=== PATIENT | male | born 1950 | race Caucasian/White ===

== ENCOUNTER 2021-02-21 13:47 | Emergency (ER) | payer MEDICARE, SELFPAY ==
--- NOTE | ~2021-02-21 | CT_ITS ---
EXAMINATION: CTA chest PE protocol DATE: 02/21/2021 15:54 INDICATION: Shortness of breath, weakness, weight loss, and elevated d-dimer TECHNIQUE: Computed tomography angiography (CTA) of the chest was performed with 100 mL Omnipaque-350 intravenous contrast timed to evaluate the pulmonary arteries. Coronal maximum intensity projection 3D-reconstructions were created by the technologist. The dose-length product (DLP) was 224.07 mGy-cm. Automated exposure control and iterative reconstruction technique were employed. COMPARISON: 01/01/2010 FINDINGS: The pulmonary arteries are well-opacified. No pulmonary embolism is identified. There is mi ld emphysema. There are moderate bilateral pleural effusions. Cardiomegaly is noted. There is no pneu mothorax. There is mild atelectasis of the lingula and passive dependent atelectasis of the lower lob es. There are chronic, mildly enlarged right paratracheal lymph nodes, likely reactive. There is mode rate thoracic spondylosis. IMPRESSION: 1. No pulmonary embolism. 2. Moderate-sized pleural effusions. 3. Cardiomegaly. Reviewed, dictated and finalized at location A.
--- NOTE | ~2021-02-21 | XR_ITS ---
EXAMINATION: XR chest 2V DATE: 02/21/2021 14:07 INDICATION: Dyspnea with exertion TECHNIQUE: PA and lateral views of the chest were obtained. COMPARISON: Chest radiograph dated 12/20/[address] dated 01/01/2010. FINDINGS: Small bilateral pleural effusions. Primary reticular opacities in bilateral lower lung zones which co uld represent associated atelectasis, mild pulmonary edema, pneumonia or some combination thereof. No pneumothorax. Mild cardiomegaly. Median sternotomy wires, ostial markers and mediastinal surgical cl ips consistent with prior coronary artery bypass grafting. Mild thoracic spondylosis. IMPRESSION: 1. Bibasilar opacities most likely congestive heart failure related mild pulmonary edema with small b ilateral pleural effusions. Differential includes pneumonia. Reviewed, dictated and finalized at location A. IMPRESSION: 1. Bibasilar opacities most likely congestive heart failure related mild pulmon kely edema with small bilateral pleural effusions. Differential includes pneumon ia.
--- NOTE | 2021-02-21 13:50 | ECG_ITS ---
Measurements Intervals [place] Rate: 60 P: 58 NH: 142 QRS: 7 QRSD: 117 T: 158 QT: 453 QTc: 453 Interpretive Statements SINUS RHYTHM INCOMPLETE LEFT BUNDLE BRANCH BLOCK BORDERLINE R WAVE PROGRESSION, ANTERIOR LEADS LEFT VENTRICULAR HYPERTROPHY AND ST-T CHANGE CONSIDER INFERIOR INFARCT, AGE INDETERMINATE ST-T WAVE ABNORMALITY IN LAT/HIGH LAT LEADS- CONSIDER ISCHEMIA BASELINE ARTIFACT- I, II, III, AVR, AVF, V2-V6 ABNORMAL ECG Electronically Signed On 02-21-2021 17:48:06 CDT by Patrick Daniels D.O.
[2021-02-21 13:51] VITALS: BP 171/58; PULSE 62; RESP 21; TEMP 36.9; O2SAT 97
[2021-02-21 13:54] VITALS: PULSE 61
[2021-02-21 14:09] LABS: Basophils Absolute Auto 0.1 K/mm3 (0.0-0.1); Basophils Percent Auto 1.5 % (0.2-1.2); Eosinophils Absolute Auto 0.2 K/mm3 (0-0.3); Eosinophils Percent Auto 2.8 % (0-4.4); Hematocrit 36.2 % (42.0-52.0); Hemoglobin 11.1 g/dL (14.0-18.0); Immature Granulocyte Absolute 0.01 K/mm3 (0.00-0.031); Immature Granulocyte Percent A 0.2 % (0-0.5); Immature Platelet Fraction Pct 10.4 % (0.9-11.2); Lymphocytes Absolute Auto 1.18 K/mm3 (0.9-3.2); Lymphocytes Percent Auto 22.2 % (18.3-44.2); Mean Corpuscular HGB Conc 30.7 g/dl (32-36); Mean Corpuscular Hemoglobin 25.5 pg (26-34); Mean Corpuscular Volume 83.2 fl (80-100); Mean Platelet Volume 12.8 fl (7.4-10.4); Monocytes Absolute Auto 0.5 K/mm3 (0.1-0.6); Monocytes Percent Auto 10.2 % (2.6-8.5); Neutrophils Absolute Auto 3.4 K/mm3 (1.3-6.7); Neutrophils Percent Auto 63.1 % (45.5-73.1); Platelet Count Result 118 k/mm3 (150-375); Red Blood Count 4.35 M/mm3 (4.6-6.20); Red Cell Distribution Width 17.2 % (11.5-14.5); White Blood Count 5.3 K/mm3 (4.5-10.0)
[2021-02-21 14:13] LABS: Anion Gap 5 mmol/L (8-16); Blood Urea Nitrogen 20 mg/dL (9-20); Calcium 9.3 mg/dL (8.4-10.2); Carbon Dioxide 23 mmol/L (22-30); Chloride 109 mmol/L (98-107); Estimated CRCL calculation 57 ml/min; Estimated Glomerular Filt Rate > 60; Glucose 100 mg/dL (75-110); Potassium 4.4 mmol/L (3.4-5.0); Sodium 137 mmol/L (137-145)
[2021-02-21 14:40] LABS: Alveolar/Arterial O2 Gradient 41.3 mmHg; Base Excess ABG 0.7 mEq/l (+/-2.0); Fractional Inspired Oxygen 21 %; HCO3 ABG 25.1 mEq/l (22.0-26.0); Oxygen Saturation ABG 92.1 % (95.0-100.0); PCO2 ABG 39.3 mmHg (35.0-45.0); PO2 ABG 61.4 mmHg (80.0-100.0); PO2 FiO2 Ratio Arterial Blood 2.92 %; Total Hemoglobin 11.8 g/dL (12.0-18.0); pH ABG 7.423 (7.350-7.450)
[2021-02-21 14:41] LABS: Device ROOM AIR; Modified Allen's Test Pass; Site Drawn RIGHT RADIAL
[2021-02-21 15:20] LABS: Basophils Absolute Auto 0.1 K/mm3 (0.0-0.1); Basophils Percent Auto 1.4 % (0.2-1.2); Eosinophils Absolute Auto 0.1 K/mm3 (0-0.3); Eosinophils Percent Auto 2.8 % (0-4.4); Hematocrit 39.6 % (42.0-52.0); Hemoglobin 12.1 g/dL (14.0-18.0); Immature Granulocyte Absolute 0.01 K/mm3 (0.00-0.031); Immature Granulocyte Percent A 0.2 % (0-0.5); Immature Platelet Fraction Pct 10.8 % (0.9-11.2); Lymphocytes Absolute Auto 1.01 K/mm3 (0.9-3.2); Lymphocytes Percent Auto 20.1 % (18.3-44.2); Mean Corpuscular HGB Conc 30.6 g/dl (32-36); Mean Corpuscular Hemoglobin 25.7 pg (26-34); Mean Corpuscular Volume 84.3 fl (80-100); Mean Platelet Volume 13.4 fl (7.4-10.4); Monocytes Absolute Auto 0.4 K/mm3 (0.1-0.6); Monocytes Percent Auto 8.2 % (2.6-8.5); Neutrophils Absolute Auto 3.4 K/mm3 (1.3-6.7); Neutrophils Percent Auto 67.3 % (45.5-73.1); Platelet Count Result 126 k/mm3 (150-375); Red Cell Distribution Width 17.4 % (11.5-14.5)
[2021-02-21 15:30] LABS: Prothrombin Time 14.2 Seconds (11.1-14.7)
[2021-02-21 15:33] LABS: D Dimer 2.15 ug/mL (<0.48)
[2021-02-21 15:43] LABS: Alanine Aminotransferase 20 U/L (4-50); Albumin Level 4.4 g/dL (3.5-5.1); Alkaline Phosphatase 129 U/L (38-126); Anion Gap 8 mmol/L (8-16); Aspartate Amino Transferase 29 U/L (17-59); Bilirubin,Total 1.5 mg/dL (0.2-1.3); Blood Urea Nitrogen 19 mg/dL (9-20); Calcium 9.8 mg/dL (8.4-10.2); Carbon Dioxide 25 mmol/L (22-30); Chloride 108 mmol/L (98-107); Estimated CRCL calculation 51 ml/min; Estimated Glomerular Filt Rate > 60; Glucose 96 mg/dL (75-110); Magnesium 1.9 mg/dL (1.6-2.3); Potassium 4.3 mmol/L (3.4-5.0); Sodium 141 mmol/L (137-145)
[2021-02-21 15:58] LABS: NT Pro B Type Natriuretic Pept 10500 pg/mL (5-100); Troponin I 0.035 ng/mL (0.000-0.034)
[2021-02-21 16:01] VITALS: BP 165/52; PULSE 67; RESP 21; O2SAT 91
[2021-02-21 16:53] VITALS: BP 165/49; PULSE 65; RESP 18; O2SAT 95
--- NOTE | 2021-02-21 16:53 | ED.GENADULT ---
HPI - General Adult General Chief complaint: Shortness of Breath/Dyspnea Stated complaint: SOB Time Seen by Provider: 02/21/21 13:56 Source: patient, family and RN notes reviewed Mode of arrival: ambulatory Limitations: no limitations History of Present Illness HPI narrative: Patient 70 years old white male came to the emergency room with his from home complaining of shortness of breath on exertion over the last 2 weeks. Patient denies any chest pain. Patient had chronic coughing which is not different than before. Patient denies any fever, chills, nausea, vomiting, abdominal pain or back pain. Patient had COVID-19 vaccination December 2020. History of hypertension, hyperlipidemia, coronary stents last 10/2011, CABG 2004, currently patient on aspirin and Plavix. Patient is a smoker, drinks occasionally, denying any drug use. Related Data Home Medications Medication Instructions Recorded Confirmed amlodipine 02/21/21 aspirin 81 mg PO DAILY 02/21/21 atorvastatin 02/21/21 carvedilol 02/21/21 cilostazol mg 02/21/21 clopidogrel 02/21/21 hydrochlorothiazide 02/21/21 irbesartan mg 02/21/21 Allergies Allergy/AdvReac Type Severity Reaction Status Date / Time No Known Allergies Allergy Unverified 02/21/21 13:56 Review of Systems Review of Systems: Narrative: CONSTITUTIONAL: Denies fever, chills, or sweats. EYES: Denies visual changes, redness, or discharge. ENT: Denies rhinorrhea, congestion, sore throat, or otalgia. CARDIOVASCULAR: Denies chest pain, palpitations, or edema. RESPIRATORY: Denies cough or dyspnea. GASTROINTESTINAL: Denies abdominal pain, nausea, vomiting, or diarrhea. GENITOURINARY: Denies dysuria or hematuria. SKIN: Denies rash or itching. MUSCULOSKELETAL: Denies back pain, joint pain, or myalgia. NEUROLOGIC: Denies headache, numbness, or weakness. PSYCHIATRIC: Denies anxiety or depression. PMFSH Social History Social History Alcohol intake: current Gender identity (if verbalized by the patient): Male Exam Narrative: Exam Narrative: General appearance: Well-developed, well-nourished Skin: Normal color Head: Normocephalic, nontraumatic Eyes: Clear conjunctiva ENT: Oropharynx normal, ears normal, nose normal Neck: Supple, nontender Chest and respiratory: Slight diminution of air entry bilaterally. Heart: Regular rate/rhythm Abdomen: Soft, nontender, no organomegaly, quiet bowel sounds Vascular: Normal peripheral pulses, normal capillary refill. 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 Although my lengthy explanation that he have NSTEMI and congestive heart failure and leaving AMA can put him at risk for sudden Date: 02/21/21 Time: 17:07 Vital Signs Vital signs: Vital Signs Pulse Rate 62 02/21/21 13:51 Respiratory Rate 21 H 02/21/21 13:51 Blood Pressure 171/58 H 02/21/21 13:51 Pulse Oximetry 97 02/21/21 13:51 Pulse Rate 67 02/21/21 16:01 Respiratory Rate 21 H 02/21/21 16:01 Blood Pressure 165/52 H 02/21/21 16:01 Pulse Oximetry 91 02/21/21 16:01 Medical Decision Making MDM Narrative Medical decision making narrative: Shortness of breath on exertion Please look at the differential diagnosis below. Labs, ABG on room air, chest x-ray ordered. Further plan to follow Differential Diagnosis Differential Diagnosi
[2021-02-21] MEDS: FUROSEMIDE INJ 40 MG/4 ML VIAL 60 MG IV PUSH (17:12)
[2021-02-21 17:21] VITALS: BP 146/62; PULSE 58; RESP 20; O2SAT 94
== END 2021-02-21 17:23 | disposition left against medical advice (07) ==
PROVIDERS: Emergency Medicine; Emergency Provider Emergency Medicine; PCP Internal Medicine
DX: I21.4 Non-ST elevation (NSTEMI) myocardial infarction (principal); I50.9 Heart failure, unspecified; I10 Essential (primary) hypertension; E78.5 Hyperlipidemia, unspecified; Z95.5 Presence of coronary angioplasty implant and graft; I25.10 Atherosclerotic heart disease of native coronary artery without angina pectoris; Z95.1 Presence of aortocoronary bypass graft; Z79.02 Long term (current) use of antithrombotics/antiplatelets; Z79.82 Long term (current) use of aspirin; F17.200 Nicotine dependence, unspecified, uncomplicated; I51.7 Cardiomegaly
CPT/HCPCS: 36415; 36600; 71046; 71275; 80048; 80053; 82805; 83735; 83880; 84484; 85025; 85055; 85380; 85610; 85730; 87040; 93005; 96374; 99284; J1940; Q9967

== ENCOUNTER 2022-05-03 15:43 | Outpatient (CLI) | payer MEDICARE, SELFPAY ==
--- NOTE | ~2022-05-03 | CT_ITS ---
EXAMINATION:CT lung screening DATE: 05/03/2022 16:13 INDICATION: Personal history of tobacco dependence. Current smoker with 80 pack year history. TECHNIQUE: Computed tomography (CT) of the chest was performed without intravenous contrast. Automate d exposure control and iterative reconstruction technique were employed. The dose-length product (DLP ) was 65.59 mGy-cm. COMPARISON: Chest CT 02/21/2021 FINDINGS: There is moderate emphysema. There is mild scarring at the lung apices. There is smooth sep shahla thickening in the inferior lungs, likely mild pulmonary edema. There is a small left pleural effu miguelina. There is left atrial and left ventricular enlargement of the heart. There are coronary artery c alcifications. There are changes of coronary artery bypass grafting. No pericardial effusion. There i s chronic mild mediastinal lymphadenopathy, likely reactive. Calcified left hilar lymph nodes are con sistent with old granulomatous disease. There is a new 7 mm mass in left mainstem bronchus that may b e mucus. Moderate thoracic spondylosis. IMPRESSION: 1. Lung-RADS category 3: Probably benign. Further evaluation is recommended with noncontrast low-dose chest CT in 6 months. 2. Mild pulmonary edema with small left pleural effusion. Reviewed, dictated and finalized at location A. IMPRESSION: 1. Lung-RADS category 3: Probably benign. Further evaluation is recommended wit h noncontrast low-dose chest CT in 6 months. 2. Mild pulmonary edema with small left pleural effusion.
== END 2022-05-03 15:44 | disposition home or self-care (01) ==
PROVIDERS: PCP Internal Medicine; Visit Provider Internal Medicine
DX: Z12.2 Encounter for screening for malignant neoplasm of respiratory organs (principal); Z87.891 Personal history of nicotine dependence; R91.8 Other nonspecific abnormal finding of lung field; J81.1 Chronic pulmonary edema
CPT/HCPCS: 71271

== ENCOUNTER 2022-09-19 13:32 | Inpatient (IN) | payer MEDICARE, SELFPAY ==
[2022-09-19] VITALS (40 sets, daily range): BP systolic 123–157; BP diastolic 42–120; PULSE 58–76; RESP 18–31; TEMP 36.8–37.8; O2SAT 85–100; BMI 22.4
--- NOTE | ~2022-09-19 | XR_ITS ---
EXAMINATION: XR chest 1V portable INDICATION: Shortness of breath TECHNIQUE: Portable AP chest at 1357 hours COMPARISON: 02/21/2021 FINDINGS: Cardiomegaly is noted. There are airspace opacities of the lung bases, right greater than l eft. Small pleural effusions are present. There is no pneumothorax. Median sternotomy wires and media stinal surgical clips are seen, likely from prior coronary artery bypass grafting. IMPRESSION: 1. Right basilar airspace opacities, consistent with atelectasis versus pneumonia versus pulmonary ed lam. 2. Cardiomegaly. 3. Small pleural effusions. Reviewed, dictated and finalized at location A. [facility] IMPRESSION: 1. Right basilar airspace opacities, consistent with atelectasis versus pneumon ia versus pulmonary edema. 2. Cardiomegaly. 3. Small pleural effusions.
--- NOTE | ~2022-09-19 | XR_ITS ---
Portable chest x-ray Comparison: 09/19/2022 Clinical History: Pulmonary edema Findings: Probable minimal bibasilar pulmonary edema noted. Cardiomediastinal silhouette is stable, status post CABG. Bones and soft tissues are unremarkable. Impression: Probable minimal bibasilar pulmonary edema. Reviewed, dictated and finalized at [facility]. 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
--- NOTE | 2022-09-19 13:41 | ECG_ITS ---
Measurements Intervals [place] Rate: 70 P: 28 [place]: 142 QRS: -6 QRSD: 122 T: 136 QT: 410 QTc: 444 Interpretive Statements SINUS RHYTHM POSSIBLE LEFT ATRIAL ENLARGEMENT [-0.1mV P-WAVE IN V1/V2] INTRAVENTRICULAR CONDUCTION DELAY NONSPECIFIC ST-T CHANGES COMPARED TO ECG 02/21/2021 13:56:10 NO SIGNIFICANT CHANGES Electronically Signed On 09-19-2022 14:53:52 [employer] by Regi Miguel M.D.
--- NOTE | 2022-09-19 14:09 | ED.GENADULT ---
HPI - General Adult General Chief complaint: Shortness of Breath/Dyspnea Stated complaint: dyspnea Time Seen by Provider: 09/19/22 13:54 History of Present Illness HPI narrative: 72-year-old male presenting to the emergency department for evaluation of worsening shortness of breath. Patient states on Tuesday he did develop fever and cough. Patient reports that over the course of the last few days the symptoms have worsened. History of hypertension, hyperlipidemia, coronary stents last 10/2011, CABG 2004, currently patient on aspirin and Plavix.? Patient is a smoker (quit 4 days ago), drinks occasionally, denying any drug use. Related Data Home Medications Medication Instructions Recorded Confirmed amlodipine 10 mg tablet 10 mg PO DAILY 02/21/21 09/19/22 atorvastatin 80 mg tablet 80 mg PO DAILY 02/21/21 09/19/22 carvedilol 25 mg tablet 25 mg PO BID 02/21/21 09/19/22 clopidogrel 75 mg tablet 75 mg PO DAILY 02/21/21 09/19/22 hydrochlorothiazide 25 mg tablet 25 mg PO TID 03/16/22 09/19/22 isosorbide mononitrate 60 mg 60 mg PO DAILY 03/16/22 09/19/22 tablet,extended release 24 hr rivaroxaban 20 mg tablet (Xarelto) 20 mg PO DAILY 09/13/22 09/19/22 citalopram 20 mg tablet 20 mg PO DAILY 09/19/22 09/19/22 Allergies Allergy/AdvReac Type Severity Reaction Status Date / Time No Known Allergies Allergy Unverified 09/13/22 13:03 Review of Systems Review of Systems: CONSTITUTIONAL: Denies fever, chills, or sweats. EYES: Denies visual changes, redness, or discharge. ENT: Denies rhinorrhea, congestion, sore throat, or otalgia. CARDIOVASCULAR: Denies chest pain, palpitations, or edema. RESPIRATORY: See HPI GASTROINTESTINAL: Denies abdominal pain, nausea, vomiting, or diarrhea. GENITOURINARY: Denies dysuria or hematuria. SKIN: Denies rash or itching. MUSCULOSKELETAL: Denies back pain, joint pain, or myalgia. NEUROLOGIC: Denies headache, numbness, or weakness. [facility] Past Medical History Medical History Stroke Family History Family History Mother Heart disease Cerebrovascular accident Social History Social History Smoking packs per day: 0.5 Smoking cigarettes per day: 10.0 Years smoked: 56 Smoking pack-years: 28.00 Smoking status: Former smoker Tobacco type: cigarettes Smoking end date: 09/15/22 Alcohol intake: current Substance use: never Lack of Transportation: No Lack of Food: Sometimes True Current Housing: I Have Housing Concerned About Future Housing: No Difficulty Paying Gas/Electric Bills: No Difficulty Paying for Meds: No Currently Unemployed: No Education: Associate Degree Difficulty w/ Childcare or Family Care: No Gender identity (if verbalized by the patient): Male Spiritual care concerns: No Exam Narrative: APPEARANCE: Well appearing, no pain, no distress, well-nourished. HEAD: normocephalic, atraumatic. EYES: PERRLA/EOMI, conjunctivae clear. NOSE: Normal no drainage EARS:TMS clear with good light reflex. NECK: Supple. No adenopathy, no masses. RESPIRATORY: Airway patent, respirations nonlabored. Minimal breath sounds with some expiratory wheeze CARDIOVASCULAR: Regular rate and rhythm without murmurs rubs or gallops. ABDOMINAL: Soft, nontender, nondistended, normal bowel sounds MUSCULOSKELETAL: Moves all extremities. Strength/ROM intact, No edema, No calf tenderness. NEURO: Alert. Cranial nerves II through XII intact. Grossly intact SKIN: Warm, dry. Normal Color Course Course Emergency Course: Patient is afebrile with no leukocytosis. Patient's CMP is within the patient normal baseline. Patient's BNP is elevated at 20,000. Patient was negative for COVID and for flu. Chest x-ray was concerning for atelectasis versus pneumonia versus pulmonary edema. Patient did have a low-grade fever on arrival
[2022-09-19 14:19] LABS: Basophils Percent Auto 0.9 % (0.2-1.2); Eosinophils Absolute Auto 0.1 K/mm3 (0-0.3); Eosinophils Percent Auto 1.8 % (0-4.4); Hematocrit 33.3 % (42.0-52.0); Hemoglobin 10.2 g/dL (14.0-18.0); Immature Granulocyte Absolute 0.02 K/mm3 (0.00-0.031); Immature Granulocyte Percent A 0.4 % (0-0.5); Lymphocytes Percent Auto 6.7 % (18.3-44.2); Mean Corpuscular HGB Conc 30.6 g/dl (32-36); Mean Corpuscular Volume 84.9 fl (80-100); Mean Platelet Volume 12.7 fl (7.4-10.4); Monocytes Absolute Auto 0.5 K/mm3 (0.1-0.6); Monocytes Percent Auto 11.6 % (2.6-8.5); Neutrophils Absolute Auto 3.5 K/mm3 (1.3-6.7); Neutrophils Percent Auto 78.6 % (45.5-73.1); Platelet Count Result 123 k/mm3 (150-375); Red Blood Count 3.92 M/mm3 (4.6-6.20); Red Cell Distribution Width 17.2 % (11.5-14.5); White Blood Count 4.5 K/mm3 (4.5-10.0)
[2022-09-19 14:41] LABS: Alanine Aminotransferase 25 U/L (6-50); Albumin Level 4.1 g/dL (3.5-5.1); Alkaline Phosphatase 131 U/L (38-126); Anion Gap 7 mmol/L (8-16); Aspartate Amino Transferase 28 U/L (17-59); Bilirubin,Total 1.4 mg/dL (0.2-1.3); Blood Urea Nitrogen 20 mg/dL (9-20); Calcium 8.8 mg/dL (8.4-10.2); Carbon Dioxide 23 mmol/L (22-30); Chloride 107 mmol/L (98-107); Estimated CRCL calculation 43 ml/min; Estimated Glomerular Filt Rate 60; Glucose 117 mg/dL (65-110); Potassium 4.2 mmol/L (3.4-5.0); Sodium 137 mmol/L (137-145)
[2022-09-19 14:50] LABS: NT Pro B Type Natriuretic Pept 20400 pg/mL (5-100)
[2022-09-19 14:53] LABS: Influenza A QL RT-PCR Negative (Negative); Influenza B QL RT-PCR Negative (Negative); RSV RNA, RT-PCR Negative (Negative); SARS-CoV-2 RNA PCR Negative
[2022-09-19] MEDS: ALBUTEROL SULFATE NEB 2.5 MG/3 ML INH 5 MG INHALATION (16:29)
--- NOTE | 2022-09-19 17:00 | PM.IMHP ---
H&P: HPI History of Present Illness Date/Time: 09/19/22 17:00 Chief Complaint: Shortness of breath. Narrative: This is a 72-year-old male smoker with COPD, coronary artery disease is status post stand, paroxysmal atrial fibrillation on chronic anticoagulation, and hypertension who presented to the emergency department for evaluation of shortness of breath. He saw ENT on Tuesday to have his ears cleaned out and was feeling just fine at that time. On Tuesday he developed a cough which is different than his typical smoker's cough and he has been coughing up of light brown colored phlegm. He also endorses mild congestion, decreased appetite, fatigue, and increasing shortness of breath on lesser and lesser exertion. His had similar symptoms a couple of weeks ago however he seemed to be doing fine up until Tuesday. Also of note he was having swelling in his feet and ankles in couple of weeks ago and was started on Lasix for 5 days with some improvement. He has also been taking Sarah-D at home without a whole lot of benefit. More recently he has had 2 pillow orthopnea and he seems to be more short of breath and coughing issues when lying supine. Today he decided come in for evaluation reports that it took him 30 minutes to get dressed as he had to stop and rest frequently due to fatigue and shortness of breath while putting on his clothes. He denies fever, chills, sweats, syncope, near syncope, headache, neck ache, chest pain, pleuritic pain, palpitations, paroxysmal nocturnal dyspnea, nausea, vomiting, and diarrhea. Review of Systems Review of Systems: Twelve systems were reviewed and are negative except for as per HPI. [facility] Past Medical History Medical History (Updated 09/19/22 @ 22:08 by Kiah Butts PA-C) Carotid artery disease Chronic anticoagulation Patient on Xarelto for history of stroke and peripheral vascular disease. Coronary artery disease Hemorrhagic stroke (1999) Hyperlipidemia Hypertension Kidney stones Left leg DVT Tobacco abuse Surgical History Surgical History (Updated 09/19/22 @ 21:58 by Kiah Butts PA-C) History of cardiac catheterization History of coronary artery bypass graft History of coronary artery stent placement History of left-sided carotid endarterectomy History of lithotripsy Family History Family History Mother Heart disease Cerebrovascular accident Social History Social History (Updated 09/19/22 @ 22:00 by Kiah Butts PA-C) Social History: Surrogate medical decision maker: Merna Loya, spouse. Code status: Full code. Smoking packs per day: 1 Smoking cigarettes per day: 20.0 Years smoked: 56 Smoking pack-years: 56.00 Smoking status: Former smoker Tobacco type: cigarettes Smoking end date: 09/15/22 Alcohol intake: current Alcohol use details: Social alcohol use in moderation. Substance use: never Lack of Transportation: No Lack of Food: Sometimes True Current Housing: I Have Housing Concerned About Future Housing: No Difficulty Paying Gas/Electric Bills: No Difficulty Paying for Meds: No Currently Unemployed: No Education: Associate Degree Difficulty w/ Childcare or Family Care: No Additional living arrangements comments: Lives with family in [place]. 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 Spiritual care concerns: No Meds Home Medications and Allergies Home Medications Medication Instructions Recorded Confirmed Type amlodipine 10 mg tablet 10 mg PO DAILY 02/21/21 09/19/22 History atorvastatin 80 mg tablet 80 mg PO DAILY 02/21/21 09/19/22 History carvedilol 25 mg tablet 25 mg PO BID 02/21/21 09/19/22 History clopidogrel 75 mg tablet 75 mg PO DAILY 02/21/21 09/19/22 History hydrochlorothiazide 25 mg tablet 25 mg PO TID 03/16/22 09/19/22 History isosorbide mononitrate 60 mg 60 mg PO
[2022-09-19] MEDS: FUROSEMIDE INJ 40 MG/4 ML VIAL IV PUSH (17:26)
--- NOTE | 2022-09-19 19:46 | ADMGEN ---
This patient, Favio Loya, was admitted to IMU Room 202-01. Patient/family oriented to hospital policies and general routines including ID bracelet, bed and alarms, visiting hours, pain management, procedures, bathroom and other care routines, personal items, smoking policy, room service/diet, and visiting hours. Information on how to activate the Rapid Response Team has been discussed. Patient/Family are encouraged to report perceived risks to care and to ask questions if they do not understand what they are told or what they should do.
[2022-09-19] MEDS: carvediloL 25 MG TABLET PO (23:09)
[2022-09-20] VITALS (21 sets, daily range): BP systolic 121–158; BP diastolic 39–61; PULSE 49–72; RESP 16–24; TEMP 36.3–37.1; O2SAT 93–99
[2022-09-20] MEDS: ALBUTEROL SULFATE NEB 2.5 MG/3 ML INH 5 MG INHALATION ×4 (02:33→21:25)
[2022-09-20] MEDS: IPRATROPIUM BR 0.02% INH SOLN 0.5 MG/2.5 ML VIAL INHALATION ×4 (02:33→21:25)
[2022-09-20 04:13] LABS: Hematocrit 28.1 % (42.0-52.0); Hemoglobin 8.6 g/dL (14.0-18.0); Mean Corpuscular HGB Conc 30.6 g/dl (32-36); Mean Corpuscular Hemoglobin 25.1 pg (26-34); Mean Corpuscular Volume 81.9 fl (80-100); Mean Platelet Volume 12.8 fl (7.4-10.4); Platelet Count Result 109 k/mm3 (150-375); Red Blood Count 3.43 M/mm3 (4.6-6.20); White Blood Count 2.9 K/mm3 (4.5-10.0)
[2022-09-20 04:27] LABS: Alanine Aminotransferase 25 U/L (6-50); Albumin Level 3.6 g/dL (3.5-5.1); Alkaline Phosphatase 106 U/L (38-126); Anion Gap 8 mmol/L (8-16); Aspartate Amino Transferase 30 U/L (17-59); Blood Urea Nitrogen 29 mg/dL (9-20); Calcium 8.1 mg/dL (8.4-10.2); Carbon Dioxide 23 mmol/L (22-30); Chloride 104 mmol/L (98-107); Estimated CRCL calculation 34 ml/min; Estimated Glomerular Filt Rate 46; Glucose 129 mg/dL (65-110); Magnesium 1.7 mg/dL (1.6-2.3); Potassium 3.5 mmol/L (3.4-5.0); Sodium 135 mmol/L (137-145)
[2022-09-20] MEDS: FUROSEMIDE INJ 40 MG/4 ML VIAL 20 MG IV PUSH (05:33)
[2022-09-20] MEDS: ATORVASTATIN 40 MG TABLET 80 MG PO (08:22)
[2022-09-20] MEDS: CLOPIDOGREL BISULFATE 75 MG TABLET PO (08:22)
[2022-09-20] MEDS: amLODIPine BESYLATE 5 MG TABLET 10 MG PO (08:22)
[2022-09-20] MEDS: hydroCHLOROthiazide 25 MG TABLET PO (08:23)
[2022-09-20] MEDS: carvediloL 25 MG TABLET PO ×2 (08:23→20:38)
[2022-09-20] MEDS: CITALOPRAM HYDROBROMIDE 20 MG TABLET PO (08:23)
[2022-09-20] MEDS: POTASSIUM CHLORIDE 20 MEQ TABLET.ER 40 MEQ PO (08:23)
[2022-09-20] MEDS: ISOSORBIDE MONONITRATE 60 MG TAB.ER.24H PO (08:23)
--- NOTE | 2022-09-20 13:29 | PM.IMPN ---
Progress Note: A&P Assessment and Plan (1) Hypoxia: Code(s): R09.02 - Hypoxemia Status: Acute Assessment and Plan: Acute respiratory failure with hypoxemia, Secondary to a combination of COPD, pneumonia, and suspected congestive heart failure. Pulmonary embolism is unlikely by history; he is on long-term Xarelto and states compliance. Echocardiogram ordered. (2) Pneumonia involving right lung: Code(s): J18.9 - Pneumonia, unspecified organism Status: Acute Assessment and Plan: Acute lobar pneumonia, community-acquired pneumonia. He has been appropriately started on azithromycin and ceftriaxone for evidence of right-sided pneumonia on imaging. Sputum to be attempted for culture. Check urinary antigens. (3) Chronic obstructive pulmonary disease: Code(s): J44.9 - Chronic obstructive pulmonary disease, unspecified Status: Acute Assessment and Plan: He has some mild wheezing on exam and systemic steroids are not indicated currently. Continue scheduled bronchodilators. (4) Tobacco abuse: Code(s): Z72.0 - Tobacco use Status: Acute Assessment and Plan: Smoking cessation is imperative in was discussed. The patient tells me that he quit 4 days ago and seems motivated. (5) Coronary artery disease: Code(s): I25.10 - Atherosclerotic heart disease of elem coronary artery without angina pectoris Status: Acute Assessment and Plan: Currently asymptomatic. A kinetics segments on echocardiogram. Will consult Cardiology. Continue telemetry. Continue statin, beta-catie, and Plavix. (6) Hypertension: Code(s): I10 - Essential (primary) hypertension Status: Acute Assessment and Plan: Blood pressures were reviewed and they are stable. Continue antihypertensives and monitor. 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 (8) Suspected congestive heart failure: Code(s): R09.89 - Other specified symptoms and signs involving the circulatory and respiratory systems Status: Acute Assessment and Plan: Cautious diuresis with close monitor volume status and renal function. Daily weight and repeat chest x-ray in a.m.. Time Spent With Patient Time with patient: 15 - 25 minutes Subjective Date/time seen: 09/20/22 13:29 Interval history: This is a 72-year-old male smoker with COPD, coronary artery disease s/p stent, paroxysmal atrial fibrillation on chronic anticoagulation, and hypertension who presented to the emergency department for evaluation of shortness of breath. He was having swelling in his feet and ankles in couple of weeks ago and was started on Lasix for 5 days with some improvement. He has had 2 pillow orthopnea and he seems to be more short of breath and coughing issues when lying supine. Yesterday he decided come in for evaluation . He denies chest pain, palpitation, of fevers. S: Patient was seen and examined at the bedside. He is breathing comfortably. He is feeling a lot better. Review of Systems Review of Systems: All systems reviewed & are unremarkable except as noted in HPI and below Constitutional: Constitutional: Reports as per HPI, Reports no additional constitutional complaints, Denies headache(s), Denies poor appetite and Denies weight loss Eyes: Eyes: Reports as per HPI and Denies blurry vision ENT: Reports system reviewed and no additional complaints, except as documented, Denies otalgia, Reports epistaxis, Denies nasal congestion and Denies sore throat Cardiovascular: Cardiovascular: Reports as per HPI and Reports no additional cardiovascular complaints Respiratory: Respiratory: Reports as per HPI, Reports chest congestion, Reports cough, Denies pain on inspiration, Reports dyspnea, Reports dyspnea on exertion and Denies wheezing Gastrointestinal:
[2022-09-20] MEDS: POTASSIUM CHLORIDE 20 MEQ PACKET (FOR LIQUID) PO (14:25)
[2022-09-20 14:45] LABS: Anion Gap 5 mmol/L (8-16); Blood Urea Nitrogen 35 mg/dL (9-20); Calcium 8.2 mg/dL (8.4-10.2); Carbon Dioxide 23 mmol/L (22-30); Chloride 104 mmol/L (98-107); Estimated CRCL calculation 28 ml/min; Estimated Glomerular Filt Rate 37; Glucose 112 mg/dL (65-110); Potassium 4.1 mmol/L (3.4-5.0); Sodium 132 mmol/L (137-145)
[2022-09-20 14:47] LABS: Magnesium 1.6 mg/dL (1.6-2.3)
--- NOTE | 2022-09-20 15:01 | PM.CNCAR ---
Assessment and Plan Assessment and plan (1) Coronary artery disease: Code(s): I25.10 - Atherosclerotic heart disease of [place] coronary artery without angina pectoris Status: Acute Assessment and Plan: Longstanding history of CAD with previous revascularization as detailed below. This appears stable. Not having any anginal symptoms. Continue aspirin, high-intensity statin. (2) CHF (congestive heart failure): Code(s): I50.9 - Heart failure, unspecified Status: Acute Assessment and Plan: Combined acute systolic and diastolic heart failure exacerbation. Echocardiogram from this hospitalization shows a decrease in LV systolic function with an EF of 40-45%, whereas previously it had been measured to 60% in June of 2021. Improved with IV diuresis. He has developed an acute kidney injury. Would recommend holding diuretic. Will SGLT 2 inhibitor to his regimen. Can add ARNI and MRA when kidney function normalizes. Probably discharge in the next 24-48 hours. He can follow up with his regular [place] operator, Dr. Becerril at [facility] upon discharge. (3) Chronic anticoagulation: Code(s): Z79.01 - care home (current) use of anticoagulants Status: Acute History of Present Illness History of Present Illness Consult date/time: 09/20/22 15:01 Requesting physician: Zohreh Barksdale MD Consult reason: congestive heart failure Reason For Visit: CHF,COPD,Pneumonia,Hypoxia Narrative: Mr. Loya is a 72-year-old male with history of coronary artery disease status post triple-vessel CABG with VANG to LAD, SVG to OM, and occluded SVG to RCA status post PCI to the RCA and recent PCI to the SVG to the OM. He also has extensive peripheral vascular disease. He also has a history of atrial fibrillation, nonsustained VT, hyperlipidemia, hypertension, and ischemic cardiomyopathy with improved EF of 55-60% from a NICOLE performed in June of 2021. He enters the hospital now with a chief complaint of shortness of breath. He had been experiencing progressive shortness of breath for about 3-4 days prior to coming to the hospital. Also complaining of orthopnea. He denies any chest pain, swelling, syncope, or presyncope. He has been receiving IV furosemide and has noticed significant improvement in his breathing. He remains on a small amount of oxygen. Generally, feeling much better after diuresis and wants to go home. Review of Systems Constitutional: Constitutional: Denies chills, Denies fever(s), Denies headache(s) and Denies malaise Eyes: Eyes: Denies change in vision ENT: Reports Normal hearing present, Denies dizziness, Denies headache(s) and Denies hearing loss Cardiovascular: Cardiovascular: Denies chest pain, Denies chest pain at rest, Denies chest pain with activity, Denies syncope, Denies pedal edema, Denies leg edema, Denies lightheadedness, Denies palpitations, Reports dyspnea and Reports dyspnea on exertion Respiratory: Respiratory: Denies cough, Reports dyspnea, Reports dyspnea on exertion and Denies wheezing Gastrointestinal: Gastrointestinal: Denies abdominal pain, Denies constipation and Denies diarrhea Genitourinary: Genitourinary: Denies hematuria and Denies dysuria Musculoskeletal: Musculoskeletal: Denies myalgias, Denies arthralgias and Denies muscle cramps Integumentary/Breasts: Skin/Breast: Denies wounds Neurologic: Reports Normal hearing present, Denies confusion, Denies dizziness, Denies syncope and Denies headache(s) Psychiatric: Psychiatric: Denies anxiety, Denies confusion and Denies depression Endocrine: Endocrine: Denies cold intolerance, Denies flushing, Denies heat intolerance and Denies palpitations Hematologic/Lymphatic: Hematologic/Lymphatic: Denies easy bleeding and Denies easy bruising Allergic/Immunologic: Allergic/Immunologic: Denies wheezing PMFSH Past Medical History Medical History Carotid artery dis
[2022-09-20] MEDS: RIVAROXABAN 20 MG TABLET PO (17:05)
--- NOTE | 2022-09-20 22:10 | ECHO_ITS ---
Patient Info Name: Favio Loya Age: 72 years : 1950 Gender: Male Ht: 65 in Wt: 134 lbs BSA: 1.67 m2 HR: 58 bpm BP: 141 / 48 mmHg Heart Rhythm: Sinus Rhythm Technical Quality: Fair Exam Date: 09/20/2022 9:36 AM Exam Location: [facility] Pulmonary Patient Status: Inpatient Admit Date: 09/19/2022 Staff Ordering Physician: Kiah Butts PA-C [employer] [address] Forms: Sally Munoz RDCS Attending Provider: Jose Minaya MD Referring Physician: Beckie FRY; Exam Type: CA echo doppler color flow Study Info Indications - HTN, Suspected CHF - CAD Complete two-dimensional, color flow and Doppler transthoracic echocardiogram is performed. Summary 1. Complete two-dimensional, color flow and Doppler transthoracic echocardiogram is performed. 2. Left ventricular chamber dimension is mildly enlarged. 3. Left ventricular systolic function is moderately reduced, estimated at 40-45%. 4. There is mildly increased left ventricular wall thickness. 5. The left ventricular diastolic function is grade III diastolic dysfunction. 6. The inferior wall, basal inferoseptal, basal inferolateral wall, and mid inferolateral wall are akinetic. 7. The apical septum, apical cap, mid inferoseptal, basal anteroseptal, and mid anteroseptal are hypokinetic. 8. Left atrial chamber dimension is mildly enlarged. 9. Right atrial chamber dimension is mildly enlarged. 10. The mitral valve annulus is mildly calcified. 11. There is mild mitral valve regurgitation. 12. There is moderate tricuspid valve regurgitation. 13. Moderate pulmonary hypertension, estimated pulmonary arterial systolic pressure is 49 mmHg. 14. Pleural effusion is seen. Left Ventricle Left ventricular chamber dimension is mildly enlarged. Left ventricular systolic function is moderately reduced, estimated at 40-45%. There is mildly increased left ventricular wall thickness. The left ventricular diastolic function is grade III diastolic dysfunction. The inferior wall, basal inferoseptal, basal inferolateral wall, and mid inferolateral wall are akinetic. The apical septum, apical cap, mid inferoseptal, basal anteroseptal, and mid anteroseptal are hypokinetic. All other stubbs appear normal. Right Ventricle Right ventricular chamber dimension is normal. Right ventricular systolic function is normal. Left Atria Left atrial chamber dimension is mildly enlarged. Right Atria Right atrial chamber dimension is mildly enlarged. Atrial Septum Intact interatrial septum visualized by color flow imaging. Aortic Valve The aortic valve is trileaflet. There is mild aortic valve sclerosis. There is no aortic valve stenosis. There is trace aortic valve regurgitation. Pulmonic Valve The pulmonic valve is normal. There is no pulmonic valve stenosis. There is trace pulmonic regurgitation. Mitral Valve There is no mitral valve stenosis. There is mild mitral valve regurgitation. The mitral valve annulus is mildly calcified. Tricuspid Valve The tricuspid valve leaflets are normal. There is no significant tricuspid valve stenosis. There is moderate tricuspid valve regurgitation. Moderate pulmonary hypertension, estimated pulmonary arterial systolic pressure is 49 mmHg. Pericardium/Pleural There is trivial pericardial effusion. Pleural effusion is seen. Inferior Vena Cava Dilated inferior vena cava with <50% collapse upon inspiration consistent with elevated right atrial pressur
[2022-09-21] VITALS (12 sets, daily range): BP systolic 135–143; BP diastolic 46–50; PULSE 51–72; RESP 12–18; TEMP 36.1–36.6; O2SAT 90–98
[2022-09-21] MEDS: IPRATROPIUM BR 0.02% INH SOLN 0.5 MG/2.5 ML VIAL INHALATION ×3 (02:28→13:19)
[2022-09-21] MEDS: ALBUTEROL SULFATE NEB 2.5 MG/3 ML INH 5 MG INHALATION ×3 (02:29→13:19)
[2022-09-21] MEDS: EMPAGLIFLOZIN 10 MG TABLET PO (08:28)
[2022-09-21] MEDS: carvediloL 25 MG TABLET PO ×2 (08:28→21:03)
[2022-09-21] MEDS: amLODIPine BESYLATE 5 MG TABLET 10 MG PO (08:29)
[2022-09-21] MEDS: POTASSIUM CHLORIDE 20 MEQ TABLET.ER 40 MEQ PO (08:29)
[2022-09-21] MEDS: CLOPIDOGREL BISULFATE 75 MG TABLET PO (08:29)
[2022-09-21] MEDS: CITALOPRAM HYDROBROMIDE 20 MG TABLET PO (08:29)
[2022-09-21] MEDS: hydroCHLOROthiazide 25 MG TABLET PO (08:29)
[2022-09-21] MEDS: ATORVASTATIN 40 MG TABLET 80 MG PO (08:29)
[2022-09-21] MEDS: ISOSORBIDE MONONITRATE 60 MG TAB.ER.24H PO (08:29)
--- NOTE | 2022-09-21 08:55 | PM.PNCARD ---
Progress Note: A&P Assessment and Plan (1) CHF (congestive heart failure): Code(s): I50.9 - Heart failure, unspecified Status: Acute Assessment and Plan: Combined acute systolic and diastolic heart failure exacerbation. Echocardiogram from this hospitalization shows a decrease in LV systolic function with an EF of 40-45%, whereas previously it had been measured at 60% in June of 2021. Shortness of breath has improved with IV diuresis. Creatinine 1.6 today(1.8) (baseline 1.2). Diuretic being held again today. Added SGLT 2 inhibitor to his regimen. Can add ARNI and MRA when kidney function normalizes. Probably discharge in the next 24 hours. He can follow up with his regular deburring technician, Dr. Becerril at [facility] upon discharge. (2) Coronary artery disease: Code(s): I25.10 - Atherosclerotic heart disease of [place] coronary artery without angina pectoris Status: Acute Assessment and Plan: Longstanding history of CAD with previous revascularization as detailed in HPI. This appears stable. Not having any anginal symptoms. Continue aspirin, high-intensity statin. 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 Asymptomatic. He was given 2g Mag for Mag 1.6. Continue to monitor on telemetry for any further ventricular ectopy. Already on beta catie. Subjective Date/time seen: 09/21/22 08:55 Cardiology follow up for CAD, CHF, Afib Feels better today. No shortness of breath or orthopnea. He denies any palpitations or chest pain. Review of Systems Constitutional: Constitutional: Denies chills, Denies fever(s), Denies headache(s) and Denies malaise Eyes: Eyes: Denies change in vision ENT: Reports Normal hearing present, Denies dizziness, Denies headache(s) and Denies hearing loss Cardiovascular: Cardiovascular: Denies chest pain, Denies chest pain at rest, Denies chest pain with activity, Denies syncope, Denies pedal edema, Denies leg edema, Denies lightheadedness, Denies palpitations, Reports dyspnea and Reports dyspnea on exertion Respiratory: Respiratory: Denies cough, Reports dyspnea, Reports dyspnea on exertion and Denies wheezing Gastrointestinal: Gastrointestinal: Denies abdominal pain, Denies constipation and Denies diarrhea Genitourinary: Genitourinary: Denies hematuria and Denies dysuria Musculoskeletal: Musculoskeletal: Denies myalgias, Denies arthralgias and Denies muscle cramps Integumentary/Breasts: Skin/Breast: Denies wounds Neurologic: Reports Normal hearing present, Denies confusion, Denies dizziness, Denies syncope and Denies headache(s) Psychiatric: Psychiatric: Denies anxiety, Denies confusion and Denies depression Endocrine: Endocrine: Denies cold intolerance, Denies flushing, Denies heat intolerance and Denies palpitations Hematologic/Lymphatic: Hematologic/Lymphatic: Denies easy bleeding and Denies easy bruising Allergic/Immunologic: Allergic/Immunologic: Denies wheezing Exam Const: General: comfortable, no acute distress, alert and awake; No confusion Orientation/consciousness: patient oriented x3 and No confusion HENMT: Head: normal to inspection Eyes: General: appearance normal, both eyes and all related structures Pupils: Equal, round and reactive pupils present Neck: Neck: normal visual inspection, supple and no JVD Carotids: bruit (Louder on left ) bilateral Resp: Effort & Inspection: normal respiratory effort Auscultation: clear to auscultation bilaterally and rales (bases) bilateral Cardio: Rate: regular rate Rhythm: regular rhythm Heart sounds: S1 normal heart sound present, S2 normal heart sound present and no murmurs GI: Auscultation: normal bowel sounds Skin: General s
[2022-09-21] MEDS: MAGNESIUM SULF 2 GM/WATER 50ML 2 GM/50 ML BAG IVPB (11:10)
[2022-09-21 11:13] LABS: Anion Gap 8 mmol/L (8-16); Blood Urea Nitrogen 40 mg/dL (9-20); Calcium 8.2 mg/dL (8.4-10.2); Carbon Dioxide 25 mmol/L (22-30); Chloride 106 mmol/L (98-107); Estimated CRCL calculation 31 ml/min; Estimated Glomerular Filt Rate 43; Glucose 114 mg/dL (65-110); Magnesium 1.7 mg/dL (1.6-2.3); Potassium 3.9 mmol/L (3.4-5.0); Sodium 139 mmol/L (137-145)
--- NOTE | 2022-09-21 12:50 | PM.IMPN ---
Progress Note: A&P Assessment and Plan (1) Hypoxia: Code(s): R09.02 - Hypoxemia Status: Acute Assessment and Plan: Acute respiratory failure with hypoxemia, Secondary to a combination of COPD, pneumonia, and suspected congestive heart failure. Pulmonary embolism is unlikely by history; he is on long-term Xarelto and states compliance. Echocardiogram on 09/20/2022 EF 40-45% grade 3 diastolic dysfunction akinetic inferior wall, basal inferoseptal, basal inferolateral wall and mid inferolateral wall. Hypokinetic apical, apical cap, mid inferoseptal, basal anteroseptal and mid anteroseptal. Moderate TR moderate pulmonary hypertension (2) Pneumonia involving right lung: Code(s): J18.9 - Pneumonia, unspecified organism Status: Acute Assessment and Plan: Right basilar airspace opacities consistent with atelectasis versus pneumonia versus pulmonary edema. Cardiomegaly and small pleural effusions were noted on the chest x-ray on admission. On azithromycin ceftriaxone Urinary antigens are pending Sputum culture not able to get a sample. (3) Chronic obstructive pulmonary disease: Code(s): J44.9 - Chronic obstructive pulmonary disease, unspecified Status: Acute Assessment and Plan: Not in exacerbation Continue bronchodilators (4) Tobacco abuse: Code(s): Z72.0 - Tobacco use Status: Acute Assessment and Plan: Smoking cessation advised on admission. (5) Coronary artery disease: Code(s): I25.10 - Atherosclerotic heart disease of [place] coronary artery without angina pectoris Status: Acute Assessment and Plan: Coronary artery disease status post CABG and stents. On Plavix and Xarelto carvedilol and atorvastatin (6) Hypertension: Code(s): I10 - Essential (primary) hypertension Status: Acute Assessment and Plan: Blood pressures were reviewed and they are stable. Continue antihypertensives and monitor. 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 (8) Suspected congestive heart failure: Code(s): R09.89 - Other specified symptoms and signs involving the circulatory and respiratory systems Status: Acute Assessment and Plan: Acute on chronic congestive heart failure combined systolic and diastolic. EF 40-45% previously reported to be 60% June 2021. Diuresis was started cautiously however has been held since worsening renal function. Renal function is improving will continue monitor renal function and reassess initiate diuresis as appropriate. Plan JAIME: She does have baseline chronic kidney disease stage 3 baseline creatinine around 1.2 bumped up to 1.8 with diuresis Creatinine improved down to 1.6 today with holding diuresis Recheck labs in a.m. DVT prophylaxis on Xarelto Subjective Date/time seen: 09/21/22 12:50 Interval history: This is a 72-year-old male smoker with COPD, coronary artery disease s/p stent, paroxysmal atrial fibrillation on chronic anticoagulation, and hypertension who presented to the emergency department for evaluation of shortness of breath. He was having swelling in his feet and ankles in couple of weeks ago and was started on Lasix for 5 days with some improvement. He has had 2 pillow orthopnea and he seems to be more short of breath and coughing issues when lying supine. Yesterday he decided come in for evaluation . He denies chest pain, palpitation, of fevers. 09/21/2022 no overnight events. Off oxygen. Breathing is okay. Denies any chest pain. Review of Systems Review of Systems: All systems reviewed & are unremarkable except as noted in HPI and below Exam Narrative: APPEARANCE: Well appearing, no pain, no distress, well-nourished. HEAD: normocephalic, atraumatic. EYES: PERRLA/EOMI, conjunctivae clear. NOSE: Normal no drainage NECK: Sup
[2022-09-21] MEDS: RIVAROXABAN 20 MG TABLET PO (17:44)
--- NOTE | 2022-09-21 19:30 | PC.NURSE ---
This patient, Favio Loya, was transferred to [[facility] ] on 09/21/22 at 1930. Personal belongings sent with patient. Report given to [VANDANA French @ [phone] ]. Appropriate documentation sent with patient.
[2022-09-22] VITALS (8 sets, daily range): BP systolic 136; BP diastolic 42; PULSE 54–70; RESP 16–18; TEMP 36.6; O2SAT 97
[2022-09-22] MEDS: ALBUTEROL SULFATE NEB 2.5 MG/3 ML INH 5 MG INHALATION ×2 (01:56→09:52)
[2022-09-22] MEDS: IPRATROPIUM BR 0.02% INH SOLN 0.5 MG/2.5 ML VIAL INHALATION ×2 (01:56→09:52)
[2022-09-22 07:20] LABS: Anion Gap 6 mmol/L (8-16); Blood Urea Nitrogen 35 mg/dL (9-20); Calcium 8.2 mg/dL (8.4-10.2); Carbon Dioxide 23 mmol/L (22-30); Chloride 107 mmol/L (98-107); Estimated CRCL calculation 36 ml/min; Estimated Glomerular Filt Rate 50; Glucose 96 mg/dL (65-110); Magnesium 2.4 mg/dL (1.6-2.3); Potassium 4.2 mmol/L (3.4-5.0); Sodium 136 mmol/L (137-145)
[2022-09-22 07:23] LABS: Basophils Percent Auto 1.2 % (0.2-1.2); Eosinophils Absolute Auto 0.1 K/mm3 (0-0.3); Hematocrit 28.3 % (42.0-52.0); Hemoglobin 8.6 g/dL (14.0-18.0); Immature Platelet Fraction Pct 12.1 % (0.9-11.2); Lymphocytes Absolute Auto 0.59 K/mm3 (0.9-3.2); Lymphocytes Percent Auto 22.9 % (18.3-44.2); Mean Corpuscular HGB Conc 30.4 g/dl (32-36); Mean Corpuscular Volume 85.5 fl (80-100); Mean Platelet Volume 12.1 fl (7.4-10.4); Monocytes Absolute Auto 0.4 K/mm3 (0.1-0.6); Monocytes Percent Auto 14.3 % (2.6-8.5); Neutrophils Absolute Auto 1.5 K/mm3 (1.3-6.7); Neutrophils Percent Auto 56.6 % (45.5-73.1); Platelet Count Result 95 k/mm3 (150-375); Red Blood Count 3.31 M/mm3 (4.6-6.20); Red Cell Distribution Width 16.6 % (11.5-14.5); White Blood Count 2.6 K/mm3 (4.5-10.0)
[2022-09-22 07:52] LABS: Ovalocytes 2+ (NORMAL); Platelet Estimate Decreased (Adequate)
[2022-09-22 07:53] LABS: Acanthocytes 2+ (NORMAL); Schistocytes 1+ (NORMAL)
--- NOTE | 2022-09-22 08:54 | PM.DS ---
DS: Admitting Diagnosis Discharge Date 09/22/2022 Admitting Diagnosis Shortness of breath DS: Discharge Diagnosis Discharge Diagnosis (1) Hypoxia: Code(s): R09.02 - Hypoxemia Status: Acute Assessment and Plan: Acute respiratory failure with hypoxemia, Secondary to a combination of COPD, pneumonia, and suspected congestive heart failure. Pulmonary embolism is unlikely by history; he is on long-term Xarelto and states compliance. Echocardiogram on 09/20/2022 EF 40-45% grade 3 diastolic dysfunction akinetic inferior wall, basal inferoseptal, basal inferolateral wall and mid inferolateral wall. Hypokinetic apical, apical cap, mid inferoseptal, basal anteroseptal and mid anteroseptal. Moderate TR moderate pulmonary hypertension (2) Pneumonia involving right lung: Code(s): J18.9 - Pneumonia, unspecified organism Status: Acute Assessment and Plan: Right basilar airspace opacities consistent with atelectasis versus pneumonia versus pulmonary edema. Cardiomegaly and small pleural effusions were noted on the chest x-ray on admission. On azithromycin ceftriaxone Urinary antigens are pending Sputum culture not able to get a sample. (3) Chronic obstructive pulmonary disease: Code(s): J44.9 - Chronic obstructive pulmonary disease, unspecified Status: Acute Assessment and Plan: Not in exacerbation Continue bronchodilators (4) Tobacco abuse: Code(s): Z72.0 - Tobacco use Status: Acute Assessment and Plan: Smoking cessation advised on admission. (5) Coronary artery disease: Code(s): I25.10 - Atherosclerotic heart disease of [place] coronary artery without angina pectoris Status: Acute Assessment and Plan: Coronary artery disease status post CABG and stents. On Plavix and Xarelto carvedilol and atorvastatin (6) Hypertension: Code(s): I10 - Essential (primary) hypertension Status: Acute Assessment and Plan: Blood pressures were reviewed and they are stable. Continue antihypertensives and monitor. 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 (8) Suspected congestive heart failure: Code(s): R09.89 - Other specified symptoms and signs involving the circulatory and respiratory systems Status: Acute Assessment and Plan: Acute on chronic congestive heart failure combined systolic and diastolic. EF 40-45% previously reported to be 60% June 2021. Diuresis was started cautiously however has been held since worsening renal function. Renal function is improving will continue monitor renal function and reassess initiate diuresis as appropriate. Plan JAIME: She does have baseline chronic kidney disease stage 3 baseline creatinine around 1.2 bumped up to 1.8 with diuresis Creatinine improved down to 1.6 today with holding diuresis Recheck labs in a.m. DVT prophylaxis on Xarelto DS: Summary Hospital Course Hospital Course: 72-year-old male with past medical history significant for COPD, coronary artery disease, proximal atrial fibrillation on chronic anticoagulation, hypertension is presenting with shortness of breath. He was found to have a COPD exacerbation, community-acquired pneumonia and possible acute exacerbation of heart failure. Due to his compliance with Xarelto PE was thought to be less likely. He was started on azithromycin as well as her Rocephin and steroids. IV diuresis was also started. Cardiology was consulted recommend holding diuretics as patient had developed acute kidney injury. Cardiology recommended starting Entresto and Aldactone once kidney function normalized. He was also started on Jardiance. He was weaned off oxygen and appeared to be euvolemic. Kidney function improved dramatically. He was discharged in good condition with close outpatient follow-up by his
[2022-09-22] MEDS: CITALOPRAM HYDROBROMIDE 20 MG TABLET PO (09:27)
[2022-09-22] MEDS: hydroCHLOROthiazide 25 MG TABLET PO (09:27)
[2022-09-22] MEDS: POTASSIUM CHLORIDE 20 MEQ TABLET.ER 40 MEQ PO (09:28)
[2022-09-22] MEDS: ISOSORBIDE MONONITRATE 60 MG TAB.ER.24H PO (09:28)
[2022-09-22] MEDS: amLODIPine BESYLATE 5 MG TABLET 10 MG PO (09:28)
[2022-09-22] MEDS: CLOPIDOGREL BISULFATE 75 MG TABLET PO (09:28)
[2022-09-22] MEDS: EMPAGLIFLOZIN 10 MG TABLET PO (09:29)
[2022-09-22] MEDS: carvediloL 25 MG TABLET PO (09:29)
[2022-09-22] MEDS: ATORVASTATIN 40 MG TABLET 80 MG PO (09:45)
--- NOTE | 2022-09-22 14:51 | PC.NURSE ---
Pt discharged with belongings via wheelchair to privately owned vehicle. Pt medications explained. Pt not wanting to follow [facility] but see his own quill stripper. Assured him that was fine and that he could request his records to transfer. Pt and seemed anxious to leave (and slightly uncertain) but voiced understanding. Encouraged pt to call if he had any questions.
[2022-09-22 19:16] LABS: Mycoplasma IgM Antibody Titer 219 U/mL (<770)
[2022-09-23 23:05] LABS: Legionella pneumophila Ag Ur Not Detected (Not Detected)
[2022-09-30 21:41] LABS: Pneumococcal Antigen Urine Not Detected (Not Detected)
== END 2022-09-22 14:40 | disposition home or self-care (01) | DRG 193 ==
LOC: ANHED 13:58 → ANHIMU 17:05 → ANH3MEDSUR 09-21 20:26
PROVIDERS: Internal Medicine; Nurse Practitioner; Physician Assistant; Admitting Provider Chiropractor; Emergency Provider Emergency Medicine; PCP Internal Medicine; Visit Provider Student in an Organized Health Care Education/Training Program
DX: J18.9 Pneumonia, unspecified organism (principal); I50.43 Acute on chronic combined systolic (congestive) and diastolic (congestive) heart failure; J96.01 Acute respiratory failure with hypoxia; J44.0 Chronic obstructive pulmonary disease with (acute) lower respiratory infection; N17.9 Acute kidney failure, unspecified; I13.0 Hypertensive heart and chronic kidney disease with heart failure and stage 1 through stage 4 chronic kidney disease, or unspecified chronic kidney disease; I47.1 Supraventricular tachycardia; N18.30 Chronic kidney disease, stage 3 unspecified; Z20.822 Contact with and (suspected) exposure to COVID-19; I25.10 Atherosclerotic heart disease of native coronary artery without angina pectoris; E78.5 Hyperlipidemia, unspecified; I48.0 Paroxysmal atrial fibrillation; Z79.01 Long term (current) use of anticoagulants; Z95.5 Presence of coronary angioplasty implant and graft; Z95.1 Presence of aortocoronary bypass graft; Z79.82 Long term (current) use of aspirin; Z79.02 Long term (current) use of antithrombotics/antiplatelets; Z86.73 Personal history of transient ischemic attack (TIA), and cerebral infarction without residual deficits; Z87.891 Personal history of nicotine dependence; Z86.718 Personal history of other venous thrombosis and embolism; Z87.442 Personal history of urinary calculi
CPT/HCPCS: 36415; 71045; 80048; 80053; 83735; 83880; 84443; 85025; 85027; 85055; 86738; 87040; 87449; 87637; 87899; 93005; 93306; 94640; 99285; A9270; J0456; J0696; J1940; J3475

== ENCOUNTER 2022-11-04 13:55 | Emergency (ER) | payer MEDICARE, SELFPAY ==
[2022-11-04 14:11] VITALS: BP 137/45; PULSE 55; RESP 18; TEMP 36.5; O2SAT 97
[2022-11-04 17:18] VITALS: BP 147/49; PULSE 51; O2SAT 96
--- NOTE | 2022-11-04 20:18 | ED.EPISTAXIS ---
HPI - Epistaxis General Chief complaint: Epistaxis Stated complaint: nose bleed Time Seen by Provider: 11/04/22 18:59 History of Present Illness HPI Narrative: This is a 72-year-old male who complains of epistaxis onset 399. He is on Xarelto regularly for stroke prophylaxis. States that he tried pinching the nose at home and never had any luck with getting it to stop. While waiting in the ED reports that the nosebleed stopped. Denies any fevers, chills, lightheadedness. Related Data Home Medications Medication Instructions Recorded Confirmed amlodipine 10 mg tablet 10 mg PO DAILY 02/21/21 09/19/22 atorvastatin 80 mg tablet 80 mg PO DAILY 02/21/21 09/19/22 carvedilol 25 mg tablet 25 mg PO BID 02/21/21 09/19/22 clopidogrel 75 mg tablet 75 mg PO DAILY 02/21/21 09/19/22 hydrochlorothiazide 25 mg tablet 25 mg PO TID 03/16/22 09/19/22 isosorbide mononitrate 60 mg 60 mg PO DAILY 03/16/22 09/19/22 tablet,extended release 24 hr rivaroxaban 20 mg tablet (Xarelto) 20 mg PO DAILY 09/13/22 09/19/22 citalopram 20 mg tablet 20 mg PO DAILY 09/19/22 09/19/22 furosemide 40 mg tablet (Lasix) 20 mg PO DAILY 09/19/22 09/19/22 Allergies Allergy/AdvReac Type Severity Reaction Status Date / Time No Known Allergies Allergy Verified 11/04/22 17:35 Review of Systems Review of Systems: CONSTITUTIONAL: Denies fever, chills, or sweats. EYES: Denies visual changes, redness, or discharge. ENT: Reports epistaxis. denies rhinorrhea, congestion, sore throat, or otalgia. CARDIOVASCULAR: Denies chest pain, palpitations, or edema. RESPIRATORY: Denies cough or dyspnea. GASTROINTESTINAL: Denies abdominal pain, nausea, vomiting, or diarrhea. GENITOURINARY: Denies dysuria or hematuria. SKIN: Denies rash or itching. MUSCULOSKELETAL: Denies back pain, joint pain, or myalgia. NEUROLOGIC: Denies headache, numbness, dizziness, or weakness. PSYCHIATRIC: Denies anxiety or depression. [facility] Past Medical History Medical History Carotid artery disease Chronic anticoagulation Patient on Xarelto for history of stroke and peripheral vascular disease. Coronary artery disease Hemorrhagic stroke (1999) Hyperlipidemia Hypertension Kidney stones Left leg DVT Tobacco abuse Surgical History Surgical History History of cardiac catheterization History of coronary artery bypass graft History of coronary artery stent placement History of left-sided carotid endarterectomy History of lithotripsy Family History Family History Mother Heart disease Cerebrovascular accident Social History Social History Social History: Surrogate medical decision maker: Merna Vincenzo, spouse. Code status: Full code. Smoking packs per day: 1 Smoking cigarettes per day: 20.0 Years smoked: 56 Smoking pack-years: 56.00 Smoking status: Former smoker Tobacco type: cigarettes Smoking end date: 09/15/22 Alcohol intake: current Alcohol use details: Social alcohol use in moderation. Substance use: never Lack of Transportation: No Lack of Food: Sometimes True Current Housing: I Have Housing Concerned About Future Housing: No Difficulty Paying Gas/Electric Bills: No Difficulty Paying for Meds: No Currently Unemployed: No Education: Associate Degree Difficulty w/ Childcare or Family Care: No Additional living arrangements comments: Lives with family in [place]. 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 Spiritual care concerns: No Exam Narrative: GENERAL: Well-appearing, well-nourished, and in no acute distress. HEAD: Normocephalic, atraumatic. EYES: PERRLA and EOMI. ENT: There is a site of resolved bleeding inside the superior left nare. No active bleeding sites ar
== END 2022-11-04 20:37 | disposition home or self-care (01) ==
PROVIDERS: Emergency Provider Physician Assistant; PCP Internal Medicine
DX: R04.0 Epistaxis (principal); I25.10 Atherosclerotic heart disease of native coronary artery without angina pectoris; E78.5 Hyperlipidemia, unspecified; I10 Essential (primary) hypertension; Z95.1 Presence of aortocoronary bypass graft; Z95.5 Presence of coronary angioplasty implant and graft; Z86.73 Personal history of transient ischemic attack (TIA), and cerebral infarction without residual deficits; Z87.442 Personal history of urinary calculi; Z86.718 Personal history of other venous thrombosis and embolism; Z87.891 Personal history of nicotine dependence; Z79.01 Long term (current) use of anticoagulants
CPT/HCPCS: 99281

== ENCOUNTER 2022-11-05 11:04 | Outpatient (CLI) | payer MEDICARE, SELFPAY ==
--- NOTE | ~2022-11-05 | CT_ITS ---
CT Scan of the Chest without Contrast: Clinical Indication: Lung cancer screening, personal history of nicotine dependence Technique: Contiguous sections were acquired throughout the chest without intravenous contrast. Dose reduction technique was used on this scan by utilizing automated exposure control and iterative recon struction technique. The dose-length product (DLP) was 70.99 mGy-cm. COMPARISON: 05/03/2022 Findings: Mild mediastinal lymphadenopathy similar to prior exam. No aortic aneurysm. No pericardial effusion. Patient is status post CABG. Small bilateral pleural effusions are present. Stable 5 mm left lower lobe pulmonary nodule present (axial image 82). Questionable minimal interstit ial pulmonary edema present. Right apical emphysematous change is again present. Images through the upper abdomen reveal no abnormalities. Impression: Lung-RADS 2: Benign. Twelve-month follow-up screening CT advised. Small bilateral pleural effusions and possible minimal interstitial edema. Stable mediastinal lymphadenopathy, nonspecific. Reviewed, dictated and finalized at [facility]. [facility] Impression: Lung-RADS 2: Benign. Twelve-month follow-up screening CT advised. Small bilateral pleural effusions and possible minimal interstitial edema. Stable mediastinal lymphadenopathy, nonspecific.
== END 2022-11-05 11:05 | disposition home or self-care (01) ==
LOC: ANHIMG 11:06
PROVIDERS: PCP Internal Medicine; Visit Provider Internal Medicine
DX: Z12.2 Encounter for screening for malignant neoplasm of respiratory organs (principal); Z87.891 Personal history of nicotine dependence; R93.89 Abnormal findings on diagnostic imaging of other specified body structures; J90 Pleural effusion, not elsewhere classified
CPT/HCPCS: 71271

== ENCOUNTER 2023-06-02 12:31 | Inpatient (IN) | payer MEDICARE, SELFPAY ==
[2023-06-02] VITALS (17 sets, daily range): BP systolic 115–143; BP diastolic 30–71; PULSE 55–68; RESP 12–18; TEMP 36.1–36.9; O2SAT 96–100
--- NOTE | ~2023-06-02 | XR_ITS ---
EXAMINATION: XR chest 2V DATE: 06/02/2023 13:13 INDICATION: Epigastric pain and vomiting TECHNIQUE: PA and lateral views of the chest were obtained. COMPARISON: CT dated 11/05/2022 FINDINGS: Mild increased interstitial pattern and a few peripheral Valerio B-lines in the bilateral lower lung z ones consistent with mild pulmonary edema. Tiny left pleural effusion. No pneumothorax or definitive right-sided pleural effusion. Cardiomegaly. Median sternotomy wires, ostial markers and mediastinal s urgical clips consistent with prior coronary artery bypass grafting. Extensive coronary artery stenti ng along the right coronary artery Mild thoracic spondylosis. IMPRESSION: 1. Likely congestive heart failure with cardiomegaly, mild pulmonary edema at the lung bases and very small left pleural effusion. Reviewed, dictated and finalized at location [facility]. IMPRESSION: 1. Likely congestive heart failure with cardiomegaly, mild pulmonary edema at t he lung bases and very small left pleural effusion.
--- NOTE | 2023-06-02 12:46 | ECG_ITS ---
Measurements Intervals [place] Rate: 50 P: [place]: 0 QRS: 7 QRSD: 120 T: 196 QT: 459 QTc: 422 Interpretive Statements ATRIAL FIBRILLATION WITH SLOW VENTRICULAR RESPONSE MODERATE INTRAVENTRICULAR CONDUCTION DELAY [110+ ms QRS DURATION] WITH SECONDARY REPOLARIZATION ABNORMALITY ABNORMAL ECG COMPARED TO ECG 09/19/2022 13:50:25 ATRIAL FIBRILLATION REPLACES SINUS RHYTHM Electronically Signed On 06-02-2023 14:38:13 CDT by Jann Taveras M.D.
[2023-06-02 13:04] LABS: Basophils Absolute Auto 0.1 K/mm3 (0.0-0.1); Basophils Percent Auto 1.2 % (0.2-1.2); Eosinophils Absolute Auto 0.3 K/mm3 (0-0.3); Eosinophils Percent Auto 6.1 % (0-4.4); Hematocrit 21.3 % (42.0-52.0); Immature Granulocyte Absolute 0.01 K/mm3 (0.00-0.031); Immature Granulocyte Percent A 0.2 % (0-0.5); Lymphocytes Percent Auto 11.7 % (18.3-44.2); Mean Corpuscular HGB Conc 28.6 g/dl (32-36); Mean Corpuscular Hemoglobin 22.7 pg (26-34); Mean Corpuscular Volume 79.2 fl (80-100); Mean Platelet Volume 11.8 fl (7.4-10.4); Monocytes Absolute Auto 0.5 K/mm3 (0.1-0.6); Monocytes Percent Auto 11.5 % (2.6-8.5); Neutrophils Percent Auto 69.3 % (45.5-73.1); Platelet Count Result 154 k/mm3 (150-375); Red Blood Count 2.69 M/mm3 (4.6-6.20); Red Cell Distribution Width 17.3 % (11.5-14.5); White Blood Count 4.3 K/mm3 (4.5-10.0)
[2023-06-02 13:20] LABS: Prothrombin Time 33.1 Seconds (11.1-14.7)
[2023-06-02 13:21] LABS: Partial Thromboplastin Time 46.7 SECONDS (22.3-36.8)
[2023-06-02 13:24] LABS: Hemoglobin 6.1 g/dL (14.0-18.0)
[2023-06-02 13:25] LABS: Anisocytosis 1+ (NORMAL); Platelet Estimate Adequate (Adequate); Poikilocytosis 1+ (NORMAL); Schistocytes 1+ (NORMAL)
[2023-06-02 13:30] LABS: Alanine Aminotransferase 18 U/L (6-50); Albumin Level 3.5 g/dL (3.5-5.1); Alkaline Phosphatase 115 U/L (38-126); Anion Gap 10 mmol/L (8-16); Aspartate Amino Transferase 21 U/L (17-59); Bilirubin,Total 0.3 mg/dL (0.2-1.3); Blood Urea Nitrogen 54 mg/dL (9-20); Carbon Dioxide 20 mmol/L (22-30); Chloride 109 mmol/L (98-107); Estimated CRCL calculation 38 ml/min; Estimated Glomerular Filt Rate 54; Glucose 122 mg/dL (65-110); Lipase 269 U/L (23-300); Potassium 4.2 mmol/L (3.4-5.0); Sodium 139 mmol/L (137-145)
[2023-06-02 13:42] LABS: Troponin I < 0.012 ng/mL (0.000-0.034)
--- NOTE | 2023-06-02 13:47 | ED.CHESTPAIN ---
HPI - Chest Pain General Chief Complaint: Chest Pain Stated Complaint: epigastric pain Time Seen by Provider: 06/02/23 13:30 History of Present Illness HPI narrative: Patient is a 73-year-old male with history of CHF, CAD, COPD, hyperlipidemia, hypertension presenting with epigastric pain. Patient states that for the last couple of days he has had pain in his epigastrium. States that he had an episode of emesis a couple of days ago which temporarily helped with the pain. States that he is also had melena for the last several days. He denies chest pain, shortness of breath, lightheadedness, diarrhea, leg swelling, dysuria. Related Data Home Medications Medication Instructions Recorded Confirmed amlodipine 10 mg tablet 10 mg PO DAILY 02/21/21 06/02/23 atorvastatin 80 mg tablet 80 mg PO DAILY 02/21/21 06/02/23 carvedilol 25 mg tablet 25 mg PO BID 02/21/21 06/02/23 clopidogrel 75 mg tablet 75 mg PO DAILY 02/21/21 06/02/23 isosorbide mononitrate 60 mg 60 mg PO DAILY 03/16/22 06/02/23 tablet,extended release 24 hr rivaroxaban 20 mg tablet (Xarelto) 20 mg PO DAILY 09/13/22 06/02/23 citalopram 20 mg tablet 20 mg PO DAILY 09/19/22 06/02/23 furosemide 20 mg tablet 20 mg PO QMWF 01/25/23 06/02/23 hydralazine 50 mg tablet 50 mg PO TID 01/25/23 06/02/23 hydrochlorothiazide 25 mg tablet 25 mg PO ONCE 01/25/23 06/02/23 sacubitril 24 mg-valsartan 26 mg 1 tablet PO BID 01/25/23 06/02/23 tablet (Entresto) dapagliflozin propanediol 10 mg 10 mg PO DAILY 06/02/23 06/02/23 tablet (Farxiga) Allergies Allergy/AdvReac Type Severity Reaction Status Date / Time No Known Allergies Allergy Verified 06/03/23 12:31 Review of Systems Review of Systems: All systems reviewed & are unremarkable except as noted in HPI and below PMFSH Past Medical History Medical History (Updated 06/03/23 @ 22:34 by Gillian Delcid MD) Carotid artery disease Chronic anticoagulation Patient on Xarelto for history of stroke and peripheral vascular disease. Coronary artery disease GIB (gastrointestinal bleeding) Hemorrhagic stroke (1999) Hyperlipidemia Hypertension Kidney stones Left leg DVT Tobacco abuse Surgical History Surgical History History of cardiac catheterization History of coronary artery bypass graft History of coronary artery stent placement History of left-sided carotid endarterectomy History of lithotripsy Family History Family History Mother Heart disease Cerebrovascular accident Social History Social History Social History: Surrogate medical decision maker: Merna Rodriguezoctavioyolandemalina, spouse. Code status: Full code. Smoking packs per day: 1 Smoking cigarettes per day: 20.0 Years smoked: 56 Smoking pack-years: 56.00 Smoking status: Former smoker Tobacco type: cigarettes Smoking end date: 09/16/22 Alcohol intake: current Alcohol use details: Social alcohol use in moderation. Substance use: never Lack of Transportation: No Lack of Food: Sometimes True Current Housing: I Have Housing Concerned About Future Housing: No Difficulty Paying Gas/Electric Bills: YES Difficulty Paying for Meds: YES Currently Unemployed: No Education: High School Diploma/GED Difficulty w/ Childcare or Family Care: No Additional living arrangements comments: Lives with family in [place]. 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 EYES: PERRLA and EOMI. ENT: Nares clear, no rhinorrhea or epistaxis. Mucous membranes moist. NECK: Supple. CHEST: Clear to auscultation. No respiratory distress. HEART: Regular rate and rhythm ABDOMEN: Soft,
[2023-06-02] MEDS: PANTOPRAZOLE SODIUM IV 40 MG VIAL IV PUSH ×2 (13:54→19:55)
[2023-06-02 14:32] LABS: NT Pro B Type Natriuretic Pept 5120 pg/mL (19.9-100); Troponin I 0.013 ng/mL (0.000-0.034)
[2023-06-02] MEDS: SODIUM CHLORIDE 0.9% IV 250 ML 30 ML IV CONT (15:44)
[2023-06-02] MEDS: TUBING, BLOOD PLUM PUMP TUBING 1 EACH XX (15:45)
--- NOTE | 2023-06-02 16:51 | ADMGEN ---
This patient, Favio Loya, was admitted to Medical Room 341-01. Patient/family oriented to hospital policies and general routines including ID bracelet, bed and alarms, visiting hours, pain management, procedures, bathroom and other care routines, personal items, smoking policy, room service/diet, and visiting hours. Information on how to activate the Rapid Response Team has been discussed. Patient/Family are encouraged to report perceived risks to care and to ask questions if they do not understand what they are told or what they should do.
[2023-06-02 17:03] LABS: Troponin I 0.013 ng/mL (0.000-0.034)
--- NOTE | 2023-06-02 19:22 | PM.IMHP ---
H&P: HPI History of Present Illness Date/Time: 06/02/23 19:22 Chief Complaint: Melena Narrative: Patient is a 73-year-old male with past medical history of congestive heart failure with reduced ejection fraction, type 2 diabetes, essential hypertension, hyperlipidemia, depression, CAD, history of left lower extremity DVT, history of CVA, PVD who presents to the ED with melena. His symptom onset may have been over last 5 days. He felt dizzy and progressive weakness today leading him to come to ED for further evaluation. Patient denies having history of GI bleeds. Patient is not on any NSAIDs. He is on Plavix and Xarelto at home longstanding. He has not had recent endoscopy. No other signs of bleeding reported. He does endorse epigastric pain and lower substernal pain. In the ED: Patient was found to have hemoglobin 6.1 given 1 unit packed red blood cells. Patient kept NPO. Dr. Anderson has been informed plan for EGD tomorrow. Review of Systems Review of Systems: Constitutional: No Fever, No Chills, No Night Sweats, No Fatigue, No Malaise ENT/Mouth: No Hearing Changes, No Ear Pain, No Nasal Congestion, No Sinus Pain, No Hoarseness, No sore throat, No Rhinorrhea, No Swallowing Difficulty Eyes: No Eye Pain, No Redness, No Vision Changes Cardiovascular: No Chest Pain, No Palpitations, No Dyspnea on Exertion, No Orthopnea, No Claudication, No Edema Respiratory: No Cough, No Sputum, No Wheezing, No Shortness of Breath Gastrointestinal: No Nausea, No Vomiting, No Diarrhea, No Constipation, endorses melena and epigastric pain Genitourinary: No Dysuria, No Urinary Frequency, No Hematuria, No Urinary Incontinence, No Urgency Musculoskeletal: No Arthralgias, No Myalgias, No Joint Swelling, No Joint Stiffness, No Back Pain Skin: No Skin Lesions, No Pruritis, No Hair Changes Neuro: No Weakness, No Numbness, No Paresthesias, No Loss of Consciousness, No Syncope, No Dizziness, No Headache Psych: No Anxiety/Panic, No Depression, No Insomnia Heme: No Bruising, No Bleeding Lymph: No Adenopathy Endocrine: No Polyuria, No Polydipsia, No Temperature Intolerance PMFSH Past Medical History Medical History Carotid artery disease Chronic anticoagulation Patient on Xarelto for history of stroke and peripheral vascular disease. Coronary artery disease Hemorrhagic stroke (1999) Hyperlipidemia Hypertension Kidney stones Left leg DVT Tobacco abuse Surgical History Surgical History History of cardiac catheterization History of coronary artery bypass graft History of coronary artery stent placement History of left-sided carotid endarterectomy History of lithotripsy Family History Family History Mother Heart disease Cerebrovascular accident Social History Social History Social History: Surrogate medical decision maker: Merna Vincenzo, spouse. Code status: Full code. Smoking packs per day: 1 Smoking cigarettes per day: 20.0 Years smoked: 56 Smoking pack-years: 56.00 Smoking status: Former smoker Tobacco type: cigarettes Smoking end date: 09/16/22 Alcohol intake: current Alcohol use details: Social alcohol use in moderation. Substance use: never Lack of Transportation: No Lack of Food: Sometimes True Current Housing: I Have Housing Concerned About Future Housing: No Difficulty Paying Gas/Electric Bills: YES Difficulty Paying for Meds: YES Currently Unemployed: No Education: High School Diploma/GED Difficulty w/ Childcare or Family Care: No Additional living arrangements comments: Lives with family in [place]. 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
[2023-06-02 19:42] LABS: Troponin I 0.014 ng/mL (0.000-0.034)
[2023-06-02] MEDS: LACTATED RINGERS 1,000 ML 75 ML IV CONT (19:55)
[2023-06-02] MEDS: MELATONIN 3 MG TABLET PO (23:27)
[2023-06-03] VITALS (19 sets, daily range): BP systolic 103–150; BP diastolic 33–56; PULSE 50–77; RESP 14–22; TEMP 35.8–36.6; O2SAT 93–99
[2023-06-03] MEDS: SODIUM CHLORIDE 0.9% IV 250 ML 30 ML IV CONT (01:02)
[2023-06-03 05:58] LABS: Basophils Absolute Auto 0.1 K/mm3 (0.0-0.1); Basophils Percent Auto 1.4 % (0.2-1.2); Eosinophils Absolute Auto 0.3 K/mm3 (0-0.3); Eosinophils Percent Auto 7.8 % (0-4.4); Hematocrit 24.8 % (42.0-52.0); Hemoglobin 7.6 g/dL (14.0-18.0); Immature Granulocyte Absolute 0.01 K/mm3 (0.00-0.031); Immature Granulocyte Percent A 0.3 % (0-0.5); Lymphocytes Absolute Auto 0.59 K/mm3 (0.9-3.2); Lymphocytes Percent Auto 16.4 % (18.3-44.2); Mean Corpuscular HGB Conc 30.6 g/dl (32-36); Mean Corpuscular Hemoglobin 24.7 pg (26-34); Mean Corpuscular Volume 80.5 fl (80-100); Mean Platelet Volume 12.8 fl (7.4-10.4); Monocytes Absolute Auto 0.4 K/mm3 (0.1-0.6); Monocytes Percent Auto 11.7 % (2.6-8.5); Neutrophils Absolute Auto 2.2 K/mm3 (1.3-6.7); Neutrophils Percent Auto 62.4 % (45.5-73.1); Platelet Count Result 144 k/mm3 (150-375); Red Blood Count 3.08 M/mm3 (4.6-6.20); Red Cell Distribution Width 17.2 % (11.5-14.5); White Blood Count 3.6 K/mm3 (4.5-10.0)
[2023-06-03 06:07] LABS: Anion Gap 9 mmol/L (8-16); Blood Urea Nitrogen 45 mg/dL (9-20); Calcium 8.7 mg/dL (8.4-10.2); Carbon Dioxide 19 mmol/L (22-30); Chloride 112 mmol/L (98-107); Estimated CRCL calculation 45 ml/min; Estimated Glomerular Filt Rate > 60; Glucose 91 mg/dL (65-110); Potassium 4.1 mmol/L (3.4-5.0); Sodium 140 mmol/L (137-145)
[2023-06-03] MEDS: PANTOPRAZOLE SODIUM IV 40 MG VIAL IV PUSH ×2 (09:10→20:22)
--- NOTE | 2023-06-03 09:29 | PM.IMPN ---
Progress Note: A&P Assessment and Plan (1) Acute blood loss anemia: Code(s): D62 - Acute posthemorrhagic anemia Status: Acute Assessment and Plan: Suspected upper GI bleed. Patient received 1 unit PRBCs upon admission, hemoglobin currently stable 7.6 last reading. GI consulted and EGD planned for today. Mild pancytopenia noted at baseline with baseline hemoglobin 8-9 (2) Melena: Code(s): K92.1 - Melena Status: Acute Assessment and Plan: See 1. Symptoms for about 3-5 days (3) Chronic anticoagulation: Code(s): Z79.01 - senior care (current) use of anticoagulants Status: Acute Assessment and Plan: Xarelto Plavix on hold due to suspected upper GI bleed with symptomatic anemia (4) Tobacco abuse: Code(s): Z72.0 - Tobacco use Status: Acute Assessment and Plan: Patient counseled on tobacco cessation. Nicotine patch available if needed. Time Spent With Patient Time with patient: 25 - 35 minutes Subjective Date/time seen: 06/03/23 09:29 Interval history: This is a 73-year-old male patient who is admitted to the hospital due to symptomatic anemia and melanotic stools. Patient received 1 unit of blood upon admission and is NPO for EGD today. Patient reported some epigastric pain that was relieved with medication given in the emergency department. Patient denies any nausea or abdominal pain at this time. Review of Systems Review of Systems: All systems reviewed & are unremarkable except as noted in HPI and below Exam Narrative: - GENERAL: Pleasant male in no acute distress. Well-nourished. - EYES: EOMI. Normal sclera, pale eyelid mucous membranes - HENT: Moist mucous membranes. - LUNGS: Clear to auscultation bilaterally, no wheezing, rhonchi, or rales. - CARDIOVASCULAR: Regular rate and rhythm. No murmur. No JVD. - ABDOMEN: Soft, non-distended. No palpable masses. Mild epigastric pain on palpation - EXTREMITIES: No edema. Peripheral pulses 2+. Non-tender. - NEUROLOGIC: No focal neurological deficits. CN II-XII grossly intact. - PSYCHIATRIC: Awake, Alert and oriented x 3. Appropriate mood and affect. - SKIN: No rashes or lesions. Warm. - LYMPH: No cervical lymphadenopathy. Objective Data Vital Signs Vital Signs: Vital Signs - 24 hr 06/02/23 12:43 06/02/23 15:39 06/02/23 14:01 Temperature 36.9 C 36.1 C L Pulse Rate 55 L 57 L 55 L Respiratory Rate 18 12 12 Blood Pressure 125/30 L 127/63 119/47 L Pulse Oximetry 99 99 100 Oxygen Delivery Room Air 06/02/23 14:16 06/02/23 14:31 06/02/23 14:46 Temperature Pulse Rate 55 L 57 L 59 L Respiratory Rate 14 12 13 Blood Pressure 123/63 118/43 L 115/49 L Pulse Oximetry 100 99 98 Oxygen Delivery 06/02/23 15:01 06/02/23 15:15 06/02/23 15:16 Temperature Pulse Rate 55 L 57 L 66 Respiratory Rate 13 15 Blood Pressure 121/47 L 117/40 L Pulse Oximetry 99 99 98 Oxygen Delivery 06/02/23 15:31 06/02/23 15:57 06/02/23 16:36 Temperature 36.2 C L Pulse Rate 57 L 59 L 61 Respiratory Rate 12 13 18 Blood Pressure 127/63 117/45 L 123/71 Pulse Oximetry 98 98 99 Oxygen Delivery 06/02/23 16:57 06/02/23 17:55 06/02/23 21:03 Temperature 36.4 C L 36.2 C L 36.2 C L Pulse Rate 66 58 L 68 Respiratory Rate 16 18 16 Blood Pressure 143/71 H 131/45 L 131/43 L Pulse Oximetry 98 97 100 Oxygen Delivery 06/02/23 20:00 06/03/23 00:00 06/03/23 01:02 Temperature 36.4 C Pulse Rate 62 52 L 50 L Respiratory Rate 16 Blood Pressure 113/43 L Pulse Oximetry 95 Oxygen Delivery 06/03/23 01:17 06/03/23 02:17 06/02/23 22:27 Temperature 36.6 C 35.8 C L Pulse Rate 53 L 55 L Respiratory Rate 16 14 Blood Pressure 119/33 L 104/41 L Pulse Oximetry 98 93 96 Oxygen Delivery Room Air 06/03/23 03:17 06/03/23 04:00 06/03/23 04:17 Temperature 36.1 C L 36.0 C L Pulse Rate 68 60 73 Respiratory Rate 16 16 Blood Pressure 103/45 L 117/43 L Pulse Oximetry 95 96 Ox
--- NOTE | 2023-06-03 09:29 | PM.IMPN ---
Subjective Date/time seen: 06/03/23 09:29 Objective Data Vital Signs Vital Signs: Vital Signs - 24 hr 06/02/23 12:43 06/02/23 15:39 06/02/23 14:01 Temperature 36.9 C 36.1 C L Pulse Rate 55 L 57 L 55 L Respiratory Rate 18 12 12 Blood Pressure 125/30 L 127/63 119/47 L Pulse Oximetry 99 99 100 Oxygen Delivery Room Air 06/02/23 14:16 06/02/23 14:31 06/02/23 14:46 Temperature Pulse Rate 55 L 57 L 59 L Respiratory Rate 14 12 13 Blood Pressure 123/63 118/43 L 115/49 L Pulse Oximetry 100 99 98 Oxygen Delivery 06/02/23 15:01 06/02/23 15:15 06/02/23 15:16 Temperature Pulse Rate 55 L 57 L 66 Respiratory Rate 13 15 Blood Pressure 121/47 L 117/40 L Pulse Oximetry 99 99 98 Oxygen Delivery 06/02/23 15:31 06/02/23 15:57 06/02/23 16:36 Temperature 36.2 C L Pulse Rate 57 L 59 L 61 Respiratory Rate 12 13 18 Blood Pressure 127/63 117/45 L 123/71 Pulse Oximetry 98 98 99 Oxygen Delivery 06/02/23 16:57 06/02/23 17:55 06/02/23 21:03 Temperature 36.4 C L 36.2 C L 36.2 C L Pulse Rate 66 58 L 68 Respiratory Rate 16 18 16 Blood Pressure 143/71 H 131/45 L 131/43 L Pulse Oximetry 98 97 100 Oxygen Delivery 06/02/23 20:00 06/03/23 00:00 06/03/23 01:02 Temperature 36.4 C Pulse Rate 62 52 L 50 L Respiratory Rate 16 Blood Pressure 113/43 L Pulse Oximetry 95 Oxygen Delivery 06/03/23 01:17 06/03/23 02:17 06/02/23 22:27 Temperature 36.6 C 35.8 C L Pulse Rate 53 L 55 L Respiratory Rate 16 14 Blood Pressure 119/33 L 104/41 L Pulse Oximetry 98 93 96 Oxygen Delivery Room Air 06/03/23 03:17 06/03/23 04:00 06/03/23 04:17 Temperature 36.1 C L 36.0 C L Pulse Rate 68 60 73 Respiratory Rate 16 16 Blood Pressure 103/45 L 117/43 L Pulse Oximetry 95 96 Oxygen Delivery 06/03/23 05:08 Temperature 36.0 C L Pulse Rate 73 Respiratory Rate 16 Blood Pressure 117/43 L Pulse Oximetry 96 Oxygen Delivery Intake/Output Intake/Output: Intake & Output 05/31/23 06/01/23 06/02/23 06/03/23 23:59 23:59 23:59 23:59 Intake Total 350 350 Balance 350 350 Meds/Results Medications: Active Medications Generic Name Dose Route Start Last Admin Trade Name Ike PRN Reason Stop Dose Admin Lactated Ringer's 1,000 mls @ 75 mls/hr 06/02/23 19:25 06/02/23 19:55 Lr - Lactated Ringers Iv IV CONT 75 mls/hr .[id number] GENNY Administration Melatonin 3 mg 06/02/23 23:20 06/02/23 23:27 Melatonin 3 Mg Tablet PO 3 mg HS GENNY Administration Pantoprazole Sodium 40 mg 06/02/23 21:00 06/03/23 09:10 Pantoprazole Sodium Iv 40 Mg Vial IV PUSH 40 mg Q12HR GENNY Administration Radiology Results: ITS Impressions Chest X-Ray 06/02/23 13:30 IMPRESSION: 1. Likely congestive heart failure with cardiomegaly, mild pulmonary edema at the lung bases and very small left pleural effusion. Labs Labs: Laboratory Results - last 24 hr 06/02/23 06/02/23 06/02/23 12:57 12:58 13:54 WBC 4.3 L RBC 2.69 L Hgb 6.1 L* Hct 21.3 L MCV 79.2 L MCH 22.7 L MCHC 28.6 L RDW 17.3 H Plt Count 154 D MPV 11.8 H Immature Gran % (Auto) 0.2 Neut % (Auto) 69.3 Lymph % (Auto) 11.7 L [place] % (Auto) 11.5 H Eos % (Auto) 6.1 H Baso % (Auto) 1.2 Lymph # (Auto) 0.50 L [place] # (Auto) 0.5 Eos # (Auto) 0.3 Baso # (Auto) 0.1 Abs Immat Gran (auto) 0.01 Absolute Neuts (auto) 3.0 Absolute Nucleated RBC 0.0 Nucleated RBC % 0.0 Platelet Estimate Adequate Poikilocytosis 1+ Anisocytosis 1+ Schistocytes 1+ PT 33.1 H INR 3.0 APTT 46.7 H Sodium 139 Potassium 4.2 Chloride 109 H Carbon Dioxide 20 L Anion Gap 10 BUN 54 H D Creatinine 1.30 Estim Creat Clear Calc 38 Estimated GFR 54 L Glucose 122 H Calcium 9.0 Magnesium Total Bilirubin 0.3 AST 21 ALT 18 Alkaline Phosphatase 115 Troponin I < 0.012 0.013 NT-Pro-B Natriuret P
[2023-06-03] MEDS: LACTATED RINGERS 1,000 ML 75 ML IV CONT (11:41)
--- NOTE | 2023-06-03 12:24 | WPDANESEPPF ---
Anes - Initial Pre Proc Eval Procedure: Operation Date: 06/03/23 15:15 Proposed Procedures p Esophagogastroduodenoscopy - Clovis Arroyo MD Date/Time: 06/03/23 12:24 Surgeon: Leonel De La Torre DO Pre Op Diagnosis: acute anemia Patient Data Age: 73 Gender: M Height: 1.65 m Weight: 59.7 kg Last Vital Signs Temp 96.8 F L 06/03/23 05:08 Pulse 73 06/03/23 09:10 Resp 16 06/03/23 09:10 BP 117/43 L 06/03/23 05:08 Pulse Ox 96 06/03/23 09:10 O2 Del Method Room Air 06/03/23 09:10 Allergies Allergy/AdvReac Type Severity Reaction Status Date / Time No Known Allergies Allergy Verified 06/02/23 17:19 Home Medications Medication Instructions Recorded Confirmed Type amlodipine 10 mg tablet 10 mg PO DAILY 02/21/21 06/02/23 History atorvastatin 80 mg tablet 80 mg PO DAILY 02/21/21 06/02/23 History carvedilol 25 mg tablet 25 mg PO BID 02/21/21 06/02/23 History clopidogrel 75 mg tablet 75 mg PO DAILY 02/21/21 06/02/23 History isosorbide mononitrate 60 mg 60 mg PO DAILY 03/16/22 06/02/23 History tablet,extended release 24 hr rivaroxaban 20 mg tablet (Xarelto) 20 mg PO DAILY 09/13/22 06/02/23 History citalopram 20 mg tablet 20 mg PO DAILY 09/19/22 06/02/23 History furosemide 20 mg tablet 20 mg PO QMWF 01/25/23 06/02/23 History hydralazine 50 mg tablet 50 mg PO TID 01/25/23 06/02/23 History hydrochlorothiazide 25 mg tablet 25 mg PO ONCE 01/25/23 06/02/23 History sacubitril 24 mg-valsartan 26 mg 1 tablet PO BID 01/25/23 06/02/23 History tablet (Entresto) dapagliflozin propanediol 10 mg 10 mg PO DAILY 06/02/23 06/02/23 History tablet (Farxiga) Laboratory Tests 06/02/23 06/02/23 06/02/23 12:57 12:58 13:54 WBC 4.3 L K/mm3 (4.5-10.0) RBC 2.69 L M/mm3 (4.6-6.20) Hgb 6.1 L* g/dL (14.0-18.0) Hct 21.3 L % (42.0-52.0) MCV 79.2 L fl (80-100) MCH 22.7 L pg (26-34) MCHC 28.6 L g/dl (32-36) RDW 17.3 H % (11.5-14.5) Plt Count 154 D k/mm3 (150-375) MPV 11.8 H fl (7.4-10.4) Immature Gran % (Auto) 0.2 % (0-0.5) Neut % (Auto) 69.3 % (45.5-73.1) Lymph % (Auto) 11.7 L % (18.3-44.2) [place]ven % (Auto) 11.5 H % (2.6-8.5) Eos % (Auto) 6.1 H % (0-4.4) Baso % (Auto) 1.2 % (0.2-1.2) Lymph # (Auto) 0.50 L K/mm3 (0.9-3.2) [place] # (Auto) 0.5 K/mm3 (0.1-0.6) Eos # (Auto) 0.3 K/mm3 (0-0.3) Baso # (Auto) 0.1 K/mm3 (0.0-0.1) Abs Immat Gran (auto) 0.01 K/mm3 (0.00-0.031) Absolute Neuts (auto) 3.0 K/mm3 (1.3-6.7) Absolute Nucleated RBC 0.0 K/mm3 (0.0-0.012) Nucleated RBC % 0.0 % (0.0-0.2) Platelet Estimate Adequate (Adequate) Poikilocytosis 1+ (NORMAL) Anisocytosis 1+ (NORMAL) Schistocytes 1+ (NORMAL) PT 33.1 H Seconds (11.1-14.7) INR 3.0 APTT 46.7 H SECONDS (22.3-36.8) Sodium 139 mmol/L (137-145) Potassium 4.2 mmol/L (3.4-5.0) Chloride 109 H mmol/L (98-107) Carbon Dioxide 20 L mmol/L (22-30) Anion Gap 10 mmol/L (8-16) BUN 54 H D mg/dL (9-20) Creatinine 1.30 mg/dL (0.7-1.3) Estim Creat Clear Calc 38 ml/min Estimated GFR 54 L (59 - ) Glucose 122 H mg/dL (65-110) Calcium 9.0 mg/dL (8.4-10.2) Magnesium Total Bilirubin 0.3 mg/dL (0.2-1.3) AST 21 U/L (17-59) ALT 18 U/L (6-50) Alkaline Phosphatase 115 U/L (38-126) Troponin I < 0.012 ng/mL 0.013 ng/mL (0.000-0.034) (0.000-0.034) NT-Pro-B Natriuret Pep 5120 H pg/mL (19.9-100) Total Protein 7.0 g/dL (6.3-8.2) Albumin 3.5 g/dL (3.5-5.1) Lipase 269 U/L
[2023-06-03] MEDS: LACTATED RINGERS 1,000 ML 150 ML IV CONT (12:35)
--- NOTE | 2023-06-03 13:36 | WPDGICN ---
Assessment and Plan Assessment and plan (1) Melena: Code(s): K92.1 - Melena Status: Acute Assessment and Plan: patient required blood transfusion blood thinner on hold and started on iv protonix will proceed with egd today, ? ulcer/gastritis/avm, etc more recommendations after egd (2) Acute blood loss anemia: Code(s): D62 - Acute posthemorrhagic anemia Status: Acute Assessment and Plan: s/p blood tranfusion monitor for more signs of bleeding keep hgb>7 iv protonix (3) GIB (gastrointestinal bleeding): Code(s): K92.2 - Gastrointestinal hemorrhage, unspecified Status: Acute Assessment and Plan: egd and iv protonix (4) Chronic anticoagulation: Code(s): Z79.01 - senior living (current) use of anticoagulants Status: Acute Assessment and Plan: on hold for now (5) Coronary artery disease: Code(s): I25.10 - Atherosclerotic heart disease of [place] coronary artery without angina pectoris Status: Acute (6) CHF (congestive heart failure): Code(s): I50.9 - Heart failure, unspecified Status: Acute (7) COPD (chronic obstructive pulmonary disease): Code(s): J44.9 - Chronic obstructive pulmonary disease, unspecified Status: Acute GI Consult Note Consult date/time: 06/03/23 13:36 Reason for consult: melena, acute blood loss anemia HPI: Favio Loya is a 73 year old male with h/o congestive heart failure with reduced ejection fraction, type 2 diabetes, essential hypertension, CAD, history of left lower extremity DVT, CVA, PVD on xarelto for over a year and plavix. Here with progressive weakness for last 5 days, dizziness and generalized weakness, finally came to ER yesterday, also noted dark tarry stools and epigastric discomfort, no use of nsaid's, never had EGD. Last colonoscopy about 3 years ago. Hgb 6.1 and received blood transfusion. Review of Systems Constitutional: Constitutional: Reports fatigue and Reports lethargy Eyes: Eyes: Denies blurry vision ENT: Reports Normal hearing present Cardiovascular: Cardiovascular: Reports lightheadedness Respiratory: Respiratory: Denies cough Gastrointestinal: Gastrointestinal: Reports melena Genitourinary: Genitourinary: Denies dysuria Musculoskeletal: Musculoskeletal: Denies arthralgias Integumentary/Breasts: Skin/Breast: Denies rash Neurologic: Denies confusion Psychiatric: Psychiatric: Denies behavioral changes [facility] Past Medical History Medical History (Updated 06/03/23 @ 13:45 by Clovis Arroyo MD) Carotid artery disease Chronic anticoagulation Patient on Xarelto for history of stroke and peripheral vascular disease. Coronary artery disease GIB (gastrointestinal bleeding) Hemorrhagic stroke (1999) Hyperlipidemia Hypertension Kidney stones Left leg DVT Tobacco abuse Surgical History Surgical History History of cardiac catheterization History of coronary artery bypass graft History of coronary artery stent placement History of left-sided carotid endarterectomy History of lithotripsy Family History Family History Mother Heart disease Cerebrovascular accident Social History Social History Social History: Surrogate medical decision maker: Merna Loya, spouse. Code status: Full code. Smoking packs per day: 1 Smoking cigarettes per day: 20.0 Years smoked: 56 Smoking pack-years: 56.00 Smoking status: Former smoker Tobacco type: cigarettes Smoking end date: 09/16/22 Alcohol intake: current Alcohol use details: Social alcohol use in moderation. Substance use: never Lack of Transportation: No Lack of Food: Sometimes True Current Housing: I Have Housing Concerned About Future Housing: No Difficulty Payin
[2023-06-03 15:18] LABS: Basophils Absolute Auto 0.1 K/mm3 (0.0-0.1); Basophils Percent Auto 1.7 % (0.2-1.2); Eosinophils Absolute Auto 0.2 K/mm3 (0-0.3); Hemoglobin 8.4 g/dL (14.0-18.0); Immature Granulocyte Absolute 0.02 K/mm3 (0.00-0.031); Immature Granulocyte Percent A 0.6 % (0-0.5); Lymphocytes Absolute Auto 0.54 K/mm3 (0.9-3.2); Lymphocytes Percent Auto 15.7 % (18.3-44.2); Mean Corpuscular Hemoglobin 24.9 pg (26-34); Mean Corpuscular Volume 85.8 fl (80-100); Mean Platelet Volume 12.6 fl (7.4-10.4); Monocytes Absolute Auto 0.4 K/mm3 (0.1-0.6); Neutrophils Absolute Auto 2.2 K/mm3 (1.3-6.7); Platelet Count Result 154 k/mm3 (150-375); Red Blood Count 3.38 M/mm3 (4.6-6.20); Red Cell Distribution Width 17.2 % (11.5-14.5); White Blood Count 3.4 K/mm3 (4.5-10.0)
[2023-06-03 15:30] LABS: Alanine Aminotransferase 19 U/L (6-50); Albumin Level 3.7 g/dL (3.5-5.1); Alkaline Phosphatase 131 U/L (38-126); Anion Gap 9 mmol/L (8-16); Aspartate Amino Transferase 24 U/L (17-59); Bilirubin,Total 0.9 mg/dL (0.2-1.3); Blood Urea Nitrogen 39 mg/dL (9-20); Calcium 9.1 mg/dL (8.4-10.2); Carbon Dioxide 20 mmol/L (22-30); Chloride 112 mmol/L (98-107); Estimated CRCL calculation 45 ml/min; Estimated Glomerular Filt Rate > 60; Glucose 123 mg/dL (65-110); Potassium 4.3 mmol/L (3.4-5.0); Sodium 141 mmol/L (137-145)
[2023-06-03 16:05] LABS: Platelet Estimate Adequate (Adequate)
[2023-06-03 16:13] LABS: Acanthocytes 2+ (NORMAL); Anisocytosis 1+ (NORMAL); Poikilocytosis 1+ (NORMAL); Schistocytes None Seen (NORMAL)
[2023-06-03] MEDS: MELATONIN 3 MG TABLET PO (20:22)
[2023-06-04] VITALS: PULSE 53
[2023-06-04 00:44] LABS: Hematocrit 25.3 % (42.0-52.0); Hemoglobin 7.7 g/dL (14.0-18.0)
[2023-06-04 04:00] VITALS: PULSE 61
[2023-06-04 06:00] VITALS: BP 145/51; PULSE 60; RESP 16; TEMP 35.8; O2SAT 94
[2023-06-04 07:59] VITALS: O2SAT 95
--- NOTE | 2023-06-04 08:02 | WPDGIPROGNO ---
Progress Note: A&P Assessment and Plan (1) Ulcer of antrum of stomach: Code(s): K25.9 - Gastric ulcer, unspecified as acute or chronic, without hemorrhage or perforation Status: Acute Assessment and Plan: ulcerative gastritis will need to go home with protonix bid at least for 3 months, then we can repeat EGD to assess healing no nsaid's hold blood thinner for 1 week at least monitor cbc as outpatient (2) GIB (gastrointestinal bleeding): Code(s): K92.2 - Gastrointestinal hemorrhage, unspecified Status: Acute Assessment and Plan: resolved due to egd findings (3) Acute blood loss anemia: Code(s): D62 - Acute posthemorrhagic anemia Status: Acute Assessment and Plan: cbc as outpatient (4) Melena: Code(s): K92.1 - Melena Status: Acute (5) Chronic anticoagulation: Code(s): Z79.01 - senior care (current) use of anticoagulants Status: Acute Assessment and Plan: on hold for now (6) Chronic obstructive pulmonary disease: Code(s): J44.9 - Chronic obstructive pulmonary disease, unspecified Status: Acute Subjective Date/time seen: 06/04/23 08:02 Interval history: no more melena egd yesterday with ulcerative gastritis without active bleeding he is feeling better today and would like to go home soon Review of Systems Review of Systems: All systems reviewed & are unremarkable except as noted in HPI and below Exam Const: General: comfortable and no acute distress HENMT: Face/Nose/Sinus: Normal nares present Eyes: General: appearance normal, both eyes and all related structures Neck: Neck: supple Resp: Auscultation: clear to auscultation bilaterally Cardio: Rate: regular rate Rhythm: regular rhythm GI: Inspection: non-distended GI Palp: Yes Soft to palpation, No Tenderness to palpation present (GI) and No Guarding due to palpation present (GI) Auscultation: normal bowel sounds Skin: Other: pale Neuro: Speech: normal speech Motor exam (neuro): 5/5 motor strength present throughout Extrem: General: normal to inspection Psych: Mental Status: mental status grossly normal Objective Data Vital Signs Vital Signs: Vital Signs - 24 hr 06/03/23 09:10 06/03/23 12:32 06/03/23 12:00 Temperature 97.4 F L Pulse Rate 73 71 77 Respiratory Rate 16 17 Blood Pressure 149/37 H Pulse Oximetry 96 99 Oxygen Delivery Room Air Room Air 06/03/23 13:56 06/03/23 14:06 06/03/23 14:16 Temperature Pulse Rate 70 76 76 Respiratory Rate 22 H 20 20 Blood Pressure 123/41 L 135/42 L 144/56 H Pulse Oximetry 95 95 98 Oxygen Delivery Room Air Room Air Room Air 06/03/23 14:47 06/03/23 16:00 06/03/23 20:00 Temperature 97.5 F L Pulse Rate 65 61 53 L Respiratory Rate 18 Blood Pressure 147/45 H Pulse Oximetry 98 Oxygen Delivery 06/03/23 20:00 06/04/23 00:00 06/03/23 22:20 Temperature 97.0 F L Pulse Rate 61 53 L 57 L Respiratory Rate 18 18 Blood Pressure 150/41 H Pulse Oximetry 98 97 Oxygen Delivery Room Air 06/04/23 04:00 06/04/23 06:00 06/04/23 07:59 Temperature 96.4 F L Pulse Rate 61 60 Respiratory Rate 16 Blood Pressure 145/51 H Pulse Oximetry 94 95 Oxygen Delivery Room Air Intake/Output Intake/Output: Intake & Output 06/01/23 06/02/23 06/03/23 06/04/23 23:59 23:59 23:59 23:59 Intake Total 350 1820 Output Total 800 Balance 350 1820 -800 Meds/Results Medications: Active Medications Generic Name Dose Route Start Last Admin Trade Name Freq PRN Reason Stop Dose Admin Lactated Ringer's 1,000 mls @ 75 mls/hr 06/02/23 19:25 06/03/23 11:41 Lr - Lactated Ringers Iv IV CONT 75 mls/hr .[id number] GENNY Administration Melatonin 3 mg 06/02/23 23:20 06/03/23 20:22 Melatonin 3 Mg Tablet PO 3 mg HS GENNY Administration Pantoprazole Sodium 40 mg 06/04/23 09:00 Pantoprazole 40 Mg Tablet PO Q12HR GENNY Radiology
[2023-06-04 09:10] VITALS: PULSE 60; RESP 16; O2SAT 95
[2023-06-04] MEDS: PANTOPRAZOLE 40 MG TABLET PO (09:12)
[2023-06-04 11:01] LABS: Basophils Absolute Auto 0.1 K/mm3 (0.0-0.1); Basophils Percent Auto 1.6 % (0.2-1.2); Eosinophils Absolute Auto 0.3 K/mm3 (0-0.3); Eosinophils Percent Auto 7.2 % (0-4.4); Hematocrit 25.5 % (42.0-52.0); Hemoglobin 7.6 g/dL (14.0-18.0); Immature Granulocyte Absolute 0.01 K/mm3 (0.00-0.031); Immature Granulocyte Percent A 0.3 % (0-0.5); Lymphocytes Absolute Auto 0.64 K/mm3 (0.9-3.2); Lymphocytes Percent Auto 16.5 % (18.3-44.2); Mean Corpuscular HGB Conc 29.8 g/dl (32-36); Mean Corpuscular Hemoglobin 24.6 pg (26-34); Mean Corpuscular Volume 82.5 fl (80-100); Mean Platelet Volume 11.3 fl (7.4-10.4); Monocytes Absolute Auto 0.5 K/mm3 (0.1-0.6); Monocytes Percent Auto 13.2 % (2.6-8.5); Neutrophils Absolute Auto 2.4 K/mm3 (1.3-6.7); Neutrophils Percent Auto 61.2 % (45.5-73.1); Platelet Count Result 128 k/mm3 (150-375); Red Blood Count 3.09 M/mm3 (4.6-6.20); Red Cell Distribution Width 17.1 % (11.5-14.5); White Blood Count 3.9 K/mm3 (4.5-10.0)
[2023-06-04 11:10] LABS: Anion Gap 11 mmol/L (8-16); Blood Urea Nitrogen 35 mg/dL (9-20); Calcium 8.5 mg/dL (8.4-10.2); Carbon Dioxide 20 mmol/L (22-30); Chloride 112 mmol/L (98-107); Estimated CRCL calculation 45 ml/min; Estimated Glomerular Filt Rate > 60; Glucose 129 mg/dL (65-110); Potassium 4.1 mmol/L (3.4-5.0); Sodium 143 mmol/L (137-145)
[2023-06-04 11:57] LABS: Hypochromasia 1+ (NORMAL); Platelet Estimate Decreased (Adequate)
[2023-06-04 11:58] LABS: Acanthocytes 1+ (NORMAL); Burr Cells 1+ (NORMAL); Ovalocytes 1+ (NORMAL); Schistocytes None Seen (NORMAL)
--- NOTE | 2023-06-04 13:48 | PM.DS ---
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 Hospital Course: Patient was admitted to hospital received 2 units PRBCs and underwent EGD with Dr. Anderson. EGD showed stomach ulcers not currently bleeding but likely the source acute blood loss. Dr. Anderson place patient on pantoprazole twice daily for 3 months with plans for repeat EGD. Patient had subsequent blood draws that showed stable hemoglobin, slightly decreased thought to be related to continued IV fluids and not taking diuretics that he had previously been on. Patient instructed to hold Plavix and Xarelto until June 13 and to avoid aspirin and NSAIDs due to risk of bleeding. Status at Discharge Cognitive/behavioral status at discharge: awake, alert, oriented and pleasant Functional status at discharge: independent ambulation Overall status at discharge: patient is progressing back to baseline Time Spent with Patient Time attestation: Total time spent providing and/or coordinating discharge services: Time spent: Greater than 30 minutes Exam Narrative: - GENERAL: Pleasant male in no acute distress. Well-nourished. - EYES: EOMI. Normal sclera, pale eyelid mucous membranes - HENT: Moist mucous membranes. - LUNGS: Clear to auscultation bilaterally, no wheezing, rhonchi, or rales. - CARDIOVASCULAR: Regular rate and rhythm. No murmur. No JVD. - ABDOMEN: Soft, non-distended. No palpable masses. Mild epigastric pain on palpation - EXTREMITIES: No edema. Peripheral pulses 2+. Non-tender. - NEUROLOGIC: No focal neurological deficits. CN II-XII grossly intact. - PSYCHIATRIC: Awake, Alert and oriented x 3. Appropriate mood and affect. - SKIN: No rashes or lesions. Warm. - LYMPH: No cervical lymphadenopathy. DS: Data Data Completed and Pending Pending studies at discharge: Pending at discharge 06/03/23 13:54 Surgical [PTH] Routine Labs on day of discharge: Labs from last 24 hours 06/04/23 06/03/23 06/03/23 10:56 23:41 15:08 WBC 3.9 L 3.4 L RBC 3.09 L 3.38 L Hgb 7.6 L 7.7 L 8.4 L Hct 25.5 L 25.3 L 29.0 L MCV 82.5 85.8 D MCH 24.6 L 24.9 L MCHC 29.8 L 29.0 L RDW 17.1 H 17.2 H Plt Count 128 L 154 MPV 11.3 H 12.6 H Immature Gran % (Auto) 0.3 0.6 H Neut % (Auto) 61.2 64.0 Lymph % (Auto) 16.5 L 15.7 L [place] % (Auto) 13.2 H 11.0 H Eos % (Auto) 7.2 H 7.0 H Baso % (Auto) 1.6 H 1.7 H Lymph # (Auto) 0.64 L 0.54 L [place] # (Auto) 0.5 0.4 Eos # (Auto) 0.3 0.2 Baso # (Auto) 0.1 0.1 Abs Immat Gran (auto) 0.01 0.02 Absolute Neuts (auto) 2.4 2.2 Absolute Nucleated RBC 0.0 0.0 Nucleated RBC % 0.0 0.0 Platelet Estimate Decreased Adequate Hypochromasia 1+ Poikilocytosis 1+ Anisocytosis 1+ Ovalocytes 1+ [place] Cells 1+ Acanthocytes (Spur) 1+ 2+ Schistocytes None seen None seen Sodium 143 141 Potassium 4.1 4.3 Chloride 112 H 112 H Carbon Dioxide 20
== END 2023-06-04 13:07 | disposition home or self-care (01) | DRG 378 ==
LOC: ANHED 15:23 → ANH3MED 16:17
PROVIDERS: Internal Medicine Gastroenterology; Student in an Organized Health Care Education/Training Program; Admitting Provider Student in an Organized Health Care Education/Training Program; Emergency Provider Emergency Medicine; PCP Internal Medicine; Visit Provider Nurse Practitioner
PROC: 0DJ08ZZ Inspection of Upper Intestinal Tract, Via Natural or Artificial Opening Endoscopic (ICD-10-PCS; CPT 43235; principal; 2023-06-03 15:15)
DX: K25.0 Acute gastric ulcer with hemorrhage (principal); D62 Acute posthemorrhagic anemia; D61.818 Other pancytopenia; K21.00 Gastro-esophageal reflux disease with esophagitis, without bleeding; J44.9 Chronic obstructive pulmonary disease, unspecified; I11.0 Hypertensive heart disease with heart failure; I50.9 Heart failure, unspecified; E78.5 Hyperlipidemia, unspecified; I25.10 Atherosclerotic heart disease of native coronary artery without angina pectoris; I48.91 Unspecified atrial fibrillation; F32.A Depression, unspecified; I73.9 Peripheral vascular disease, unspecified; Z79.01 Long term (current) use of anticoagulants; Z86.718 Personal history of other venous thrombosis and embolism; Z87.442 Personal history of urinary calculi; Z86.73 Personal history of transient ischemic attack (TIA), and cerebral infarction without residual deficits; Z95.5 Presence of coronary angioplasty implant and graft; Z95.1 Presence of aortocoronary bypass graft; Z87.891 Personal history of nicotine dependence
CPT/HCPCS: 36415; 36430; 71046; 80048; 80053; 83690; 83735; 83880; 84484; 85014; 85018; 85025; 85610; 85730; 86850; 86900; 86901; 86923; 87081; 88305; 93005; 96361; 96374; 96376; 99285; A9270; C9113; G0378; J2704; J7050; J7120; P9016

== ENCOUNTER 2023-08-05 18:16 | Emergency (ER) | payer MEDICARE, BC, SELFPAY ==
[2023-08-05 19:39] VITALS: BP 150/32; PULSE 62; RESP 20; TEMP 37; O2SAT 96
[2023-08-05 20:00] LABS: Basophils Absolute Auto 0.1 K/mm3 (0.0-0.1); Basophils Percent Auto 1.4 % (0.2-1.2); Eosinophils Absolute Auto 0.3 K/mm3 (0-0.3); Eosinophils Percent Auto 4.4 % (0-4.4); Hematocrit 25.8 % (42.0-52.0); Hemoglobin 7.1 g/dL (14.0-18.0); Immature Granulocyte Absolute 0.01 K/mm3 (0.00-0.031); Immature Granulocyte Percent A 0.2 % (0-0.5); Lymphocytes Absolute Auto 0.51 K/mm3 (0.9-3.2); Lymphocytes Percent Auto 8.6 % (18.3-44.2); Mean Corpuscular HGB Conc 27.5 g/dl (32-36); Mean Corpuscular Hemoglobin 22.8 pg (26-34); Mean Corpuscular Volume 82.7 fl (80-100); Mean Platelet Volume 11.8 fl (7.4-10.4); Monocytes Absolute Auto 0.6 K/mm3 (0.1-0.6); Monocytes Percent Auto 9.5 % (2.6-8.5); Neutrophils Absolute Auto 4.5 K/mm3 (1.3-6.7); Neutrophils Percent Auto 75.9 % (45.5-73.1); Platelet Count Result 202 k/mm3 (150-375); Red Blood Count 3.12 M/mm3 (4.6-6.20); Red Cell Distribution Width 19.3 % (11.5-14.5); White Blood Count 5.9 K/mm3 (4.5-10.0)
[2023-08-05 20:40] LABS: Platelet Estimate Adequate (Adequate)
[2023-08-05 20:41] LABS: Hypochromasia 1+ (NORMAL)
[2023-08-05 20:42] VITALS: BP 116/49; PULSE 61; RESP 16; TEMP 36.4; O2SAT 96
[2023-08-05 20:42] LABS: Anisocytosis 2+ (NORMAL); Schistocytes Rare (NORMAL)
--- NOTE | 2023-08-05 20:54 | ED.GENADULT ---
HPI - General Adult General Chief complaint: Recheck/Abnormal Lab/Rx Stated complaint: low HGB Time Seen by Provider: 08/05/23 20:48 History of Present Illness HPI narrative: Patient is a 73-year-old male who presents to the emergency department this evening for a blood check. states that the patient does have a history of a bleeding ulcer and states that his hemoglobin has been trending at around 7-7.5. Patient had recent blood work at his insurance assistant's office and states that they were contacted by [facility] physician regarding coming to the emergency department. She was unsure for the reason given that his hemoglobin has been at this range for a while now and patient is currently asymptomatic, denying any hematemesis, hemoptysis, or any melena or hematochezia. Patient is currently on iron pills 3 times a week and was instructed by his insurance assistant to stop his Xarelto which he recently did. states that they do have an upcoming appointment with the patient's rehab liaison, Dr. Anderson as he is due for a repeat EGD. states that during his last EGD, his ulcer was not bleeding and therefore he was only placed on a PPI, no intervention was needed at that time. Patient currently denies any chest pain, shortness of breath, nausea, vomiting, abdominal pain, dysuria, hematuria, constipation, diarrhea, fevers or chills. He also denies any headaches, dizziness, lightheadedness, blurry visions, focal weakness, numbness and or tingling. There are no other modifying, alleviating, or precipitating factors at this time. Related Data Home Medications Medication Instructions Recorded Confirmed amlodipine 10 mg tablet 10 mg PO DAILY 02/21/21 06/02/23 atorvastatin 80 mg tablet 80 mg PO DAILY 02/21/21 06/02/23 carvedilol 25 mg tablet 25 mg PO BID 02/21/21 06/02/23 clopidogrel 75 mg tablet 75 mg PO DAILY 02/21/21 06/02/23 isosorbide mononitrate 60 mg 60 mg PO DAILY 03/16/22 06/02/23 tablet,extended release 24 hr rivaroxaban 20 mg tablet (Xarelto) 20 mg PO DAILY 09/13/22 06/02/23 citalopram 20 mg tablet 20 mg PO DAILY 09/19/22 06/02/23 furosemide 20 mg tablet 20 mg PO QMWF 01/25/23 06/02/23 hydralazine 50 mg tablet 50 mg PO TID 01/25/23 06/02/23 hydrochlorothiazide 25 mg tablet 25 mg PO ONCE 01/25/23 06/02/23 sacubitril 24 mg-valsartan 26 mg 1 tablet PO BID 01/25/23 06/02/23 tablet (Entresto) dapagliflozin propanediol 10 mg 10 mg PO DAILY 06/02/23 06/02/23 tablet (Farxiga) Allergies Allergy/AdvReac Type Severity Reaction Status Date / Time No Known Allergies Allergy Verified 06/03/23 12:31 Review of Systems Review of Systems: All systems are reviewed and are negative unless stated otherwise in the HPI. [facility] Past Medical History Medical History Carotid artery disease Chronic anticoagulation Patient on Xarelto for history of stroke and peripheral vascular disease. Coronary artery disease GIB (gastrointestinal bleeding) Hemorrhagic stroke (1999) Hyperlipidemia Hypertension Kidney stones Left leg DVT Tobacco abuse Ulcer of antrum of stomach Surgical History Surgical History History of cardiac catheterization History of coronary artery bypass graft History of coronary artery stent placement History of left-sided carotid endarterectomy History of lithotripsy Family History Family History Mother Heart disease Cerebrovascular accident Social History Social History Social History: Surrogate medical decision maker: Merna Vincenzo, spouse. Code status: Full code. Smoking packs per day: 1 Smoking cigarettes per day: 20.0 Years smoked: 56 Smoking pack-years: 56.00 Smoking status: Former smoker Tobacco type: cigarettes Smoking end date: 09/16/22 Alcohol intake: c
[2023-08-05 21:30] LABS: Alanine Aminotransferase 18 U/L (6-50); Albumin Level 4.2 g/dL (3.5-5.1); Alkaline Phosphatase 122 U/L (38-126); Anion Gap 10 mmol/L (8-16); Aspartate Amino Transferase 23 U/L (17-59); Bilirubin,Total 0.8 mg/dL (0.2-1.3); Blood Urea Nitrogen 37 mg/dL (9-20); Calcium 8.7 mg/dL (8.4-10.2); Carbon Dioxide 18 mmol/L (22-30); Chloride 111 mmol/L (98-107); Estimated CRCL calculation 32 ml/min; Estimated Glomerular Filt Rate 43; Glucose 143 mg/dL (65-110); Sodium 139 mmol/L (137-145)
[2023-08-05 21:37] VITALS: BP 120/59; PULSE 61; RESP 15; O2SAT 97
== END 2023-08-05 22:01 | disposition home or self-care (01) ==
PROVIDERS: Emergency Medicine; Emergency Provider Emergency Medicine; PCP Internal Medicine
DX: D64.9 Anemia, unspecified (principal); I25.10 Atherosclerotic heart disease of native coronary artery without angina pectoris; I10 Essential (primary) hypertension; E78.5 Hyperlipidemia, unspecified; Z95.1 Presence of aortocoronary bypass graft; Z95.5 Presence of coronary angioplasty implant and graft; Z79.84 Long term (current) use of oral hypoglycemic drugs; Z86.73 Personal history of transient ischemic attack (TIA), and cerebral infarction without residual deficits; Z86.718 Personal history of other venous thrombosis and embolism; Z87.442 Personal history of urinary calculi; Z87.891 Personal history of nicotine dependence
CPT/HCPCS: 36415; 80053; 85025; 99284

== ENCOUNTER 2023-08-16 00:15 | Day surgery (SDC) | payer MEDICARE, SELFPAY ==
[2023-08-15 09:04] VITALS: BMI 22.4
[2023-08-16] VITALS (11 sets, daily range): BP systolic 127–167; BP diastolic 38–92; PULSE 56–70; RESP 16–22; TEMP 36.8–37.1; O2SAT 95–96; BMI 22.4
[2023-08-16] MEDS: LACTATED RINGERS 1,000 ML 150 ML IV CONT (09:26)
--- NOTE | 2023-08-16 09:55 | WPDANESEPPF ---
Anes - Initial Pre Proc Eval Procedure: Operation Date: 08/16/23 10:30 Proposed Procedures p Esophagogastroduodenoscopy EGD - Clovis Arroyo MD Date/Time: 08/16/23 09:55 Surgeon: Clovis Arroyo MD Pre Op Diagnosis: gastric ulcer Patient Data Age: 73 Gender: M Height: 1.68 m Weight: 63 kg Last Vital Signs Temp 98.5 F 08/16/23 09:12 Pulse 68 08/16/23 09:12 Resp 17 08/16/23 09:12 BP 127/42 L 08/16/23 09:12 Pulse Ox 95 08/16/23 09:12 O2 Del Method Room Air 08/16/23 09:12 Allergies Allergy/AdvReac Type Severity Reaction Status Date / Time No Known Allergies Allergy Verified 08/16/23 09:04 Home Medications Medication Instructions Recorded Confirmed Type amlodipine 10 mg tablet 10 mg PO DAILY 02/21/21 08/16/23 History atorvastatin 80 mg tablet 80 mg PO DAILY 02/21/21 08/16/23 History carvedilol 25 mg tablet 25 mg PO BID 02/21/21 08/16/23 History clopidogrel 75 mg tablet 75 mg PO DAILY 02/21/21 08/16/23 History isosorbide mononitrate 60 mg 60 mg PO DAILY 03/16/22 08/16/23 History tablet,extended release 24 hr rivaroxaban 20 mg tablet (Xarelto) 20 mg PO DAILY 09/13/22 08/16/23 History furosemide 20 mg tablet 20 mg PO QMWF 01/25/23 08/16/23 History hydralazine 50 mg tablet 100 mg PO TID 01/25/23 08/16/23 History hydrochlorothiazide 25 mg tablet 25 mg PO DAILY 01/25/23 08/16/23 History sacubitril 24 mg-valsartan 26 mg 1 tablet PO BID 01/25/23 08/16/23 History tablet (Entresto) dapagliflozin propanediol 10 mg 10 mg PO DAILY 06/02/23 08/16/23 History tablet (Farxiga) pantoprazole 40 mg tablet,delayed 40 mg PO Q12HR #60 tabs 06/04/23 08/16/23 Rx release Patient hx anesthesia problems: none Family hx anesthesia problems: none Results Review: All pre-operative results and documents have been reviewed as part of the pre-operative evaluation. [facility] Past Medical History Medical History Carotid artery disease Chronic anticoagulation Patient on Xarelto for history of stroke and peripheral vascular disease. Coronary artery disease GIB (gastrointestinal bleeding) Hemorrhagic stroke (1999) Hyperlipidemia Hypertension Kidney stones Left leg DVT Tobacco abuse Ulcer of antrum of stomach Surgical History Surgical History History of cardiac catheterization History of coronary artery bypass graft History of coronary artery stent placement History of left-sided carotid endarterectomy History of lithotripsy Family History Family History Mother Heart disease Cerebrovascular accident Social History Social History Social History: Surrogate medical decision maker: Merna Loya, spouse. Code status: Full code. Smoking packs per day: 1 Smoking cigarettes per day: 20.0 Years smoked: 30 Smoking pack-years: 30.00 Smoking status: Former smoker Tobacco type: cigarettes Smoking end date: 09/16/22 Alcohol intake: current Alcohol use details: Social alcohol use in moderation. 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
--- NOTE | 2023-08-16 10:13 | SUR.PREOP ---
Reported to Dr. Nuenz the patients situation with the low hemoglobin levels from previous visits. Waiting on current report from labs that were drawn last night 08/15/23, to be faxed to us. The nurse from Dr. Becerril office sent a message to patient stating that the blood bank order control clerk note from 08/15/23 says hemoglobin level was 6.2 but this is not from the official report. Dr. Nunez made aware of this.
--- NOTE | 2023-08-16 10:27 | SUR.PREOP ---
Dr. Soriano made aware of hemoglobin levels given to me from patient . Doctor currently speaking with patient.
--- NOTE | 2023-08-16 10:30 | SUR.PREOP ---
Per Dr. Anderson, order 1 unit of RBC to be given to transfused for patient.
[2023-08-16 11:06] LABS: Hemoglobin 6.7 g/dL (14.0-18.0)
--- NOTE | 2023-08-16 11:10 | SUR.PREOP ---
Dr. Anderson was given the critical result of a hemoglobin level of 6.7.
[2023-08-16] MEDS: SODIUM CHLORIDE 0.9% IV 250 ML 30 ML IV CONT (11:59)
--- NOTE | 2023-08-16 13:28 | PM.HPGS ---
History of Present Illness History of Present Illness Consent: Risks, benefits, and alternatives have been discussed and questions answered. Patient agrees to proceed with procedure. Chief complaint: gastric ulcer Narrative: Favio Loya is a 73 year old male with ulcerative gastritis 06/2023, here to reassess with EGD but his matrix inspector ordered blood work yesterday and hgb 6.3, denies overt gib. He was told to discontinue xarelto more than 1 week ago, he says that has seen wader boot top assembler about 3-4 years ago. Colonoscopy about 3 years ago. Review of Systems Constitutional: Constitutional: Reports fatigue Eyes: Eyes: Denies blurry vision ENT: Reports Normal hearing present, Denies headache(s) and Denies neck pain Cardiovascular: Cardiovascular: Denies chest pain and Denies dyspnea Respiratory: Respiratory: Denies dyspnea Gastrointestinal: Gastrointestinal: Reports no additional gastrointestinal complaints Genitourinary: Genitourinary: Denies dysuria Musculoskeletal: Musculoskeletal: Denies neck pain Integumentary/Breasts: Skin/Breast: Denies dry skin Neurologic: Reports Normal hearing present, Denies headache(s) and Denies weakness Psychiatric: Psychiatric: Denies anxiety Endocrine: Endocrine: Denies change in body appearance Hematologic/Lymphatic: Hematologic/Lymphatic: Denies easy bleeding Allergic/Immunologic: Allergic/Immunologic: Denies urticaria PMFSH Past Medical History Medical History Carotid artery disease Chronic anticoagulation Patient on Xarelto for history of stroke and peripheral vascular disease. Coronary artery disease GIB (gastrointestinal bleeding) Hemorrhagic stroke (1999) Hyperlipidemia Hypertension Kidney stones Left leg DVT Tobacco abuse Ulcer of antrum of stomach Surgical History Surgical History History of cardiac catheterization History of coronary artery bypass graft History of coronary artery stent placement History of left-sided carotid endarterectomy History of lithotripsy Family History Family History Mother Heart disease Cerebrovascular accident Social History Social History Social History: Surrogate medical decision maker: Merna Loya, spouse. Code status: Full code. Smoking packs per day: 1 Smoking cigarettes per day: 20.0 Years smoked: 30 Smoking pack-years: 30.00 Smoking status: Former smoker Tobacco type: cigarettes Smoking end date: 09/16/22 Alcohol intake: current Alcohol use details: Social alcohol use in moderation. 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: No Meds Home Medications and Allergies Home Medications Medication Instructions Recorded Confirmed Type amlodipine 10 mg tablet 10 mg PO DAILY 02/21/21 08/16/23 History atorvastatin 80 mg tablet 80 mg PO DAILY 02/21/21 08/16/23 History carvedilol 25 mg tablet 25 mg PO BID 02/21/21 08/16/23 History clopidogrel 75 mg tablet 75 mg PO DAILY 02/21/21 08/16/23 History isosorbide mononitrate 60 mg 60 mg PO DAILY 03/16/22 08/16/23 History tablet,extended release 24 hr rivaroxaban 20 mg tablet (Xarelto) 20 mg PO DAILY 09/13/22 08/16/23 History furosemide 20 mg tablet 20 mg PO QMWF 01/25/23 08/16/23 History h
== END 2023-08-16 15:36 | disposition home or self-care (01) ==
PROVIDERS: Anesthesiology; PCP Internal Medicine; Visit Provider Internal Medicine Gastroenterology
PROC: 0DJ08ZZ Inspection of Upper Intestinal Tract, Via Natural or Artificial Opening Endoscopic (ICD-10-PCS; CPT 43235; principal; 2023-08-16 10:30)
DX: K25.9 Gastric ulcer, unspecified as acute or chronic, without hemorrhage or perforation (principal); D62 Acute posthemorrhagic anemia; K29.50 Unspecified chronic gastritis without bleeding; I25.10 Atherosclerotic heart disease of native coronary artery without angina pectoris; I10 Essential (primary) hypertension; E78.5 Hyperlipidemia, unspecified; I73.9 Peripheral vascular disease, unspecified; Z86.73 Personal history of transient ischemic attack (TIA), and cerebral infarction without residual deficits; Z86.718 Personal history of other venous thrombosis and embolism; Z79.01 Long term (current) use of anticoagulants; Z95.5 Presence of coronary angioplasty implant and graft; Z95.1 Presence of aortocoronary bypass graft; Z87.891 Personal history of nicotine dependence; Z79.02 Long term (current) use of antithrombotics/antiplatelets; Z79.84 Long term (current) use of oral hypoglycemic drugs
CPT/HCPCS: 43239; 36415; 36430; 85014; 85018; 86850; 86900; 86901; 86923; 88305; J2704; J7050; J7120; P9016

== ENCOUNTER 2023-12-20 10:45 | Outpatient (CLI) | payer MEDICARE, SELFPAY ==
--- NOTE | ~2023-12-20 | CT_ITS ---
CT Scan of the Chest without Contrast: Clinical Indication: Lung cancer screening, personal history of nicotine dependence Technique: Contiguous sections were acquired throughout the chest without intravenous contrast. Dose reduction technique was used on this scan by utilizing automated exposure control and iterative recon struction technique. The dose-length product (DLP) was 74.41 mGy-cm. COMPARISON: 11/05/2022 Findings: Stable mildly enlarged precarinal lymph node no other lymphadenopathy seen. Status post CABG. No александр cardial effusion. Small right pleural effusion and [id number] left pleural effusion are present. There are 2 adjacent nodules at the inferior lateral right upper lobe, measuring 7 and 5 mm in diamet er (axial image 59), new from prior exam. There is a stable 5 mm right middle lobe pulmonary nodule ( axial image 83). There is mild emphysema. There is minimal right basilar atelectatic change. Images through the upper abdomen reveal no abnormalities. Impression: Lung RADS 3: Probably benign. Six-month follow-up screening CT recommended. Bilateral pleural effusions, as detailed above, similar to prior exam. Reviewed, dictated and finalized at location M. Impression: Lung RADS 3: Probably benign. Six-month follow-up screening CT recommended. Bilateral pleural effusions, as detailed above, similar to prior exam.
== END 2023-12-20 10:46 | disposition home or self-care (01) ==
LOC: ANHIMG 10:45
PROVIDERS: PCP Internal Medicine; Visit Provider Internal Medicine
DX: Z12.2 Encounter for screening for malignant neoplasm of respiratory organs (principal); R91.8 Other nonspecific abnormal finding of lung field; J90 Pleural effusion, not elsewhere classified; Z87.891 Personal history of nicotine dependence
CPT/HCPCS: 71271

== ENCOUNTER 2024-02-10 01:37 | Day surgery (SDC) | payer MEDICARE, SELFPAY ==
[2024-01-24 11:44] VITALS: BMI 22.4
--- NOTE | 2024-01-24 14:26 | PC.NURSE ---
pt called for his pat interview prior to egd/colon on february 09. pt unable to confirm his meds and stated didn't think he had received his instructions in the mail. was able to complete his medical history. per his request called his later in the day to confirm meds. she states since he had the watchman procedure done in nov 2023, his xarelto had been stopped and he was started on low dose aspirin. he remains on plavix. instructed her to stop his plavix 4 days prior to procedure, last dose would be february 04. also let her know would email instructions, if they had any questions to please call back. voiced understanding.
[2024-02-10 08:51] VITALS: BP 152/59; PULSE 79; RESP 16; TEMP 36.2; O2SAT 97
--- NOTE | 2024-02-10 08:54 | SUR.PREOP ---
Patient stated he took his Plavix and Aspirin 02/08. Patient states he was unaware he was supposed to stop taking his Plavix. Notified Dr. Adnerson and he is okay with proceeding with procedure.
[2024-02-10] MEDS: LACTATED RINGERS 1,000 ML 150 ML IV CONT (09:00)
--- NOTE | 2024-02-10 09:15 | WPDANESEPPF ---
Anes - Initial Pre Proc Eval Procedure: Operation Date: 02/10/24 10:00 Proposed Procedures p Esophagogastroduodenoscopy & Colonoscopy - Clovis Arroyo MD Date/Time: 02/10/24 09:15 Surgeon: Clovis Arroyo MD Pre Op Diagnosis: Anemia,unspecified Patient Data Age: 73 Gender: M Height: 1.65 m Weight: 56.9 kg Last Vital Signs Temp 97.1 F L 02/10/24 08:51 Pulse 79 02/10/24 08:51 Resp 16 02/10/24 08:51 BP 152/59 H 02/10/24 08:51 Pulse Ox 97 02/10/24 08:51 O2 Del Method Room Air 02/10/24 08:51 Allergies Allergy/AdvReac Type Severity Reaction Status Date / Time No Known Allergies Allergy Verified 02/10/24 08:49 Home Medications Medication Instructions Recorded Confirmed Type amlodipine 10 mg tablet 10 mg PO DAILY 02/21/21 01/24/24 History atorvastatin 80 mg tablet 80 mg PO DAILY 02/21/21 01/24/24 History carvedilol 25 mg tablet 25 mg PO BID 02/21/21 01/24/24 History clopidogrel 75 mg tablet 75 mg PO DAILY 02/21/21 02/10/24 History isosorbide mononitrate 60 mg 60 mg PO DAILY 03/16/22 01/24/24 History tablet,extended release 24 hr furosemide 20 mg tablet 20 mg PO QMWF 01/25/23 01/24/24 History hydralazine 50 mg tablet 100 mg PO TID 01/25/23 01/24/24 History hydrochlorothiazide 25 mg tablet 25 mg PO DAILY 01/25/23 01/24/24 History sacubitril 24 mg-valsartan 26 mg 1 tablet PO BID 01/25/23 01/24/24 History tablet (Entresto) dapagliflozin propanediol 10 mg 10 mg PO DAILY 06/02/23 01/24/24 History tablet (Farxiga) pantoprazole 40 mg tablet,delayed 40 mg PO Q12HR #60 tabs 08/16/23 01/24/24 Rx release allopurinol 100 mg tablet 100 mg PO DAILY 10/13/23 01/24/24 History colchicine 0.6 mg capsule 0.6 mg PO DAILY 10/13/23 01/24/24 History aspirin 81 mg chewable tablet 81 mg PO DAILY 01/24/24 02/10/24 History metoprolol succinate 200 mg 200 mg PO DAILY 01/24/24 01/24/24 History tablet,extended release 24 hr Patient hx anesthesia problems: none Family hx anesthesia problems: none Results Review: All pre-operative results and documents have been reviewed as part of the pre-operative evaluation. [facility] Past Medical History Medical History Carotid artery disease Chronic anticoagulation Patient on Xarelto for history of stroke and peripheral vascular disease. Coronary artery disease GIB (gastrointestinal bleeding) Hemorrhagic stroke (1999) Hyperlipidemia Hypertension Kidney stones Left leg DVT Tobacco abuse Ulcer of antrum of stomach Surgical History Surgical History History of cardiac catheterization History of coronary artery bypass graft History of coronary artery stent placement History of left-sided carotid endarterectomy History of lithotripsy Family History Family History Mother Heart disease Cerebrovascular accident Social History Social History Social History: Surrogate medical decision maker: Merna Rodriguezoctavioangel, spouse. Code status: Full code. Caffeine-daily Smoking packs per day: 1 Smoking cigarettes per day: 20.0 Years smoked: 30 Smoking pack-years: 30.00 Smoking status: Former smoker Tobacco type: cigarettes Smoking end date: 09/16/22 Alcohol intake: current Alcohol use details: 2 beers every couple weeks Substance use: never Substance use type: does not use Lack of Transportation: No Lack of Food: Sometimes True Current Housing: I Have Housing Concerned About Future Housing: No Difficulty Paying Gas/Electric Bills: YES Difficulty Paying for Meds: YES Currently Unemployed: No Education: High School Diploma/GED Difficulty w/ Childcare or Family Care: No Living arrangements: with family Additional living arrangements comments: with sp Additional occ
--- NOTE | 2024-02-10 09:49 | PM.HPGS ---
History of Present Illness History of Present Illness Consent: Risks, benefits, and alternatives have been discussed and questions answered. Patient agrees to proceed with procedure. Chief complaint: Anemia,unspecified Narrative: Favio Loya is a 73 year old male here for egd and colonoscopy, he had ulcerative gastritis 06/2023 then repeat EGD 08/2023 because persistent anemia with similar finding, biopsies negative for h pylori, no celiac. Since he has not been using xarelto because now he has watchman and only on plavix and baby aspirin, anemia has improved. Colonoscopy about 4 years ago. No overt gib. Still taking ppi. Review of Systems Review of Systems: All systems reviewed & are unremarkable except as noted in HPI and below PMFSH Past Medical History Medical History (Updated 02/10/24 @ 09:52 by Clovis Arroyo MD) Carotid artery disease Chronic anticoagulation Patient on Xarelto for history of stroke and peripheral vascular disease. Coronary artery disease GIB (gastrointestinal bleeding) Hemorrhagic stroke (1999) Hx of shelter use of blood thinners Hyperlipidemia Hypertension Iron deficiency anemia Kidney stones Left leg DVT Tobacco abuse Ulcer of antrum of stomach Surgical History Surgical History History of cardiac catheterization History of coronary artery bypass graft History of coronary artery stent placement History of left-sided carotid endarterectomy History of lithotripsy Family History Family History Mother Heart disease Cerebrovascular accident Social History Social History Social History: Surrogate medical decision maker: Merna Loya, spouse. Code status: Full code. Caffeine-daily Smoking packs per day: 1 Smoking cigarettes per day: 20.0 Years smoked: 30 Smoking pack-years: 30.00 Smoking status: Former smoker Tobacco type: cigarettes Smoking end date: 09/16/22 Alcohol intake: current Alcohol use details: 2 beers every couple weeks Substance use: never Substance use type: does not use Lack of Transportation: No Lack of Food: Sometimes True Current Housing: I Have Housing Concerned About Future Housing: No Difficulty Paying Gas/Electric Bills: YES Difficulty Paying for Meds: YES Currently Unemployed: No Education: High School Diploma/GED Difficulty w/ Childcare or Family Care: No Living arrangements: with family Additional living arrangements comments: with sp 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 Spiritual care concerns: No Meds Home Medications and Allergies Home Medications Medication Instructions Recorded Confirmed Type amlodipine 10 mg tablet 10 mg PO DAILY 02/21/21 01/24/24 History atorvastatin 80 mg tablet 80 mg PO DAILY 02/21/21 01/24/24 History carvedilol 25 mg tablet 25 mg PO BID 02/21/21 01/24/24 History clopidogrel 75 mg tablet 75 mg PO DAILY 02/21/21 02/10/24 History isosorbide mononitrate 60 mg 60 mg PO DAILY 03/16/22 01/24/24 History tablet,extended release 24 hr furosemide 20 mg tablet 20 mg PO QMWF 01/25/23 01/24/24 History hydralazine 50 mg tablet 100 mg PO TID 01/25/23 01/24/24 History hydrochlorothiazide 25 mg tablet 25 mg PO DAILY 01/25/23 01/24/24 History sacubitril 24 mg-valsartan 26 mg 1 tablet PO BID 01/25/23 01/24/24 History tablet (Entresto) dapagliflozin propanediol 10 mg 10 mg PO DAILY 06/02/23 01/24/24 History tablet (Farxiga) pantoprazole 40 mg tablet,delayed 40 mg PO Q12HR #60 tabs 08/16/23 01/24/24 Rx release allopurinol 100 mg tablet 100 mg PO DAILY 10/13/23 01/24/24 History colchicine 0.6 mg capsule 0.6 mg PO DAILY 10/13/23 01/24/24 History aspirin 81 mg chewable tablet 81 mg PO DAILY 01/24/24 02/10/24 History metoprolol succinate 2
--- NOTE | 2024-02-10 10:00 | SUR.OPER ---
EGD end 957 COLONOSCOPY START 100
[2024-02-10 10:25] VITALS: BP 112/32; PULSE 64; RESP 18; O2SAT 100
--- NOTE | 2024-02-10 10:27 | SUR.OPER ---
[address] ascending colon polyp retrieved. Dr Anderson notified.
[2024-02-10 10:35] VITALS: BP 130/44; PULSE 70; RESP 18; O2SAT 100
[2024-02-10 10:45] VITALS: BP 144/46; PULSE 74; RESP 18; O2SAT 100
== END 2024-02-10 11:01 | disposition home or self-care (01) ==
PROVIDERS: PCP Internal Medicine; Visit Provider Internal Medicine Gastroenterology
PROC: 0DJ08ZZ Inspection of Upper Intestinal Tract, Via Natural or Artificial Opening Endoscopic (ICD-10-PCS; CPT 43235; principal; 2024-02-10 10:00)
DX: D50.9 Iron deficiency anemia, unspecified (principal); D12.2 Benign neoplasm of ascending colon; D12.5 Benign neoplasm of sigmoid colon; D12.8 Benign neoplasm of rectum; K57.30 Diverticulosis of large intestine without perforation or abscess without bleeding; K64.8 Other hemorrhoids; I25.10 Atherosclerotic heart disease of native coronary artery without angina pectoris; E78.5 Hyperlipidemia, unspecified; I10 Essential (primary) hypertension; I73.9 Peripheral vascular disease, unspecified; Z87.11 Personal history of peptic ulcer disease; Z86.718 Personal history of other venous thrombosis and embolism; Z79.02 Long term (current) use of antithrombotics/antiplatelets; Z79.84 Long term (current) use of oral hypoglycemic drugs; Z79.82 Long term (current) use of aspirin; Z95.1 Presence of aortocoronary bypass graft; Z95.5 Presence of coronary angioplasty implant and graft; Z87.891 Personal history of nicotine dependence
CPT/HCPCS: 45385; 43235; 88305; J2001; J2704; J7120

== ENCOUNTER 2024-04-13 22:29 | Emergency (ER) | payer MEDICARE, SELFPAY ==
--- NOTE | ~2024-04-13 | XR_ITS ---
EXAMINATION: XR chest 2V DATE: 04/13/2024 22:53 INDICATION: Chest pain. TECHNIQUE: Frontal and lateral views of the chest were obtained. COMPARISON: Chest 2 views 06/02/2023, chest CT 12/20/2023 FINDINGS: There is a diffuse interstitial pattern in the lungs, consistent with mild pulmonary edema. No pleural effusion or pneumothorax. Cardiomegaly is noted. There are changes of coronary artery byp ass grafting. There is a closure device at left atrial appendage. IMPRESSION: 1. Mild pulmonary edema. 2. Cardiomegaly. Reviewed, dictated and finalized at location E.
--- NOTE | 2024-04-13 22:31 | ECG_ITS ---
Test Date: 2024-04-13 22:39:01 Measurements Intervals [place] Rate: 84 P: 159 CT: 268 QRS: -21 QRSD: 119 T: 154 QT: 402 QTc: 477 Interpretive Statements SINUS RHYTHM WITH FIRST DEGREE AV BLOCK VENTRICULAR PREMATURE COMPLEX LEFT BUNDLE BRANCH BLOCK BASELINE ARTIFACT- I, II, AVR ABNORMAL ECG No previous ECG available for comparison Electronically Signed On 04-14-2024 07:12:08 CDT by Patrick Daniels D.O.
[2024-04-13 22:56] LABS: Basophils Absolute Auto 0.1 K/mm3 (0.0-0.1); Basophils Percent Auto 1.1 % (0.2-1.2); Eosinophils Absolute Auto 0.2 K/mm3 (0-0.3); Eosinophils Percent Auto 4.6 % (0-4.4); Hematocrit 34.6 % (42.0-52.0); Hemoglobin 10.9 g/dL (14.0-18.0); Immature Granulocyte Absolute 0.01 K/mm3 (0.00-0.031); Immature Granulocyte Percent A 0.2 % (0-0.5); Immature Platelet Fraction Pct 9.8 % (0.9-11.2); Lymphocytes Absolute Auto 0.64 K/mm3 (0.9-3.2); Lymphocytes Percent Auto 13.9 % (18.3-44.2); Mean Corpuscular HGB Conc 31.5 g/dl (32-36); Mean Corpuscular Hemoglobin 26.7 pg (26-34); Mean Corpuscular Volume 84.8 fl (80-100); Mean Platelet Volume 13.4 fl (7.4-10.4); Monocytes Absolute Auto 0.5 K/mm3 (0.1-0.6); Monocytes Percent Auto 10.4 % (2.6-8.5); Neutrophils Absolute Auto 3.2 K/mm3 (1.3-6.7); Neutrophils Percent Auto 69.8 % (45.5-73.1); Platelet Count Result 109 k/mm3 (150-375); Red Blood Count 4.08 M/mm3 (4.6-6.20); Red Cell Distribution Width 17.6 % (11.5-14.5); White Blood Count 4.6 K/mm3 (4.5-10.0)
[2024-04-13 22:57] VITALS: BP 180/75; PULSE 90; RESP 20; TEMP 36.3; O2SAT 100
[2024-04-13 23:05] LABS: INR 1.1; Partial Thromboplastin Time 30.3 Seconds (22.3-36.8); Prothrombin Time 14.2 Seconds (11.1-14.7)
[2024-04-13 23:18] LABS: Troponin I 0.014 ng/mL (0.000-0.034)
[2024-04-13 23:30] LABS: Alanine Aminotransferase 19 U/L (6-50); Albumin Level 4.5 g/dL (3.5-5.1); Alkaline Phosphatase 177 U/L (38-126); Anion Gap 13 mmol/L (4-12); Aspartate Amino Transferase 29 U/L (17-59); Bilirubin,Total 1.2 mg/dL (0.2-1.3); Blood Urea Nitrogen 29 mg/dL (9-20); Calcium 9.6 mg/dL (8.4-10.2); Carbon Dioxide 25 mmol/L (22-30); Chloride 102 mmol/L (98-107); Estimated CRCL calculation 43 ml/min; Estimated Glomerular Filt Rate > 60; Glucose 113 mg/dL (65-110); Lipase 323 U/L (23-300); Potassium 3.9 mmol/L (3.4-5.0); Sodium 140 mmol/L (137-145)
--- NOTE | 2024-04-14 01:11 | ED.CHESTPAIN ---
HPI - Chest Pain General Chief Complaint: Chest Pain Stated Complaint: chest pain Time Seen by Provider: 04/14/24 00:41 History of Present Illness HPI narrative: 73-year-old male with history of carotid disease CABG in 1999 presents emergency department for evaluation chest pain this evening. Patient developed substernal chest pain approximately 4 hours ago. Patient took nitro this did help his symptoms. Upon arrival emergency department patient was still complaining of some substernal chest pain. Patient follows up with Cardiology at [facility]. Related Data Home Medications Medication Instructions Recorded Confirmed amlodipine 10 mg tablet 10 mg PO DAILY 02/21/21 02/13/24 atorvastatin 80 mg tablet 80 mg PO DAILY 02/21/21 02/13/24 clopidogrel 75 mg tablet 75 mg PO DAILY 02/21/21 02/13/24 isosorbide mononitrate 60 mg 60 mg PO DAILY 03/16/22 02/13/24 tablet,extended release 24 hr furosemide 20 mg tablet 20 mg PO QMWF 01/25/23 02/13/24 hydralazine 50 mg tablet 100 mg PO TID 01/25/23 02/13/24 hydrochlorothiazide 25 mg tablet 25 mg PO DAILY 01/25/23 02/13/24 sacubitril 24 mg-valsartan 26 mg 1 tablet PO BID 01/25/23 02/13/24 tablet (Entresto) dapagliflozin propanediol 10 mg 10 mg PO DAILY 06/02/23 02/13/24 tablet (Farxiga) allopurinol 100 mg tablet 100 mg PO DAILY 10/13/23 02/13/24 colchicine 0.6 mg capsule 0.6 mg PO DAILY 10/13/23 02/13/24 aspirin 81 mg chewable tablet 81 mg PO DAILY 01/24/24 02/13/24 metoprolol succinate 200 mg 200 mg PO DAILY 01/24/24 02/13/24 tablet,extended release 24 hr Allergies Allergy/AdvReac Type Severity Reaction Status Date / Time No Known Allergies Allergy Verified 04/13/24 23:05 Review of Systems Review of Systems: All systems reviewed & are unremarkable except as noted in HPI and below PMFSH Past Medical History Medical History Carotid artery disease Chronic anticoagulation Patient on Xarelto for history of stroke and peripheral vascular disease. 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 Code status: Full code. Caffeine-daily Smoking packs per day: 1 Smoking cigarettes per day: 20.0 Years smoked: 30 Smoking pack-years: 30.00 Smoking status: Former smoker Tobacco type: cigarettes Smoking end date: 09/16/22 Alcohol intake: current Alcohol use details: 2 beers every couple weeks Substance use: never Substance use type: does not use Lack of Transportation: No Lack of Food: Sometimes True Current Housing: I Have Housing Concerned About Future Housing: No Difficulty Paying Gas/Electric Bills: YES Difficulty Paying for Meds: YES Currently Unemployed: No Education: High School Diploma/GED Difficulty w/ Childcare or Family Care: No Living arrangements: with family Additional living arrangements comments: with sp 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 HEAD: normocephalic, atraumatic. EYES: PERRLA/EOMI, conjunctivae clear. NOSE: Normal
[2024-04-14] MEDS: MORPHINE SULFATE (*CRX) 4 MG/ML INJ IV PUSH (01:29)
[2024-04-14] MEDS: NITROGLYCERIN OINTMENT 1 INCH DOSE TRANSDERM (01:29)
--- NOTE | 2024-04-14 01:29 | ECG_ITS ---
Test Date: 2024-04-14 01:35:07 Measurements Intervals [place] Rate: 82 P: 0 MO: 0 QRS: -26 QRSD: 125 T: 152 QT: 425 QTc: 497 Interpretive Statements SINUS RHYTHM WITH MARKED FIRST DEGREE AV BLOCK ATRIAL PREMATURE COMPLEXES LEFT BUNDLE BRANCH BLOCK BASELINE ARTIFACT- I, III, AVR, AVL BASELINE ARTIFACT- I, II, III, AVR, AVL, AVF, V1 ABNORMAL ECG Compared to ECG 04/13/2024 22:39:01 NO SIGNIFICANT CHANGE Electronically Signed On 04-14-2024 07:17:33 CDT by Patrick Daniels D.O.
[2024-04-14] MEDS: ASPIRIN 81 MG CHEWABLE TABLET 324 MG PO (01:47)
[2024-04-14 01:55] LABS: Troponin I 0.015 ng/mL (0.000-0.034)
== END 2024-04-14 02:10 | disposition home or self-care (01) ==
PROVIDERS: Emergency Provider Emergency Medicine; PCP Internal Medicine
DX: R07.2 Precordial pain (principal); I25.10 Atherosclerotic heart disease of native coronary artery without angina pectoris; I10 Essential (primary) hypertension; E78.5 Hyperlipidemia, unspecified; D50.9 Iron deficiency anemia, unspecified; Z95.1 Presence of aortocoronary bypass graft; Z95.5 Presence of coronary angioplasty implant and graft; Z86.73 Personal history of transient ischemic attack (TIA), and cerebral infarction without residual deficits; Z87.442 Personal history of urinary calculi; Z86.718 Personal history of other venous thrombosis and embolism; Z87.891 Personal history of nicotine dependence; I51.7 Cardiomegaly; J81.1 Chronic pulmonary edema; Z79.899 Other long term (current) drug therapy; Z79.82 Long term (current) use of aspirin; Z79.01 Long term (current) use of anticoagulants; I44.0 Atrioventricular block, first degree; I49.1 Atrial premature depolarization; I44.7 Left bundle-branch block, unspecified; I49.3 Ventricular premature depolarization
CPT/HCPCS: 36415; 71046; 80053; 83690; 84484; 85025; 85055; 85610; 85730; 93005; 96374; 99284; A9270; J2270

== ENCOUNTER 2024-08-01 14:57 | Inpatient (IN) | payer MEDICARE, SELFPAY ==
--- NOTE | ~2024-08-01 | CT_ITS ---
EXAMINATION: CTA chest PE protocol DATE: 08/01/2024 16:44 INDICATION: Shortness of breath and cough. TECHNIQUE: Computed tomography angiography (CTA) of the chest was performed with 100 mL Omnipaque-350 intravenous contrast timed to evaluate the pulmonary arteries. Coronal maximum intensity projection 3D-reconstructions were created by the technologist. Automated exposure control and iterative reconst ruction technique were employed. The dose-length product was 240.86 mGy-cm. COMPARISON: Chest CT 12/20/2023, 11/05/2022 FINDINGS: There is mild emphysema. There is smooth septal thickening in the lungs, consistent with mi ld pulmonary edema. There is mild atelectasis bilaterally. Again seen is a cluster of nodules measuri ng up to 7 mm in right upper lobe, likely benign. There are small pleural effusions. Cardiomegaly is noted. There are coronary artery calcifications. There are changes of coronary artery bypass grafting . No pericardial effusion. There is no pulmonary embolus. There is a closure device at left atrial ap pendage. There is mild thoracic spondylosis. There is severe cervical spondylosis. IMPRESSION: 1. No pulmonary embolus. 2. Mild pulmonary edema. 3. Small pleural effusions. 4. 7 mm right upper lobe pulmonary nodule, stable from 12/20/2023, likely benign. Noncontrast low-dose chest CT is recommended in one year. 5. Mild emphysema. Reviewed, dictated and finalized at location B. IMPRESSION: 1. No pulmonary embolus. 2. Mild pulmonary edema. 3. Small pleural effusions. 4. 7 mm right upper lobe pulmonary nodule, stable from 12/20/2023, likely benign . Noncontrast low-dose chest CT is recommended in one year. 5. Mild emphysema.
--- NOTE | ~2024-08-01 | XR_ITS ---
XR chest 1V portable DATE: 08/05/2024 09:17 INDICATION: Shortness of breath, congestive heart failure TECHNIQUE: Portable AP chest on 08/05/2024 at 0914 hours COMPARISON: 08/2024 portable AP chest at 1324 hours FINDINGS: Status post sternotomy and coronary artery bypass graft surgery. Left atrial closure device . Aortic arch prominent calcification. There are Valerio B lines bilaterally, suggesting pulmonary interstitial edema and mild blunting of co stophrenic angles suggesting bilateral pleural effusions. There are patchy infiltrates in the mid and lower lung zones, most prominent in the left lower lung. Congestive changes and infiltrates are mildly improved since 08/04/2024. Increased density of calcification of the axillary and brachial arteries. IMPRESSION: Congestive heart failure, pulmonary edema, bilateral infiltrates, most prominent in the l eft lower lung; mild improvement of these findings since 08/04/2022 Reviewed, dictated and finalized at location A. BANQUET WAITER/WAITRESS IMPRESSION: Congestive heart failure, pulmonary edema, bilateral infiltrates, m ost prominent in the left lower lung; mild improvement of these findings since 08/04/2022
--- NOTE | ~2024-08-01 | XR_ITS ---
EXAMINATION: XR chest 1V portable DATE: 08/04/2024 13:26 INDICATION: New oxygen requirement TECHNIQUE: frontal view of the chest was obtained. COMPARISON: Chest radiograph dated 04/13/[address] dated 08/01/2024 FINDINGS: Persistent small left pleural effusion with associated left basilar atelectasis. The prior right pleu ral effusion has resolved. Persistent interstitial pattern with peripheral Valerio B-lines in the bila teral mid and lower lung zones consistent with mild pulmonary edema. No pneumothorax. Cardiomegaly. M edian sternotomy wires, ostial markers and mediastinal surgical clips consistent with prior coronary artery bypass grafting. Right atrial appendage occlusion device. IMPRESSION: 1. Likely persistent mild pulmonary edema with cardiomegaly and mild pulmonary edema in the bilateral lower lungs. 2. Small left pleural effusion with associated atelectasis and/or pneumonia in the left lower lung zo ne. Reviewed, dictated and finalized at location A. IMPRESSION: 1. Likely persistent mild pulmonary edema with cardiomegaly and mild pulmonary edema in the bilateral lower lungs. 2. Small left pleural effusion with associated atelectasis and/or pneumonia in the left lower lung zone.
--- NOTE | ~2024-08-01 | US_ITS ---
EXAMINATION: US renal BI DATE: 08/04/2024 09:02 INDICATION: Acute renal insufficiency TECHNIQUE: Multiple ultrasound grayscale images of the kidneys were obtained. COMPARISON: None. FINDINGS: The right kidney measures 12.5 x 4.7 x 6.2 cm. The left kidney measures 9.9 x 5.1 x 3.7 cm. The kidne ys demonstrate normal echogenicity. 1 cm anechoic cyst at the mid left kidney. There is no hydronephr osis in either kidney. No stones identified. The bladder is normal. Prostatomegaly measuring at leas t 4.6 x 4.1 cm. IMPRESSION: 1. 1 cm left renal cyst. Otherwise normal kidneys with no hydronephrosis. Reviewed, dictated and finalized at location A.
[2024-08-01 15:01] VITALS: BP 151/39; PULSE 60; RESP 20; TEMP 36.5; O2SAT 95
--- NOTE | 2024-08-01 15:27 | ECG_ITS ---
Test Date: 2024-08-01 15:32:51 Measurements Intervals [place] Rate: 50 P: 0 MO: 0 QRS: -15 QRSD: 130 T: 156 QT: 502 QTc: 461 Interpretive Statements ATRIAL FIBRILLATION WITH SLOW VENTRICULAR RESPONSE WITH ABERRANT CONDUCTION OR VENTRICULAR PREMATURE COMPLEXES POSSIBLE ANTERIOR MYOCARDIAL INFARCTION , OF INDETERMINATE AGE [30 ms Q WAVE IN V3/V4, OR R < 0.2 mV IN V4] INFERIOR MYOCARDIAL INFARCTION , PROBABLY OLD [40+ ms Q WAVE AND/OR ST/T ABNORMALITY IN II/aVF] MODERATE T-WAVE ABNORMALITY, CONSIDER LATERAL ISCHEMIA [-0.1+ mV T WAVE IN I/aVL/V5/V6] Electronically Signed On 08-02-2024 11:37:25 CDT by Rehan Bazan M.D.
--- NOTE | 2024-08-01 15:44 | ED.SOB ---
HPI - SOB/Dyspnea General Chief Complaint: Shortness of Breath/Dyspnea <Dorothea ZaragozaDebby Seals, ASSISTANT DIRECTOR OF PUBLIC WORKS - Last Filed: 08/01/24 15:50> Stated Complaint: dyspnea <Dorotheabunny Seals ASSISTANT DIRECTOR OF PUBLIC WORKS - Last Filed: 08/01/24 15:50> Time Seen by Provider: 08/01/24 15:25 <Dorothea NikDebby Seals ASSISTANT DIRECTOR OF PUBLIC WORKS - Last Filed: 08/01/24 15:50> Focused HPI: Patient is a 74-year-old male who presents to the ER with a 3 day history of cough and shortness of breath. He reports he has a history of COPD, but has no rescue medicines home. Patient's reports they have had no recent sick contacts. He is a poor historian and is not able to provide much information regarding his history or symptoms. GENERAL: Well-appearing, well-nourished, and in mild respiratory distress. HEAD: Normocephalic, atraumatic. CHEST: Clear to auscultation. Decreased bilateral lower breath sounds.?Mild respiratory distress. HEART: bradycardic, regular rhythm.?No bilateral lower extremity swelling. NEURO: ?Alert and oriented x3. Patient screened in triage and initial orders placed.? ?Additional care and disposition to be based upon?diagnostic testing and treatment. <Dorothea NikDebby Seals, ASSISTANT DIRECTOR OF PUBLIC WORKS - Last Filed: 08/01/24 15:50> Focused HPI: Patient is a 74-year-old male who presents to the ER with a 3 day history of cough and shortness of breath. He reports he has a history of COPD, but has no rescue medicines home. Patient's reports they have had no recent sick contacts. He is a poor historian and is not able to provide much information regarding his history or symptoms. GENERAL: Well-appearing, well-nourished, and in mild respiratory distress. HEAD: Normocephalic, atraumatic. CHEST: Clear to auscultation. Decreased bilateral lower breath sounds.?Mild respiratory distress. HEART: bradycardic, regular rhythm.?No bilateral lower extremity swelling. NEURO: ?Alert and oriented x3. Patient screened in triage and initial orders placed.? ?Additional care and disposition to be based upon?diagnostic testing and treatment. <MIKE Benitez Last Filed: 08/02/24 03:02> Source: patient <Ramya Cyr PA-C - Last Filed: 08/02/24 03:02> Mode of arrival: ambulatory <Ramya Cyr PA-C - Last Filed: 08/02/24 03:02> Limitations: no limitations <MIKE Benitez Last Filed: 08/02/24 03:02> History of Present Illness HPI Narrative: Agree with above HPI. Shortness breath is worse with exertion and lying flat. He has history of CHF and states this feels similar to his previous exacerbations. Is on Lasix 20 mg Tuesday. 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 Has history of AFib, with Watchman device, on aspirin 324 mg daily. Denies fevers, chest pain, lower extremity pain or swelling. <Ramya Cyr PA-C - Last Filed: 08/02/24 03:02> Related Data Home Medications: Home Medications Medication Instructions Recorded Confirmed amlodipine 10 mg tablet 10 mg PO DAILY 02/21/21 08/01/24 atorvastatin 80 mg tablet 80 mg PO DAILY 02/21/21 08/01/24 isosorbide mononitrate 60 mg 120 mg PO DAILY 03/16/22 08/01/24 tablet,extended release 24 hr furosemide 20 mg tablet 20 mg PO QMWF 01/25/23 08/01/24 hydralazine 50 mg tablet 100 mg PO TID 01/25/23 08/01/24 hydrochlorothiazide 25 mg tablet 25 mg PO DAILY 01/25/23 08/01/24 sacubitril 24 mg-valsartan 26 mg 1 tablet PO BID 01/25/23 08/01/24 tablet (Entresto) dapagliflozin propanediol 10 mg 10 mg PO DAILY 06/02/23 08/01/24 tablet (Farxiga) allopurinol 100 mg tablet 150 mg PO DAILY 10/13/23 08/01/24 metoprolol succinate 200 mg 200 mg PO DAILY 01/24/24 08/01/24 tablet,extended release 24 hr aspirin 325 mg tablet 325 mg PO DAILY 08/01/24 08/01/24 <Dorothea Seals APRN - Last Filed: 08/01/24 15:50> Allergies/Adverse Reactions: Allergies Allergy/AdvReac Type Severity Reaction Status Date / Time No Known Allergies Allergy Verified 04/13/24 23:05 <Dorothea Seals APRN - Last Filed: 08/01/24 15:50> Review of Systems Review of Systems: All systems reviewed & are unremarkable except as noted in HPI. <Ramya Cyr PA-C - Last Filed: 08/02/24 03:02> All systems reviewed & are unremarkable except as noted in HPI and below <Ramya Cyr PA-C - Last Filed: 08/02/24 03:02> [facility] Past Medical History Medical History: Medical History Carotid artery disease Chronic anticoagulation Patient on Xarelto for history of stroke and peripheral vascular disease. 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 Hyperlipidemia Hypertension Iron deficiency anemia Kidney stones Left leg DVT Tobacco abuse Ulcer of antrum of stomach <Dorothea Seals APRN - Last Filed: 08/01/24 15:50> Surgical History Surgical History: Surgical History History of cardiac catheterization History of coronary artery bypass graft History of coronary artery stent placement History of left-sided carotid endarterectomy History of lithotripsy <Dorothea Seals APRN - Last Filed: 08/01/24 15:50> Family History Family History: Family History Mother Heart disease Cerebrovascular accident <Dorothea Seals APRN - Last Filed: 08/01/24 15:50> Social History Social History: Social History Social History: Surrogate medical decision maker: Merna Loya, spouse. Code status: Full code. Caffeine-daily Smoking packs per day: 1 Smoking cigarettes per day: 20.0 Years smoked: 30 Smoking pack-years: 30.00 Smoking status: Current some day smoker Tobacco type: cigarettes Smoking end date: 09/16/22 Additional smoking assessment comments: smokes rarely Alcohol intake: current Drinks per week: 1 Alcohol use details: 2 beers every couple weeks Substance use: current Substance use type: marijuana Other substance usage details: occasionaly Do You Feel Safe in your Home?: Yes Lack of Transportation: No Lack of Food: Never True Current Housing: I Have Housing Concerned About Future Housing: No Difficulty Paying Gas/Electric Bills: No Difficulty Paying for Meds: No Currently Unemployed: No Education: Trade/Vocational Certificate Difficulty w/ Childcare or Family Care: No Living arrangements: with family Additional living arrangements comments: with sp 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 Spiritual care concerns: No <Dorothea Seals APRN - Last Filed: 08/01/24 15:50> Exam Narrative: GENERAL: Elderly, somewhat frail, non-toxic, in no acute distress. HEAD: Normocephalic, atraumatic. RESPIRATORY: Airway patent, respirations nonlabored. Diffuse rhonchi in bases bilaterally. No significant wheezing. CARDIOVASCULAR: Borderline bradycardic with regular rhythm without murmurs, rubs, or gallops. ABDOMINAL: Soft, nontender, nondistended. Normoactive BS. MUSCULOSKELETAL: Moves all extremities. No gross deformities. No lower extremity edema. SKIN: Warm, dry, normal color. NEURO: A&O X3. Speech clear. Cranial nerves II-XII grossly intact. Steady gait. No ataxic movements. PSYCHIATRIC: Appropriate mood and affect. Normal interaction. <Ramya Cyr PA-C - Last Filed: 08/02/24 03:02> Course Vital Signs Vital signs: Vital Signs Temperature 97.7 F 08/01/24 15:01 Pulse Rate 60 08/01/24 15:01 Respiratory Rate 20 08/01/24 15:01 Blood Pressure 151/39 H 08/01/24 15:01 Pulse Oximetry 95 08/01/24 15:01 Temperature 97.2 F L 08/02/24 00:03 Pulse Rate 60 08/02/24 00:03 Respiratory Rate 16 08/02/24 00:03 Blood Pressure 134/84 08/02/24 00:03 Pulse Oximetry 94 08/02/24 00:03 Oxygen Delivery Room Air 08/01/24 17:30 <Dorothea Seals APRN - Last Filed: 08/01/24 15:50> Vital Signs Temperature 97.7 F 08/01/24 15:01 Pulse Rate 60 08/01/24 15:01 Respiratory Rate 20 08/01/24 15:01 Blood Pressure 151/39 H 08/01/24 15:01 Pulse Oximetry 95 08/01/24 15:01 Temperature 97.2 F L 08/02/24 00:03 Pulse Rate 60 08/02/24 00:03 Respiratory Rate 16 08/02/24 00:03 Blood Pressure 134/84 08/02/24 00:03 Pulse Oximetry 94 08/02/24 00:03 Oxygen Delivery Room Air 08/01/24 17:30 <Ramya Cyr PA-C - Last Filed: 08/02/24 03:02> MDM - SOB/Dyspnea MDM Narrative Medical decision making narrative: Patient presented to ED with increased shortness of breath over the last couple of days, worse with exertion and lying flat. History of CHF/COPD. Vital signs are stable upon arrival. Laboratory studies without leukocytosis. Anemia noted at 9.4, fairly consistent with previous records. CMP notable for JAIME with creatinine today of 1.7. Baseline per records around 1.1. Otherwise stable electrolytes. Lactic acid within normal limits. EKG with AFib with slow ventricular response. Patient does have history of AFib. History of Watchman device. He is on metoprolol 200 mg daily. No significant ST changes noted on EKG. Patient denies chest pain. Baseline troponin is 0.015. Consistent with previous records. Will continue to trend. BNP was noted to be elevated at 10,300. Viral swabs are negative. CTA of chest without evidence of PE, showing mild pulmonary edema with small bilateral pleural effusions. Workup consistent with CHF exacerbation. Patient's oxygen saturation while sitting with ranging from 91-92%. He did dip down to 89% while resting at one point. Will give IV lasix in the ED and admit for further evaluation/medical management. Will need cautious diuresis with kidney function. No recent ECHO in file. ECHO from 2021 showing LVEF 40-45%, grade III diastolic dysfunction. Discussed case with Dr. Clay, hospitalist, accepted patient for admission. Advised to add on UA, urine cognos lead/sodium. Lasix 40mg 1x daily. Patient in agreement with plan and admission. <Ramya Cyr PA-C - Last Filed: 08/02/24 03:02> Medical Records Attestation: I reviewed the patient's medical records. <Ramya Cyr PA-C - Last Filed: 08/02/24 03:02> Lab Data Attestation: I reviewed the patient's lab results. <Ramya Cyr PA-C - Last Filed: 08/02/24 03:02> Result diagrams: 08/01/24 15:55 08/01/24 15:55 <Dorothea Seals APRN - Last Filed: 08/01/24 15:50> Labs: Lab Results 08/01/24 08/01/24 Range/Units 15:55 19:44 WBC 5.5 (4.5-10.0) K/mm3 RBC 3.43 L (4.6-6.20) M/mm3 Hgb 9.4 L (14.0-18.0) g/dL Hct 29.6 L (42.0-52.0) % MCV 86.3 (80-100) fl MCH 27.4 (26-34) pg MCHC 31.8 L (32-36) g/dl RDW 17.2 H (11.5-14.5) % Plt Count 108 L (150-375) k/mm3 MPV 13.8 H (7.4-10.4) fl Immature Gran % (Auto) 0.4 (0-0.5) % Neut % (Auto) 75.1 H (45.5-73.1) % Lymph % (Auto) 9.7 L (18.3-44.2) % Eaton % (Auto) 8.7 H (2.6-8.5) % Eos % (Auto) 4.7 H (0-4.4) % Baso % (Auto) 1.4 H (0.2-1.2) % Lymph # (Auto) 0.54 L (0.9-3.2) K/mm3 Eaton # (Auto) 0.5 (0.1-0.6) K/mm3 Eos # (Auto) 0.3 (0-0.3) K/mm3 Baso # (Auto) 0.1 (0.0-0.1) K/mm3 Abs Immat Gran (auto) 0.02 (0.00-0.031) K/mm3 Absolute Neuts (auto) 4.2 (1.3-6.7) K/mm3 Absolute Nucleated RBC 0.000 (0.0-0.012) K/mm3 Nucleated RBC % 0.0 (0.0-0.2) % % Immature Plt Fraction 8.0 (0.9-11.2) % PT 15.0 H (11.1-14.7) Seconds INR 1.2 APTT 31.6 (22.3-36.8) Seconds Sodium 140 (137-145) mmol/L Potassium 3.9 (3.4-5.0) mmol/L Chloride 107 (98-107) mmol/L Carbon Dioxide 21 L (22-30) mmol/L Anion Gap 12 (4-12) mmol/L BUN 49 H D (9-20) mg/dL Creatinine 1.70 H (0.7-1.3) mg/dL Estim Creat Clear Calc 28 ml/min Estimated GFR 40 L (59 - ) Glucose 112 H (65-110) mg/dL Lactic Acid 1.1 (0.7-2.0) mmol/L Calcium 9.1 (8.4-10.2) mg/dL Magnesium 1.9 (1.6-2.3) mg/dL Total Bilirubin 1.5 H (0.2-1.3) mg/dL AST 22 (17-59) U/L ALT 17 (6-50) U/L Alkaline Phosphatase 185 H (38-126) U/L Troponin I 0.015 0.016 (0.000-0.034) ng/mL NT-Pro-B Natriuret Pep 50081 H (19.9-100) pg/mL Total Protein 8.0 (6.3-8.2) g/dL Albumin 4.2 (3.5-5.1) g/dL Influenza A (RT-PCR) Negative (Negative) Influenza B (RT-PCR) Negative (Negative) RSV (RT-PCR) Negative (Negative) SARS-CoV-2 RNA (RT-PCR) Negative (Negative) <Dorothea Abebe Bozena, ASSISTANT DIRECTOR OF PUBLIC WORKS - Last Filed: 08/01/24 15:50> Lab Results 08/01/24 08/01/24 Range/Units 15:55 19:44 WBC 5.5 (4.5-10.0) K/mm3 RBC 3.43 L (4.6-6.20) M/mm3 Hgb 9.4 L (14.0-18.0) g/dL Hct 29.6 L (42.0-52.0) % MCV 86.3 (80-100) fl MCH 27.4 (26-34) pg MCHC 31.8 L (32-36) g/dl RDW 17.2 H (11.5-14.5) % Plt Count 108 L (150-375) k/mm3 MPV 13.8 H (7.4-10.4) fl Immature Gran % (Auto) 0.4 (0-0.5) % Neut % (Auto) 75.1 H (45.5-73.1) % Lymph % (Auto) 9.7 L (18.3-44.2) % Eaton % (Auto) 8.7 H (2.6-8.5) % Eos % (Auto) 4.7 H (0-4.4) % Baso % (Auto) 1.4 H (0.2-1.2) % Lymph # (Auto) 0.54 L (0.9-3.2) K/mm3 Eaton # (Auto) 0.5 (0.1-0.6) K/mm3 Eos # (Auto) 0.3 (0-0.3) K/mm3 Baso # (Auto) 0.1 (0.0-0.1) K/mm3 Abs Immat Gran (auto) 0.02 (0.00-0.031) K/mm3 Absolute Neuts (auto) 4.2 (1.3-6.7) K/mm3 Absolute Nucleated RBC 0.000 (0.0-0.012) K/mm3 Nucleated RBC % 0.0 (0.0-0.2) % % Immature Plt Fraction 8.0 (0.9-11.2) % PT 15.0 H (11.1-14.7) Seconds INR 1.2 APTT 31.6 (22.3-36.8) Seconds Sodium 140 (137-145) mmol/L Potassium 3.9 (3.4-5.0) mmol/L Chloride 107 (98-107) mmol/L Carbon Dioxide 21 L (22-30) mmol/L Anion Gap 12 (4-12) mmol/L BUN 49 H D (9-20) mg/dL Creatinine 1.70 H (0.7-1.3) mg/dL Estim Creat Clear Calc 28 ml/min Estimated GFR 40 L (59 - ) Glucose 112 H (65-110) mg/dL Lactic Acid 1.1 (0.7-2.0) mmol/L Calcium 9.1 (8.4-10.2) mg/dL Magnesium 1.9 (1.6-2.3) mg/dL Total Bilirubin 1.5 H (0.2-1.3) mg/dL AST 22 (17-59) U/L ALT 17 (6-50) U/L Alkaline Phosphatase 185 H (38-126) U/L Troponin I 0.015 0.016 (0.000-0.034) ng/mL NT-Pro-B Natriuret Pep 82928 H (19.9-100) pg/mL Total Protein 8.0 (6.3-8.2) g/dL Albumin 4.2 (3.5-5.1) g/dL Influenza A (RT-PCR) Negative (Negative) Influenza B (RT-PCR) Negative (Negative) RSV (RT-PCR) Negative (Negative) SARS-CoV-2 RNA (RT-PCR) Negative (Negative) <Ramya Cyr PA-C - Last Filed: 08/02/24 03:02> Imaging Data Attestation: I personally reviewed and interpreted this imaging study as follows: <Ramya Cyr PA-C - Last Filed: 08/02/24 03:02> Radiologist's impression: ITS Impressions Chest CTA 08/01/24 16:45 IMPRESSION: 1. No pulmonary embolus. 2. Mild pulmonary edema. 3. Small pleural effusions. 4. 7 mm right upper lobe pulmonary nodule, stable from 12/20/2023, likely benign. Noncontrast low-dose chest CT is recommended in one year. 5. Mild emphysema. <Ramya Cyr PA-C - Last Filed: 08/02/24 03:02> ECG Data EKG #1: Attestation: I personally reviewed and interpreted this ECG as follows: <Ramya Cyr PA-C - Last Filed: 08/02/24 03:02> ECG completion date: 08/01/24 <MIKE Benitez Last Filed: 08/02/24 03:02> ECG completion time: 15:32 <MIKE Benitez Last Filed: 08/02/24 03:02> EKG Interpretation: bradycardia (50), atrial fibrillation, PVCs and non-specific ST changes <MIKE Benitez Last Filed: 08/02/24 03:02> Discharge Plan Discharge Clinical Impression: Acute exacerbation of CHF (congestive heart failure), JAIME (acute kidney injury) <Dorothea Seals APRN - Last Filed: 08/01/24 15:50> Patient Disposition: Still a Patient <Dorothea Seals APRN - Last Filed: 08/01/24 15:50> Condition: Stable <Dorothea Seals APRN - Last Filed: 08/01/24 15:50>
[2024-08-01 16:05] LABS: Basophils Absolute Auto 0.1 K/mm3 (0.0-0.1); Basophils Percent Auto 1.4 % (0.2-1.2); Eosinophils Absolute Auto 0.3 K/mm3 (0-0.3); Eosinophils Percent Auto 4.7 % (0-4.4); Hematocrit 29.6 % (42.0-52.0); Hemoglobin 9.4 g/dL (14.0-18.0); Immature Granulocyte Absolute 0.02 K/mm3 (0.00-0.031); Immature Granulocyte Percent A 0.4 % (0-0.5); Lymphocytes Absolute Auto 0.54 K/mm3 (0.9-3.2); Lymphocytes Percent Auto 9.7 % (18.3-44.2); Mean Corpuscular HGB Conc 31.8 g/dl (32-36); Mean Corpuscular Hemoglobin 27.4 pg (26-34); Mean Corpuscular Volume 86.3 fl (80-100); Mean Platelet Volume 13.8 fl (7.4-10.4); Monocytes Absolute Auto 0.5 K/mm3 (0.1-0.6); Monocytes Percent Auto 8.7 % (2.6-8.5); Neutrophils Absolute Auto 4.2 K/mm3 (1.3-6.7); Neutrophils Percent Auto 75.1 % (45.5-73.1); Platelet Count Result 108 k/mm3 (150-375); Red Blood Count 3.43 M/mm3 (4.6-6.20); Red Cell Distribution Width 17.2 % (11.5-14.5); White Blood Count 5.5 K/mm3 (4.5-10.0)
[2024-08-01 16:13] LABS: Alanine Aminotransferase 17 U/L (6-50); Albumin Level 4.2 g/dL (3.5-5.1); Alkaline Phosphatase 185 U/L (38-126); Anion Gap 12 mmol/L (4-12); Aspartate Amino Transferase 22 U/L (17-59); Bilirubin,Total 1.5 mg/dL (0.2-1.3); Blood Urea Nitrogen 49 mg/dL (9-20); Calcium 9.1 mg/dL (8.4-10.2); Carbon Dioxide 21 mmol/L (22-30); Chloride 107 mmol/L (98-107); Estimated CRCL calculation 28 ml/min; Estimated Glomerular Filt Rate 40; Glucose 112 mg/dL (65-110); Lactic Acid Reflex 1.1 mmol/L (0.7-2.0); Magnesium 1.9 mg/dL (1.6-2.3); Potassium 3.9 mmol/L (3.4-5.0); Sodium 140 mmol/L (137-145)
[2024-08-01 16:14] LABS: INR 1.2
[2024-08-01 16:15] LABS: Partial Thromboplastin Time 31.6 Seconds (22.3-36.8)
[2024-08-01 16:24] LABS: NT Pro B Type Natriuretic Pept 10300 pg/mL (19.9-100); Troponin I 0.015 ng/mL (0.000-0.034)
[2024-08-01 16:40] LABS: Influenza A QL RT-PCR Negative (Negative); Influenza B QL RT-PCR Negative (Negative); RSV RNA, RT-PCR Negative (Negative); SARS-CoV-2 RNA PCR Negative (Negative)
[2024-08-01 17:30] VITALS: BP 151/78; PULSE 60; RESP 16; O2SAT 95
[2024-08-01] MEDS: FUROSEMIDE INJ 40 MG/4 ML VIAL IV PUSH (19:17)
--- NOTE | 2024-08-01 19:51 | ECG_ITS ---
Test Date: 2024-08-01 19:57:58 Measurements Intervals [place] Rate: 53 P: 0 [place]: 0 QRS: -16 QRSD: 136 T: 152 QT: 490 QTc: 463 Interpretive Statements ATRIAL FIBRILLATION WITH SLOW VENTRICULAR RESPONSE INTRAVENTRICULAR CONDUCTION DELAY [130+ ms QRS DURATION] POSSIBLE ANTERIOR MYOCARDIAL INFARCTION , OF INDETERMINATE AGE [30 ms Q WAVE IN V3/V4, OR R < 0.2 mV IN V4] Compared to ECG 08/01/2024 15:32:51 Intraventricular conduction delay now present Ventricular premature complex(es) no longer present Aberrant conduction of supraventricular beat(s) no longer present T-wave abnormality no longer present Possible ischemia no longer present Myocardial infarct finding still present Electronically Signed On 08-02-2024 11:40:45 CDT by Rehan Bazan M.D.
[2024-08-01 19:59] VITALS: BP 157/47; PULSE 53; RESP 16; O2SAT 92
[2024-08-01 20:16] LABS: Troponin I 0.016 ng/mL (0.000-0.034)
--- NOTE | 2024-08-01 20:47 | PC.NURSE ---
Walking pulse ox performed on pt. Pt was 89% upon getting up and the first few steps, pt then bernardo to 92-93% while ambulating back to the bed.
[2024-08-01 22:11] VITALS: BP 149/45; PULSE 55; RESP 15; O2SAT 93
[2024-08-01 22:14] LABS: Add Urine Microscopic? NO; Appearance Urine Clear (Clear); Bilirubin Urine Negative (Negative); Blood Urine Negative (Negative); Color Urine Yellow (Yellow); Glucose Urine UA 1+ mg/dL (Negative); Ketones Urine Negative (Negative); Leukocyte Esterase Ur Negative LEU/UL (Negative); Nitrate Urine Negative (Negative); Protein Urine Negative (Negative); Specific Grav Ur 1.014 (1.001-1.035); Urobilinogen Urine 0.2 mg/dL (<2.0)
[2024-08-01 22:25] LABS: Creatinine Urine 21.7 mg/dL
[2024-08-01 22:32] LABS: Sodium Urine Random 115 meq/L
--- NOTE | 2024-08-01 22:36 | ADMGEN ---
This patient, Favio Loya, was admitted to 3 Medical Room 346-01. Patient/family oriented to hospital policies and general routines including ID bracelet, bed and alarms, visiting hours, pain management, procedures, bathroom and other care routines, personal items, smoking policy, room service/diet, and visiting hours. Information on how to activate the Rapid Response Team has been discussed. Patient/Family are encouraged to report perceived risks to care and to ask questions if they do not understand what they are told or what they should do.
[2024-08-01 22:49] VITALS: BMI 22.4
[2024-08-01 23:33] LABS: Troponin I 0.017 ng/mL (0.000-0.034)
[2024-08-02] VITALS (18 sets, daily range): BP systolic 133–139; BP diastolic 32–84; PULSE 43–81; RESP 16–20; TEMP 36.2–36.8; O2SAT 91–98
--- NOTE | 2024-08-02 05:25 | P.HP_ITS ---
H&P: HPI History of Present Illness Date/Time: 08/02/24 05:25 Chief Complaint: Shortness of breath Narrative: 74-year-old male with past medical history of combined systolic and diastolic heart failure, coronary artery disease status post CABG, paroxysmal atrial fibrillation with history of Watchman procedure who presented to the ER with 3 days of dyspnea on exertion, orthopnea and paroxysmal nocturnal dyspnea. 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 He denies any chest pain or palpitations. He reports that he is up a couple lb from his prior doctor's visit a few months ago. He does not weigh himself regularly home. He has not noticed any lower extremity swelling or increased abdominal bloating. He did report a cough but without significant sputum production. He denies any recent ill contacts. He does have history of prior GI bleeds in is quite pale. But he denies any current melena. He has had increased urinary frequency since receiving Lasix. He denies any dysuria or hematuria. Review of Systems Review of Systems: 12 systems were reviewed with pertinent positives and negatives per HPI. Except as documented in the HPI, all other systems were reviewed and are negative. 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 Hyperlipidemia Hypertension Iron deficiency anemia Kidney stones Left leg DVT Paroxysmal atrial fibrillation No longer on anticoagulation after Watchman procedure Tobacco abuse Ulcer of antrum of stomach Surgical History Surgical History (Updated 08/02/24 @ 09:34 by Radha Clay DO) History of cardiac catheterization History of coronary artery bypass graft History of coronary artery stent placement History of left-sided carotid endarterectomy History of lithotripsy Presence of Watchman left atrial appendage closure device Family History Family History Mother Heart disease Cerebrovascular accident Social History Social History Social History: Surrogate medical decision maker: Merna Loya, spouse. Code status: Full code. Caffeine-daily Smoking packs per day: 1 Smoking cigarettes per day: 20.0 Years smoked: 30 Smoking pack-years: 30.00 Smoking status: Current some day smoker Tobacco type: cigarettes Smoking end date: 09/16/22 Additional smoking assessment comments: smokes rarely Alcohol intake: current Drinks per week: 1 Alcohol use details: 2 beers every couple weeks Substance use: current Substance use type: marijuana Other substance usage details: occasionaly Do You Feel Safe in your Home?: Yes Lack of Transportation: No Lack of Food: Never True Current Housing: I Have Housing Concerned About Future Housing: No Difficulty Paying Gas/Electric Bills: No Difficulty Paying for Meds: No Currently Unemployed: No Education: Trade/Vocational Certificate Difficulty w/ Childcare or Family Care: No Living arrangements: with family Additional living arrangements comments: with sp 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 Spiritual care concerns: No Meds Home Medications and Allergies Home Medications Medication Instructions Recorded Confirmed Type amlodipine 10 mg tablet 10 mg PO DAILY 02/21/21 08/01/24 History atorvastatin 80 mg tablet 80 mg PO DAILY 02/21/21 08/01/24 History isosorbide mononitrate 60 mg 120 mg PO DAILY 03/16/22 08/01/24 History tablet,extended release 24 hr furosemide 20 mg tablet 20 mg PO QMWF 01/25/23 08/01/24 History hydralazine 50 mg tablet 100 mg PO TID 01/25/23 08/01/24 History hydrochlorothiazide 25 mg tablet 25 mg PO DAILY 01/25/23 08/01/24 History sacubitril 24 mg-valsartan 26 mg 1 tablet PO BID 01/25/23 08/01/24 History tablet (Entresto) dapagliflozin propanediol 10 mg 10 mg PO DAILY 06/02/23 08/01/24 History tablet (Farxiga) allopurinol 100 mg tablet 150 mg PO DAILY 10/13/23 08/01/24 History metoprolol succinate 200 mg 200 mg PO DAILY 01/24/24 08/01/24 History tablet,extended release 24 hr aspirin 325 mg tablet 325 mg PO DAILY 08/01/24 08/01/24 History Allergies Allergy/AdvReac Type Severity Reaction Status Date / Time No Known Allergies Allergy Verified 04/13/24 23:05 Vital Signs Vital Signs - 24 hr 08/01/24 15:01 08/01/24 17:30 08/01/24 17:30 Temperature 97.7 F Pulse Rate 60 60 Respiratory Rate 20 16 Blood Pressure 151/39 H 151/78 H Pulse Oximetry 95 95 Oxygen Delivery Room Air 08/01/24 19:59 08/01/24 22:11 08/02/24 00:03 Temperature 97.2 F L Pulse Rate 53 L 55 L 60 Respiratory Rate 16 15 16 Blood Pressure 157/47 H 149/45 H 134/84 Pulse Oximetry 92 93 94 Oxygen Delivery Exam Narrative: Weight 61 kg BMI 22.4 Const: Other: Mild distress sitting up in bed with the head of bed 90?, speaking and 2-3 word sentences, conversational dyspnea, normal body habitus, speaking HENMT: Other: Mucous membranes are tacky, no oral pharyngeal erythema, head is normocephalic atraumatic Eyes: Other: Pupils are equal and reactive, no scleral icterus, positive conjunctival pallor Neck: Other: Moderate JVD with significant respiratory variation, no thyromegaly Resp: Other: The moderate conversational dyspnea/tachypnea, accessory muscle use speaking in 2-3 word sentences, clear to auscultation bilaterally Cardio: Other: Bradycardic, irregularly irregular GI: Other: Distended, soft, nontender, positive bowel sounds Skin: Other: No jaundice, positive pallor Neuro: Other: Alert orient x4, speech is clear, no facial asymmetry, no localizing neurologic deficits noted during the course of conversation Extrem: Other: No clubbing, cyanosis or edema Psych: Other: Mildly anxious, otherwise appropriate mood and affect, judgment and insight intact H&P: Results Labs Labs: Laboratory Tests 08/01/24 15:55 08/01/24 15:55 08/01/24 08/01/24 08/01/24 15:55 19:44 22:08 WBC 5.5 RBC 3.43 L Hgb 9.4 L Hct 29.6 L MCV 86.3 MCH 27.4 MCHC 31.8 L RDW 17.2 H Plt Count 108 L MPV 13.8 H Immature Gran % (Auto) 0.4 Neut % (Auto) 75.1 H Lymph % (Auto) 9.7 L [place] % (Auto) 8.7 H Eos % (Auto) 4.7 H Baso % (Auto) 1.4 H Lymph # (Auto) 0.54 L [place] # (Auto) 0.5 Eos # (Auto) 0.3 Baso # (Auto) 0.1 Abs Immat Gran (auto) 0.02 Absolute Neuts (auto) 4.2 Absolute Nucleated RBC 0.000 Nucleated RBC % 0.0 % Immature Plt Fraction 8.0 PT 15.0 H INR 1.2 APTT 31.6 Sodium 140 Potassium 3.9 Chloride 107 Carbon Dioxide 21 L Anion Gap 12 BUN 49 H D Creatinine 1.70 H Estim Creat Clear Calc 28 Estimated GFR 40 L Glucose 112 H Lactic Acid 1.1 Calcium 9.1 Magnesium 1.9 Total Bilirubin 1.5 H AST 22 ALT 17 Alkaline Phosphatase 185 H Troponin I 0.015 0.016 NT-Pro-B Natriuret Pep 91444 H Total Protein 8.0 Albumin 4.2 Urine Color Yellow Urine Appearance Clear Urine pH 5.0 Ur Specific [place] 1.014 Urine Protein Negative Urine Glucose (UA) 1+ H Urine Ketones Negative Ur Blood (Man) Negative Urine Nitrate Negative Urine Bilirubin Negative Urine Urobilinogen 0.2 Leukocyte Esterase Rfl Negative Ur Random Sodium 115 Urine Creatinine 21.7 Influenza A (RT-PCR) Negative Influenza B (RT-PCR) Negative RSV (RT-PCR) Negative SARS-CoV-2 RNA (RT-PCR) Negative 08/01/24 23:06 WBC RBC Hgb Hct MCV MCH MCHC RDW Plt Count MPV Immature Gran % (Auto) Neut % (Auto) Lymph % (Auto) [place] % (Auto) Eos % (Auto) Baso % (Auto) Lymph # (Auto) [place] # (Auto) Eos # (Auto) Baso # (Auto) Abs Immat Gran (auto) Absolute Neuts (auto) Absolute Nucleated RBC Nucleated RBC % % Immature Plt Fraction PT INR APTT Sodium Potassium Chloride Carbon Dioxide Anion Gap BUN Creatinine Estim Creat Clear Calc Estimated GFR Glucose Lactic Acid Calcium Magnesium Total Bilirubin AST ALT Alkaline Phosphatase Troponin I 0.017 NT-Pro-B Natriuret Pep Total Protein Albumin Urine Color Urine Appearance Urine pH Ur Specific [place] Urine Protein Urine Glucose (UA) Urine Ketones Ur Blood (Man) Urine Nitrate Urine Bilirubin Urine Urobilinogen Leukocyte Esterase Rfl Ur Random Sodium Urine Creatinine Influenza A (RT-PCR) Influenza B (RT-PCR) RSV (RT-PCR) SARS-CoV-2 RNA (RT-PCR) Impressions Chest CTA 08/01/24 16:45 IMPRESSION: 1. No pulmonary embolus. 2. Mild pulmonary edema. 3. Small pleural effusions. 4. 7 mm right upper lobe pulmonary nodule, stable from 12/20/2023, likely benign. Noncontrast low-dose chest CT is recommended in one year. 5. Mild emphysema. Assessment and Plan Assessment and plan (1) Acute exacerbation of CHF (congestive heart failure): Qualifiers: Heart failure type: combined systolic and diastolic Qualified Code(s): I50.43 - Acute on chronic combined systolic (congestive) and diastolic (congestive) heart failure Code(s): I50.9 - Heart failure, unspecified Status: Acute (2) Chronic obstructive pulmonary disease: Qualifiers: COPD type: unspecified COPD Qualified Code(s): J44.9 - Chronic obstructive pulmonary disease, unspecified Code(s): J44.9 - Chronic obstructive pulmonary disease, unspecified Status: Acute (3) Iron deficiency anemia: Qualifiers: Iron deficiency anemia type: unspecified iron deficiency Qualified Code(s): D50.9 - Iron deficiency anemia, unspecified Code(s): D50.9 - Iron deficiency anemia, unspecified Status: Acute Plan Patient's history of chronic systolic and diastolic heart failure presents with an acute exacerbation. Patient has paroxysmal nocturnal dyspnea and orthopnea. He has had significant dyspnea on exertion and has some accessory muscle use. He denies any recent changes in his medications besides his allopurinol dose being increased. He reports that he does not weigh himself very often but his weight is up during this admission compared to the last time he was weighed at a doctor's office. He has been admitted for treatment of CHF in received Lasix 40 mg IV in the ER. Will continue Lasix 40 mg IV daily. Will monitor strict I&O's and daily weights. Unfortunately patient did not realize that he is post be urinating into the urinal so is voids can be measured and he has went to the bathroom 4-5 times overnight. The patient has been educated as to the importance of tracking his intake and output. Will resume the patient's home Norvasc, hydralazine, Imdur, metoprolol and Entresto. Will hold the patient's home hydrochlorothiazide and Farxiga until we know how the patient's creatinine has responded to diuretic therapy. Will repeat BMP, magnesium and phosphorus. Given the patient's acute kidney injury decrease allopurinol dosing to 100 mg. Will give trial of albuterol and Atrovent to see if there may be a component of COPD exacerbating the patient's symptoms. He did have a recent outpatient echocardiogram through [facility]. No need to repeat this at this time. Patient does have a history of GI bleeds and has chronic iron deficiency anemia. Will avoid pharmacologic DVT prophylaxis and SCDs have been ordered. Will repeat CBC in a.m.. Patient has been admitted as observation status. Quality VTE Prophylaxis VTE prophylaxis: mechanical ordered (SCDs) Hospitalist [facility] Advance Care Plan I have confirmed that the patient's Advanced Care Plan is present, code status is documented, or surrogate decision maker is listed in patient medical record.: Yes Medication Reconciliation I have utilized all available resources to obtain, update and review the patients current medications (includes all prescriptions, OTC, herbals, cannabis, and nutritional supplements).: Yes
--- NOTE | 2024-08-02 06:00 | ECHO_ITS ---
Patient Info Name: Favio Loya Age: 74 years : 1950 Gender: Male Ht: 65 in Wt: 134 lbs BSA: 1.67 m2 HR: 46 bpm BP: 134 / 84 mmHg Technical Quality: Fair Exam Date: 08/02/2024 10:38 AM Exam Location: Echo Lab Patient Status: Inpatient Admit Date: 08/02/2024 Staff Ordering Physician: Ramya Cyr PA-C Striker Out: Mahin Izaguirre RDCS Attending Provider: Pia Patel PA-C Referring Physician: Klarissa MARTIN; Exam Type: CA echo doppler color flow Study Info Indications I50.20 - Unspecified systolic (congestive) heart failure Complete two-dimensional, color flow and Doppler transthoracic echocardiogram is performed. Summary 1. Complete two-dimensional, color flow and Doppler transthoracic echocardiogram is performed. 2. The left ventricle size is at the upper limits of normal. There is grade 3 diastolic dysfunction. 3. The left atria is moderately enlarged. 4. Right atrium is enlarged. 5. The tricuspid valve is normal. There is mild tricuspid regurgitation. There is at least mild pulmonary hypertension with the PASP measuring at least 35 mm Hg. 6. The left ventricular systolic function is normal. LVEF is visually estimated to be 50-55%. Left Ventricle The left ventricle size is at the upper limits of normal. There is grade 3 diastolic dysfunction. The left ventricular systolic function is normal. LVEF is visually estimated to be 50-55%. Right Ventricle The right ventricle is moderately dilated with normal systolic function. Left Atria The left atria is moderately enlarged. Right Atria Right atrium is enlarged. Aortic Valve The aortic valve is trileaflet and sclerotic. The aortic valve opens well. There is no aortic regurgitation. Pulmonic Valve The pulmonic valve is poorly visualized. There is trace pulmonic valve regurgitation. Mitral Valve The mitral valve is normal in opens well. There is mild mitral regurgitation. Tricuspid Valve The tricuspid valve is normal. There is mild tricuspid regurgitation. There is at least mild pulmonary hypertension with the PASP measuring at least 35 mm Hg. Left Ventricular Outflow Tract Name Value Normal LVOT 2D LVOT Diameter 1.9 cm LVOT Doppler LVOT Peak Gradient 4 mmHg LVOT Mean Gradient 2 mmHg LVOT VTI 20 cm LVOT VTI/AV VTI Ratio 0.5 LVOT Stroke Volume 60 ml LVOT CO 3.4 l/min LVOT CI 2.0 l/min/m2 Pulmonic Valve Name Value Normal PV Doppler PV Peak Gradient 7 mmHg Mitral Valve Name Value Normal MV Doppler MV Decel [place] 758 cm/s2 MV PHT 57 ms MV Area (PHT) 3.9 cm2 4.0-5.0 MV Diastolic Function MV E Peak Velocity 149 cm/s MV A Peak Velocity 2 cm/s MV E/A 91.9 MV Decel Time 196 ms Tricuspid Valve Name Value Normal TV Regurgitation Doppler TR Peak Velocity 349 cm/s TR Peak Gradient 31 mmHg Aorta Name Value Normal Ascending Aorta Ao Root Diameter (MM) 2.5 cm Ao Root Diam Index (MM) 1.5 cm/m2 Aortic Valve Name Value Normal AV Doppler AV Peak Velocity 168 cm/s AV Peak Gradient 11 mmHg AV Mean Gradient 5 mmHg AV VTI 38 cm AV Area (Cont Eq VTI) 1.6 cm2 >=3.0 AV Area (Cont Eq Ramos) 1.7 cm2 AV Regurgitation 2D LVOT Area 2.9 cm2 Ventricles Name Value Normal LV Dimensions 2D/MM IVS Diastolic Thickness (2D) 1.0 cm 0.6-1.0 IVS Diastole Thickness (MM) 0.9 cm 0.6-1.0 LVID Diastole (2D) 5.8 cm 4.2-5.8 LVID Diastole (MM) 5.9 cm 4.2-5.8 LVIW Diastolic Thickness (2D) 1.0 cm 0.6-1.0 LVIW Diastolic Thickness (MM) 0.8 cm 0.6-1.0 LVID Systole (2D) 4.9 cm 2.5-4.0 LVID Systole (MM) 4.7 cm 2.5-4.0 LVOT Diameter 1.9 cm LV Mass (2D Cubed) 230.24 g 88.00-224.00 LV Mass Index (2D Cubed) 138 g/m2 49-115 Relative Wall Thickness (2D) 0.34 LV Mass (MM Cubed) 194.00 g 88.00-224.00 LV Mass Index (MM Cubed) 116 g/m2 49-115 Relative Wall Thickness (MM) 0.26 LV Fractional Shortening/Ejection Fraction 2D/MM LV Fractional Shortening (2D) 16 % 25-43 LV Fractional Shortening (MM) 20 % 25-43 LV EF (MM Teicholz) 40 % 52-72 LV EF (2D Teicholz) 33 % 52-72 LV Diastolic Volume (4C MOD) 127 ml LV EF (4C MOD) 54 % LV Diastolic Volume (2C MOD) 121 ml LV EF (2C MOD) 61 % LV Diastolic Volume (BP MOD) 129 ml 62-150 LV Diastolic Volume Index (BP MOD) 77 ml/m2 34-74 LV Systolic Volume (BP MOD) 52 ml 21-61 LV Systolic Volume Index (BP MOD) 31 ml/m2 11-31 LV EF (BP MOD) 60 % 52-72 LV Diastolic Length (4C) 8.8 cm LV Systolic Length (4C) 7.0 cm LV Stroke Volume (4C MOD) 69 ml Atria Name Value Normal LA Dimensions LA Dimension (MM) 5.2 cm 3.0-4.1 LA Volume (4C A-L) 58 ml LA Volume (BP A-L) 74 ml RA Dimensions RA Area (4C) 18.2 cm2 <=18.0 Report Signatures Amended by Rehan Bazan on 08/02/2024 12:22
[2024-08-02] MEDS: IPRATROPIUM BR 0.02% INH SOLN 0.5 MG/2.5 ML VIAL INHALATION ×3 (07:15→20:40)
[2024-08-02] MEDS: ALBUTEROL SULFATE NEB 2.5 MG/3 ML INH 5 MG INHALATION ×3 (07:15→20:41)
--- NOTE | 2024-08-02 08:26 | PM.IMPN ---
Progress Note: A&P Assessment and Plan (1) Acute exacerbation of CHF (congestive heart failure): Qualifiers: Heart failure type: combined systolic and diastolic Qualified Code(s): I50.43 - Acute on chronic combined systolic (congestive) and diastolic (congestive) heart failure Code(s): I50.9 - Heart failure, unspecified Status: Acute Assessment and Plan: - Symptoms: shortness of breath and cough - Remains on entresto BID, metoprolol 200 mg daily - Started on lasix 40 mg IV - BNP: 10,300 - Troponins WNL - Remains on room air - EKG: Afib - Chest CTA: 1. No pulmonary embolus. 2. Mild pulmonary edema. 3. Small pleural effusions. 4. 7 mm right upper lobe pulmonary nodule, stable from 12/20/2023, likely benign. Noncontrast low-dose chest CT is recommended in one year. 5. Mild emphysema. - Echo 09/20/22: LVEF 40-45% with grade III diastolic dysfunction and moderate pulmonary hypertension - Echo: LVEF 50-55% with grade III diastolic dysfunction - Monitor vital signs, I&Os, BUN/creatinine, daily weights, neuro status and patient is a fall risk - Monitor serum electrolytes, Keep serum Potassium>4 and serum Magnesium>2 and CBC (2) Chronic obstructive pulmonary disease: Qualifiers: COPD type: unspecified COPD Qualified Code(s): J44.9 - Chronic obstructive pulmonary disease, unspecified Code(s): J44.9 - Chronic obstructive pulmonary disease, unspecified Status: Acute Assessment and Plan: Chronic, may be in a mild exacerbation secondary to CHF exacerbation. - Will give trial of albuterol and Atrovent to see if there may be a component of COPD exacerbating the patient's symptoms. - No wheezing heard on exam (3) JAIME (acute kidney injury): Code(s): N17.9 - Acute kidney failure, unspecified Status: Acute Assessment and Plan: BUN/Cr 49/1.7 on admission. Baseline appears WNL. - BUN/Cr 52/1.8 on am labs likely secondary to IV lasix - Will hold the patient's home hydrochlorothiazide and Farxiga until we know how the patient's creatinine has responded to diuretic therapy. - Avoid nephrotoxic medications - Renally dose medications - Monitor I/O - Monitor electrolytes (4) Hypertension: Code(s): I10 - Essential (primary) hypertension Status: Acute Assessment and Plan: Chronic, continue home medications. - Metoprolol 200 mg daily - Entresto BID - Amlodipine 10 mg daily - Hydralazine 100 mg TID - Monitor Time Spent With Patient Time with patient: 25 - 35 minutes Subjective Date/time seen: 08/02/24 08:26 Interval history: 74-year-old male with past medical history of congestive heart failure with reduced ejection fraction, essential hypertension, hyperlipidemia, depression, CAD, COPD, history of left lower extremity DVT, history of CVA, PVD who presents to the hospital for shortness of breath and a cough. Patient is pleasant lying comfortably in bed with family at bedside. He states that he shortness of breath has improved. He denies chest pain and palpitations. He remains on 40 mg IV lasix for the CHF exacerbation. Continue to montior strict I/O given that he has JAIME on CKD. He denies nausea/vomiting and abdominal pain. Review of Systems Review of Systems: All systems reviewed & are unremarkable except as noted in HPI and below Exam Narrative: AF HR 81 RR 20 SpO2 98 BP 133/44 General: male in no acute respiratory distress who is nontoxic appearing, lying semi recumbent in bed. HEENT: Normocephalic. Atraumatic. Extraocular movement intact. Sclera clear and anicteric. No facial asymmetry. Chest: Lungs are slightly diminished in the uppers and coarse to the bases on auscultation bilaterally. No wheezes or crackles. CV: Heart was regular rate and rhythm. S1/S2. No murmurs, gallops, or rubs. Abd: Abdomen was soft. Nontender. Nondistended. Positive bowel sounds. No organomegaly or masses. Ext: No clubbing, cyanosis, or edema. 2+ DP pulses bilaterally. Neuro: Patient is alert and oriented x4. Cranial nerves 2-12 are intact. Speech is clear. Objective Data Vital Signs Vital Signs: Vital Signs - 24 hr 08/01/24 15:01 08/01/24 17:30 08/01/24 17:30 Temperature 97.7 F Pulse Rate 60 60 Respiratory Rate 20 16 Blood Pressure 151/39 H 151/78 H Pulse Oximetry 95 95 Oxygen Delivery Room Air 08/01/24 19:59 08/01/24 22:11 08/02/24 00:03 Temperature 97.2 F L Pulse Rate 53 L 55 L 60 Respiratory Rate 16 15 16 Blood Pressure 157/47 H 149/45 H 134/84 Pulse Oximetry 92 93 94 Oxygen Delivery 08/02/24 00:00 08/02/24 04:00 08/02/24 06:00 Temperature 98.2 F Pulse Rate 46 L 46 L 81 Respiratory Rate 20 Blood Pressure 133/44 L Pulse Oximetry 98 Oxygen Delivery 08/02/24 07:15 08/02/24 07:15 08/02/24 07:25 Temperature Pulse Rate 60 60 62 Respiratory Rate 18 18 18 Blood Pressure Pulse Oximetry 93 Oxygen Delivery Room Air Meds/Results Medications: Active Medications Generic Name Dose Route Start Last Admin Trade Name Freq PRN Reason Stop Dose Admin Albuterol 5 mg 08/02/24 08:00 08/02/24 07:15 Albuterol Sulfate Neb 2.5 Mg/3 Ml Inh INHALATION 5 mg Q6HRT [facility] Administration Allopurinol 100 mg 08/02/24 09:00 Allopurinol 100 Mg Tablet PO DAILY [facility] Amlodipine Besylate 10 mg 08/02/24 09:00 Amlodipine Besylate 10 Mg Tablet PO DAILY [facility] Aspirin 325 mg 08/02/24 09:00 Aspirin 325 Mg Tablet PO DAILY [facility] Atorvastatin Calcium 80 mg 08/02/24 09:00 Atorvastatin 40 Mg Tablet PO DAILY [facility] Furosemide 40 mg 08/02/24 09:00 Furosemide Inj 40 Mg/4 Ml Vial IV PUSH QAM [facility] Hydralazine HCl 100 mg 08/02/24 09:00 Hydralazine Hcl 50 Mg Tablet PO TID [facility] Ipratropium [place] 0.5 mg 08/02/24 08:00 08/02/24 07:15 Ipratropium Br 0.02% Inh Soln 0.5 Mg/2.5 Ml Vial INHALATION 0.5 mg Q6HRT [facility] Administration Isosorbide Mononitrate 120 mg 08/02/24 09:00 Isosorbide Mononitrate 60 Mg Tab.Er.24h PO DAILY [facility] Metoprolol Succinate 200 mg 08/02/24 09:00 Metoprolol Succinate Ext Rel 100 Mg Tabcr PO DAILY [facility] Perflutren Lipid Microsphere 0 ml 08/01/24 21:27 Perflutren Lipid Microspheres 1.5 Ml Vial Diluted To 10 Ml Total Volume IV PUSH 08/04/24 21:30 ONCE PRN adequate visualization Protocol Sacubitril/Valsartan 1 tab 08/02/24 09:00 Sacubitril/Valsartan 24-26 Mg Tablet PO BID [facility] Radiology Results: ITS Impressions Chest CTA 08/01/24 16:45 IMPRESSION: 1. No pulmonary embolus. 2. Mild pulmonary edema. 3. Small pleural effusions. 4. 7 mm right upper lobe pulmonary nodule, stable from 12/20/2023, likely benign. Noncontrast low-dose chest CT is recommended in one year. 5. Mild emphysema. Labs Labs: Laboratory Results - last 24 hr 08/01/24 08/01/24 08/01/24 15:55 19:44 22:08 WBC 5.5 RBC 3.43 L Hgb 9.4 L Hct 29.6 L MCV 86.3 MCH 27.4 MCHC 31.8 L RDW 17.2 H Plt Count 108 L MPV 13.8 H Immature Gran % (Auto) 0.4 Neut % (Auto) 75.1 H Lymph % (Auto) 9.7 L Phillips % (Auto) 8.7 H Eos % (Auto) 4.7 H Baso % (Auto) 1.4 H Lymph # (Auto) 0.54 L Phillips # (Auto) 0.5 Eos # (Auto) 0.3 Baso # (Auto) 0.1 Abs Immat Gran (auto) 0.02 Absolute Neuts (auto) 4.2 Absolute Nucleated RBC 0.000 Nucleated RBC % 0.0 % Immature Plt Fraction 8.0 PT 15.0 H INR 1.2 APTT 31.6 Sodium 140 Potassium 3.9 Chloride 107 Carbon Dioxide 21 L Anion Gap 12 BUN 49 H D Creatinine 1.70 H Estim Creat Clear Calc 28 Estimated GFR 40 L Glucose 112 H Lactic Acid 1.1 Calcium 9.1 Magnesium 1.9 Total Bilirubin 1.5 H AST 22 ALT 17 Alkaline Phosphatase 185 H Troponin I 0.015 0.016 NT-Pro-B Natriuret Pep 09781 H Total Protein 8.0 Albumin 4.2 Urine Color Yellow Urine Appearance Clear Urine pH 5.0 Ur Specific [place] 1.014 Urine Protein Negative Urine Glucose (UA) 1+ H Urine Ketones Negative Ur Blood (Man) Negative Urine Nitrate Negative Urine Bilirubin Negative Urine Urobilinogen 0.2 Leukocyte Esterase Rfl Negative Ur Random Sodium 115 Urine Creatinine 21.7 Influenza A (RT-PCR) Negative Influenza B (RT-PCR) Negative RSV (RT-PCR) Negative SARS-CoV-2 RNA (RT-PCR) Negative 08/01/24 23:06 WBC RBC Hgb Hct MCV MCH MCHC RDW Plt Count MPV Immature Gran % (Auto) Neut % (Auto) Lymph % (Auto) Phillips % (Auto) Eos % (Auto) Baso % (Auto) Lymph # (Auto) Phillips # (Auto) Eos # (Auto) Baso # (Auto) Abs Immat Gran (auto) Absolute Neuts (auto) Absolute Nucleated RBC Nucleated RBC % % Immature Plt Fraction PT INR APTT Sodium Potassium Chloride Carbon Dioxide Anion Gap BUN Creatinine Estim Creat Clear Calc Estimated GFR Glucose Lactic Acid Calcium Magnesium Total Bilirubin AST ALT Alkaline Phosphatase Troponin I 0.017 NT-Pro-B Natriuret Pep Total Protein Albumin Urine Color Urine Appearance Urine pH Ur Specific [place] Urine Protein Urine Glucose (UA) Urine Ketones Ur Blood (Man) Urine Nitrate Urine Bilirubin Urine Urobilinogen Leukocyte Esterase Rfl Ur Random Sodium Urine Creatinine Influenza A (RT-PCR) Influenza B (RT-PCR) RSV (RT-PCR) SARS-CoV-2 RNA (RT-PCR) Quality VTE Prophylaxis VTE prophylaxis: mechanical ordered
[2024-08-02 08:58] LABS: Hematocrit 28.7 % (42.0-52.0); Hemoglobin 8.7 g/dL (14.0-18.0); Immature Platelet Fraction Pct 8.6 % (0.9-11.2); Mean Corpuscular HGB Conc 30.3 g/dl (32-36); Mean Corpuscular Hemoglobin 26.2 pg (26-34); Mean Corpuscular Volume 86.4 fl (80-100); Mean Platelet Volume 13.8 fl (7.4-10.4); Platelet Count Result 102 k/mm3 (150-375); Red Blood Count 3.32 M/mm3 (4.6-6.20); Red Cell Distribution Width 17.2 % (11.5-14.5); White Blood Count 4.9 K/mm3 (4.5-10.0)
[2024-08-02] MEDS: SACUBITRIL/VALSARTAN 24-26 MG TABLET 1 TAB PO ×2 (09:07→16:35)
[2024-08-02] MEDS: hydrALAZINE HCL 50 MG TABLET 100 MG PO ×3 (09:07→16:35)
[2024-08-02] MEDS: ISOSORBIDE MONONITRATE 60 MG TAB.ER.24H 120 MG PO (09:07)
[2024-08-02 09:08] LABS: Anion Gap 12 mmol/L (4-12); Blood Urea Nitrogen 52 mg/dL (9-20); Calcium 9.1 mg/dL (8.4-10.2); Carbon Dioxide 24 mmol/L (22-30); Chloride 105 mmol/L (98-107); Estimated CRCL calculation 28 ml/min; Estimated Glomerular Filt Rate 37; Glucose 105 mg/dL (65-110); Magnesium 1.8 mg/dL (1.6-2.3); Phosphorus 3.6 mg/dL (2.5-4.5); Potassium 3.7 mmol/L (3.4-5.0); Sodium 141 mmol/L (137-145)
[2024-08-02] MEDS: amLODIPine BESYLATE 10 MG TABLET PO (09:08)
[2024-08-02] MEDS: allopurinoL 100 MG TABLET PO (09:08)
[2024-08-02] MEDS: ATORVASTATIN 40 MG TABLET 80 MG PO (09:08)
[2024-08-02] MEDS: ASPIRIN 325 MG TABLET PO (09:08)
[2024-08-02] MEDS: FUROSEMIDE INJ 40 MG/4 ML VIAL IV PUSH (09:08)
[2024-08-02] MEDS: METOPROLOL SUCCINATE EXT REL 100 MG TABCR 200 MG PO (09:09)
[2024-08-02 11:32] LABS: Glucose Point of Care 135 mg/dl (65-105)
[2024-08-03] VITALS (20 sets, daily range): BP systolic 96–154; BP diastolic 37–56; PULSE 50–64; RESP 14–18; TEMP 36.6–36.8; O2SAT 89–93
[2024-08-03] MEDS: IPRATROPIUM BR 0.02% INH SOLN 0.5 MG/2.5 ML VIAL INHALATION ×2 (03:17→07:54)
[2024-08-03] MEDS: ALBUTEROL SULFATE NEB 2.5 MG/3 ML INH 5 MG INHALATION ×2 (03:17→07:54)
--- NOTE | 2024-08-03 08:18 | P.PNIM_ITS ---
Progress Note: A&P Assessment and Plan (1) Acute exacerbation of CHF (congestive heart failure): Qualifiers: Heart failure type: combined systolic and diastolic Qualified Code(s): I50.43 - Acute on chronic combined systolic (congestive) and diastolic (congestive) heart failure Code(s): I50.9 - Heart failure, unspecified Status: Acute Assessment and Plan: - Symptoms: shortness of breath and cough - Remains on entresto BID, metoprolol 200 mg daily - Started on lasix 40 mg IV, transitioned to PO lasix - BNP: 10,300 - Troponins WNL - Remains on room air - EKG: Afib - Chest CTA: 1. No pulmonary embolus. 2. Mild pulmonary edema. 3. Small pleural effusions. 4. 7 mm right upper lobe pulmonary nodule, stable from 12/20/2023, likely benign. Noncontrast low-dose chest CT is recommended in one year. 5. Mild emphysema. - Echo 09/20/22: LVEF 40-45% with grade III diastolic dysfunction and moderate pulmonary hypertension - Echo: LVEF 50-55% with grade III diastolic dysfunction - Monitor vital signs, I&Os, BUN/creatinine, daily weights, neuro status and patient is a fall risk - Monitor serum electrolytes, Keep serum Potassium>4 and serum Magnesium>2 and CBC (2) Chronic obstructive pulmonary disease: Qualifiers: COPD type: unspecified COPD Qualified Code(s): J44.9 - Chronic obstructive pulmonary disease, unspecified Code(s): J44.9 - Chronic obstructive pulmonary disease, unspecified Status: Acute Assessment and Plan: Chronic, may be in a mild exacerbation secondary to CHF exacerbation. - Will give trial of albuterol and Atrovent to see if there may be a component of COPD exacerbating the patient's symptoms. - No wheezing heard on exam (3) JAIME (acute kidney injury): Code(s): N17.9 - Acute kidney failure, unspecified Status: Acute Assessment and Plan: BUN/Cr 49/1.7 on admission. Baseline appears WNL. - BUN/Cr 52/1.9 on am labs likely secondary to IV lasix, transitioned to oral - Will hold the patient's home hydrochlorothiazide and Farxiga until we know how the patient's creatinine has responded to diuretic therapy. - Avoid nephrotoxic medications - Renally dose medications - Monitor I/O - Monitor electrolytes (4) Hypertension: Code(s): I10 - Essential (primary) hypertension Status: Acute Assessment and Plan: Chronic, continue home medications. - Metoprolol 200 mg daily - Entresto BID - Amlodipine 10 mg daily - Hydralazine 100 mg TID - Monitor Time Spent With Patient Time with patient: 25 - 35 minutes Subjective Date/time seen: 08/03/24 08:18 Interval history: 74-year-old male with past medical history of congestive heart failure with reduced ejection fraction, essential hypertension, hyperlipidemia, depression, CAD, COPD, history of left lower extremity DVT, history of CVA, PVD who presents to the hospital for shortness of breath and a cough. patient is pleasant lying comfortably in bed. he has no complaints at this time denying chest pain, shortness a breath, palpitations, nausea/ vomiting, and abd ominal pain. He continues to have a slight JAIME on a.m. labs likely secondary to continued IV Lasix use. We will transition him back to oral Lasix given that his lungs on auscultation have improved and he is no longer short of breath. He continues to have good urine output. Review of Systems Review of Systems: All systems reviewed & are unremarkable except as noted in HPI and below Exam Narrative: AF HR 64 RR 16 SpO2 92 BP 154/45 General: male in no acute respiratory distress who is nontoxic appearing, lying semi recumbent in bed. HEENT: Normocephalic. Atraumatic. Extraocular movement intact. Sclera clear and anicteric. No facial asymmetry. Chest: Lungs are slightly diminished on auscultation bilaterally. No wheezes or crackles. CV: Heart was regular rate and rhythm. S1/S2. No murmurs, gallops, or rubs. Abd: Abdomen was soft. Nontender. Nondistended. Positive bowel sounds. No organomegaly or masses. Ext: No clubbing, cyanosis, or edema. 2+ DP pulses bilaterally. Neuro: Patient is alert and oriented x4. Cranial nerves 2-12 are intact. Speech is clear. Objective Data Vital Signs Vital Signs: Vital Signs - 24 hr 08/02/24 09:09 08/02/24 13:25 08/02/24 13:35 Temperature Pulse Rate 63 64 66 Respiratory Rate 18 18 Blood Pressure Pulse Oximetry Oxygen Delivery 08/02/24 12:00 08/02/24 14:00 08/02/24 16:00 Temperature 97.4 F L Pulse Rate 43 L 47 L 55 L Respiratory Rate 18 Blood Pressure 139/32 L Pulse Oximetry 91 Oxygen Delivery 08/02/24 20:00 08/02/24 21:59 08/02/24 20:00 Temperature 97.2 F L Pulse Rate 56 L 51 L Respiratory Rate 16 Blood Pressure 139/41 L Pulse Oximetry 94 Oxygen Delivery Room Air 08/03/24 00:00 08/02/24 20:47 08/02/24 20:45 Temperature Pulse Rate 56 L 56 L Respiratory Rate 18 Blood Pressure Pulse Oximetry 92 Oxygen Delivery Room Air 08/02/24 21:00 08/03/24 04:00 08/03/24 06:00 Temperature 97.8 F Pulse Rate 54 L 62 64 Respiratory Rate 18 16 Blood Pressure 154/45 H Pulse Oximetry 92 Oxygen Delivery 08/03/24 08:00 Temperature Pulse Rate 60 Respiratory Rate Blood Pressure Pulse Oximetry Oxygen Delivery Intake/Output Intake/Output: Intake & Output 07/31/24 08/01/24 08/02/24 08/03/24 23:59 23:59 23:59 23:59 Intake Total 800 600 Output Total 400 Balance 800 200 Meds/Results Medications: Active Medications Generic Name Dose Route Start Last Admin Trade Name Negritoq PRN Reason Stop Dose Admin Albuterol 5 mg 08/02/24 08:00 08/03/24 07:54 Albuterol Sulfate Neb 2.5 Mg/3 Ml Inh INHALATION 5 mg Q6HRT [facility] Administration Allopurinol 100 mg 08/02/24 09:00 08/02/24 09:08 Allopurinol 100 Mg Tablet PO 100 mg DAILY [facility] Administration Amlodipine Besylate 10 mg 08/02/24 09:00 08/02/24 09:08 Amlodipine Besylate 10 Mg Tablet PO 10 mg DAILY [facility] Administration Aspirin 325 mg 08/02/24 09:00 08/02/24 09:08 Aspirin 325 Mg Tablet PO 325 mg DAILY [facility] Administration Atorvastatin Calcium 80 mg 08/02/24 09:00 08/02/24 09:08 Atorvastatin 40 Mg Tablet PO 80 mg DAILY [facility] Administration Furosemide 40 mg 08/02/24 09:00 08/02/24 09:08 Furosemide Inj 40 Mg/4 Ml Vial IV PUSH 40 mg QAM [facility] Administration Hydralazine HCl 100 mg 08/02/24 09:00 08/02/24 16:35 Hydralazine Hcl 50 Mg Tablet PO 100 mg TID [facility] Administration Ipratropium [place] 0.5 mg 08/02/24 08:00 08/03/24 07:54 Ipratropium Br 0.02% Inh Soln 0.5 Mg/2.5 Ml Vial INHALATION 0.5 mg Q6HRT [facility] Administration Isosorbide Mononitrate 120 mg 08/02/24 09:00 08/02/24 09:07 Isosorbide Mononitrate 60 Mg Tab.Er.24h PO 120 mg DAILY [facility] Administration Melatonin 3 mg 08/02/24 09:42 Melatonin 3 Mg Tablet PO HS PRN insomnia Metoprolol Succinate 200 mg 08/02/24 09:00 08/02/24 09:09 Metoprolol Succinate Ext Rel 100 Mg Tabcr PO 200 mg DAILY [facility] Administration Perflutren Lipid Microsphere 0 ml 08/01/24 21:27 Perflutren Lipid Microspheres 1.5 Ml Vial Diluted To 10 Ml Total Volume IV PUSH 08/04/24 21:30 ONCE PRN adequate visualization Protocol Sacubitril/Valsartan 1 tab 08/02/24 09:00 08/02/24 16:35 Sacubitril/Valsartan 24-26 Mg Tablet PO 1 tab BID [facility] Administration Radiology Results: ITS Impressions Chest CTA 08/01/24 16:45 IMPRESSION: 1. No pulmonary embolus. 2. Mild pulmonary edema. 3. Small pleural effusions. 4. 7 mm right upper lobe pulmonary nodule, stable from 12/20/2023, likely benign. Noncontrast low-dose chest CT is recommended in one year. 5. Mild emphysema. Labs Labs: Laboratory Results - last 24 hr 08/02/24 08/02/24 08:36 11:27 WBC 4.9 RBC 3.32 L Hgb 8.7 L Hct 28.7 L MCV 86.4 MCH 26.2 MCHC 30.3 L RDW 17.2 H Plt Count 102 L MPV 13.8 H % Immature Plt Fraction 8.6 Sodium 141 Potassium 3.7 Chloride 105 Carbon Dioxide 24 Anion Gap 12 BUN 52 H Creatinine 1.80 H Estim Creat Clear Calc 28 Estimated GFR 37 L Glucose 105 POC Capillary Glucose 135 H Calcium 9.1 Phosphorus 3.6 Magnesium 1.8 Quality VTE Prophylaxis VTE prophylaxis: mechanical ordered
[2024-08-03 08:31] LABS: Basophils Percent Auto 0.8 % (0.2-1.2); Eosinophils Absolute Auto 0.2 K/mm3 (0-0.3); Hematocrit 27.9 % (42.0-52.0); Hemoglobin 8.7 g/dL (14.0-18.0); Immature Granulocyte Absolute 0.01 K/mm3 (0.00-0.031); Immature Granulocyte Percent A 0.2 % (0-0.5); Lymphocytes Absolute Auto 0.67 K/mm3 (0.9-3.2); Mean Corpuscular HGB Conc 31.2 g/dl (32-36); Mean Corpuscular Hemoglobin 26.9 pg (26-34); Mean Corpuscular Volume 86.1 fl (80-100); Monocytes Absolute Auto 0.5 K/mm3 (0.1-0.6); Monocytes Percent Auto 11.1 % (2.6-8.5); Neutrophils Absolute Auto 3.3 K/mm3 (1.3-6.7); Neutrophils Percent Auto 68.9 % (45.5-73.1); Platelet Count Result 129 k/mm3 (150-375); Red Blood Count 3.24 M/mm3 (4.6-6.20); Red Cell Distribution Width 17.2 % (11.5-14.5); White Blood Count 4.8 K/mm3 (4.5-10.0)
[2024-08-03 08:46] LABS: Alanine Aminotransferase 16 U/L (6-50); Alkaline Phosphatase 166 U/L (38-126); Anion Gap 12 mmol/L (4-12); Aspartate Amino Transferase 22 U/L (17-59); Bilirubin,Total 1.2 mg/dL (0.2-1.3); Blood Urea Nitrogen 57 mg/dL (9-20); Calcium 9.2 mg/dL (8.4-10.2); Carbon Dioxide 25 mmol/L (22-30); Chloride 103 mmol/L (98-107); Estimated CRCL calculation 27 ml/min; Estimated Glomerular Filt Rate 35; Glucose 99 mg/dL (65-110); Potassium 3.8 mmol/L (3.4-5.0); Sodium 140 mmol/L (137-145)
[2024-08-03] MEDS: ATORVASTATIN 40 MG TABLET 80 MG PO (08:57)
[2024-08-03] MEDS: METOPROLOL SUCCINATE EXT REL 100 MG TABCR 200 MG PO (08:57)
[2024-08-03] MEDS: FUROSEMIDE INJ 40 MG/4 ML VIAL IV PUSH (08:57)
[2024-08-03] MEDS: SACUBITRIL/VALSARTAN 24-26 MG TABLET 1 TAB PO ×2 (08:57→17:20)
[2024-08-03] MEDS: allopurinoL 100 MG TABLET PO (08:58)
[2024-08-03] MEDS: ASPIRIN 325 MG TABLET PO (08:58)
[2024-08-03] MEDS: amLODIPine BESYLATE 10 MG TABLET PO (08:58)
[2024-08-03] MEDS: hydrALAZINE HCL 50 MG TABLET 100 MG PO ×3 (08:58→17:20)
[2024-08-03] MEDS: ISOSORBIDE MONONITRATE 60 MG TAB.ER.24H 120 MG PO (08:58)
[2024-08-03] MEDS: IPRATROPIUM 0.5 MG/ALBUTEROL SULFATE 2.5 MG AMPUL.NEB 3 ML INHALATION ×2 (14:08→20:09)
[2024-08-03] MEDS: MELATONIN 3 MG TABLET PO (20:34)
[2024-08-04] VITALS (20 sets, daily range): BP systolic 110–128; BP diastolic 46–50; PULSE 50–62; RESP 16–18; TEMP 36.1–36.7; O2SAT 91–95
[2024-08-04] MEDS: IPRATROPIUM 0.5 MG/ALBUTEROL SULFATE 2.5 MG AMPUL.NEB 3 ML INHALATION ×4 (02:27→21:14)
[2024-08-04 05:58] LABS: Basophils Absolute Auto 0.1 K/mm3 (0.0-0.1); Eosinophils Absolute Auto 0.3 K/mm3 (0-0.3); Eosinophils Percent Auto 5.1 % (0-4.4); Hematocrit 26.7 % (42.0-52.0); Hemoglobin 8.4 g/dL (14.0-18.0); Immature Granulocyte Absolute 0.02 K/mm3 (0.00-0.031); Immature Granulocyte Percent A 0.4 % (0-0.5); Lymphocytes Absolute Auto 0.61 K/mm3 (0.9-3.2); Lymphocytes Percent Auto 12.5 % (18.3-44.2); Mean Corpuscular HGB Conc 31.5 g/dl (32-36); Mean Corpuscular Hemoglobin 26.8 pg (26-34); Mean Corpuscular Volume 85.3 fl (80-100); Monocytes Absolute Auto 0.5 K/mm3 (0.1-0.6); Monocytes Percent Auto 9.6 % (2.6-8.5); Neutrophils Absolute Auto 3.5 K/mm3 (1.3-6.7); Neutrophils Percent Auto 71.4 % (45.5-73.1); Platelet Count Result 127 k/mm3 (150-375); Red Blood Count 3.13 M/mm3 (4.6-6.20); Red Cell Distribution Width 17.2 % (11.5-14.5); White Blood Count 4.9 K/mm3 (4.5-10.0)
[2024-08-04 06:10] LABS: Alanine Aminotransferase 15 U/L (6-50); Albumin Level 3.7 g/dL (3.5-5.1); Alkaline Phosphatase 149 U/L (38-126); Anion Gap 11 mmol/L (4-12); Aspartate Amino Transferase 22 U/L (17-59); Bilirubin,Total 1.1 mg/dL (0.2-1.3); Blood Urea Nitrogen 61 mg/dL (9-20); Calcium 8.9 mg/dL (8.4-10.2); Carbon Dioxide 23 mmol/L (22-30); Chloride 103 mmol/L (98-107); Estimated CRCL calculation 23 ml/min; Estimated Glomerular Filt Rate 29; Glucose 132 mg/dL (65-110); Potassium 3.8 mmol/L (3.4-5.0); Sodium 137 mmol/L (137-145)
--- NOTE | 2024-08-04 07:47 | PM.IMPN ---
Progress Note: A&P Assessment and Plan (1) Acute respiratory failure with hypoxia: Code(s): J96.01 - Acute respiratory failure with hypoxia Status: Acute Assessment and Plan: Overnight patients SpO2 dropped to upper 80s. Placed on 3L NC, baseline RA. - Wean as tolerated for SPO2 > 88% given COPD - Possibly related to COPD exacerbation 2/2 HF exacerbation, started on prednisone 40 mg daily - Chest XR obtained and showed persistent mild pulmonary edema in the bilateral lower lungs with cardiomegaly and a small left pleural effusion with associated atelectasis and/or pneumonia in the left lower lung zone. - CRP and procal ordered - Apnea link ordered (2) Acute exacerbation of CHF (congestive heart failure): Qualifiers: Heart failure type: combined systolic and diastolic Qualified Code(s): I50.43 - Acute on chronic combined systolic (congestive) and diastolic (congestive) heart failure Code(s): I50.9 - Heart failure, unspecified Status: Acute Assessment and Plan: - Symptoms: shortness of breath and cough - Remains on entresto BID, metoprolol 200 mg daily - Started on lasix 40 mg IV, transitioned to PO lasix - BNP: 10,300 - Troponins WNL - Remains on room air - EKG: Afib - Chest CTA: 1. No pulmonary embolus. 2. Mild pulmonary edema. 3. Small pleural effusions. 4. 7 mm right upper lobe pulmonary nodule, stable from 12/20/2023, likely benign. Noncontrast low-dose chest CT is recommended in one year. 5. Mild emphysema. - Echo 09/20/22: LVEF 40-45% with grade III diastolic dysfunction and moderate pulmonary hypertension - Echo: LVEF 50-55% with grade III diastolic dysfunction - Monitor vital signs, I&Os, BUN/creatinine, daily weights, neuro status and patient is a fall risk - Monitor serum electrolytes, Keep serum Potassium>4 and serum Magnesium>2 and CBC (3) Chronic obstructive pulmonary disease: Qualifiers: COPD type: unspecified COPD Qualified Code(s): J44.9 - Chronic obstructive pulmonary disease, unspecified Code(s): J44.9 - Chronic obstructive pulmonary disease, unspecified Status: Acute Assessment and Plan: Chronic, may be in a mild exacerbation secondary to CHF exacerbation. - Will give trial of albuterol and Atrovent to see if there may be a component of COPD exacerbating the patient's symptoms. - Started prednisone 40 mg daily - No wheezing heard on exam (4) JAIME (acute kidney injury): Code(s): N17.9 - Acute kidney failure, unspecified Status: Acute Assessment and Plan: BUN/Cr 49/1.7 on admission. Baseline appears WNL. - BUN/Cr 61/2.2 on am labs possibly due to over diuresis - Will hold the patient's home hydrochlorothiazide and Farxiga until we know how the patient's creatinine has responded to diuretic therapy. - Renal US: 1 cm left renal cyst otherwise unremarkable - Bladder scan to rule out retention - Avoid nephrotoxic medications - Renally dose medications - Monitor I/O - Monitor electrolytes (5) Hypertension: Code(s): I10 - Essential (primary) hypertension Status: Acute Assessment and Plan: Chronic, continue home medications. - Metoprolol 200 mg daily - Entresto BID - Amlodipine 10 mg daily - Hydralazine 100 mg TID - Monitor Time Spent With Patient Time with patient: 25 - 35 minutes Subjective Date/time seen: 08/04/24 07:47 Interval history: 74-year-old male with past medical history of congestive heart failure with reduced ejection fraction, essential hypertension, hyperlipidemia, depression, CAD, COPD, history of left lower extremity DVT, history of CVA, PVD who presents to the hospital for shortness of breath and a cough. Patient is pleasant lying comfortably in bed. Overnight patient required oxygen supplementation as his SpO2 dropped to the upper 80s. He remains on 3 L nasal cannula and is currently being weaned off the oxygen. Possibly worsening COPD exacerbation 2/2 CHF. Patient started on prednisone. Patient endorses mild shortness of breath but is able to talk in full sentences. He has no other complaints, denying chest pain, palpitations, nausea/vomiting and abdominal pain. Review of Systems Review of Systems: All systems reviewed & are unremarkable except as noted in HPI and below Exam Narrative: AF HR 57 RR 16 SPO2 93 3L NC BP 128/46 General: male in no acute respiratory distress who is nontoxic appearing, lying semi recumbent in bed. HEENT: Normocephalic. Atraumatic. Extraocular movement intact. Sclera clear and anicteric. No facial asymmetry. Chest: Lungs are slightly diminished on auscultation with mild crackles in the lower bases bilaterally. No wheezes. CV: Heart was regular rate and rhythm. S1/S2. No murmurs, gallops, or rubs. Abd: Abdomen was soft. Nontender. Nondistended. Positive bowel sounds. No organomegaly or masses. Ext: No clubbing, cyanosis, or edema. 2+ DP pulses bilaterally. Neuro: Patient is alert and oriented x4. Cranial nerves 2-12 are intact. Speech is clear. Objective Data Vital Signs Vital Signs: Vital Signs - 24 hr 08/03/24 08:00 08/03/24 07:54 08/03/24 07:54 Temperature Pulse Rate 60 55 L Respiratory Rate 18 Blood Pressure Pulse Oximetry 92 Oxygen Delivery Room Air Fraction of Inspired Oxygen 21 08/03/24 08:10 08/03/24 08:57 08/03/24 08:00 Temperature Pulse Rate 58 L 60 Respiratory Rate 18 Blood Pressure Pulse Oximetry Oxygen Delivery Room Air Fraction of Inspired Oxygen 08/03/24 14:09 08/03/24 14:21 08/03/24 14:00 Temperature 98.1 F Pulse Rate 59 L 62 63 Respiratory Rate 18 18 14 Blood Pressure 96/56 L Pulse Oximetry 89 L Oxygen Delivery Fraction of Inspired Oxygen 08/03/24 15:05 08/03/24 12:00 08/03/24 16:55 Temperature Pulse Rate 57 L Respiratory Rate Blood Pressure 136/37 L Pulse Oximetry 91 89 L Oxygen Delivery Room Air Fraction of Inspired Oxygen 08/03/24 17:20 08/03/24 16:00 08/03/24 20:12 Temperature Pulse Rate 50 L 54 L Respiratory Rate 18 Blood Pressure Pulse Oximetry 92 Oxygen Delivery Fraction of Inspired Oxygen 08/03/24 20:13 08/03/24 20:00 08/03/24 20:22 Temperature Pulse Rate 58 L 57 L Respiratory Rate 18 Blood Pressure Pulse Oximetry 91 Oxygen Delivery Room Air Fraction of Inspired Oxygen 08/03/24 20:00 08/03/24 22:00 08/04/24 00:00 Temperature 98.3 F Pulse Rate 57 L 58 L 60 Respiratory Rate 18 16 Blood Pressure 104/52 L Pulse Oximetry 91 93 Oxygen Delivery Room Air Fraction of Inspired Oxygen 08/04/24 02:29 08/04/24 04:00 08/04/24 05:21 Temperature 98.0 F Pulse Rate 56 L 55 L 57 L Respiratory Rate 18 16 Blood Pressure 128/46 L Pulse Oximetry 93 Oxygen Delivery Fraction of Inspired Oxygen Intake/Output Intake/Output: Intake & Output 08/01/24 08/02/24 08/03/24 08/04/24 23:59 23:59 23:59 23:59 Intake Total 800 1950 600 Output Total 400 Balance 800 1550 600 Meds/Results Medications: Active Medications Generic Name Dose Route Start Last Admin Trade Name Freq PRN Reason Stop Dose Admin Albuterol/Ipratropium 3 ml 08/03/24 14:00 08/04/24 02:27 Ipratropium 0.5 Mg/Albuterol Sulfate 2.5 Mg Ampul.Neb 3 Ml INHALATION 3 ml Q6HRT GENNY Administration Allopurinol 100 mg 08/02/24 09:00 08/03/24 08:58 Allopurinol 100 Mg Tablet PO 100 mg DAILY GENNY Administration Amlodipine Besylate 10 mg 08/02/24 09:00 08/03/24 08:58 Amlodipine Besylate 10 Mg Tablet PO 10 mg DAILY GENNY Administration Aspirin 325 mg 08/02/24 09:00 08/03/24 08:58 Aspirin 325 Mg Tablet PO 325 mg DAILY GENNY Administration Atorvastatin Calcium 80 mg 08/02/24 09:00 08/03/24 08:57 Atorvastatin 40 Mg Tablet PO 80 mg DAILY GENNY Administration Furosemide 20 mg 08/06/24 09:00 Furosemide 20 Mg Tablet PO [id number] GENNY Hydralazine HCl 100 mg 08/02/24 09:00 08/03/24 17:20 Hydralazine Hcl 50 Mg Tablet PO 100 mg TID GENNY Administration Isosorbide Mononitrate 120 mg 08/02/24 09:00 08/03/24 08:58 Isosorbide Mononitrate 60 Mg Tab.Er.24h PO 120 mg DAILY GENNY Administration Melatonin 3 mg 08/02/24 09:42 08/03/24 20:34 Melatonin 3 Mg Tablet PO 3 mg HS PRN Administration insomnia Metoprolol Succinate 200 mg 08/02/24 09:00 08/03/24 08:57 Metoprolol Succinate Ext Rel 100 Mg Tabcr PO 200 mg DAILY GENNY Administration Perflutren Lipid Microsphere 0 ml 08/01/24 21:27 Perflutren Lipid Microspheres 1.5 Ml Vial Diluted To 10 Ml Total Volume IV PUSH 08/04/24 21:30 ONCE PRN adequate visualization Protocol Sacubitril/Valsartan 1 tab 08/02/24 09:00 08/03/24 17:20 Sacubitril/Valsartan 24-26 Mg Tablet PO 1 tab BID GENNY Administration Radiology Results: ITS Impressions Chest CTA 08/01/24 16:45 IMPRESSION: 1. No pulmonary embolus. 2. Mild pulmonary edema. 3. Small pleural effusions. 4. 7 mm right upper lobe pulmonary nodule, stable from 12/20/2023, likely benign. Noncontrast low-dose chest CT is recommended in one year. 5. Mild emphysema. Labs Labs: Laboratory Results - last 24 hr 08/03/24 08/04/24 08:24 05:50 WBC 4.8 4.9 RBC 3.24 L 3.13 L Hgb 8.7 L 8.4 L Hct 27.9 L 26.7 L MCV 86.1 85.3 MCH 26.9 26.8 MCHC 31.2 L 31.5 L RDW 17.2 H 17.2 H Plt Count 129 L 127 L MPV 13.0 H 13.0 H Immature Gran % (Auto) 0.2 0.4 Neut % (Auto) 68.9 71.4 Lymph % (Auto) 14.0 L 12.5 L [place] % (Auto) 11.1 H 9.6 H Eos % (Auto) 5.0 H 5.1 H Baso % (Auto) 0.8 1.0 Lymph # (Auto) 0.67 L 0.61 L [place] # (Auto) 0.5 0.5 Eos # (Auto) 0.2 0.3 Baso # (Auto) 0.0 0.1 Abs Immat Gran (auto) 0.01 0.02 Absolute Neuts (auto) 3.3 3.5 Absolute Nucleated RBC 0.000 0.000 Nucleated RBC % 0.0 0.0 Sodium 140 137 Potassium 3.8 3.8 Chloride 103 103 Carbon Dioxide 25 23 Anion Gap 12 11 BUN 57 H 61 H Creatinine 1.90 H 2.20 H Estim Creat Clear Calc 27 23 Estimated GFR 35 L 29 L Glucose 99 132 H Calcium 9.2 8.9 Total Bilirubin 1.2 1.1 AST 22 22 ALT 16 15 Alkaline Phosphatase 166 H 149 H Total Protein 7.0 7.0 Albumin 4.0 3.7 Quality VTE Prophylaxis VTE prophylaxis: mechanical ordered
[2024-08-04] MEDS: METOPROLOL SUCCINATE EXT REL 100 MG TABCR 200 MG PO (08:33)
[2024-08-04] MEDS: allopurinoL 100 MG TABLET PO (08:33)
[2024-08-04] MEDS: ATORVASTATIN 40 MG TABLET 80 MG PO (08:33)
[2024-08-04] MEDS: ISOSORBIDE MONONITRATE 60 MG TAB.ER.24H 120 MG PO (08:33)
[2024-08-04] MEDS: hydrALAZINE HCL 50 MG TABLET 100 MG PO ×3 (08:34→16:38)
[2024-08-04] MEDS: ASPIRIN 325 MG TABLET PO (08:35)
[2024-08-04] MEDS: amLODIPine BESYLATE 10 MG TABLET PO (08:35)
[2024-08-04] MEDS: SACUBITRIL/VALSARTAN 24-26 MG TABLET 1 TAB PO ×2 (08:36→16:38)
--- NOTE | 2024-08-04 10:36 | PC.NURSE ---
Patient resting in bed. NC in place with 2.5L O2. Discussed patients desaturation with sleeping and suggested a sleep study be done prior to DC. No complaints of pain. Questions and concerns addressed.
[2024-08-04 16:17] LABS: CRP 0.8 mg/dL (<1.0)
[2024-08-04] MEDS: predniSONE 20 MG TABLET 40 MG PO (16:38)
[2024-08-04 16:46] LABS: Procalcitonin 0.4 ng/mL
--- NOTE | 2024-08-04 17:34 | PC.NURSE ---
1730 Patient weaned off O2. Saturating 91% on 1L and now the same at RA.
[2024-08-04] MEDS: MELATONIN 3 MG TABLET PO (20:33)
[2024-08-05] VITALS (14 sets, daily range): BP systolic 102–124; BP diastolic 47–84; PULSE 52–62; RESP 16–18; TEMP 36.3–36.4; O2SAT 93–96
--- NOTE | 2024-08-05 01:55 | PC.NURSE ---
Daylight Savings Time For Daylight Savings Time Ending in the Fall - Clocks are moved back. For Daylight Savings Time Beginning in the Spring - Clocks are moved ahead. For [facility], the time of change occurs at 0200 hrs. Time is taken from the windows server specialist. This entry on the patient's chart recognizes the change in time reflected during documentation. Example: 2 entries for vital signs may be charted for 0200 hrs.
--- NOTE | 2024-08-05 03:25 | PCRCNOTE ---
Patient on apnea link, therefore patient did not receive 0200 updraft treatment. Tx to resume at 0800.
[2024-08-05 06:11] LABS: Hematocrit 27.5 % (42.0-52.0); Hemoglobin 8.6 g/dL (14.0-18.0); Lymphocytes Absolute Auto 0.22 K/mm3 (0.9-3.2); Lymphocytes Percent Auto 10.3 % (18.3-44.2); Mean Corpuscular HGB Conc 31.3 g/dl (32-36); Mean Corpuscular Hemoglobin 26.6 pg (26-34); Mean Corpuscular Volume 85.1 fl (80-100); Mean Platelet Volume 12.8 fl (7.4-10.4); Monocytes Absolute Auto 0.1 K/mm3 (0.1-0.6); Monocytes Percent Auto 4.7 % (2.6-8.5); Neutrophils Absolute Auto 1.8 K/mm3 (1.3-6.7); Platelet Count Result 144 k/mm3 (150-375); Red Blood Count 3.23 M/mm3 (4.6-6.20); Red Cell Distribution Width 17.3 % (11.5-14.5); White Blood Count 2.1 K/mm3 (4.5-10.0)
[2024-08-05 06:26] LABS: Alanine Aminotransferase 16 U/L (6-50); Albumin Level 3.8 g/dL (3.5-5.1); Alkaline Phosphatase 164 U/L (38-126); Anion Gap 15 mmol/L (4-12); Aspartate Amino Transferase 29 U/L (17-59); Blood Urea Nitrogen 69 mg/dL (9-20); Calcium 8.9 mg/dL (8.4-10.2); Carbon Dioxide 20 mmol/L (22-30); Chloride 104 mmol/L (98-107); Estimated CRCL calculation 21 ml/min; Estimated Glomerular Filt Rate 27; Glucose 143 mg/dL (65-110); Sodium 139 mmol/L (137-145)
--- NOTE | 2024-08-05 07:24 | PM.IMPN ---
Progress Note: A&P Assessment and Plan (1) Acute respiratory failure with hypoxia: Code(s): J96.01 - Acute respiratory failure with hypoxia Status: Acute Assessment and Plan: Overnight patients SpO2 dropped to upper 80s. Placed on 3L NC, baseline RA. - Wean as tolerated for SPO2 > 88% given COPD - Possibly related to COPD exacerbation 2/2 HF exacerbation, started on prednisone 40 mg daily - Chest XR obtained and showed persistent mild pulmonary edema in the bilateral lower lungs with cardiomegaly and a small left pleural effusion with associated atelectasis and/or pneumonia in the left lower lung zone. - CRP and procal WNL - Apnea link normal 08/05: Patient is back on RA, sating well. (2) Acute exacerbation of CHF (congestive heart failure): Qualifiers: Heart failure type: combined systolic and diastolic Qualified Code(s): I50.43 - Acute on chronic combined systolic (congestive) and diastolic (congestive) heart failure Code(s): I50.9 - Heart failure, unspecified Status: Acute Assessment and Plan: - Symptoms: shortness of breath and cough - Remains on entresto BID, metoprolol 200 mg daily - Started on lasix 40 mg IV, transitioned to PO lasix - BNP: 10,300 - Troponins WNL - Remains on room air - EKG: Afib - Chest CTA: 1. No pulmonary embolus. 2. Mild pulmonary edema. 3. Small pleural effusions. 4. 7 mm right upper lobe pulmonary nodule, stable from 12/20/2023, likely benign. Noncontrast low-dose chest CT is recommended in one year. 5. Mild emphysema. - Echo 09/20/22: LVEF 40-45% with grade III diastolic dysfunction and moderate pulmonary hypertension - Echo: LVEF 50-55% with grade III diastolic dysfunction - Monitor vital signs, I&Os, BUN/creatinine, daily weights, neuro status and patient is a fall risk - Monitor serum electrolytes, Keep serum Potassium>4 and serum Magnesium>2 and CBC (3) Chronic obstructive pulmonary disease: Qualifiers: COPD type: unspecified COPD Qualified Code(s): J44.9 - Chronic obstructive pulmonary disease, unspecified Code(s): J44.9 - Chronic obstructive pulmonary disease, unspecified Status: Acute Assessment and Plan: Chronic, may be in a mild exacerbation secondary to CHF exacerbation. - Will give trial of albuterol and Atrovent to see if there may be a component of COPD exacerbating the patient's symptoms. - Started prednisone 40 mg daily - No wheezing heard on exam (4) JAIME (acute kidney injury): Code(s): N17.9 - Acute kidney failure, unspecified Status: Acute Assessment and Plan: BUN/Cr 49/1.7 on admission. Baseline appears WNL. - BUN/Cr 69/2.4 on am labs - Will hold the patient's home hydrochlorothiazide and Farxiga until we know how the patient's creatinine has responded to diuretic therapy. - Renal US: 1 cm left renal cyst otherwise unremarkable - Urine studies ordered - Nephrology consulted - Bladder scan to rule out retention - Avoid nephrotoxic medications - Renally dose medications - Monitor I/O - Monitor electrolytes (5) Hypertension: Code(s): I10 - Essential (primary) hypertension Status: Acute Assessment and Plan: Chronic, continue home medications. - Metoprolol 200 mg daily - Entresto BID - Amlodipine 10 mg daily - Hydralazine 100 mg TID - Monitor (6) Pancytopenia: Code(s): D61.818 - Other pancytopenia Status: Acute Assessment and Plan: - iron panel: iron 46, TIBC 370, % sat 12 Started on iron supplementation - B12/folate WNL - retic ordered - Chest CTA: 7 mm right upper lobe pulmonary nodule, stable from 12/20/2023, likely benign. Noncontrast low-dose chest CT is recommended in one year. - Able to follow up with heme outpatient Time Spent With Patient Time with patient: 25 - 35 minutes Subjective Date/time seen: 08/05/24 07:24 Interval history: 74-year-old male with past medical history of congestive heart failure with reduced ejection fraction, essential hypertension, hyperlipidemia, depression, CAD, COPD, history of left lower extremity DVT, history of CVA, PVD who presents to the hospital for shortness of breath and a cough. Patient is lying comfortably in bed with at bedside. He states that he is feeling much better today and has been weaned off of the supplemental oxygen. He notes that he feels less short of breath than days prior. He denies chest pain, palpitations, nausea/vomiting and abdominal pain. He continues to have an up trending Cr, nephrology consulted. Review of Systems Review of Systems: All systems reviewed & are unremarkable except as noted in HPI and below Exam Narrative: AF HR 52 RR 16 SpO2 95 RA BP 124/64 General: male in no acute respiratory distress who is nontoxic appearing, lying semi recumbent in bed. HEENT: Normocephalic. Atraumatic. Extraocular movement intact. Sclera clear and anicteric. No facial asymmetry. Chest: Lungs are slightly diminished on auscultation. No wheezes or crackles. CV: Heart was regular rate and rhythm. S1/S2. No murmurs, gallops, or rubs. Abd: Abdomen was soft. Nontender. Nondistended. Positive bowel sounds. No organomegaly or masses. Ext: No clubbing, cyanosis, or edema. 2+ DP pulses bilaterally. Neuro: Patient is alert and oriented x4. Cranial nerves 2-12 are intact. Speech is clear. Objective Data Vital Signs Vital Signs: Vital Signs - 24 hr 08/04/24 08:33 08/04/24 13:39 08/04/24 13:46 Temperature Pulse Rate 62 56 L 58 L Respiratory Rate 16 16 Blood Pressure Pulse Oximetry Oxygen Delivery Oxygen Flow Rate 08/04/24 12:00 08/04/24 16:40 08/04/24 16:00 Temperature Pulse Rate 54 L 51 L 54 L Respiratory Rate Blood Pressure Pulse Oximetry 91 Oxygen Delivery Oxygen Flow Rate 08/04/24 17:49 08/04/24 21:14 08/04/24 21:20 Temperature 97.3 F L Pulse Rate 55 L 56 L 56 L Respiratory Rate 18 18 Blood Pressure 110/50 L Pulse Oximetry 91 94 Oxygen Delivery Nasal Cannula Oxygen Flow Rate 3 08/04/24 21:23 08/04/24 22:15 08/04/24 22:39 Temperature 97.0 F L Pulse Rate 57 L 50 L Respiratory Rate 16 16 Blood Pressure 121/48 L Pulse Oximetry 91 95 Oxygen Delivery Room Air Oxygen Flow Rate 08/04/24 20:00 08/05/24 00:00 08/05/24 04:00 Temperature Pulse Rate 51 L 60 60 Respiratory Rate Blood Pressure Pulse Oximetry Oxygen Delivery Oxygen Flow Rate 08/05/24 06:00 Temperature 97.6 F Pulse Rate 52 L Respiratory Rate 16 Blood Pressure 124/64 Pulse Oximetry 93 Oxygen Delivery Oxygen Flow Rate Intake/Output Intake/Output: Intake & Output 08/02/24 08/03/24 08/04/24 08/05/24 23:59 23:59 23:59 22:59 Intake Total 800 1950 1360 540 Output Total 400 Balance 800 1550 1360 540 Meds/Results Medications: Active Medications Generic Name Dose Route Start Last Admin Trade Name Freq PRN Reason Stop Dose Admin Albuterol/Ipratropium 3 ml 08/03/24 14:00 08/05/24 03:24 Ipratropium 0.5 Mg/Albuterol Sulfate 2.5 Mg Ampul.Neb 3 Ml INHALATION Not Given Q6HRT [facility] Allopurinol 100 mg 08/02/24 09:00 08/04/24 08:33 Allopurinol 100 Mg Tablet PO 100 mg DAILY [facility] Administration Amlodipine Besylate 10 mg 08/02/24 09:00 08/04/24 08:35 Amlodipine Besylate 10 Mg Tablet PO 10 mg DAILY GENNY Administration Aspirin 325 mg 08/02/24 09:00 08/04/24 08:35 Aspirin 325 Mg Tablet PO 325 mg DAILY GENNY Administration Atorvastatin Calcium 80 mg 08/02/24 09:00 08/04/24 08:33 Atorvastatin 40 Mg Tablet PO 80 mg DAILY [facility] Administration Furosemide 20 mg 08/05/24 09:00 Furosemide 20 Mg Tablet PO DAILY [facility] Hydralazine HCl 100 mg 08/02/24 09:00 08/04/24 16:38 Hydralazine Hcl 50 Mg Tablet PO 100 mg TID GENNY Administration Isosorbide Mononitrate 120 mg 08/02/24 09:00 08/04/24 08:33 Isosorbide Mononitrate 60 Mg Tab.Er.24h PO 120 mg DAILY GENNY Administration Melatonin 3 mg 08/02/24 09:42 08/04/24 20:33 Melatonin 3 Mg Tablet PO 3 mg HS PRN Administration insomnia Metoprolol Succinate 200 mg 08/02/24 09:00 08/04/24 08:33 Metoprolol Succinate Ext Rel 100 Mg Tabcr PO 200 mg DAILY GENNY Administration Prednisone 40 mg 08/04/24 15:40 08/04/24 16:38 Prednisone 20 Mg Tablet PO 40 mg DAILY@0800 GENNY Administration Sacubitril/Valsartan 1 tab 08/02/24 09:00 08/04/24 16:38 Sacubitril/Valsartan 24-26 Mg Tablet PO 1 tab BID GENNY Administration Radiology Results: ITS Impressions Chest CTA 08/01/24 16:45 IMPRESSION: 1. No pulmonary embolus. 2. Mild pulmonary edema. 3. Small pleural effusions. 4. 7 mm right upper lobe pulmonary nodule, stable from 12/20/2023, likely benign. Noncontrast low-dose chest CT is recommended in one year. 5. Mild emphysema. Renal Ultrasound 08/04/24 09:47 IMPRESSION: 1. 1 cm left renal cyst. Otherwise normal kidneys with no hydronephrosis. Chest X-Ray 08/04/24 14:46 IMPRESSION: 1. Likely persistent mild pulmonary edema with cardiomegaly and mild pulmonary edema in the bilateral lower lungs. 2. Small left pleural effusion with associated atelectasis and/or pneumonia in the left lower lung zone. Labs Labs: Laboratory Results - last 24 hr 08/04/24 08/05/24 15:57 06:03 WBC 2.1 L RBC 3.23 L Hgb 8.6 L Hct 27.5 L MCV 85.1 MCH 26.6 MCHC 31.3 L RDW 17.3 H Plt Count 144 L MPV 12.8 H Immature Gran % (Auto) 0.0 Neut % (Auto) 85.0 H Lymph % (Auto) 10.3 L [place] % (Auto) 4.7 Eos % (Auto) 0.0 Baso % (Auto) 0.0 L Lymph # (Auto) 0.22 L [place] # (Auto) 0.1 Eos # (Auto) 0.0 Baso # (Auto) 0.0 Abs Immat Gran (auto) 0.00 Absolute Neuts (auto) 1.8 Absolute Nucleated RBC 0.000 Nucleated RBC % 0.0 Sodium 139 Potassium 4.0 Chloride 104 Carbon Dioxide 20 L Anion Gap 15 H BUN 69 H Creatinine 2.40 H Estim Creat Clear Calc 21 Estimated GFR 27 L Glucose 143 H Calcium 8.9 Total Bilirubin 1.0 AST 29 ALT 16 Alkaline Phosphatase 164 H C-Reactive Protein 0.8 Total Protein 7.0 Albumin 3.8 Procalcitonin 0.4 Quality VTE Prophylaxis VTE prophylaxis: mechanical ordered
[2024-08-05 08:14] LABS: Immature Reticulocyte Fraction 16.5 % (3.0-15.9); Reticulocyte Hemoglobin Conten 29.7 pg (28.2-36.6); Reticulocyte Percent 1.87 % (0.7-4.3); Reticulocytes Absolute 0.06 10^6/uL (0.02-0.10)
[2024-08-05 08:44] LABS: Iron 46 ug/dL (49-181)
[2024-08-05 08:54] LABS: Percent Iron Saturation 12 % (20-50)
[2024-08-05] MEDS: ATORVASTATIN 40 MG TABLET 80 MG PO (09:06)
[2024-08-05] MEDS: IPRATROPIUM 0.5 MG/ALBUTEROL SULFATE 2.5 MG AMPUL.NEB 3 ML INHALATION ×3 (09:06→19:54)
[2024-08-05] MEDS: FUROSEMIDE 20 MG TABLET PO (09:07)
[2024-08-05] MEDS: ISOSORBIDE MONONITRATE 60 MG TAB.ER.24H 120 MG PO (09:07)
[2024-08-05] MEDS: ASPIRIN 325 MG TABLET PO (09:07)
[2024-08-05] MEDS: METOPROLOL SUCCINATE EXT REL 100 MG TABCR 200 MG PO (09:07)
[2024-08-05] MEDS: hydrALAZINE HCL 50 MG TABLET 100 MG PO ×3 (09:07→17:51)
[2024-08-05] MEDS: amLODIPine BESYLATE 10 MG TABLET PO (09:07)
[2024-08-05] MEDS: predniSONE 20 MG TABLET 40 MG PO (09:07)
[2024-08-05] MEDS: allopurinoL 100 MG TABLET PO (09:08)
[2024-08-05 10:30] LABS: Creatinine Urine 86.8 mg/dL; Total Protein Urine Random 20 mg/dL; Ur Ttl Prot Creatinine Ratio 0.23 mg/mg (0-0.20)
[2024-08-05 10:31] LABS: Urea Random Urine 650 MG/DL
[2024-08-05 10:36] LABS: Folic Acid 6.6 ng/mL (2.76->20)
[2024-08-05 10:44] LABS: Creatinine Urine 86.4 mg/dL; Potassium Urine Random 41.5 meq/L; Sodium Urine Random 27 meq/L
[2024-08-05 10:55] LABS: Eosinophil Urine None Seen % (None Seen); Urine Eos QC 2nd Tech Confirmed
--- NOTE | 2024-08-05 12:57 | P.CONNP_ITS ---
Assessment and Plan Assessment and plan (1) JAIME (acute kidney injury): Code(s): N17.9 - Acute kidney failure, unspecified Status: Acute Assessment and Plan: * was close to baseline on admission * was up to 2.1mg/dl by outpatient labs in July 2024 but that was in the context of a gout flare * 2.4mg/dl by AM labs today * etiology (?): * possibly related to CHF exacerbation/hypoxic respiratory failure * previous need for IV diuretics * contrast exposure (chest CTA on 08/01) * concurrent use with Entresto * previous hypoxia * renal ultrasound noted * check urine studies and CPK * hold entresto temporarily * CXR still shows congestion so hesitant to hold diuretics * follow repeat labs and UOP (2) Stage 3a chronic kidney disease: Code(s): N18.31 - Chronic kidney disease, stage 3a Status: Chronic Assessment and Plan: * from review of [facility] records, baseline creatinine runs around 1.3 - 1.6mg/dl * however, there are times his creatinine is normal * presumably secondary to HTN, CAD/CHF (and associated medications for this), vascular disease, and distant history of nephrolithiasis and age (3) Acute respiratory failure with hypoxia: Code(s): J96.01 - Acute respiratory failure with hypoxia Status: Acute Assessment and Plan: * resolving * due to combo of CHF and COPD * weaned to room air at this time * s/p IV diuresis and steroids + nebulizer treatments * continue supportive therapy (4) Acute exacerbation of CHF (congestive heart failure): Qualifiers: Heart failure type: combined systolic and diastolic Qualified Code(s): I50.43 - Acute on chronic combined systolic (congestive) and diastolic (congestive) heart failure Code(s): I50.9 - Heart failure, unspecified Status: Acute Assessment and Plan: * as noted by admission CXR and CT of chest * Echo results noted * transitioned to oral diuretics * follow I/Os, daily weights, and respiratory status (5) Hypertension: Code(s): I10 - Essential (primary) hypertension Status: Chronic Assessment and Plan: * reasonable control at this time * follow trend of hemodynamics (6) Anemia: Code(s): D64.9 - Anemia, unspecified Status: Acute Assessment and Plan: * low H/H noted * evidence of iron deficiency by anemia studies * on oral iron I will continue to follow the patient with you while he remains hospitalized and make further recommendations as deemed necessary. Thank you for allowing me to participate in the care of this patient. History of Present Illness Reason for Consult Consult date: 08/05/24 Reason for consult: acute renal failure (on chronic kidney disease) Chief Complaint Chief complaint: CHF exacerbation History of Present Illness Narrative: The patient is a 74-year-old male with a past medical history as outlined below who presented to [facility] Emergency Room with complaints of shortness of breath. The patient states that over the last 3 or 4 days, he has noticed increasing shortness of breath both at rest and as well as with exertion in association with symptoms consistent with orthopnea and paroxysmal nocturnal dyspnea. He reports that his shortness of breath is so severe that any time he tries to lay down, his shortness of breath deteriorate to the point where he has to stand right back up. He denies any chest pain, palpitations, dizziness, lightheadedness, or any other subjective symptoms. Despite his known history of congestive heart failure, he reports he does not weigh himself regularly but he has not noticed any increase in lower extremity swelling / edema or abdominal distension. Given these constellation of symptoms, he presented to the emergency room for further assessment. Workup and evaluation emergency room demonstrated the patient to be in mild distress secondary to his shortness of breath. Routine blood test demonstrated a CBC that was significant for anemia but with a normal white blood cell count and platelet count and a chemistry consistent with his known history of renal insufficiency. His chest x-ray demonstrated evidence of volume overload but given the severity of his shortness of breath on presentation, he did undergo a chest CTA which demonstrated no evidence of a pulmonary embolism but mild pulmonary edema, small pleural effusions, and a 7 mm right upper lobe pulmonary nodule. Given his presentation, IV diuretics were given in the emergency room and was subsequently admitted to the hospital for further evaluation and therapy. Since his admission, his respiratory status has improved significantly with a combination of diuresis as well as treatment for a component of COPD based on his imaging studies. Unfortunately, since his admission, his renal function has deteriorated from his admission lab of 1.7 mg/dL to now up to 2.4 mg/dL by labs done this morning. Renal consultation was requested due to his acute kidney injury/acute renal failure on top of what appears to be chronic kidney disease. Although his last labs in the [facility] show his creatinine be well within normal limits, on further review his records from [facility] his baseline creatinine seems to run around 1.3 - 1.6 mg/dL since as far back as 2020. Furthermore, he had labs done in early July of this year that showed his creatinine up to 2.1 mg/dL but this was in the context of a gout flare. As already mentioned, he does have several labs in the last few years that demonstrated a normal creatinine with the assumption that these readings are more consistent with relative stability o f his known history of congestive heart failure. 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 Currently, at the time my evaluation, the patient does not appear to be any acute distress and feels that he is close to his baseline status. Review of Systems Review of Systems: As per HPI. [facility] Past Medical History Medical History (Updated 08/05/24 @ 17:26 by Jeovanny Bender MD) Carotid artery disease Coronary artery disease GIB (gastrointestinal bleeding) Hemorrhagic stroke (1999) Hx of skilled nursing use of blood thinners Hyperlipidemia Hypertension Iron deficiency anemia Kidney stones Left leg DVT Paroxysmal atrial fibrillation No longer on anticoagulation after Watchman procedure Tobacco abuse Ulcer of antrum of stomach Surgical History Surgical History (Updated 08/02/24 @ 09:34 by Radha Clay DO) History of cardiac catheterization History of coronary artery bypass graft History of coronary artery stent placement History of left-sided carotid endarterectomy History of lithotripsy Presence of Watchman left atrial appendage closure device Family History Family History Mother Heart disease Cerebrovascular accident Social History Social History Social History: Surrogate medical decision maker: Merna Loya, spouse. Code status: Full code. Caffeine-daily Smoking packs per day: 1 Smoking cigarettes per day: 20.0 Years smoked: 30 Smoking pack-years: 30.00 Smoking status: Current some day smoker Tobacco type: cigarettes Smoking end date: 09/16/22 Additional smoking assessment comments: smokes rarely Alcohol intake: current Drinks per week: 1 Alcohol use details: 2 beers every couple weeks Substance use: current Substance use type: marijuana Other substance usage details: occasionaly Do You Feel Safe in your Home?: Yes Lack of Transportation: No Lack of Food: Never True Current Housing: I Have Housing Concerned About Future Housing: No Difficulty Paying Gas/Electric Bills: No Difficulty Paying for Meds: No Currently Unemployed: No Education: Trade/Vocational Certificate Difficulty w/ Childcare or Family Care: No Living arrangements: with family Additional living arrangements comments: with sp 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 Spiritual care concerns: No Meds Home Medications and Allergies Home Medications Medication Instructions Recorded Confirmed Type amlodipine 10 mg tablet 10 mg PO DAILY 02/21/21 08/01/24 History atorvastatin 80 mg tablet 80 mg PO DAILY 02/21/21 08/01/24 History isosorbide mononitrate 60 mg 120 mg PO DAILY 03/16/22 08/01/24 History tablet,extended release 24 hr furosemide 20 mg tablet 20 mg PO QMWF 01/25/23 08/01/24 History hydralazine 50 mg tablet 100 mg PO TID 01/25/23 08/01/24 History hydrochlorothiazide 25 mg tablet 25 mg PO DAILY 01/25/23 08/01/24 History sacubitril 24 mg-valsartan 26 mg 1 tablet PO BID 01/25/23 08/01/24 History tablet (Entresto) dapagliflozin propanediol 10 mg 10 mg PO DAILY 06/02/23 08/01/24 History tablet (Farxiga) allopurinol 100 mg tablet 150 mg PO DAILY 10/13/23 08/01/24 History metoprolol succinate 200 mg 200 mg PO DAILY 01/24/24 08/01/24 History tablet,extended release 24 hr aspirin 325 mg tablet 325 mg PO DAILY 08/01/24 08/01/24 History Allergies Allergy/AdvReac Type Severity Reaction Status Date / Time No Known Allergies Allergy Verified 04/13/24 23:05 Vital Signs Vital Signs Temp Pulse Resp BP Pulse Ox O2 Del Method O2 Flow Rate 08/05/24 09:07 95 Room Air 08/05/24 09:08 95 Room Air 08/05/24 09:07 52 L 16 08/05/24 09:07 55 L 08/05/24 06:00 97.6 F 52 L 16 124/64 93 08/05/24 04:00 60 11/03/24 00:00 60 08/04/24 20:00 51 L 08/04/24 22:39 97.0 F L 50 L 16 121/48 L 95 08/04/24 22:15 91 Room Air 08/04/24 21:23 57 L 16 08/04/24 21:20 56 L 94 Nasal Cannula 3 08/04/24 21:14 56 L 18 08/04/24 17:49 97.3 F L 55 L 18 110/50 L 91 08/04/24 16:00 54 L 08/04/24 16:40 51 L 91 Exam Narrative: GENERAL APPEARANCE: elderly but well developed well nourished male in no acute distress HEENT: normocephalic, atraumatic, normal conjunctiva and sclera, nares patient NECK: no lymphadenopathy, thyromegaly, or JVD MOUTH: normal lips, teeth, and gums CARDIOVASCULAR: RRR, normal S1 and S2, no rub RESPIRATORY: coarse with a few bibasilar crackles ABDOMEN: soft, nontender, nondistended, positive bowel sounds present EXTREMITIES: no evidence of cyanosis, clubbing, or edema NEUROLOGICAL: alert and oriented x 3; CN II - XII intact bilaterally; no focal deficits noted Results Lab Results 08/05/24 06:03 08/05/24 06:03 Lab results: Most recent lab results Calcium 8.9 mg/dL (8.4-10.2) 08/05/24 06:03 Phosphorus 3.6 mg/dL (2.5-4.5) 08/02/24 08:36 Magnesium 1.8 mg/dL (1.6-2.3) 08/02/24 08:36 Urine Creatinine 86.8 mg/dL 08/05/24 10:12
[2024-08-05] MEDS: FERROUS SULFATE 325 MG TABLET DR PO (17:52)
--- NOTE | 2024-08-05 18:36 | PC.NURSE ---
RN gave update to patient via telephone on patient status.
[2024-08-05] MEDS: MELATONIN 3 MG TABLET PO (20:24)
[2024-08-06] VITALS (18 sets, daily range): BP systolic 102–120; BP diastolic 54–61; PULSE 50–65; RESP 16–20; TEMP 36.2–36.5; O2SAT 92–99
[2024-08-06] MEDS: IPRATROPIUM 0.5 MG/ALBUTEROL SULFATE 2.5 MG AMPUL.NEB 3 ML INHALATION ×4 (02:29→21:23)
[2024-08-06 05:53] LABS: Basophils Percent Auto 0.2 % (0.2-1.2); Hematocrit 23.8 % (42.0-52.0); Hemoglobin 7.4 g/dL (14.0-18.0); Immature Granulocyte Absolute 0.03 K/mm3 (0.00-0.031); Immature Granulocyte Percent A 0.5 % (0-0.5); Immature Platelet Fraction Pct 8.3 % (0.9-11.2); Lymphocytes Absolute Auto 0.33 K/mm3 (0.9-3.2); Mean Corpuscular HGB Conc 31.1 g/dl (32-36); Mean Corpuscular Hemoglobin 26.2 pg (26-34); Mean Corpuscular Volume 84.4 fl (80-100); Mean Platelet Volume 12.7 fl (7.4-10.4); Monocytes Absolute Auto 0.7 K/mm3 (0.1-0.6); Monocytes Percent Auto 12.3 % (2.6-8.5); Neutrophils Absolute Auto 4.4 K/mm3 (1.3-6.7); Platelet Count Result 106 k/mm3 (150-375); Red Blood Count 2.82 M/mm3 (4.6-6.20); Red Cell Distribution Width 17.2 % (11.5-14.5); White Blood Count 5.5 K/mm3 (4.5-10.0)
[2024-08-06 06:06] LABS: Alanine Aminotransferase 14 U/L (6-50); Albumin Level 3.4 g/dL (3.5-5.1); Alkaline Phosphatase 126 U/L (38-126); Anion Gap 15 mmol/L (4-12); Aspartate Amino Transferase 18 U/L (17-59); Bilirubin,Total 0.6 mg/dL (0.2-1.3); Blood Urea Nitrogen 83 mg/dL (9-20); Calcium 7.9 mg/dL (8.4-10.2); Carbon Dioxide 21 mmol/L (22-30); Chloride 102 mmol/L (98-107); Creatine Kinase 53 U/L (55-170); Estimated CRCL calculation 20 ml/min; Estimated Glomerular Filt Rate 24; Glucose 138 mg/dL (65-110); Potassium 4.1 mmol/L (3.4-5.0); Sodium 138 mmol/L (137-145)
--- NOTE | 2024-08-06 07:19 | P.PNIM_ITS ---
Progress Note: A&P Assessment and Plan (1) Acute respiratory failure with hypoxia: Code(s): J96.01 - Acute respiratory failure with hypoxia Status: Acute Assessment and Plan: Overnight patients SpO2 dropped to upper 80s. Placed on 3L NC, baseline RA. - Wean as tolerated for SPO2 > 88% given COPD - Possibly related to COPD exacerbation 2/2 HF exacerbation, started on prednisone 40 mg daily - Chest XR obtained and showed persistent mild pulmonary edema in the bilateral lower lungs with cardiomegaly and a small left pleural effusion with associated atelectasis and/or pneumonia in the left lower lung zone. - Repeat chest XR was obtained and showed congestive heart failure, pulmonary edema, bilateral infiltrates, most prominent in the left lower lung; mild improvement of these findings since 08/04/2022 - CRP and procal WNL - Apnea link normal 08/06: Patient is back on RA, sating well. (2) Acute exacerbation of CHF (congestive heart failure): Qualifiers: Heart failure type: combined systolic and diastolic Qualified Code(s): I50.43 - Acute on chronic combined systolic (congestive) and diastolic (congestive) heart failure Code(s): I50.9 - Heart failure, unspecified Status: Acute Assessment and Plan: - Symptoms: shortness of breath and cough - Remains on entresto BID, metoprolol 200 mg daily - Started on lasix 40 mg IV, transitioned to PO lasix. Trial of holding lasix due to worsening JAIME. - BNP: 10,300 - Troponins WNL - Remains on room air - EKG: Afib - Chest CTA: 1. No pulmonary embolus. 2. Mild pulmonary edema. 3. Small pleural effusions. 4. 7 mm right upper lobe pulmonary nodule, stable from 12/20/2023, likely benign. Noncontrast low-dose chest CT is recommended in one year. 5. Mild emphysema. - Echo 09/20/22: LVEF 40-45% with grade III diastolic dysfunction and moderate pulmonary hypertension - Echo: LVEF 50-55% with grade III diastolic dysfunction - Monitor vital signs, I&Os, BUN/creatinine, daily weights, neuro status and patient is a fall risk - Monitor serum electrolytes, Keep serum Potassium>4 and serum Magnesium>2 and CBC (3) Chronic obstructive pulmonary disease: Qualifiers: COPD type: unspecified COPD Qualified Code(s): J44.9 - Chronic obstructive pulmonary disease, unspecified Code(s): J44.9 - Chronic obstructive pulmonary disease, unspecified Status: Acute Assessment and Plan: Chronic, may be in a mild exacerbation secondary to CHF exacerbation. - Will give trial of albuterol and Atrovent to see if there may be a component of COPD exacerbating the patient's symptoms. - Started prednisone 40 mg daily - No wheezing heard on exam (4) JAIME (acute kidney injury): Code(s): N17.9 - Acute kidney failure, unspecified Status: Acute Assessment and Plan: BUN/Cr 49/1.7 on admission. Per nephrology, from review of [facility] records, baseline creatinine runs around 1.3 - 1.6mg/dl - BUN/Cr 83/2.6 on am labs - Will hold the patient's home hydrochlorothiazide and Farxiga - Renal US: 1 cm left renal cyst otherwise unremarkable - Urine studies ordered - Bladder scan to rule out retention - Avoid nephrotoxic medications - Renally dose medications - Monitor I/O - Monitor electrolytes - Nephrology consulted Etiology (?): possibly related to CHF exacerbation/hypoxic respiratory failure, previous need for IV diuretics, contrast exposure (chest CTA on 08/01), concurrent use with Entresto, previous hypoxia check urine studies CPK 53 hold entresto temporarily trial holding diuretics follow repeat labs and UOP (5) Hypertension: Code(s): I10 - Essential (primary) hypertension Status: Chronic Assessment and Plan: Chronic, continue home medications. - Entresto on hold for JAIME - Metoprolol 200 mg daily - Amlodipine 10 mg daily - Hydralazine 100 mg TID - Monitor (6) Pancytopenia: Code(s): D61.818 - Other pancytopenia Status: Acute Assessment and Plan: - iron panel: iron 46, TIBC 370, % sat 12 Started on iron supplementation - B12/folate WNL - absolute retic WNL - Chest CTA: 7 mm right upper lobe pulmonary nodule, stable from 12/20/2023, likely benign. Noncontrast low-dose chest CT is recommended in one year. - Able to follow up with heme outpatient Time Spent With Patient Time with patient: 25 - 35 minutes Subjective Date/time seen: 08/06/24 07:19 Interval history: 74-year-old male with past medical history of congestive heart failure with reduced ejection fraction, essential hypertension, hyperlipidemia, depression, CAD, COPD, history of left lower extremity DVT, history of CVA, PVD who presents to the hospital for shortness of breath and a cough. Patient is pleasant lying comfortably in bed with his at bedside. He has no complaints at this time denying chest pain, shortness a breath, nausea / vomiting, abdominal pain. He denies any signs of bleeding including hematemesis, hematuria, hematochezia, melena. He continues to have a worsening JAIME on labs. Nephrology contiues to follow and will trial him off of the lasix at this time. Review of Systems Review of Systems: All systems reviewed & are unremarkable except as noted in HPI and below Exam Narrative: AF HR 50 RR 16 Spo2 97 BP 102/61 General: male in no acute respiratory distress who is nontoxic appearing, lying semi recumbent in bed. HEENT: Normocephalic. Atraumatic. Extraocular movement intact. Sclera clear and anicteric. No facial asymmetry. Chest: Lungs are slightly diminished on auscultation more so on the left than the right. No wheezes or crackles. CV: Heart was regular rate and rhythm. S1/S2. No murmurs, gallops, or rubs. Abd: Abdomen was soft. Nontender. Nondistended. Positive bowel sounds. No organomegaly or masses. Ext: No clubbing, cyanosis, or edema. 2+ DP pulses bilaterally. Neuro: Patient is alert and oriented x4. Cranial nerves 2-12 are intact. Speech is clear. Objective Data Vital Signs Vital Signs: Vital Signs - 24 hr 08/05/24 09:07 08/05/24 09:07 08/05/24 09:08 Temperature Pulse Rate 55 L 52 L Respiratory Rate 16 Blood Pressure Pulse Oximetry 95 Oxygen Delivery Room Air 08/05/24 09:07 08/05/24 08:00 08/05/24 12:00 Temperature Pulse Rate 59 L 53 L Respiratory Rate Blood Pressure Pulse Oximetry 95 Oxygen Delivery Room Air 08/05/24 14:31 08/05/24 15:04 08/05/24 16:00 Temperature 97.3 F L Pulse Rate 53 L 61 57 L Respiratory Rate 16 16 Blood Pressure 110/47 L Pulse Oximetry 93 Oxygen Delivery 08/05/24 19:54 08/05/24 19:54 08/05/24 20:01 Temperature Pulse Rate 54 L 53 L Respiratory Rate 18 18 Blood Pressure Pulse Oximetry 96 Oxygen Delivery Room Air 08/05/24 20:29 08/05/24 21:04 08/05/24 20:00 Temperature 97.5 F L Pulse Rate 62 60 Respiratory Rate 18 Blood Pressure 102/84 Pulse Oximetry 95 Oxygen Delivery Room Air 08/06/24 00:00 08/06/24 02:30 08/06/24 02:41 Temperature Pulse Rate 57 L 57 L 56 L Respiratory Rate 16 18 Blood Pressure Pulse Oximetry Oxygen Delivery 08/06/24 04:00 08/06/24 05:47 Temperature 97.5 F L Pulse Rate 55 L 59 L Respiratory Rate 16 Blood Pressure 116/54 L Pulse Oximetry 92 Oxygen Delivery Intake/Output Intake/Output: Intake & Output 08/04/24 08/05/24 08/05/24 08/06/24 00:59 00:59 23:59 23:59 Intake Total 780 Output Total Balance 780 Meds/Results Medications: Active Medications Generic Name Dose Route Start Last Admin Trade Name Freq PRN Reason Stop Dose Admin Albuterol/Ipratropium 3 ml 08/03/24 14:00 08/06/24 02:29 Ipratropium 0.5 Mg/Albuterol Sulfate 2.5 Mg Ampul.Neb 3 Ml INHALATION 3 ml Q6HRT GENNY Administration Allopurinol 100 mg 08/02/24 09:00 08/05/24 09:08 Allopurinol 100 Mg Tablet PO 100 mg DAILY GENNY Administration Amlodipine Besylate 10 mg 08/02/24 09:00 08/05/24 09:07 Amlodipine Besylate 10 Mg Tablet PO 10 mg DAILY GENNY Administration Aspirin 325 mg 08/02/24 09:00 08/05/24 09:07 Aspirin 325 Mg Tablet PO 325 mg DAILY GENNY Administration Atorvastatin Calcium 80 mg 08/02/24 09:00 08/05/24 09:06 Atorvastatin 40 Mg Tablet PO 80 mg DAILY GENNY Administration Ferrous Sulfate 325 mg 08/05/24 17:00 08/05/24 17:52 Ferrous Sulfate [address] PO 325 mg BID GENNY Administration Furosemide 20 mg 08/05/24 09:00 08/05/24 09:07 Furosemide 20 Mg Tablet PO 20 mg DAILY GENNY Administration Hydralazine HCl 100 mg 08/02/24 09:00 08/05/24 17:51 Hydralazine Hcl 50 Mg Tablet PO 100 mg TID GENNY Administration Isosorbide Mononitrate 120 mg 08/02/24 09:00 08/05/24 09:07 Isosorbide Mononitrate 60 Mg Tab.Er.24h PO 120 mg DAILY GENNY Administration Melatonin 3 mg 08/02/24 09:42 08/05/24 20:24 Melatonin 3 Mg Tablet PO 3 mg HS PRN Administration insomnia Metoprolol Succinate 200 mg 08/02/24 09:00 08/05/24 09:07 Metoprolol Succinate Ext Rel 100 Mg Tabcr PO 200 mg DAILY GENNY Administration Prednisone 40 mg 08/04/24 15:40 08/05/24 09:07 Prednisone 20 Mg Tablet PO 40 mg DAILY@0800 GENNY Administration Sacubitril/Valsartan 1 tab 08/02/24 09:00 08/04/24 16:38 Sacubitril/Valsartan 24-26 Mg Tablet PO 1 tab BID GENNY Administration Radiology Results: ITS Impressions Chest CTA 08/01/24 16:45 IMPRESSION: 1. No pulmonary embolus. 2. Mild pulmonary edema. 3. Small pleural effusions. 4. 7 mm right upper lobe pulmonary nodule, stable from 12/20/2023, likely benign. Noncontrast low-dose chest CT is recommended in one year. 5. Mild emphysema. Renal Ultrasound 08/04/24 09:47 IMPRESSION: 1. 1 cm left renal cyst. Otherwise normal kidneys with no hydronephrosis. Chest X-Ray 08/05/24 16:04 IMPRESSION: Congestive heart failure, pulmonary edema, bilateral infiltrates, most prominent in the left lower lung; mild improvement of these findings since 08/04/2022 Labs Labs: Laboratory Results - last 24 hr 08/05/24 08/05/24 08/05/24 06:03 10:10 10:12 WBC RBC Hgb Hct MCV MCH MCHC RDW Plt Count MPV Immature Gran % (Auto) Neut % (Auto) Lymph % (Auto) [place] % (Auto) Eos % (Auto) Baso % (Auto) Lymph # (Auto) [place] # (Auto) Eos # (Auto) Baso # (Auto) Abs Immat Gran (auto) Absolute Neuts (auto) Absolute Nucleated RBC Nucleated RBC % % Immature Plt Fraction Absolute Retic 0.06 Percent Retic 1.87 Immature Retic Fraction 16.5 H Retic Hgb Content 29.7 Sodium Potassium Chloride Carbon Dioxide Anion Gap BUN Creatinine Estim Creat Clear Calc Estimated GFR Glucose Calcium Iron 46 L TIBC 370 % Saturation 12 L Total Bilirubin AST ALT Alkaline Phosphatase Total Creatine Kinase Total Protein Albumin Vitamin B12 823.0 Folate 6.6 Urine Eosinophils None seen U Random Total Protein 20 Ur Random Sodium 27 Ur Random Potassium 41.5 Ur Random Urea 650 Urine Creatinine 86.4 86.8 Protein/Creat Ratio 2 0.23 H 08/06/ 05:36 WBC 5.5 RBC 2.82 L Hgb 7.4 L Hct 23.8 L MCV 84.4 MCH 26.2 MCHC 31.1 L RDW 17.2 H Plt Count 106 L MPV 12.7 H Immature Gran % (Auto) 0.5 Neut % (Auto) 81.0 H Lymph % (Auto) 6.0 L [place] % (Auto) 12.3 H Eos % (Auto) 0.0 Baso % (Auto) 0.2 Lymph # (Auto) 0.33 L [place] # (Auto) 0.7 H Eos # (Auto) 0.0 Baso # (Auto) 0.0 Abs Immat Gran (auto) 0.03 Absolute Neuts (auto) 4.4 Absolute Nucleated RBC 0.000 Nucleated RBC % 0.0 % Immature Plt Fraction 8.3 Absolute Retic Percent Retic Immature Retic Fraction Retic Hgb Content Sodium 138 Potassium 4.1 Chloride 102 Carbon Dioxide 21 L Anion Gap 15 H BUN 83 H D Creatinine 2.60 H Estim Creat Clear Calc 20 Estimated GFR 24 L Glucose 138 H Calcium 7.9 L Iron TIBC % Saturation Total Bilirubin 0.6 AST 18 ALT 14 Alkaline Phosphatase 126 Total Creatine Kinase 53 L Total Protein 6.0 L Albumin 3.4 L Vitamin B12 Folate Urine Eosinophils U Random Total Protein Ur Random Sodium Ur Random Potassium Ur Random Urea Urine Creatinine Protein/Creat Ratio 2 Quality VTE Prophylaxis VTE prophylaxis: mechanical ordered
[2024-08-06] MEDS: ATORVASTATIN 40 MG TABLET 80 MG PO (08:50)
[2024-08-06] MEDS: hydrALAZINE HCL 50 MG TABLET 100 MG PO ×2 (08:50→17:24)
[2024-08-06] MEDS: FUROSEMIDE 20 MG TABLET PO (08:50)
[2024-08-06] MEDS: METOPROLOL SUCCINATE EXT REL 100 MG TABCR 200 MG PO (08:50)
[2024-08-06] MEDS: ISOSORBIDE MONONITRATE 60 MG TAB.ER.24H 120 MG PO (08:51)
[2024-08-06] MEDS: FERROUS SULFATE 325 MG TABLET DR PO ×2 (08:51→17:24)
[2024-08-06] MEDS: ASPIRIN 325 MG TABLET PO (08:51)
[2024-08-06] MEDS: allopurinoL 100 MG TABLET PO (08:51)
[2024-08-06] MEDS: amLODIPine BESYLATE 10 MG TABLET PO (08:51)
[2024-08-06] MEDS: predniSONE 20 MG TABLET 40 MG PO (09:03)
--- NOTE | 2024-08-06 11:32 | P.PNNP_ITS ---
Progress Note: A&P Assessment and Plan (1) JAIME (acute kidney injury): Code(s): N17.9 - Acute kidney failure, unspecified Status: Acute Assessment and Plan: * was close to baseline on admission * was up to 2.1mg/dl by outpatient labs in July 2024 but that was in the context of a gout flare * upt to 2.6mg/dl by AM labs today * etiology (?): * possibly related to CHF exacerbation/hypoxic respiratory failure * previous need for IV diuretics * contrast exposure (chest CTA on 08/01) * concurrent use with Entresto * previous hypoxia * evaluation noted: * renal ultrasound w/p obstruction * CPK low * asfasdf * asdfasdf * hold entresto temporarily * trial of holding diuretics * follow repeat labs and UOP (2) Stage 3a chronic kidney disease: Code(s): N18.31 - Chronic kidney disease, stage 3a Status: Chronic Assessment and Plan: * from review of [facility] records, baseline creatinine runs around 1.3 - 1.6mg/dl * however, there are times his creatinine is normal * presumably secondary to HTN, CAD/CHF (and associated medications for this), vascular disease, and distant history of nephrolithiasis and age (3) Acute respiratory failure with hypoxia: Code(s): J96.01 - Acute respiratory failure with hypoxia Status: Acute Assessment and Plan: * resolving * due to combo of CHF and COPD * weaned to room air at this time * s/p IV diuresis and steroids + nebulizer treatments * continue supportive therapy (4) Acute exacerbation of CHF (congestive heart failure): Qualifiers: Heart failure type: combined systolic and diastolic Qualified Code(s): I50.43 - Acute on chronic combined systolic (congestive) and diastolic (congestive) heart failure Code(s): I50.9 - Heart failure, unspecified Status: Acute Assessment and Plan: * as noted by admission CXR and CT of chest * Echo results noted * transitioned to oral diuretics * follow I/Os, daily weights, and respiratory status (5) Hypertension: Code(s): I10 - Essential (primary) hypertension Status: Chronic Assessment and Plan: * reasonable control at this time * follow trend of hemodynamics (6) Anemia: Code(s): D64.9 - Anemia, unspecified Status: Acute Assessment and Plan: * low H/H noted * evidence of iron deficiency by anemia studies * on oral iron Will continue to follow Subjective Date/time seen: 08/06/24 11:32 Interval history: Follow-up for acute kidney injury/acute renal failure on chronic kidney disease. Renal function/creatinine a bit worse by AM labs but stable electrolytes and continues to make good urine output; no apparent distress voiced at the time of my visit; breathing/respiratory status seems stable (in spite of last CXR findings); at bedside and we discussed the situation. Exam Narrative: General: elderly but WD/WN male in NAD Heart: normal S1 and S2; no rub Lungs: clear anteriorly; decreased at bases Abdomen: soft, nontender, nondistended, positive bowel sounds Extremities: no cyanosis or clubbing; no edema Skin: warm and dry Objective Data Vital Signs Vital Signs: Vital Signs Temp Pulse Resp BP Pulse Ox O2 Del Method 08/06/24 08:00 52 L 08/06/24 08:51 Room Air 08/06/24 08:50 62 08/06/24 08:25 60 18 08/06/24 08:15 59 L 18 08/06/24 08:15 59 L 18 99 Room Air 08/06/24 05:47 97.5 F L 59 L 16 116/54 L 92 08/06/24 04:00 55 L 08/06/24 02:41 56 L 18 08/06/24 02:30 57 L 16 08/06/24 00:00 57 L 08/05/24 20:00 60 08/05/24 21:04 97.5 F L 62 18 102/84 95 08/05/24 20:29 Room Air 08/05/24 20:01 53 L 18 08/05/24 19:54 54 L 18 08/05/24 19:54 96 Room Air 08/05/24 16:00 57 L 08/05/24 15:04 97.3 F L 61 16 110/47 L 93 08/05/24 14:31 53 L 16 Intake/Output Intake/Output: Intake & Output 08/04/24 08/05/24 08/05/24 08/06/24 00:59 00:59 23:59 23:59 Intake Total 1020 Output Total 300 Balance 720 Meds/Results Medications: Active Medications Generic Name Dose Route Start Last Admin Trade Name Freq PRN Reason Stop Dose Admin Albuterol/Ipratropium 3 ml 08/03/24 14:00 08/06/24 08:15 Ipratropium 0.5 Mg/Albuterol Sulfate 2.5 Mg Ampul.Neb 3 Ml INHALATION 3 ml Q6HRT [facility] Administration Allopurinol 100 mg 08/02/24 09:00 08/06/24 08:51 Allopurinol 100 Mg Tablet PO 100 mg DAILY [facility] Administration Amlodipine Besylate 10 mg 08/02/24 09:00 08/06/24 08:51 Amlodipine Besylate 10 Mg Tablet PO 10 mg DAILY [facility] Administration Aspirin 325 mg 08/02/24 09:00 08/06/24 08:51 Aspirin 325 Mg Tablet PO 325 mg DAILY [facility] Administration Atorvastatin Calcium 80 mg 08/02/24 09:00 08/06/24 08:50 Atorvastatin 40 Mg Tablet PO 80 mg DAILY [facility] Administration Ferrous Sulfate 325 mg 08/05/24 17:00 08/06/24 08:51 Ferrous Sulfate [address] PO 325 mg BID [facility] Administration Furosemide 20 mg 08/05/24 09:00 08/06/24 08:50 Furosemide 20 Mg Tablet PO 20 mg DAILY [facility] Administration Hydralazine HCl 100 mg 08/02/24 09:00 08/06/24 08:50 Hydralazine Hcl 50 Mg Tablet PO 100 mg TID [facility] Administration Isosorbide Mononitrate 120 mg 08/02/24 09:00 08/06/24 08:51 Isosorbide Mononitrate 60 Mg Tab.Er.24h PO 120 mg DAILY [facility] Administration Melatonin 3 mg 08/02/24 09:42 08/05/24 20:24 Melatonin 3 Mg Tablet PO 3 mg PRN Administration insomnia Metoprolol Succinate 200 mg 08/02/24 09:00 08/06/24 08:50 Metoprolol Succinate Ext Rel 100 Mg Tabcr PO 200 mg DAILY [facility] Administration Prednisone 40 mg 08/04/24 15:40 08/06/24 09:03 Prednisone 20 Mg Tablet PO 40 mg DAILY@0800 [facility] Administration Sacubitril/Valsartan 1 tab 08/02/24 09:00 08/04/24 16:38 Sacubitril/Valsartan 24-26 Mg Tablet PO 1 tab BID [facility] Administration Radiology Results: ITS Impressions Chest CTA 08/01/24 16:45 IMPRESSION: 1. No pulmonary embolus. 2. Mild pulmonary edema. 3. Small pleural effusions. 4. 7 mm right upper lobe pulmonary nodule, stable from 12/20/2023, likely benign. Noncontrast low-dose chest CT is recommended in one year. 5. Mild emphysema. Renal Ultrasound 08/04/24 09:47 IMPRESSION: 1. 1 cm left renal cyst. Otherwise normal kidneys with no hydronephrosis. Chest X-Ray 08/05/24 16:04 IMPRESSION: Congestive heart failure, pulmonary edema, bilateral infiltrates, most prominent in the left lower lung; mild improvement of these findings since 08/04/2022 Labs Labs: Laboratory Tests 08/06/24 05:36 08/06/24 05:36 Calcium 7.9 L Total Bilirubin 0.6 AST 18 ALT 14 Alkaline Phosphatase 126 Total Creatine Kinase 53 L Total Protein 6.0 L Albumin 3.4 L
[2024-08-06] MEDS: CALCIUM CARBONATE (TUMS) 500 MG (200 MG ELEMENTAL) PO (17:24)
[2024-08-06] MEDS: MELATONIN 3 MG TABLET PO (23:37)
[2024-08-07] VITALS (19 sets, daily range): BP systolic 124–145; BP diastolic 42–52; PULSE 52–70; RESP 14–18; TEMP 36.4–36.5; O2SAT 90–98
[2024-08-07] MEDS: IPRATROPIUM 0.5 MG/ALBUTEROL SULFATE 2.5 MG AMPUL.NEB 3 ML INHALATION ×4 (01:43→19:52)
[2024-08-07 05:51] LABS: Hematocrit 26.9 % (42.0-52.0); Hemoglobin 8.3 g/dL (14.0-18.0); Immature Granulocyte Absolute 0.03 K/mm3 (0.00-0.031); Immature Granulocyte Percent A 0.6 % (0-0.5); Immature Platelet Fraction Pct 8.7 % (0.9-11.2); Lymphocytes Absolute Auto 0.29 K/mm3 (0.9-3.2); Lymphocytes Percent Auto 5.4 % (18.3-44.2); Mean Corpuscular HGB Conc 30.9 g/dl (32-36); Mean Corpuscular Hemoglobin 26.3 pg (26-34); Mean Corpuscular Volume 85.4 fl (80-100); Mean Platelet Volume 12.8 fl (7.4-10.4); Monocytes Absolute Auto 0.4 K/mm3 (0.1-0.6); Monocytes Percent Auto 7.4 % (2.6-8.5); Neutrophils Absolute Auto 4.7 K/mm3 (1.3-6.7); Neutrophils Percent Auto 86.6 % (45.5-73.1); Platelet Count Result 126 k/mm3 (150-375); Red Blood Count 3.15 M/mm3 (4.6-6.20); Red Cell Distribution Width 17.6 % (11.5-14.5); White Blood Count 5.4 K/mm3 (4.5-10.0)
[2024-08-07 06:04] LABS: Alanine Aminotransferase 16 U/L (6-50); Albumin Level 3.8 g/dL (3.5-5.1); Alkaline Phosphatase 141 U/L (38-126); Anion Gap 14 mmol/L (4-12); Aspartate Amino Transferase 20 U/L (17-59); Bilirubin,Total 0.8 mg/dL (0.2-1.3); Blood Urea Nitrogen 85 mg/dL (9-20); Calcium 8.6 mg/dL (8.4-10.2); Carbon Dioxide 19 mmol/L (22-30); Chloride 104 mmol/L (98-107); Estimated CRCL calculation 22 ml/min; Estimated Glomerular Filt Rate 28; Glucose 142 mg/dL (65-110); Potassium 3.7 mmol/L (3.4-5.0); Sodium 137 mmol/L (137-145)
[2024-08-07] MEDS: allopurinoL 100 MG TABLET PO (09:20)
[2024-08-07] MEDS: ISOSORBIDE MONONITRATE 60 MG TAB.ER.24H 120 MG PO (09:20)
[2024-08-07] MEDS: ATORVASTATIN 40 MG TABLET 80 MG PO (09:20)
[2024-08-07] MEDS: predniSONE 20 MG TABLET 40 MG PO (09:20)
[2024-08-07] MEDS: hydrALAZINE HCL 50 MG TABLET 100 MG PO ×3 (09:20→17:55)
[2024-08-07] MEDS: amLODIPine BESYLATE 10 MG TABLET PO (09:21)
[2024-08-07] MEDS: ASPIRIN 325 MG TABLET PO (09:21)
[2024-08-07] MEDS: METOPROLOL SUCCINATE EXT REL 100 MG TABCR 200 MG PO (09:21)
[2024-08-07] MEDS: FERROUS SULFATE 325 MG TABLET DR PO ×2 (09:21→17:55)
--- NOTE | 2024-08-07 09:41 | P.PNIM_ITS ---
Progress Note: A&P Assessment and Plan (1) Acute respiratory failure with hypoxia: Code(s): J96.01 - Acute respiratory failure with hypoxia Status: Acute Assessment and Plan: Overnight patients SpO2 dropped to upper 80s. Placed on 3L NC, baseline RA. - Wean as tolerated for SPO2 > 88% given COPD - Possibly related to COPD exacerbation 2/2 HF exacerbation, started on prednisone 40 mg daily - Chest XR obtained and showed persistent mild pulmonary edema in the bilateral lower lungs with cardiomegaly and a small left pleural effusion with associated atelectasis and/or pneumonia in the left lower lung zone. - Repeat chest XR was obtained and showed congestive heart failure, pulmonary edema, bilateral infiltrates, most prominent in the left lower lung; mild improvement of these findings since 08/04/2022 - CRP and procal WNL - Apnea link normal Resolved. Patient remains on RA, sating well. (2) Acute exacerbation of CHF (congestive heart failure): Qualifiers: Heart failure type: combined systolic and diastolic Qualified Code(s): I50.43 - Acute on chronic combined systolic (congestive) and diastolic (congestive) heart failure Code(s): I50.9 - Heart failure, unspecified Status: Acute Assessment and Plan: - Symptoms: shortness of breath and cough - Remains on metoprolol 200 mg daily, Entresto on hold given JAIME - Started on lasix 40 mg IV, transitioned to PO lasix. Trial of holding lasix due to worsening JAIME. Will need to resume some form of a diuretic on DC given HF. - BNP: 10,300 - Troponins WNL - Remains on room air - EKG: Afib - Chest CTA: 1. No pulmonary embolus. 2. Mild pulmonary edema. 3. Small pleural effusions. 4. 7 mm right upper lobe pulmonary nodule, stable from 12/20/2023, likely benign. Noncontrast low-dose chest CT is recommended in one year. 5. Mild emphysema. - Echo 09/20/22: LVEF 40-45% with grade III diastolic dysfunction and moderate pulmonary hypertension - Echo: LVEF 50-55% with grade III diastolic dysfunction - Monitor vital signs, I&Os, BUN/creatinine, daily weights, neuro status and patient is a fall risk - Monitor serum electrolytes (3) Chronic obstructive pulmonary disease: Qualifiers: COPD type: unspecified COPD Qualified Code(s): J44.9 - Chronic obs tructive pulmonary disease, unspecified Code(s): J44.9 - Chronic obstructive pulmonary disease, unspecified Status: Acute Assessment and Plan: Chronic, may be in a mild exacerbation secondary to CHF exacerbation. - Will give trial of albuterol and Atrovent to see if there may be a component of COPD exacerbating the patient's symptoms. - Started prednisone 40 mg daily - No wheezing heard on exam (4) JAIME (acute kidney injury): Code(s): N17.9 - Acute kidney failure, unspecified Status: Acute Assessment and Plan: BUN/Cr 49/1.7 on admission. Per nephrology, from review of [facility] records, baseline creatinine runs around 1.3 - 1.6mg/dl - BUN/Cr 85/2.3 on am labs - Will hold the patient's home hydrochlorothiazide and Farxiga - Renal US: 1 cm left renal cyst otherwise unremarkable - Urine studies ordered - Bladder scan to rule out retention - Avoid nephrotoxic medications - Renally dose medications - Monitor I/O - Monitor electrolytes - Nephrology consulted Etiology (?): possibly related to CHF exacerbation/hypoxic respiratory failure, previous need for IV diuretics, contrast exposure (chest CTA on 08/01), concurrent use with Entresto, previous hypoxia check urine studies CPK 53 hold entresto temporarily trial holding diuretics patient will need to resume some form of a diuretic at time of discharge given his grade III diastolic dysfunction follow repeat labs and UOP (5) Hypertension: Code(s): I10 - Essential (primary) hypertension Status: Chronic Assessment and Plan: Chronic, continue home medications. - Entresto on hold for JAIME - Metoprolol 200 mg daily - Amlodipine 10 mg daily - Hydralazine 100 mg TID - Monitor (6) Pancytopenia: Code(s): D61.818 - Other pancytopenia Status: Acute Assessment and Plan: - iron panel: iron 46, TIBC 370, % sat 12 Started on iron supplementation - B12/folate WNL - absolute retic WNL - Chest CTA: 7 mm right upper lobe pulmonary nodule, stable from 12/20/2023, likely benign. Noncontrast low-dose chest CT is recommended in one year. - Able to follow up with heme outpatient Time Spent With Patient Time with patient: 25 - 35 minutes Subjective Date/time seen: 08/07/24 09:41 Interval history: 74-year-old male with past medical history of congestive heart failure with reduced ejection fraction, essential hypertension, hyperlipidemia, depression, CAD, COPD, history of left lower extremity DVT, history of CVA, PVD who presents to the hospital for shortness of breath and a cough. Patient is pleasant lying comfortably in bed with his at bedside. Has no complaints at this time denying chest pain, shortness breast, nausea/ vomiting, and abdominal pain. His creatinine has improved since holding the Lasix. Discussed patient Nephrology and he is to remain inpatient at this time. Will obtain a CMP in the morning to reassess creatinine levels and if still improving will likely be able to discharge home. Patient will need to resume diuretics given his grade 3 diastolic dysfunction. Per nephrology will likely resume Lasix with close monitoring the kidney function. Per patient's she has called patient's information specialist to schedule an appointment in the near future following discharge. Review of Systems Review of Systems: All systems reviewed & are unremarkable except as noted in HPI and below Exam Narrative: AF HR 62 RR 18 SpO2 93 BP 124/42 General: male in no acute respiratory distress who is nontoxic appearing, lying semi recumbent in bed. HEENT: Normocephalic. Atraumatic. Extraocular movement intact. Sclera clear and anicteric. No facial asymmetry. Chest: Lungs are slightly diminished but clear on auscultation. No wheezes or crackles. CV: Heart was regular rate and rhythm. S1/S2. No murmurs, gallops, or rubs. Abd: Abdomen was soft. Nontender. Nondistended. Positive bowel sounds. No organomegaly or masses. Ext: No clubbing, cyanosis, or edema. 2+ DP pulses bilaterally. Objective Data Vital Signs Vital Signs: Vital Signs - 24 hr 08/06/24 12:00 08/06/24 14:06 08/06/24 14:06 Temperature Pulse Rate 56 L 61 Respiratory Rate 20 Blood Pressure Pulse Oximetry 92 Oxygen Delivery Room Air 08/06/24 14:00 08/06/24 14:16 08/06/24 16:00 Temperature 97.7 F Pulse Rate 50 L 65 62 Respiratory Rate 16 20 Blood Pressure 102/61 Pulse Oximetry 97 Oxygen Delivery 08/06/24 20:02 08/06/24 20:48 08/06/24 20:00 Temperature 97.2 F L Pulse Rate 58 L 54 L Respiratory Rate 18 Blood Pressure 120/55 L Pulse Oximetry 97 Oxygen Delivery Room Air 08/06/24 21:23 08/06/24 21:23 08/06/24 21:30 Temperature Pulse Rate 56 L 56 L 57 L Respiratory Rate 18 18 Blood Pressure Pulse Oximetry 96 Oxygen Delivery Room Air 08/07/24 00:00 08/07/24 01:44 08/07/24 01:53 Temperature Pulse Rate 66 53 L 58 L Respiratory Rate 16 16 Blood Pressure Pulse Oximetry Oxygen Delivery 08/07/24 04:00 08/07/24 06:00 08/07/24 08:38 Temperature 97.7 F Pulse Rate 64 62 56 L Respiratory Rate 18 18 Blood Pressure 124/42 L Pulse Oximetry 93 Oxygen Delivery 08/07/24 08:49 08/07/24 09:21 Temperature Pulse Rate 57 L 70 Respiratory Rate 18 Blood Pressure Pulse Oximetry Oxygen Delivery Intake/Output Intake/Output: Intake & Output 08/05/24 08/05/24 08/06/24 08/07/24 00:59 23:59 23:59 23:59 Intake Total 2050 1020 Output Total 300 Balance 1750 1020 Meds/Results Medications: Active Medications Generic Name Dose Route Start Last Admin Trade Name Freq PRN Reason Stop Dose Admin Albuterol/Ipratropium 3 ml 08/03/24 14:00 08/07/24 08:38 Ipratropium 0.5 Mg/Albuterol Sulfate 2.5 Mg Ampul.Neb 3 Ml INHALATION 3 ml Q6HRT [facility] Administration Allopurinol 100 mg 08/02/24 09:00 08/07/24 09:20 Allopurinol 100 Mg Tablet PO 100 mg DAILY [facility] Administration Amlodipine Besylate 10 mg 08/02/24 09:00 08/07/24 09:21 Amlodipine Besylate 10 Mg Tablet PO 10 mg DAILY [facility] Administration Aspirin 325 mg 08/02/24 09:00 08/07/24 09:21 Aspirin 325 Mg Tablet PO 325 mg DAILY [facility] Administration Atorvastatin Calcium 80 mg 08/02/24 09:00 08/07/24 09:20 Atorvastatin 40 Mg Tablet PO 80 mg DAILY [facility] Administration Calcium Carbonate 200 mg 08/06/24 17:09 08/06/24 17:24 Calcium Carbonate (Tums) 500 Mg (200 Mg Elemental) PO 200 mg Q6H PRN Administration Indigestion Ferrous Sulfate 325 mg 08/05/24 17:00 08/07/24 09:21 Ferrous Sulfate [address] PO 325 mg BID [facility] Administration Furosemide 20 mg 08/05/24 09:00 08/06/24 08:50 Furosemide 20 Mg Tablet PO 20 mg DAILY [facility] Administration Hydralazine HCl 100 mg 08/02/24 09:00 08/07/24 09:20 Hydralazine Hcl 50 Mg Tablet PO 100 mg TID [facility] Administration Isosorbide Mononitrate 120 mg 08/02/24 09:00 08/07/24 09:20 Isosorbide Mononitrate 60 Mg Tab.Er.24h PO 120 mg DAILY [facility] Administration Melatonin 3 mg 08/02/24 09:42 08/06/24 23:37 Melatonin 3 Mg Tablet PO 3 mg HS PRN Administration insomnia Metoprolol Succinate 200 mg 08/02/24 09:00 08/07/24 09:21 Metoprolol Succinate Ext Rel 100 Mg Tabcr PO 200 mg DAILY [facility] Administration Prednisone 40 mg 08/04/24 15:40 08/07/24 09:20 Prednisone 20 Mg Tablet PO 40 mg DAILY@0800 [facility] Administration Sacubitril/Valsartan 1 tab 08/02/24 09:00 08/04/24 16:38 Sacubitril/Valsartan 24-26 Mg Tablet PO 1 tab BID [facility] Administration Sodium Bicarbonate 650 mg 08/07/24 09:00 Sodium Bicarbonate Tab 650 Mg Tablet PO BID [facility] Radiology Results: ITS Impressions Chest CTA 08/01/24 16:45 IMPRESSION: 1. No pulmonary embolus. 2. Mild pulmonary edema. 3. Small pleural effusions. 4. 7 mm right upper lobe pulmonary nodule, stable from 12/20/2023, likely benign. Noncontrast low-dose chest CT is recommended in one year. 5. Mild emphysema. Renal Ultrasound 08/04/24 09:47 IMPRESSION: 1. 1 cm left renal cyst. Otherwise normal kidneys with no hydronephrosis. Chest X-Ray 08/05/24 16:04 IMPRESSION: Congestive heart failure, pulmonary edema, bilateral infiltrates, most prominent in the left lower lung; mild improvement of these findings since 08/04/2022 Labs Labs: Laboratory Results - last 24 hr 08/07/24 05:37 WBC 5.4 RBC 3.15 L Hgb 8.3 L Hct 26.9 L MCV 85.4 MCH 26.3 MCHC 30.9 L RDW 17.6 H Plt Count 126 L MPV 12.8 H Immature Gran % (Auto) 0.6 H Neut % (Auto) 86.6 H Lymph % (Auto) 5.4 L Ada % (Auto) 7.4 Eos % (Auto) 0.0 Baso % (Auto) 0.0 L Lymph # (Auto) 0.29 L Ada # (Auto) 0.4 Eos # (Auto) 0.0 Baso # (Auto) 0.0 Abs Immat Gran (auto) 0.03 Absolute Neuts (auto) 4.7 Absolute Nucleated RBC 0.000 Nucleated RBC % 0.0 % Immature Plt Fraction 8.7 Sodium 137 Potassium 3.7 Chloride 104 Carbon Dioxide 19 L Anion Gap 14 H BUN 85 H Creatinine 2.30 H Estim Creat Clear Calc 22 Estimated GFR 28 L Glucose 142 H Calcium 8.6 Total Bilirubin 0.8 AST 20 ALT 16 Alkaline Phosphatase 141 H Total Protein 7.0 Albumin 3.8 Quality VTE Prophylaxis VTE prophylaxis: mechanical ordered
[2024-08-07] MEDS: SODIUM BICARBONATE TAB 650 MG TABLET PO ×2 (11:34→17:55)
--- NOTE | 2024-08-07 11:45 | P.PNNP_ITS ---
Progress Note: A&P Assessment and Plan (1) JAIME (acute kidney injury): Code(s): N17.9 - Acute kidney failure, unspecified Status: Acute Assessment and Plan: * was close to baseline on admission * was up to 2.1mg/dl by outpatient labs in July 2024 but that was in the context of a gout flare * up to to 2.6mg/dl but down to 2.3mg/dl by AM labs today * etiology (?): * possibly related to CHF exacerbation/hypoxic respiratory failure * previous need for IV diuretics * contrast exposure (chest CTA on 08/01) * concurrent use with Entresto * previous hypoxia * evaluation noted: * renal ultrasound w/p obstruction * CPK low * urine electrolytes prerenal * mild proteinuria * urine eosiophils negative * hold entresto temporarily * trial of holding diuretics * follow repeat labs and UOP (2) Stage 3a chronic kidney disease: Code(s): N18.31 - Chronic kidney disease, stage 3a Status: Chronic Assessment and Plan: * from review of [facility] records, baseline creatinine runs around 1.3 - 1.6mg/dl * however, there are times his creatinine is normal * presumably secondary to HTN, CAD/CHF (and associated medications for this), vascular disease, and distant history of nephrolithiasis and age (3) Acute respiratory failure with hypoxia: Code(s): J96.01 - Acute respiratory failure with hypoxia Status: Acute Assessment and Plan: * resolving * due to combo of CHF and COPD * weaned to room air at this time * s/p IV diuresis and steroids + nebulizer treatments * continue supportive therapy (4) Acute exacerbation of CHF (congestive heart failure): Qualifiers: Heart failure type: combined systolic and diastolic Qualified Code(s): I50.43 - Acute on chronic combined systolic (congestive) and diastolic (congestive) heart failure Code(s): I50.9 - Heart failure, unspecified Status: Acute Assessment and Plan: * as noted by admission CXR and CT of chest * Echo results noted * transitioned to oral diuretics * follow I/Os, daily weights, and respiratory status (5) Hypertension: Code(s): I10 - Essential (primary) hypertension Status: Chronic Assessment and Plan: * reasonable control at this time * follow trend of hemodynamics (6) Anemia: Code(s): D64.9 - Anemia, unspecified Status: Acute Assessment and Plan: * low H/H noted * evidence of iron deficiency by anemia studies * on oral iron Will continue to follow. Subjective Date/time seen: 08/07/24 11:45 Interval history: Follow-up for acute kidney injury/acute renal failure on chronic kidney disease. Renal function/creatinine a bit better by AM labs; no apparent distress voiced at the time of my visit; at bedside and we reviewed this labs; no issues/events overnight or earlier this morning; overall, feels reasonably well. Exam Narrative: General: elderly but WD/WN male in NAD Heart: normal S1 and S2; no rub Lungs: clear anteriorly; decreased at bases Abdomen: soft, nontender, nondistended, positive bowel sounds Extremities: no cyanosis or clubbing; no edema Skin: warm and intact Objective Data Vital Signs Vital Signs: Vital Signs Temp Pulse Resp BP Pulse Ox O2 Del Method 08/07/24 09:21 70 08/07/24 08:49 57 L 18 08/07/24 08:38 56 L 18 08/07/24 06:00 97.7 F 62 18 124/42 L 93 08/07/24 04:00 64 08/07/24 01:53 58 L 16 08/07/24 01:44 53 L 16 08/07/24 00:00 66 08/06/24 21:30 57 L 18 08/06/24 21:23 56 L 18 08/06/24 21:23 56 L 96 Room Air 08/06/24 20:00 54 L 08/06/24 20:48 Room Air 08/06/24 20:02 97.2 F L 58 L 18 120/55 L 97 Intake/Output Intake/Output: Intake & Output 08/05/24 08/05/24 08/06/24 08/07/24 00:59 23:59 23:59 23:59 Intake Total 2050 1140 Output Total 300 Balance 1750 1140 Meds/Results Medications: Active Medications Generic Name Dose Route Start Last Admin Trade Name Freq PRN Reason Stop Dose Admin Albuterol/Ipratropium 3 ml 08/03/24 14:00 08/07/24 13:38 Ipratropium 0.5 Mg/Albuterol Sulfate 2.5 Mg Ampul.Neb 3 Ml INHALATION 3 ml Q6HRT [facility] Administration Allopurinol 100 mg 08/02/24 09:00 08/07/24 09:20 Allopurinol 100 Mg Tablet PO 100 mg DAILY [facility] Administration Amlodipine Besylate 10 mg 08/02/24 09:00 08/07/24 09:21 Amlodipine Besylate 10 Mg Tablet PO 10 mg DAILY [facility] Administration Aspirin 325 mg 08/02/24 09:00 08/07/24 09:21 Aspirin 325 Mg Tablet PO 325 mg DAILY [facility] Administration Atorvastatin Calcium 80 mg 08/02/24 09:00 08/07/24 09:20 Atorvastatin 40 Mg Tablet PO 80 mg DAILY [facility] Administration Calcium Carbonate 200 mg 08/06/24 17:09 08/06/24 17:24 Calcium Carbonate (Tums) 500 Mg (200 Mg Elemental) PO 200 mg Q6H PRN Administration Indigestion Ferrous Sulfate 325 mg 08/05/24 17:00 08/07/24 09:21 Ferrous Sulfate [address] PO 325 mg BID [facility] Administration Furosemide 20 mg 08/05/24 09:00 08/06/24 08:50 Furosemide 20 Mg Tablet PO 20 mg DAILY [facility] Administration Hydralazine HCl 100 mg 08/02/24 09:00 08/07/24 14:17 Hydralazine Hcl 50 Mg Tablet PO 100 mg TID [facility] Administration Isosorbide Mononitrate 120 mg 08/02/24 09:00 08/07/24 09:20 Isosorbide Mononitrate 60 Mg Tab.Er.24h PO 120 mg DAILY [facility] Administration Melatonin 3 mg 08/02/24 09:42 08/06/24 23:37 Melatonin 3 Mg Tablet PO 3 mg HS PRN Administration insomnia Metoprolol Succinate 200 mg 08/02/24 09:00 08/07/24 09:21 Metoprolol Succinate Ext Rel 100 Mg Tabcr PO 200 mg DAILY [facility] Administration Prednisone 40 mg 08/04/24 15:40 08/07/24 09:20 Prednisone 20 Mg Tablet PO 40 mg DAILY@0800 [facility] Administration Sacubitril/Valsartan 1 tab 08/02/24 09:00 08/04/24 16:38 Sacubitril/Valsartan 24-26 Mg Tablet PO 1 tab BID [facility] Administration Sodium Bicarbonate 650 mg 08/07/24 09:00 08/07/24 11:34 Sodium Bicarbonate Tab 650 Mg Tablet PO 650 mg BID [facility] Administration Radiology Results: ITS Impressions Chest CTA 08/01/24 16:45 IMPRESSION: 1. No pulmonary embolus. 2. Mild pulmonary edema. 3. Small pleural effusions. 4. 7 mm right upper lobe pulmonary nodule, stable from 12/20/2023, likely benign. Noncontrast low-dose chest CT is recommended in one year. 5. Mild emphysema. Renal Ultrasound 08/04/24 09:47 IMPRESSION: 1. 1 cm left renal cyst. Otherwise normal kidneys with no hydronephrosis. Chest X-Ray 08/05/24 16:04 IMPRESSION: Congestive heart failure, pulmonary edema, bilateral infiltrates, most prominent in the left lower lung; mild improvement of these findings since 08/04/2022 Labs Labs: Laboratory Tests 08/07/24 05:37 08/07/24 05:37 Calcium 8.6 Total Bilirubin 0.8 AST 20 ALT 16 Alkaline Phosphatase 141 H Total Protein 7.0 Albumin 3.8
[2024-08-07 15:14] LABS: Osmolality, Urine 385 mOsm/kg (50-1200)
[2024-08-07] MEDS: MELATONIN 3 MG TABLET PO (23:29)
[2024-08-08] VITALS (7 sets, daily range): BP systolic 148; BP diastolic 91; PULSE 54–61; RESP 18; TEMP 36.4; O2SAT 94
[2024-08-08] MEDS: IPRATROPIUM 0.5 MG/ALBUTEROL SULFATE 2.5 MG AMPUL.NEB 3 ML INHALATION (01:28)
[2024-08-08 05:35] LABS: Hematocrit 26.9 % (42.0-52.0); Hemoglobin 8.4 g/dL (14.0-18.0); Immature Granulocyte Absolute 0.03 K/mm3 (0.00-0.031); Immature Granulocyte Percent A 0.6 % (0-0.5); Immature Platelet Fraction Pct 7.9 % (0.9-11.2); Lymphocytes Absolute Auto 0.28 K/mm3 (0.9-3.2); Lymphocytes Percent Auto 5.5 % (18.3-44.2); Mean Corpuscular HGB Conc 31.2 g/dl (32-36); Mean Corpuscular Hemoglobin 26.9 pg (26-34); Mean Corpuscular Volume 86.2 fl (80-100); Monocytes Absolute Auto 0.5 K/mm3 (0.1-0.6); Monocytes Percent Auto 9.5 % (2.6-8.5); Neutrophils Absolute Auto 4.3 K/mm3 (1.3-6.7); Neutrophils Percent Auto 84.4 % (45.5-73.1); Platelet Count Result 123 k/mm3 (150-375); Red Blood Count 3.12 M/mm3 (4.6-6.20); Red Cell Distribution Width 17.6 % (11.5-14.5); White Blood Count 5.1 K/mm3 (4.5-10.0)
[2024-08-08 05:45] LABS: Alanine Aminotransferase 16 U/L (6-50); Albumin Level 3.5 g/dL (3.5-5.1); Alkaline Phosphatase 119 U/L (38-126); Anion Gap 11 mmol/L (4-12); Aspartate Amino Transferase 21 U/L (17-59); Bilirubin,Total 0.7 mg/dL (0.2-1.3); Blood Urea Nitrogen 83 mg/dL (9-20); Calcium 8.5 mg/dL (8.4-10.2); Carbon Dioxide 21 mmol/L (22-30); Chloride 105 mmol/L (98-107); Estimated CRCL calculation 23 ml/min; Estimated Glomerular Filt Rate 29; Glucose 146 mg/dL (65-110); Potassium 3.7 mmol/L (3.4-5.0); Sodium 137 mmol/L (137-145)
[2024-08-08] MEDS: SODIUM BICARBONATE TAB 650 MG TABLET PO (08:41)
[2024-08-08] MEDS: predniSONE 20 MG TABLET 40 MG PO (08:41)
[2024-08-08] MEDS: hydrALAZINE HCL 50 MG TABLET 100 MG PO (08:41)
[2024-08-08] MEDS: allopurinoL 100 MG TABLET PO (08:42)
[2024-08-08] MEDS: ATORVASTATIN 40 MG TABLET 80 MG PO (08:42)
[2024-08-08] MEDS: ASPIRIN 325 MG TABLET PO (08:42)
[2024-08-08] MEDS: ISOSORBIDE MONONITRATE 60 MG TAB.ER.24H 120 MG PO (08:42)
[2024-08-08] MEDS: amLODIPine BESYLATE 10 MG TABLET PO (08:42)
[2024-08-08] MEDS: FERROUS SULFATE 325 MG TABLET DR PO (08:42)
[2024-08-08] MEDS: METOPROLOL SUCCINATE EXT REL 100 MG TABCR 200 MG PO (08:42)
--- NOTE | 2024-08-08 10:31 | PM.DS ---
DS: Admitting Diagnosis Discharge Date 08/08/2024 Admitting Diagnosis Shortness of breath DS: Discharge Diagnosis Discharge Diagnosis (1) Acute respiratory failure with hypoxia: Code(s): J96.01 - Acute respiratory failure with hypoxia Status: Acute (2) Acute exacerbation of CHF (congestive heart failure): Qualifiers: Heart failure type: combined systolic and diastolic Qualified Code(s): I50.43 - Acute on chronic combined systolic (congestive) and diastolic (congestive) heart failure Code(s): I50.9 - Heart failure, unspecified Status: Acute (3) Chronic obstructive pulmonary disease: Qualifiers: COPD type: unspecified COPD Qualified Code(s): J44.9 - Chronic obstructive pulmonary disease, unspecified Code(s): J44.9 - Chronic obstructive pulmonary disease, unspecified Status: Acute (4) JAIME (acute kidney injury): Code(s): N17.9 - Acute kidney failure, unspecified Status: Acute Assessment and Plan: Improving. Creatinine 2.2. (5) Pancytopenia: Code(s): D61.818 - Other pancytopenia Status: Acute (6) Hypertension: Code(s): I10 - Essential (primary) hypertension Status: Chronic DS: Summary Hospital Course Hospital Course: Wean as tolerated for SPO2 > 88% given COPD - Possibly related to COPD exacerbation 2/2 HF exacerbation, started on prednisone 40 mg daily - Chest XR obtained and showed persistent mild pulmonary edema in the bilateral lower lungs with cardiomegaly and a small left pleural effusion with associated atelectasis and/or pneumonia in the left lower lung zone. - Repeat chest XR was obtained and showed congestive heart failure, pulmonary edema, bilateral infiltrates, most prominent in the left lower lung; mild improvement of these findings since 08/04/2022 -Patient received Prednisone 40 mg PO daily x 5 days. - CRP and procal WNL - Apnea link normal -Chest CTA: 1. No pulmonary embolus. 2. Mild pulmonary edema. 3. Small pleural effusions. 4. 7 mm right upper lobe pulmonary nodule, stable from 12/20/2023, likely benign. Noncontrast low-dose chest CT is recommended in one year. 5. Mild emphysema. -BNP 10,300. Patient was originally given IV Lasix and switched to oral. Later held along with Entresto due to JAIME. Creatinine improved from 2.60 to 2.20. Renal followed patient okayed for patient to be discharged and to resume Entresto and Furosemide tomorrow. Patient to follow up with PCP and cardiology in the next week. -Renal US: FINDINGS: The right kidney measures 12.5 x 4.7 x 6.2 cm. The left kidney measures 9.9 x 5.1 x 3.7 cm. The kidneys demonstrate normal echogenicity. 1 cm anechoic cyst at the mid left kidney. There is no hydronephrosis in either kidney. No stones identified. The bladder is normal. Prostatomegaly measuring at least 4.6 x 4.1 cm. IMPRESSION: 1. 1 cm left renal cyst. Otherwise normal kidneys with no hydronephrosis. Status at Discharge Functional status at discharge: independent ambulation Overall status at discharge: patient is progressing back to baseline Time Spent with Patient Time attestation: Total time spent providing and/or coordinating discharge services: Time spent: Greater than 30 minutes Exam Const: General: comfortable and no acute distress Eyes: Sclera: sclerae normal Resp: Effort & Inspection: normal respiratory effort Other: Slightly diminished but clear. Cardio: Rate: bradycardic Other: Tele SB 56. GI: GI Palp: Yes Soft to palpation Auscultation: normal bowel sounds Skin: General skin exam: no rashes or lesions noted Extrem: General: normal to inspection Psych: Mental Status: mental status grossly normal Affect: normal affect DS: Data Data Completed and Pending Labs on day of discharge: Labs from last 24 hours 08/08/24 08/05/24 05:14 10:12 WBC 5.1 RBC 3.12 L Hgb 8.4 L Hct 26.9 L MCV 86.2 MCH 26.9 MCHC 31.2 L RDW 17.6 H Plt Count 123 L MPV TNP Immature Gran % (Auto) 0.6 H Neut % (Auto) 84.4 H Lymph % (Auto) 5.5 L [place] % (Auto) 9.5 H Eos % (Auto) 0.0 Baso % (Auto) 0.0 L Lymph # (Auto) 0.28 L [place] # (Auto) 0.5 Eos # (Auto) 0.0 Baso # (Auto) 0.0 Abs Immat Gran (auto) 0.03 Absolute Neuts (auto) 4.3 Absolute Nucleated RBC 0.000 Nucleated RBC % 0.0 % Immature Plt Fraction 7.9 Sodium 137 Potassium 3.7 Chloride 105 Carbon Dioxide 21 L Anion Gap 11 BUN 83 H Creatinine 2.20 H Estim Creat Clear Calc 23 Estimated GFR 29 L Glucose 146 H Calcium 8.5 Total Bilirubin 0.7 AST 21 ALT 16 Alkaline Phosphatase 119 Total Protein 7.0 Albumin 3.5 Urine Osmolality 385 Urine Immunofixation Discharge Plan Discharge Attending physician on discharge: Hamlet Colrey Consulting providers: Jeovanny Bender Discharging Clinician: Ting Nascimento Anticipated Discharge Date/Time: 08/08/24 11:00 Patient Disposition: Home, Self-Care Activity: january shower Diet: heart healthy Discharge Instructions: check blood pressure daily and record. Take readings to cardiology appt. Daily weights and record. Report to Duplicating Machine Servicer or primary if you gain 3 pounds in 1 day or 1 pound daily for 3 days. Get appointment with new Duplicating Machine Servicer in the next week if possible. Restart Entresto tomorrow () and Furosemide on Tuesday. Patient Instructions: Heart Failure (DC), Heart Failure (GEN), Acute Kidney Injury (DC), Heart Healthy Diet (DC), COPD (Chronic Obstructive Pulmonary Disease) (DC) Stand Alone Forms: General Discharge Information Follow-up/Referrals: Flor,Jaime Mathis MD [Primary Care Provider] - 1 Week Discharge Medications: Continued isosorbide mononitrate 60 mg tablet extended release 24 hr 120 mg PO DAILY Entresto 24-26 mg tablet 1 tablet PO BID furosemide 20 mg tablet 20 mg PO QMWF hydrochlorothiazide 25 mg tablet 25 mg PO DAILY hydralazine 50 mg tablet 100 mg PO TID allopurinol 100 mg tablet 150 mg PO DAILY dapagliflozin propanediol [Farxiga] 10 mg tablet 10 mg PO DAILY metoprolol succinate 200 mg tablet extended release 24 hr 200 mg PO DAILY aspirin 325 mg Tablet 325 mg PO DAILY atorvastatin 80 mg tablet 80 mg PO DAILY amlodipine 10 mg tablet 10 mg PO DAILY Date of admission: 08/02/24 08:24 Primary Care Provider: FlorJaime Admitting Provider: Radha Clay Attending physician on admission: Pia Patel Condition: Stable Hospitalist MIPS Heart Failure (Exclusion) Patient has history of Heart Transplant or Left Ventricular Assistive Device?: No IF YES, STOP HERE Heart Failure (Qualifier) Patient has current or prior documentation of LVEF less than or equal to 40%, or mod/servere depressed LVSF?: Yes IF NO, STOP HERE If Yes, Heart Failure (Qualifier) Patient was prescribed or already taking an Angiotensin-Converting Enzyme (SCOTT) Inhibitor, or Antiotensin Receptor Era (ARB): Yes Patient was prescribed or already taking bisoprolol, carvedilol, or sustained release metoprolol succinate: Yes
[2024-08-10 14:24] LABS: Chloride Rand Ur <20 mmol/L (32-290); Creatinine, Random Urine 84 mg/dL (20-320); Total Prot/Creat ratio mg/mg 0.357 (0.025-0.148); Total Protein/Creatinine Ratio 357 mg/g creat (25-148)
== END 2024-08-08 11:25 | disposition home or self-care (01) | DRG 291 ==
LOC: ANHED 20:50 → ANH3MED 22:00
PROVIDERS: Internal Medicine Nephrology; Registered Nurse; Student in an Organized Health Care Education/Training Program; Admitting Provider Internal Medicine; Emergency Provider Physician Assistant; PCP Internal Medicine; Visit Provider Nurse Practitioner Family
DX: I13.0 Hypertensive heart and chronic kidney disease with heart failure and stage 1 through stage 4 chronic kidney disease, or unspecified chronic kidney disease (principal); I50.43 Acute on chronic combined systolic (congestive) and diastolic (congestive) heart failure; J96.01 Acute respiratory failure with hypoxia; N17.9 Acute kidney failure, unspecified; I48.20 Chronic atrial fibrillation, unspecified; J44.1 Chronic obstructive pulmonary disease with (acute) exacerbation; D61.818 Other pancytopenia; I25.10 Atherosclerotic heart disease of native coronary artery without angina pectoris; N18.31 Chronic kidney disease, stage 3a; D50.9 Iron deficiency anemia, unspecified; E78.5 Hyperlipidemia, unspecified; F32.A Depression, unspecified; Z20.822 Contact with and (suspected) exposure to COVID-19; Z79.01 Long term (current) use of anticoagulants; Z79.82 Long term (current) use of aspirin; Z86.73 Personal history of transient ischemic attack (TIA), and cerebral infarction without residual deficits; Z86.718 Personal history of other venous thrombosis and embolism; Z87.442 Personal history of urinary calculi; Z95.1 Presence of aortocoronary bypass graft; Z95.5 Presence of coronary angioplasty implant and graft
CPT/HCPCS: 36415; 71045; 71275; 76775; 80048; 80053; 81003; 82436; 82550; 82570; 82607; 82746; 82948; 83540; 83550; 83605; 83735; 83880; 83935; 84100; 84133; 84145; 84156; 84166; 84300; 84484; 84540; 85025; 85027; 85046; 85055; 85610; 85730; 85999; 86140; 86335; 87637; 93005; 93306; 94640; 94667; 94762; 96374; 99285; A9270; G0378; J1940; J7512; Q9967

== ENCOUNTER 2024-12-13 08:45 | Outpatient (RCR) | payer MEDICARE, SELFPAY ==
[2024-11-30 08:46] VITALS: PULSE 70
== END 2025-01-31 14:08 | disposition home or self-care (01) ==
LOC: ANHCPREHAB 08:45
PROVIDERS: PCP Internal Medicine; Visit Provider Internal Medicine
DX: Z95.2 Presence of prosthetic heart valve (principal)
CPT/HCPCS: 93798

== ENCOUNTER 2025-05-14 11:42 | Outpatient (CLI) | payer MEDICARE, SELFPAY ==
--- NOTE | ~2025-05-14 | XR_ITS ---
Exam: Right foot x-ray 2 views. Clinical history: Gout. TECHNIQUE: 2 images of the right foot were obtained. COMPARISON: None. FINDINGS: Moderate sized lucency along the medial head of the first metatarsal and a small lucency along the me dial aspect of the base of the proximal phalanx of the great toe. There is adjacent soft tissue swell ing. The findings are favored to be secondary to gout. No fracture. No dislocation. Bone mineralization is within normal limits. Clips from prior surgery ar e noted. Vascular calcifications are noted. Small plantar and posterior calcaneal spurs. IMPRESSION: 1.Moderate sized lucency along the medial head of the first metatarsal and a small lucency along the medial aspect of the base of the proximal phalanx of the great toe. There is adjacent soft tissue swe lling. The findings are favored to be secondary to gout. Reviewed, dictated and finalized at location A. IMPRESSION: 1.Moderate sized lucency along the medial head of the first metatarsal and a sm all lucency along the medial aspect of the base of the proximal phalanx of the great toe. There is adjacent soft tissue swelling. The findings are favored to be secondary to gout.
--- NOTE | ~2025-05-14 | XR_ITS ---
Exam: Left foot x-rays 2 view. Clinical history: Gout. TECHNIQUE: 2 images of the left foot were obtained. Comparisons: None. FINDINGS: Mild periarticular osteopenia. No fracture. No dislocation. Mild soft tissue swelling about the left foot. Small plantar and posterior calcaneal spurs. There is a 3 x 2 mm lucency in the base of the proximal phalanx of the third toe with adjacent soft t issue swelling. The finding may be secondary to gout. Other etiologies are possible. IMPRESSION: 1. There is a 3 x 2 mm lucency in the base of the proximal phalanx of the third toe with adjacent sof t tissue swelling. The finding may be secondary to gout. Other etiologies are possible. Follow-up is suggested. Reviewed, dictated and finalized at location A. IMPRESSION: 1. There is a 3 x 2 mm lucency in the base of the proximal phalanx of the third toe with adjacent soft tissue swelling. The finding may be secondary to gout. Other etiologies are possible. Follow-up is suggested.
--- NOTE | ~2025-05-14 | XR_ITS ---
Exam: Right hand 2 views Clinical history: Gout. COMPARISON: None. TECHNIQUE: 2 images of the right hand were obtained. FINDINGS: Bone mineralization is within normal limits. Vascular calcifications are noted. Mild degenerative jad nge in the first carpometacarpal joint. Mild degenerative changes in the first metacarpophalangeal mai int. No fracture. No dislocation. No bony erosions. Soft tissue swelling about the right hand. Possib le mild chondrocalcinosis in the triangle fibrocartilage. IMPRESSION: 1. No acute bony abnormality identified. 2. Mild degenerative change in the first carpometacarpal joint. 3. Soft tissue swelling about the right hand. Reviewed, dictated and finalized at location A.
--- NOTE | ~2025-05-14 | XR_ITS ---
Exam: Left hand x-ray 2 views HISTORY: TECHNIQUE: 2 images of the left hand were obtained. Comparisons: None FINDINGS: Bone mineralization is within normal limits. Vascular calcifications are noted. No fracture. No dislo cation. Mild joint space narrowing in the first carpometacarpal joint. Soft tissues on about the left hand. No bony erosions. IMPRESSION: 1. No acute bony abnormality. 2. Mild joint space narrowing in the first carpal metacarpal joint. 3. Soft tissue swelling about the left hand. Reviewed, dictated and finalized at location A.
--- OUTSIDE RECORDS SUMMARY | 2025-05-14 12:28 | XMS_ITS | Encounter Summary ---
Author Organization [facility] Address [address] [place] [address] Phone Care Team Providers Care Mortgage Loan Interviewer Name Role Phone Jaime Ray MD Primary Care Provider Karlo Lee MD Unavailable [phone] Olesya Fernandez RN Unavailable Unavailable Gurmeet Butler MD Unavailable [phone] Encounter Details Date Type Department Care Team (Late st Contact Info) Description 10/01/2024 Telephone [facility] [address] 8th [place] [address] [place] [address] Екатерина Don, EMEKA [address] [place], [place] [id number] Social History Tobacco Use Types Packs/Day Years Used Date Smoking Tobacco: Former Cigarettes 1.5 55 1 11/17/1966 - 09/16/2022 Smokeless Tobacco: Never Alcohol Use Standard Drinks/Week Comments Yes 0 (1 standard drink = 0.6 oz pur e alcohol) Rare [facility] Utilities Answer Date Recorded In the past 12 months has e electric, gas, oil, or water company threatened to shut off services in your home? No 08/31/2024 Social Connection and Isolation Panel Answer Date Recorded In a typical week, how many times do you talk on the phone with family, friends, or neighbors? Three times a week 08/31/2024 How often do you get togethe r with friends or relatives? Three times a week 08/31/2024 How often do you attend chur ch or mosque services? More than 4 times per year 08/31/2024 Do you belong to any clubs o r organizations such as congregational groups, unions, fraternal or athletic groups, or school groups? No 08/31/2024 How often do you attend meet ings of the clubs or organizations you belong to? Never 08/31/2024 Are you , , di vorced, , never , or living with a partner? 08/31/2024 AUDIT-C Answer Date Recorded Q1: How often do you have a drink containing alc ohol? 2-3 times a week 11/23/2023 Q2: How many drinks containi ng alcohol do you have on a typical day when you are drinking? 3 or 4 11/23/2023 Q3: How often do you have si x or more drinks on one occasion? Never 11/23/2023 Overall Financial Resource Strain (CARDIA) Answe r Date Recorded How hard is it for you to pa y for the very basics like food, housing, medical care, and heating? Not very hard 08/31/2024 Hunger Vital Sign Answer Date Recorded Within the past 12 months, y ou worried that your food would run out before you got the money to buy more. Never true 08/31/20 24 Within the past 12 months, t he food you bought just didn't last and you didn't have money to get more. Never true 08/31/2024 PRAPARE - Transportation Answer Date Re corded In the past 12 months, has l ack of transportation kept you from medical appointments or from getting medications? No 08/04 In the past 12 months, has l ack of transportation kept you from meetings, work, or from getting things needed for daily living? No 08/31/2024 Housing Stability Vital Sign Answer Jairo e Recorded In the last 12 months, was t here a time when you were not able to pay the mortgage or rent on time? No 11/28/2023 In the last 12 months, how many places have you lived? 1 11/28/2023 In the last 12 months, was t here a time when you did not have a steady place to sleep or slept in a assisted (including now)? No 11/28/2023 Housing Stability Vital Sign Answer Jairo e Recorded In the last 12 months, was t here a time when you were not able to pay the mortgage or rent on time? No 08/31/2024 In the past 12 months, how m any times have you moved where you were living? 0 08/31/2024 At any time in the past 12 m ont, were you homeless or living in a assisted (including now)? No 08/31/2024 Personal Safety Answer Date Recorded Have you ever been in or are you currently in a harmful physical or emotional relationship or is someone making you feel afraid or unsafe? 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 Gender Identity Male 05/11/2021 6:50 PM CDT Sexual Orientation Not on file documented as of this encounter Plan of Treatment Not on file documented as of this encounter Visit Diagnoses Not on filedocumented in this encounter Additional Health Concerns Infection Onset Date Last Indicated Resolved Time COVID: Suspected 12/30/2024 12/30/2024 12/30/2024 10:30 PM CDT COVID: Suspected 12/30/2024 12/30/2024 12/30/2024 11:43 PM CDT documented as of this encounter Care Teams Mortgage Loan Interviewer Relationship Specialty Start Date End Date Jaime Ray MD PCP - General Internal Medicine 02/13/19 Karlo Lee MD Consulting Physician Hematology and Oncology 05/26/21 Olesya Fernandez, balancing machine operator Failure Coordinator 01/16/25 Gurmeet Butler MD [id number] [place] [address] Surgeon Vascular Surgery 02/09/25 documented as of this encounter
--- OUTSIDE RECORDS SUMMARY | 2025-05-14 12:28 | XMS_ITS | Encounter Summary ---
Author Organization [facility] Address [address] [place] [address] Care Team Providers Care Music Composer Name Role Phone Jaime Ray MD Primary Care Provider Karlo Lee MD Unavailable [phone] Gia Vieira [facility] Unavailable [phone] Olesya Fernandez RN Unavailable Unavailable Gurmeet Butler MD Unavailable [phone] Encounter Details Date Type Department Care Team (Late st Contact Info) Description 12/22/2023 Telephone [facility] [address] [place] [id number] Deepika Cason RN Social History Tobacco Use Types Packs/Day Years Used Date Smoking Tobacco: Former Cigarettes 1.5 55 1 11/17/1966 - 09/16/2022 Smokeless Tobacco: Never Alcohol Use Standard Drinks/Week Comments Yes 0 (1 standard drink = 0.6 oz pur e alcohol) Rare [facility] Utilities Answer Date Recorded In the past 12 months has [employer] electric, gas, oil, or water company threatened to shut off services in your home? No 11/28/2023 Social Connection and Isolation Panel Answer Date Recorded In a typical week, how many times do you talk on the phone with family, friends, or neighbors? Three times a week 11/28/2023 How often do you get togethe r with friends or relatives? Three times a week 11/28/2023 How often do you attend chur ch or congregation services? More than 4 times per year 11/28/2023 Do you belong to any clubs o r organizations such as zoroastrian groups, unions, fraternal or athletic groups, or school groups? No 11/28/2023 How often do you attend meet ings of the clubs or organizations you belong to? Never 11/28/2023 Are you , , di vorced, , never , or living with a partner? 11/28/2023 AUDIT-C Answer Date Recorded Q1: How often [...] medical care, and heating? Not very hard 11/28/2023 Hunger Vital Sign Answer Date Recorded Within the past 12 months, y ou worried that your food would run out before you got the money to buy more. Never true 11/28/19 24 Within the past 12 months, t he food you bought just didn't last and you didn't have money to get more. Never true 11/28/2023 PRAPARE - Transportation Answer Date Re corded In the past 12 months, has l ack of transportation kept you from medical appointments or from getting medications? No 11/04 In the past 12 months, has l ack of transportation kept you from meetings, work, or from getting things needed for daily living? No 11/28/2023 Housing Stability Vital Sign Answer [...] in a assisted (including now)? No 11/28/2023 Personal Safety Answer Date Recorded Have you ever been in or are you currently in a harmful physical or emotional relationship or is someone making you feel afraid or unsafe? 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 Gender Identity Male 05/11/2021 6:50 PM CDT Sexual Orientation Not on file documented as of this encounter Plan of Treatment Not on file documented as of this encounter Visit Diagnoses Not on filedocumented in this encounter Additional Health Concerns Infection Onset Date Last Indicated Resolved Time COVID: Suspected 08/27/2024 08/27/2024 08/27/2024 11:39 PM TELETRAY OPERATOR COVID: Suspected 12/30/2024 12/30/2024 12/30/2024 10:30 PM CDT COVID: Suspected 12/30/2024 12/30/2024 12/30/2024 11:43 PM CDT documented as of this encounter Care Teams Music Composer Relationship Specialty Start Date End Date Jaime Ray MD PCP - General Internal Medicine 02/13/19 Karlo Lee MD Consulting Physician Hematology and Oncology 05/26/21 Gia Vieira, [facility] [address] [facility] [phone] [place] [address] [facility] Outpatient Potato Spotter 08/31/24 09/27/24 Olesya Fernandez, executive director contract shop Failure Coordinator 01/16/25 Gurmeet Butler MD [address] [facility] [id number] [place] [address] Surgeon Vascular Surgery 02/09/25 documented as of this encounter
--- OUTSIDE RECORDS SUMMARY | 2025-05-14 12:28 | XMS_ITS | Clinical Summary ---
Author Organization [facility] Address [address] [place] [address] Care Team Providers Care Milled Rice Broker Name Role Phone Jaime Ray MD Primary Care Provider Karlo Lee MD Unavailable [phone] Olesya Fernandez RN Unavailable Unavailable Alexus Butler MD Unavailable Allergies No known active allergies Medications nitroglycerin (NITROSTAT) 0.4 mg SL tablet May repeat dose every 5 minutes for up to 3 doses total. 25 tablet 3 03/16/20 19 Active Additional Information Patient taking differently: 0.4 mg sublingual Every 5 min PRN, chest pain, May repeat dose every 5 minutes for up to 3 doses total.,Indications: acute episode of anginal pain, acute myocardial infarction, Informant: Spouse/Significant Other, Self, Reported on 05/01/2025 carvediloL (COREG) 3.125 mg tablet Take 1 tablet (3.125 mg total) by mouth 2 (two) times a day with meals 180 tablet 3 10/01/20 24 Active Additional Information Patient taking differently:3.125 mg oral 2 times daily with meals (bkfst, dinner),Indications: Myocardial Reinfarction Prevention, Ventricular Rate Control in Atrial Fibrillation, Informant: Self, Spouse/Significant Other, Reported on 05/01/2025 dapagliflozin propanediol (FARXIGA) 10 mg tablet Take 1 tablet (10 mg total) by mouth daily 90 tablet 3 10/15/19 25 Active Additional Information Patient taking differently:10 mg oralEvery morning, Indications: kidney health, Informant: Self, Spouse/Significant Other, Reported on 05/01/2025 atorvastatin (LIPITOR) 80 mg tablet TAKE 1 TABLET BY MOUTH EVERY DAY 90 tablet 3 11/16/19 25 Active Additional Information Patient taking differently: 80 mg oral Every morning, Indications: arteriosclerotic vascular disease, coronary artery disease, Informant: Self, Spouse/Significant Other, Reported on 05/01/2025 sacubitriL-vals carlos (ENTRESTO) 49-51 mg tabletIndicatio ns:chronic heart failure Take 1 tablet by mouth 2 (two) times a day 180 tablet 3 11/26/19 25 Active furosemide (LASIX) 20 mg tabletIndicatio ns:Pulmonary Edema due to Chronic Heart Failure Take 2 tablets (40 mg total) by mouth every morning AND 1 tablet (20 mg total) daily before dinner. 90 tablet 2 01/02/20 25 Active allopurinoL (ZYLOPRIM) 100 mg tablet Take 2 tablets (200 mg total) by mouth 2 (two) times a day 01/02/20 25 Active Additional Information Patient taking differently: 100 mgoral 2 times daily,Indications: prevention of acute gout attack, Informant: Self, Spouse/Significant Other, Reported on 05/01/2025 melatonin 10 mg tabletIndicatio ns:sleep aid Take 1 tablet (10 mg total) by mouth nightly as needed (sleep aid) Active spironolactone (ALDACTONE) 25 mg tablet Take 0.5 tablets (12.5 mg total) by mouth daily 45 tablet 3 01/22/20 25 Active aspirin 81 mg enteric coated tablet Take 1 tablet (81 mg total) by mouth daily 30 tablet 02/11/20 25 026 Active senna-docusate (PERICOLACE) 8.6-50 mg Take 1 tablet by mouth 2 (two) times a day 30 tablet 02/10/20 25 Active clopidogreL (PLAVIX) 75 mg tablet Take 1 tablet (75 mg total) by mouth daily 30 tablet 3 02/19/20 25 Active isosorbide mononitrate ER (IMDUR) 120 mg 24 hr tablet Take 1 tablet (120 mg total) by mouth daily 04/14/20 25 Active Active Problems Problem Noted Date Diagnosed Date Shock 04/10/2025 Chronic mesenteric ischemia 04/09/2025 Abdominal pain 04/09/2025 Epigastric pain 04/09/2025 Assessment & Plan (04/09/2025 8:25 AM CDT): Patient with CT imaging from 03/2025 with stable SMA stenosis, however now has 3- 4 weeks of severe post-prandial epigastric pain associated with [address] scan seems to demonstrate new intermittent occlusion of mid-distal segments of SMA. - 04/09 CTA Severe atherosclerotic disease of the abdominal aorta and its branches, with unchanged moderate to severe stenosis at the origin of celiac and superior mesenteric artery with moderate multifocal stenosis throughout the length of the superior mesenteric artery. No occlusion. No evidence of bowel ischemia. - Continue with asa and plavix for recent TCAR. - Add on to OR for mesenteric angiogram today. - NPO, PPI, mIVF, prn analgesia, prn anti-emetics, prn bowel reg Hematuria 02/08/2025 Assessment & Plan (02/08/2025 10:48 AM CDT): Kedar hematuria noted in man catheter this am. Likely 2/2 man trauma. Pt endorses history of BPH - Keep amn for now - Irrigate man and monitor output Carotid stenosis, right 02/07/2025 Assessment & Plan (02/09/2025 7:26 AM CDT): Carotid US on 01/09 with >70% stenosis in R internal carotid. L internal carotid with patent stent (performed at outside facility). - 02/07/25: OR for R TCAR - Q4 NV checks and VS - Goal SBP 110-150 - OOB - ADAT - pain control - Plavix loaded. Continue asa 81 (on 325 at home), Continue Plavix 75 per fellow. - Continue statin - DC Man Chronic HFrEF (heart failure with reduced ejection fraction) 02/07/2025 Assessment & Plan (04/09/2025 8:35 AM CDT): Follows with Dr. Mayes in HF clinic. TTE 12/2024 with EF 23%. Recent admission for HF exacerbation. Home regimen: lasix 40mg QAM and 20mg QPM, carvedilol 3.125 bid, Entresto 49/51 BID, isosorbide 120, spironolactone 12.5. - continue meds as able. Currently holding farxiga and entresto for OR. Assessment & Plan (02/07/2025 7:46 AM CDT): Follows with Dr. Mayes in HF clinic. TTE 12/2024 with EF 23%. Had admit last month for acute HF exac. Home regimen: lasix 40mg QAM and 20mg QPM, carvedilol 3.125 bid, Entresto 49/51 BID, isosorbide 120, spironolactone 12.5. - continue meds as able. - monitor I&O, weight High anion gap metabolic acidosis 12/31/2024 Assessment & Plan (01/01/2025 11:21 AM CDT): Likely due to hepatic congestion +/- pericardiogenic shock. Resolved. Lactate normal. Liver injury 12/31/2024 Assessment & Plan (01/01/2025 11:22 AM CDT): Likely congestive hepatopathy. Acute on chronic combined sy stolic and diastolic congestive heart failure 12/30/2024 Assessment & Plan (01/01/2025 11:18 AM CDT): Hx of HFrEF presenting with progressive DIAZ and orthopnea. Labs significant for liver injury, likely hepatic congestion, and elevated BNP. Troponin mildly elevated and later. EKG without acute ischemia, shows rate controlled AF. Repeat TTE with EF 25% with elevated pulmonary pressures. - IV lasix BID, goal UOP 3-5L; goal Neptali > 50 - GDMT: hold BB iso of acute decompesation with elevated AG; afterload reduce with entresto; restart home SGLT2; -Symptoms much improved today -D/w cards, stable for discharge home. Resume carvedilol per cards. Increase lasix to 40mg QAM and 20mg QPM. -Outpatient f/u with cardiology already scheduled. -Per cardiology, consider CHARGE ENTRY as outpatient Assessment & Plan (12/31/2024 3:33 AM CDT): -suspect this is primary etiology of his exertional dyspnea, ankle edema, cough, orthopnea and pulmonary edema on CXR; he likely has underlying COPD as well -proBNP nearly 2x most recent measurement during Feb office visit -unclear trigger; I suspect recent medication adjustments may be playing a role; he also may not be strictly following sodium restriction even though he does not add salt to his food -he was given 40 mg IV furosemide in ER -telemetry monitoring in stepdown unit -will re-dose with 40 mg IV in AM then q12 -hold Entresto and Farxiga for now -strict I/Os and daily weights -serial BMP, Mag/Phos; keep K>4, Mag>2 -check urine sodium -repeat TTE in AM; will likely need to re-address ICD/PM if EF remains depressed -cardiology consult in AM -may need MAINTENANCE MECHANIC 2ND SHIFT gtt if he does not adequately diurese with IV lasix Acute renal failure superimposed on chronic kidn ey disease 12/30/2024 Assessment & Plan (01/01/2025 11:18 AM CDT): Likely cardiorenal. Slight improvement with diuresis. Consider repeat labs at outpatient f/u Assessment & Plan (12/31/2024 3:26 AM CDT): -creatinine 1.80, baseline 1.4-1.6 -suspect related to CHF and decreased renal perfusion -IV lasix as above; if creatinine improves with diuresis, would be suggestive of cardiorenal syndrome -check urine lytes, creatinine -monitor urine output closely -renal dose meds -avoid nephrotoxins Acute hypokalemia 12/30/2024 Assessment & Plan (01/01/2025 11:16 AM CDT): -likely 2/2 medication (furosemide and dapagliflozin) induced kaliuresis without adequate dietary repletion -Improved. -Stop tele Assessment & Plan (12/31/2024 3:16 AM CDT): -likely 2/2 medication (furosemide and dapagliflozin) induced kaliuresis without adequate dietary repletion -he was given 40 mEq PO KCL in ED -telemetry monitoring in step down -Mag is borderline low; will replete with 2g IV -repeat BMP in AM; replete PRN -will likely require ongoing supplementation given need for diuretic therapy Acute on chronic systolic heart failure 08/28/20 Assessment & Plan (08/30/2024 5:00 PM MEDICAL OR SURGICAL INSTRUMENT MAKER): Pt presents with SOB, cough, fatigue/low energy. Workup with elevated proBNP and imaging c/w pulmonary edema/pleural effusions. Recently admitted at OSH for CHF and improved with diuresis per patient report although no records available. Most recent TTE 06/2024 with EF 39%, grade 3 diastolic dysfunction, and severe TR. On lasix 20mg MWF. - s/p lasix 20mg IV BID through 08/28. Transition to Lasix 20 mg daily 08/29. We will need to discharge on increased dose of home Lasix. Likely 20 mg daily (home was 20 mg daily Tuesday/Tuesday/Tuesday). On diuretic protocol - TTE 08/29 for valve evaluation: Moderate global reduction in EF 35%, normal IVC, paradoxical septal motion, moderate tricuspid regurgitation, PASP 45-50. No appreciable changes from prior - daily BMP. daily weights, strict I/Os, 2gNa/2L fluid restriction. Unclear dry weight, likely as low as129 lb. - RD c/s for CHF diet education - Telemetry - Resume Entresto - and xi. cont ASA. Hold metop, imdur - EP consult with concern for ICD need given no recovery of EF. Will follow up as an outpatient, referral placed on discharge. CKD (chronic kidney disease) 08/28/2024 Assessment & Plan (08/29/2024 3:13 PM MEDICAL OR SURGICAL INSTRUMENT MAKER): Cr 1.65 c/w baseline - Monitor daily Shortness of breath 08/28/2024 Heart failure with reduced ejection fraction Tricuspid regurgitation 01/27/2024 Assessment & Plan (09/06/2024 1:53 PM MEDICAL OR SURGICAL INSTRUMENT MAKER): Moderate tricuspid regurgitation with normal estimated pulmonary artery systolic pressure on echocardiogram from 08/29/2024. Continue routine monitoring. Assessment & Plan (08/29/2024 3:17 PM MEDICAL OR SURGICAL INSTRUMENT MAKER): Noted severe regurgitation on last TTE. Repeat TTE 08/2024 with moderate regurgitation - Can follow up with General commercial attorney. Per prior notes, would recommend valve team consult if severe TR still present Presence of Amulet left atrial appendage closure device 11/23/2023 Assessment & Plan (09/06/2024 1:53 PM MEDICAL OR SURGICAL INSTRUMENT MAKER): Continue aspirin therapy. Foot pain, left 08/17/2023 Localized swelling of left foot 08/17/2023 Cholesteatoma of right ear 12/30/2022 Sensorineural hearing loss (SNHL) of both ears 0 12/30/2022 Pneumonia due to COVID-19 virus 12/17/2022 JAIME (acute kidney injury) 12/17/2022 Non-ischemic cardiomyopathy 12/17/2022 COPD (chronic obstructive pulmonary disease) MDD (major depressive disorder) 12/17/2022 Acute hypoxemic respiratory failure 12/15/2022 A-fib 06/25/2022 Assessment & Plan (04/09/2025 8:36 AM CDT): Hx of watchman's procedure. Not on AC. - continue carvedilol as able Assessment & Plan (02/07/2025 7:49 AM CDT): Hx of watchman's procedure. Not on AC. - continue carvedilol as able - continue DVT ppx Assessment & Plan (12/31/2024 11:01 AM CDT): -s/p watchman device -rate controlled on low dose carvedilol; will hold BB iso of decompensated CHF w elevated AG -monitor on telemetry Assessment & Plan (12/31/2024 3:13 AM CDT): -s/p watchman device -rate controlled on low dose carvedilol -monitor on telemetry Assessment & Plan (09/06/2024 9:26 AM MEDICAL OR SURGICAL INSTRUMENT MAKER): Rate controlled on no beta catie therapy due to bradycardia during hospitalization. Heart rate today 68 beats per minute. Has not been keeping track of his heart rates at home. He is status post Watchman procedure in November of 2023. He is pending EP referral for evaluation for CHARGE ENTRY-D. Continue full-dose aspirin. Pending EP referral. Will monitor heart rates over next 1-2 weeks and if stable consider adding back metoprolol XL to regimen for neuro hormonal effects for heart failure Assessment & Plan (08/30/2024 4:59 PM MEDICAL OR SURGICAL INSTRUMENT MAKER): S/p watchman procedure 11/2023 - monitor on tele. Hold metop given bradycardia - General Cardiology consult given need for AFib control, intolerant of beta- catie. Recommend discussing with electrophysiology - EP consulted. Recommend follow up outpatient to discuss pacemaker and possible ICD Assessment & Plan (05/23/2023 1:47 PM CDT): Normal rate and rhythm upon examination today. Continue Xarelto and carvedilol at current doses. Assessment & Plan (02/21/2023 11:36 AM CDT): Well controlled with no complaints of palpitations or fast heart rates. Continue carvedilol and Xarelto. Assessment & Plan (01/21/2023 8:44 AM CDT): He is paroxysmal atrial fibrillation is followed by electrophysiology. His recent dose of Xarelto was decreased for JAIME. I will check a BMP today to make sure his Xarelto does not need to be adjusted Anemia 04/23/2022 Acute sinusitis 03/29/2022 Knee pain 02/24/2022 Epidermoid cyst of skin 02/24/2022 Upper respiratory infection 02/24/2022 Wax in ear 02/24/2022 Hyperglycemia 02/24/2022 PAD (peripheral artery disease) 02/24/2022 Cerumen debris on tympanic membrane of right ear 12/21/2021 Benign prostatic hyperplasia 12/21/2021 Pleural effusion 12/21/2021 Skin lesion 12/21/2021 Palpitations 12/11/2021 Assessment & Plan (12/11/2021 11:20 AM MEDICAL OR SURGICAL INSTRUMENT MAKER): Patient mentions that he has been experiencing palpitations which occur predominantly at night. We will pursue further workup by ordering a 30 day event monitor. Low platelet count 05/11/2021 Assessment & Plan (02/09/2025 6:15 AM CDT): Platelets 44 (55 )on CBC this am. - Stop heparin - Check HIT - Monitor CBC Assessment & Plan (12/31/2024 11:16 AM CDT): -mild, chronic, stable -serial CBC Assessment & Plan (12/31/2024 3:36 AM CDT): -mild, chronic, stable -serial CBC -hold heparinoids if platelets fall below 30K or >50% in 24 hrs Anemia 05/11/2021 Assessment & Plan (01/01/2025 11:19 AM CDT): Acute on chronic microcytic anemia. No evidence of acute bleeding or hemolysis at present. Hx of GIB - B12/folate normal -Ferritin normal -Haptoglobin normal -Hgb Stable Multiple nodules of lung 04/20/2021 Lung nodule 03/13/2021 Assessment & Plan (05/15/2021 1:36 PM CDT): He had a repeat CT scan in April 2021 which showed stable pulmonary nodules with recommended repeat in 1 year. Assessment & Plan (03/13/2021 11:04 AM CDT): In the patient had lung nodules noted on chest CT in June last year. The patient notes that he has had about a 30 lb weight loss in the last 2 years. He continues to smoke. Had a repeat CT was recommended for surveillance so we will plan on ordering this at this time. The patient states that he is up-to-date on a colorectal cancer screening. We asked him to follow up with his primary care provider about his concerns and weight loss. We will focus our efforts and optimizing his cardiovascular health. Mitral regurgitation 11/07/2020 Assessment & Plan (05/23/2023 1:48 PM CDT): Mild mitral regurgitation and moderate tricuspid regurgitation on echocardiogram in 2021. His tricuspid regurgitation may be driven by volume overload at that time. Will repeat echo prior to next clinic visit for monitoring of valve and LVEF. Assessment & Plan (02/21/2023 11:33 AM CDT): Mild mitral regurgitation and moderate tricuspid regurgitation on recent echocardiogram. His tricuspid regurgitation may be driven by volume overload at that time. Will repeat echo for reassessment once GDMT is further optimized. Assessment & Plan (01/21/2023 9:24 AM CDT): And mild mitral regurgitation and moderate tricuspid regurgitation and a recent echo. Some of his tricuspid regurgitation was likely driven by volume overload. This will be reassessed when he is euvolemic with his follow-up echocardiogram to monitor his ejection fraction Assessment & Plan (03/13/2021 11:48 AM CDT): Patient is mild mitral regurgitation Assessment & Plan (11/07/2020 12:50 PM MEDICAL OR SURGICAL INSTRUMENT MAKER): He had mild mitral regurgitation on echocardiogram in 2019. We will repeat an echocardiogram every 3-5 years for surveillance. Anxiety 03/18/2020 Carotid artery stenosis 03/18/2020 Assessment & Plan (04/09/2025 8:38 AM CDT): Carotid US on 01/09 with >70% stenosis in R internal carotid. L internal carotid with patent stent (performed at outside facility). - 02/07/25: OR for R TCAR . Continue asa 81 and Plavix Assessment & Plan (01/01/2025 11:21 AM CDT): -continue ASA, statin -carotid dopplers currently scheduled as outpatient Assessment & Plan (12/31/2024 3:34 AM CDT): -continue ASA, statin -consider carotid dopplers (currently scheduled as outpatient) Assessment & Plan (09/06/2024 1:32 PM MEDICAL OR SURGICAL INSTRUMENT MAKER): Continue ASA and statin therapy. Assessment & Plan (03/28/2020 11:23 AM CDT): Carotid Doppler suggested greater than 70% stenosis in his right internal carotid artery. He has a follow-up appointment with Dr. Butler to discuss possible intervention on this. If the maintained continue his antiplatelet therapy, high-intensity statin and blood pressure control. I encouraged tobacco cessation Chronic depression 03/18/2020 History of cerebrovascular accident 03/18/2020 Elevated PSA 03/10/2020 Diabetes mellitus 11/29/2019 Coronary artery disease 03/16/2019 Overview (05/15/2021): Cardiac Cath 05/2012 #1: 1. Severe [place] CAD as described above with no evidence of acute plaque rupture. The ST-elevations in the anterior leads may have represented posterior wall ST-depressions related to chronic RCA ischemia and/or severe HTN, which was noted for the latter third of the PCI procedure and required several rounds of IV hydralazine and IC nitroglycerine. 2. Patent VANG to LAD and SVG to OM, with occluded SVG to RCA. 3. Upper limit of normal LVEDP with severe systemic hypertension. 4. Successful deployment of 4 overlapping drug-eluting stents from the proximal portion of the rPDA to the ostium of the RCA 5. PCI to SVG on 04/2021 with 3.0 x 22 resolute natasha drug-eluting stent Assessment & Plan (04/09/2025 8:36 AM CDT): s/p 3vCABG and s/p PCI/ANGELICA. 01/24/25 PET/CT myocardial stress negative for ischemia. - continue asa, statin Assessment & Plan (02/07/2025 7:49 AM CDT): s/p 3vCABG and s/p PCI/ANGELICA. 01/24/25 PET/CT myocardial stress negative for ischemia. - continue asa, statin - continue carvedilol and isosorbide as able Assessment & Plan (09/06/2024 1:57 PM MEDICAL OR SURGICAL INSTRUMENT MAKER): Asymptomatic with no chest pain or anginal equivalent. Continue amlodipine, atorvastatin, ASA, farxiga, imdur and SL nitro PRN. Assessment & Plan (08/30/2024 4:58 PM MEDICAL OR SURGICAL INSTRUMENT MAKER): S/p CABG and PCI. -cont ASA, atorva. Hold metoprolol. Restart Imdur 08/30 Assessment & Plan (05/23/2023 1:30 PM CDT): Asymptomatic with no chest pain or anginal equivalent. Continue amlodipine, atorvastatin, carvedilol, plavix, farxiga, imdur and SL nitro PRN. Also on Xarelto given hx of atrial fibrillation. Assessment & Plan (02/21/2023 11:23 AM CDT): Asymptomatic with no chest pain or anginal equivalent. Continue amlodipine, atorvastatin, carvedilol, plavix, farxiga, imdur and SL nitro PRN. Also on Xarelto given hx of atrial fibrillation. Assessment & Plan (12/11/2021 11:22 AM MEDICAL OR SURGICAL INSTRUMENT MAKER): Known to have ischemic cardiomyopathy status post triple-vessel CABG with VANG to LAD, SVG to OM, and occluded SVG to RCA status post PCI to the RCA and recent PCI to the SVG to the OM with 3 0 x 22 resolute natasha drug-eluting stent. He remains on dual anti-platelet therapy with aspirin and Plavix. He is on high-intensity lipid-lowering therapy with Lipitor 80 mg q.h.s. and is also on Coreg 25 mg b.i.d.. Patient remains chest pain. Will continue to focus on managing his multiple cardiovascular risk factors including his poorly controlled hypertension. Assessment & Plan (05/15/2021 1:36 PM CDT): He has no anginal complaints. We will continue dual antiplatelet therapy, beta-catie, statin. Assessment & Plan (03/13/2021 11:09 AM CDT): The patient has known coronary artery disease with prior VANG to LAD, SVG to OM and an occluded SVG to RCA. He has had prior percutaneous intervention to the RCA with 4 stents. Unknown size/type. He is on appropriate secondary risk factor modifications at this time. Will continue aspirin 81 mg daily as well as clopidogrel. The patient has a new reduction in EF with inferior akinesis on echocardiogram. He has reversible ischemia in the inferior wall on nuclear stress. Will plan on obtaining a coronary angiogram next week. Will obtain CBC, BMP prior to his procedure. Assessment & Plan (11/07/2020 12:47 PM MEDICAL OR SURGICAL INSTRUMENT MAKER): History of coronary disease status post CABG. He denies any symptoms of angina. He is on appropriate therapy for risk factor modification. We will continue his aspirin, clopidogrel and atorvastatin. We have reviewed all recent labs and data. Assessment & Plan (03/28/2020 11:22 AM CDT): He is angina free and a good medical regimen. All medical changes to it. Assessment & Plan (09/21/2019 11:55 AM MEDICAL OR SURGICAL INSTRUMENT MAKER): He has no dyspnea on exertion, chest pain complaints. He continues to tolerate high-intensity statin, aspirin, Plavix, beta-catie with Coreg. He has sublingual nitroglycerin which he may use on an as-needed basis--he has not needed to use it thus far. If he does have progression of symptoms concerning for ischemia, will bear in mind that his exam is concerning for left subclavian stenosis which may compromise his VANG graft. Assessment & Plan (03/16/2019 10:41 AM CDT): He remains asymptomatic. It will be prudent to continue optimal medical therapy with aspirin 81 mg daily, atorvastatin 80 mg daily. He should also continue Coreg 25 mg b.i.d.. We will obtain a lipid panel at this time to ensure that his lipids are well controlled. HTN (hypertension) 03/16/2019 Assessment & Plan (02/08/2025 3:48 PM CDT): - continue home meds as able - q4 VS Assessment & Plan (01/01/2025 11:22 AM CDT): Resume coreg, restart entresto Assessment & Plan (12/31/2024 3:31 AM CDT): -continue carvedilol -hold Entresto for now -low sodium diet Assessment & Plan (08/30/2024 4:59 PM MEDICAL OR SURGICAL INSTRUMENT MAKER): Home amlodipine, HCTZ, imdur, Entresto -Confirmed with and patient taking amlodipine 10, hydrochlorothiazide 25, Imdur 120 (recently increased) -Continue with amlodipine, restart Entresto 08/28. Hold hydrochlorothiazide. Restart Imdur 08/30 Assessment & Plan (05/23/2023 1:31 PM CDT): Elevated today but has only taken one of his am anti-hypertensive medications. Continue current doses of Amlodipine, HCTZ, carvedilol, Imdur, hydralazine and Entresto at this time. Repeat BMP in July. Assessment & Plan (02/21/2023 11:25 AM CDT): Elevated today and unsure what it is running at home. Will plan to increase Entresto dose once we have lab results from Tuesday. Continue current doses of Amlodipine, HCTZ, carvedilol, Imdur, an Entresto at this time. Assessment & Plan (01/21/2023 8:44 AM CDT): His blood pressure is not well controlled. I will stop his losartan and initiate Entresto Jan 20, 2026 b.i.d. and asked him to monitor his blood pressure at home. Assessment & Plan (12/11/2021 11:28 AM MEDICAL OR SURGICAL INSTRUMENT MAKER): His blood pressure is not well controlled and multiple medication adjustments had been made given the patient was unable to tolerate ACEi/spironolactone due to labile kidney function. Patient will continue to take amlodipine 10 mg daily, Coreg 25 mg b.i.d., hydralazine 50 mg t.i.d., HCTZ 25 mg daily. Will add Imdur 60 mg daily to his regimen. The patient will start checking his blood pressure twice a day for 2 weeks and he will reach out in 2 weeks with blood pressure readings. Assessment & Plan (05/15/2021 1:34 PM CDT): His blood pressure is controlled on carvedilol, spironolactone, HCTZ, amlodipine, irbesartan. Pending his TTE, we will plan to upgrade his irbesartan to Entresto if he does not have improvement in his ejection fraction. Assessment & Plan (03/13/2021 11:07 AM CDT): His blood pressure is mildly elevated today. We will plan on continuing his Coreg, irbesartan, hydrochlorothiazide, and amlodipine at this time. We will continue his Lasix at this time as well. We will pursue coronary angiogram next week and will re-evaluate his blood pressure at this time. After his coronary angiogram, will plan on a change his irbesartan to Entresto given his new reduction in HF. This will also help reduce his BP further. Assessment & Plan (11/07/2020 12:48 PM MEDICAL OR SURGICAL INSTRUMENT MAKER): His blood pressure is under borderline control today in the office. We would prefer an aggressive blood pressure control strategy due to his history of vascular disease. We asked him to check his blood pressure at home and report the values to us. He will continue on carvedilol 25 mg twice daily, irbesartan 300 mg daily, hydrochlorothiazide 12.5 mg daily, and amlodipine 10 mg daily. We can increase the hydrochlorothiazide if we need to depending on what his report is. We have reviewed all recent labs and data. We will recheck a CMP. Assessment & Plan (03/28/2020 11:21 AM CDT): His blood pressure is elevated today. He describes suboptimal control at home as well. I will add hydrochlorothiazide 12.5 mg on to his current medical regimen. I will check a BMP in 5-7 days. I asked him to monitor his blood pressure at home to see if further medical therapy is needed Assessment & Plan (09/21/2019 11:54 AM MEDICAL OR SURGICAL INSTRUMENT MAKER): His blood pressure is slightly elevated at 144/60 in the right arm and 122/52 in the left arm. He has a barely palpable left radial pulse. Given his diffuse PAD, he likely has a degree of left subclavian stenosis +/- radial stenosis based on exam. He was counseled on how to properly measure his blood pressure in the right arm and will maintain a blood pressure log. He will check his blood pressure on the right arm only. Based on his home blood pressure readings, will likely add HCTZ a follow- up. We'll plan on checking a BMP today. Assessment & Plan (03/16/2019 10:42 AM CDT): His blood pressure is well controlled. We will continue amlodipine 5 mg daily, Coreg 25 mg b.i.d., and losartan 100 mg daily. We will check comprehensive metabolic panel at this time. CVA (cerebral vascular accident) 03/16/2019 Overview (03/16/2019): Visual disturbances, peripheral vision is disrupted Assessment & Plan (09/21/2019 11:55 AM MEDICAL OR SURGICAL INSTRUMENT MAKER): He has no further neurologic complaints. He has follow-up for his carotid stenosis. He is continuing high-intensity statin and anti-platelet agents as noted. Assessment & Plan (03/16/2019 10:40 AM CDT): He is currently asymptomatic has had some peripheral visual disturbances. He does not have any new symptoms that are concerning. We will check his lipid panel to ensure that his lipids are well controlled. At this time, will maintain adequate secondary risk factor modifications. Hyperlipidemia 03/16/2019 Assessment & Plan (09/06/2024 1:52 PM MEDICAL OR SURGICAL INSTRUMENT MAKER): Continue atorvastatin 80 mg daily. Assessment & Plan (05/23/2023 1:32 PM CDT): Last lipid panel noted adequate control of cholesterol with LDL at goal of < 70. Continue Atorvastatin 80 mg nighty. Assessment & Plan (02/21/2023 11:26 AM CDT): Last lipid panel noted adequate control of cholesterol with LDL at goal of < 70. Continue Atorvastatin 80 mg nighty. Assessment & Plan (01/21/2023 8:44 AM CDT): He is on a high-intensity statin with excellent lipid control. I will continue his current dose Assessment & Plan (12/11/2021 11:22 AM MEDICAL OR SURGICAL INSTRUMENT MAKER): His most recent lipid panel was obtained last year and showed that his LDL cholesterol was at goal 37. Patient will continue take atorvastatin 80 mg q.h.s.. We will repeat her lipid panel today. Assessment & Plan (05/15/2021 1:37 PM CDT): He is tolerating high-intensity statin. Assessment & Plan (03/13/2021 11:48 AM CDT): The patient is on appropriate management with atorvastatin 80 mg daily. Will continue to monitor. Assessment & Plan (11/07/2020 12:50 PM MEDICAL OR SURGICAL INSTRUMENT MAKER): He continues on high-intensity statin for hyperlipidemia. We will repeat a lipid panel. Assessment & Plan (03/28/2020 11:23 AM CDT): I will continue with high-intensity statin. I will check a lipid profile and CMP for routine monitoring. Assessment & Plan (09/21/2019 11:49 AM MEDICAL OR SURGICAL INSTRUMENT MAKER): His LDL was 71 on his lipid panel in April of 2019. CMP at that time within normal limits. We'll plan to recheck lipid panel at follow-up to ensure adherence and therapeutic effect. He will continue high-intensity statin. Assessment & Plan (03/16/2019 10:43 AM CDT): We will continue atorvastatin 80 mg daily at this time. We will obtain a lipid panel today to ensure that his lipids are well controlled. Smoker 03/16/2019 Assessment & Plan (03/28/2020 11:25 AM CDT): He has ongoing tobacco use. In the setting of extensive vascular disease are strongly encouraged tobacco cessation. In addition I notified and of a lung nodule that was noted on the CT scan the ordered the by another physician that will require followup Assessment & Plan (09/21/2019 11:49 AM MEDICAL OR SURGICAL INSTRUMENT MAKER): We spent a significant amount of time during today's discussion highlighting the importance of smoking cessation for his over all cardiovascular health. This is a discussion has been had multiple times and documented with multiple providers. We will continue to reinforce this at follow-up. Assessment & Plan (03/16/2019 10:43 AM CDT): We have discussed the importance of tobacco cessation. He is amenable at this time and would like to try nicotine patch and gum. We will follow up with him he to ensure that he is able to tolerate these interventions. Cardiomyopathy, ischemic 03/16/2019 Assessment & Plan (09/06/2024 1:32 PM MEDICAL OR SURGICAL INSTRUMENT MAKER): Ischemic cardiomyopathy with chronic HFrEF. Most recent TTE with LVEF of 35%. Recently admitted to [facility] in August for a heart failure exacerbation. Home weight today is stable from recent discharge weight at 126 lbs. He is endorses NYHA Class II symptoms. Is not on MRA due to soft blood pressures during hospitalizations or BB due to bradycardia. EP referral sent during hospitalization for consideration of CHARGE ENTRY-D. Labs today noted improved kidney function. Continue GDMT with Farxiga and Entresto. Can continue Lasix 20 mg daily. Will start Spironolactone 12.5 mg daily. Repeat BMP in 7-10 days. He will keep a BP/HR diary and we will review in 1-2 weeks. Plan to initiate low dose BB if there is HR room. Would favor decreasing/discontinuation of amlodipine with up-titration of other GDMT medications going forward. Referral to EP for evaluation of CHARGE ENTRY-D. Refer to advanced heart failure for establishment. Long discussion about taking daily weights and signs and symptoms of fluid retention. Is interested in cardiac rehab in future. Assessment & Plan (05/23/2023 1:46 PM CDT): Ischemic cardiomyopathy with chronic HFrEF. Last TTE from 2021 with EF of 40- 45%. He endorses NYHA Class I-II symptoms. He is on a good GDMT regimen. The up titration of his Entresto and addition of MRA has been limited due to worsening kidney function and elevated potassium level in the past. Euvolemic on exam with no signs or symptoms of acute decompensated heart failure. Continue GDMT with Carvedilol, Farxiga, hydralazine and Entresto. Can continue Lasix 20 mg 3 times weekly. Will repeat echocardiogram upon next visit for reassessment of LVEF. Assessment & Plan (02/21/2023 11:37 AM CDT): Volume status is improved. He has tolerated Entresto and Farxiga. Weight is down by 2 lbs since last clinic visit. He is reporting NYHA Class I symptoms. No evidence of acute decompensated heart failure on examination. He had lab work completed at local facility on Tuesday. These results are pending. Continue GDMT with Carvedilol, Farxiga and Entresto. Will plan to increase Entresto dose if labs from Tuesday show a stable kidney function. Then will continue to follow closely for ongoing up-titration of GDMT. Can continue Lasix 20 mg 3 times weekly. Continue to monitor blood pressure and weight and send to us for review in 2 weeks. Will repeat echocardiogram once GDMT is optimized. Assessment & Plan (01/21/2023 9:21 AM CDT): He was recently hospitalized with COVID pneumonia. His NT proBNP was markedly elevated over his baseline. His course was complicated by acute kidney injury in his diuretics were held. In addition he did have an outside echo still showed some mild LV dysfunction. He is currently markedly volume overloaded. I asked him to restart his Farxiga 10 mg. I asked him to take his furosemide daily 20 mg. He is only taking it p.r.n.. I will stop his losartan and start Entresto b.i.d.. I will check a BMP and NT proBNP today in 1 week. I asked him to monitor his blood pressure at home. Once his heart failure regimen is optimized. I will repeat an echocardiogram. I will have him see my nurse practitioner in 1 month to further adjust his Entresto and his diuretic Assessment & Plan (12/11/2021 11:25 AM MEDICAL OR SURGICAL INSTRUMENT MAKER): He is known to have ischemic cardiomyopathy. His most recent echocardiogram obtained in June last year showed interval improvement in his LV function with an EF of 55-60% after undergoing coronary revascularization which was up from 40% on echocardiogram from March 2021. He is currently on Coreg 25 mg b.i.d. as well as Lasix 20 mg daily. Since he is already on hydralazine 50 mg daily will add Imdur 60 mg daily. His NT proBNP was significantly elevated last week in the 6000 range. He has since started back his diuretic. Today he is euvolemic on exam - Assessment & Plan (05/15/2021 1:33 PM CDT): Euvolemic on exam. Now s/p PCI, will reassess EF. If no improvement, will maximize medical therapy with Entresto in place of his current irbesartan. He otherwise will continue spironolactone and carvedilol. We will order a TTE to be done in the near future. Assessment & Plan (03/13/2021 11:47 AM CDT): The patient has a reduction in his ejection fraction to 40% with inferior wall akinesis. His nuclear stress test did reveal inferior wall ischemia. We will will plan on obtaining a coronary angiogram to further elucidate the underlying etiology of his reduction in EF. In the interim, will continue optimal heart failure therapies with Coreg 25 mg b.i.d., Lasix 40 mg daily, and irbesartan 300 mg daily. Post angiography, will plan on changing his irbesartan to Entresto. Assessment & Plan (11/07/2020 12:49 PM MEDICAL OR SURGICAL INSTRUMENT MAKER): He has a history of wall motion abnormalities ischemic cardiomyopathy with overall preserved ejection fraction. He is warm and euvolemic on examination today. Assessment & Plan (03/16/2019 10:43 AM CDT): He was noted to have some degree of RV dysfunction as well as focal wall motion abnormalities on a prior echocardiogram. We will obtain echocardiogram to evaluate his myocardium. He is on appropriate medical therapy with losartan 100 mg daily as well as Coreg 25 mg b.i.d.. Gout 11/30/2016 Assessment & Plan (08/28/2024 5:04 PM MEDICAL OR SURGICAL INSTRUMENT MAKER): -Cont allopurinol ST elevation (STEMI) myocardial infarction 05/15 Peripheral vascular disease 11/16/2011 Overview (03/18/2020): He has history of carotid endarterectomy and carotid stenting, peripheral revascularization and left fem-pop bypass. He follows with Dr. Butler of vascular surgery. Assessment & Plan (05/15/2021 1:33 PM CDT): Chronic claudication without concern for critical limb ischemia. Assessment & Plan (03/13/2021 11:08 AM CDT): The patient has bilateral carotid bruits. He has had a CTA which revealed moderate occlusion of his carotid arteries. Will continue aspirin and clopidogrel at this time. He also has a left fem-pop bypass. He has moderate stenosis in the right common femoral and external iliac. He continues to follow with vascular surgery. Our access for coronary angiography next with will be his right common femoral artery. If this is not feasible, we will plan on using a left radial approach. Assessment & Plan (11/08/2020 1:01 PM MEDICAL OR SURGICAL INSTRUMENT MAKER): He has activity limiting angina in continues on aspirin, clopidogrel, cilostazol and atorvastatin. He follows with Dr. Butler in vascular surgery. He did had of over 70% R carotid stenosis on a carotid ultrasound and has bruits on examination. We reviewed his his recent note where he wanted to order a CTA to further evaluate this. However, on CTA he only at 45% R carotid stenosis. We have reviewed all recent labs and data. Assessment & Plan (03/28/2020 11:20 AM CDT): He has stable claudication. He is on appropriate medical therapy including antiplatelet therapy, high-intensity statin and Medicaid blood pressure control. He is on cilostazol which may be giving him modest symptomatic improvement. We will continue current medical therapy. He did have an abdominal CT angiogram with runoff performed. Has a follow-up with vascular surgery to see if he has any options for further symptomatic relief. Assessment & Plan (09/21/2019 11:50 AM MEDICAL OR SURGICAL INSTRUMENT MAKER): He has stable claudication worse in the left lower extremity relative to the right. He has no rest pain or ulcers. He has follow-up with vascular surgery. He is continued on multiple anti-platelet agents with aspirin, Plavix, cilostazol. He will continue his current medical management with these anti-platelet agents as well as the high-intensity statin. In the event he has any bleeding, would favor discontinuation of aspirin and continuing Plavix and cilostazol. Assessment & Plan (03/16/2019 10:42 AM CDT): He does have some degree of claudication though he is able to complete all ADLs and IADLs without significant limitations. We will continue appropriate secondary risk factor modifications at this time. He should also continue on cilostazol 100 mg daily. Occlusion and stenosis of unspecified carotid ar cristine 11/16/2011 Encounters Date Type Department Care Team Description 05/13/2025 Orders Only [facility] LAB INTERFACE [id number] Henry Becerril MD 05/01/2025 10:45 AM CDT Office Visit [facility] Vascular Surgery [facility] Medical Office Building [address] [place] [address] Alexus Butler MD Chronic mesenteric ischemia (Primary Dx) 05/01/2025 9:30 AM CDT Ancillary Procedure [facility] Vascular Lab Vascular Surgery [address] [place] [address] [address] [place] [address] Atherosclerosis of aorta 05/01/2025 Orders Only [facility] Surgery [address] [facility] 8th [place] [address] [place] [address] Alexus Butler MD Chronic mesenteric ischemia (Primary Dx); Atherosclerosis of aorta; Stenosis of right carotid artery; Aftercare following surgery of the circulatory system 04/09/2025 12:34 PM CDT Anesthesia Event [facility] Electrophysiology Lab [address] [place] [address] Samson Genao MD PhD Rosalind Shoemaker NP 04/09/2025 12:00 PM CDT - 04/09/2025 2:05 PM CDT Surgery [facility] Electrophysiology Lab [address] [place] [phone] Alexus Butler MD ANGIOGRAPHY-VISCERAL ART(S) S&I [id number] 04/08/2025 10:09 PM CDT - 04/12/2025 3:17 PM CDT Hospital Encounter [address] [phone] Armand Luke MD Serpe, MD Everton Garrido, MD Luke Acevedo John Westley, MD Abdominal pain (Primary Dx); Superior mesenteric artery stenosis; Chronic mesenteric ischemia; Peripheral vascular disease [I73.9]; Coronary artery disease involving [place] heart without angina pectoris, unspecified vessel or lesion type; Shock (HCC); Chronic HFrEF (heart failure with reduced ejection fraction) ([facility]) Discharge Disposition: Discharge to home or self care 03/26/2025 1:09 AM CDT - 03/26/2025 4:41 AM CDT Emergency [facility] Emergency Department [address] [place] [phone] Eric Olson MD Superior mesenteric artery atherosclerosis (Primary Dx); Weight loss; Weakness Discharge Disposition: Discharge to home or self care 03/13/2025 2:30 PM CDT Office Visit [facility] Vascular Surgery [address] [place] [address] Medical Office Building [address] [place] [phone] Alexus Butler MD Stenosis of right carotid artery (Primary Dx) 03/13/2025 1:00 PM CDT Ancillary Procedure [facility] Vascular Lab Vascular Surgery [address] [place] [address] [address] [facility] [place] [address] Bilateral carotid artery stenosis; Aftercare following surgery of the circulatory system 02/18/2025 Orders Only [facility] Surgery [address] [facility] 8th [place] [address] [place] [phone] Alexus Butler MD 02/12/2025 10:00 AM CDT Telemedicine [facility] Rheumatology [address] [facility] [address] [place] [phone] Dorothea Webb MD Chronic gout involving toe without tophus, unspecified cause, unspecified laterality (Primary Dx); Stage 3a chronic kidney disease (HCC); Cytopenia 02/12/2025 Orders Only [facility] Rheumatology [address] [facility] [address] [place] [address] Dorothea Webb MD from Last 3 Months Immunizations Immunization Administration Dates Next Due Influenza, Trivalent, High D ose, Split, Preservative Free, Intramuscular 08/28/2024 Moderna SARS-CoV-2 Monovalent Vaccination (12+ Y RS) 12/01/2020,11/03/2020 Surgical History Surgery Date Site/Laterality Comments CORONARY ARTERY BYPASS GRAFT CAROTID ENARTERECTOMYY Left ANGIOPLASTY / STENTING FEMORAL FEMORAL ARTERY - POPLITEAL A RTERY BYPASS GRAFT Left COLONOSCOPY HX OF POLYPS WISDOM TOOTH EXTRACTION CARDIAC CATHETERIZATION 04/09/2025 Abdomen/N/A Procedure: ANGIOGRAPHY-VISCERAL ART(S) S&I [id number]; Surgeon: Alexus Butler MD; Location: [facility] EP LAB; Service: Vascular; Laterality: N/A; Medical devices from this surgery are in the Medical Devices section. 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 CHF (congestive heart failure) (HCC) Mitral regurgitation Anxiety Carotid artery disease Depression Stroke (HCC) Cardiomyopathy Gout Chronic kidney disease Heart disease Family History Medical History Relation Name Comments Hypertension Brother Vasile Stroke Brother Vasile No Known Problems Father Heart attack Mother Hermella Hypertension Mother Hermella Stroke Mother Hermella Anesthesia problems Neg Hx Malig Hypertension Neg Hx Malig Hyperthermia Neg Hx Pseudochol deficiency Neg Hx Relation Name Status Comments Brother Vasile Father Mother Hermella Social History Tobacco Use Types Packs/Day Years Used Date Smoking Tobacco: Former Cigarettes 1.5 55 1 11/17/1966 - 09/16/2022 Passive Smoke Exposure: Past Smokeless Tobacco: Never Tobacco Cessation:Counseling Given: Not Answered Alcohol Use Standard Drinks/Week Comments Yes 0 (1 standard drink = 0.6 oz pur e alcohol) Rare [facility] Utilities Answer Date Recorded In the past 12 months has th e electric, gas, oil, or water company threatened to shut off services in your home? No 04/10/2025 Social Connection and Isolation Panel Answer Date Recorded In a typical week, how many times do you talk on the phone with family, friends, or neighbors? More than three times a week 04/10/2025 How often do you get togethe r with friends or relatives? More than three times a week 04/10/2025 How often do you attend chur ch or episcopalian services? Never 04/10/2025 Do you belong to any clubs o r organizations such as religious groups, unions, fraternal or athletic groups, or school groups? No 04/10/2025 How often do you attend meet ings of the clubs or organizations you belong to? Never 04/10/2025 Are you , , di vorced, , never , or living with a partner? 04/10/2025 AUDIT-C Answer Date Recorded Q1: How often do you have a drink containing alcohol? Never 01/16/2025 Q2: How many drinks containi ng alcohol do you have on a typical day when you are drinking? Patient does not drink Q3: How often do you have si x or more drinks on one occasion? Never 01/16/2025 Overall Financial Resource Strain (CARDIA) Answe r Date Recorded How hard is it for you to pa y for the very basics like food, housing, medical care, and heating? Not hard at all 04/10/2025 PHQ-2 Answer Date Recorded PHQ-2 Total Score 0 04/10/2025 Hunger Vital Sign Answer Date Recorded Within the past 12 months, y ou worried that your food would run out before you got the money to buy more. Never true 04/10/20 25 Within the past 12 months, t he food you bought just didn't last and you didn't have money to get more. Never true 04/10/2025 PRAPARE - Transportation Answer Date Re corded In the past 12 months, has l ack of transportation kept you from medical appointments or from getting medications? No 06/2025 In the past 12 months, has l ack of transportation kept you from meetings, work, or from getting things needed for daily living? No 04/10/2025 Housing Stability Vital Sign Answer Jairo e [...] place to sleep or slept in a chcf (including now)? No 11/28/2023 Housing Stability Vital Sign Answer Jairo e Recorded In the last 12 months, was t here a time when you were not able to pay the mortgage or rent on time? No 04/10/2025 In the past 12 months, how m any times have you moved where you were living? 0 04/10/2025 [facility] were you [facility] or living in a chcf (including now)? No 04/10/2025 Personal Safety Answer Date Recorded Have you ever been in or are you currently in a harmful physical or emotional relationship or is someone making you feel afraid or unsafe? Denies 04/12/2025 Sex and Gender Information Value Date Recorded Sex Assigned at Not on file Legal Sex Male 2:26 AM MEDICAL OR SURGICAL INSTRUMENT MAKER Gender Identity Male 05/11/2021 6:50 PM CDT Sexual Orientation Not on file Obstetrics History Last Filed Vital Signs Vital Sign Reading Time Taken Comments Blood Pressure 156/44 05/01/2025 10:18 AM CDT Pulse 61 05/01/2025 10:18 AM CDT Temperature 36.8 C (98.2 F) 04/12/2025 7:17 AM CDT Respiratory Rate 20 04/12/2025 11:26 AM CDT Oxygen Saturation 96% 05/01/2025 10:18 AM CDT Inhaled Oxygen Concentration - - Weight 55 kg (121 lb 3.2 oz) 05/01/2025 10:18 AM CDT Height 165.1 cm (5' 5) 05/01/2025 10:18 AM CDT Body Mass Index 20.17 05/01/2025 10:18 AM CDT Plan of Treatment Health Maintenance Due Date Last Done Comments Albumin Creatinine Ratio, Urine 1950 Colon Cancer Screening-Colonoscopy 1950 Hepatitis C Screening 1950 Dilated Eye Exam 1950 Foot Exam 1950 DTaP/Tdap/Td Vaccine (1 - Tdap) 1961 Hepatitis B Screening 1968 Pneumococcal vaccine 65+ (1 of 2 - PCV) 1969 Lung Cancer Screening 2000 Zoster Vaccine (1 of 2) 2000 Well Visit 65+ 2015 Covid-19 Vaccine (4 - 2023-2 5 season) 2024 08/07/2021, 12/01/2020, 11/03/2020 Influenza Vaccine (#1) 2025 , 08/05/2022, 08/24/2021 Hemoglobin A1C 10/10/2025 04/09/2025, 11/04, 12/16/2022, Additional history exists Lipid Panel 12/30/2025 12/30/2024, 12/01, 12/11/2021, Additional history exists Depression Screening 04/08/2026 04/08/2025 Fall Risk Assessment 04/12/2026 04/12/2025 eGFR 05/13/2026 05/13/2025, 04/02, 04/11/2025, Additional history exists Abdominal Aortic Aneurysm (A AA) Screen Completed 04/09/2025, 03/26/2025, 03/28/2020 Medical Devices Implanted Type Area Salicylic Acid Blender Device Identifier Shelf Expiration Date Model / Serial / Lot Loera Vascular Percutaneous Transcatheter Amplatzer Amulet 22mm [id number] - [id number] - [id number] Implanted:Qty: 1 on 11/23/2023 by Anuj Quinteros MD at [facility] Left Atrial Appendage Occluder N/A: Atrial Appendage [employer] 11/02/2027 [id number] / [id number] / [id number] Med[employer] X [id number] Resolute Milam 3mm 2.1-2.7fr 26mm 140cm Rapid Exchange Radiopaque - [id number] - [id number] Implanted:Qty: 1 on 03/18/2021 by Henry Becerril MD at [facility] Stent Medtronic Inc 08/28/2022 [id number] 0 [id number] / [id number] / [id number] [employer]onic [employer] X [id number] Resolute Milam 3mm 2.1-2.7fr 12mm 140cm Rapid Exchange Radiopaque - [id number] - [id number] Implanted:Qty: 1 on 03/18/2021 by Henry Becerril MD at [facility] Stent Medtronic Inc 11/26/2022 [id number] 0 [id number] / [id number] / [id number] Med[employer]onic [employer] X [id number] Resolute Milam 3mm 2.1-2.7fr 22mm 140cm Rapid Exchange Radiopaque - [id number] - [id number] Implanted:Qty: 1 on 04/02/2021 by Henry Becerril MD at [facility] Stent Medtronic Inc 12/05/2022 [id number] 0 [id number] / [id number] / [id number] [employer] Stent Graft Endoprosthesis Reduced Profile Straight Heparin Coated Viabahn [id number] - [id number] - [id number] Implanted:Qty: 1 on 04/09/2025 by Alexus Butler MD at [facility] Stent [employer] 01/24/2027 [id number] / [id number] / Loera V[employer] Device Clsr Perclose Prostyle Sut-Mediatd Closure-Repair Sys 39624-79 - [id number] - [id number] Implanted:Qty: 1 on 11/23/2023 by Anuj Quinteros MD at [facility] Vascular Closure Device [employer] 06/02/2025 [id number] / [id number] / [id number] [employer]era V[employer] Device Clsr Perclose Prostyle Sut-Mediatd Closure-Repair Sys 97942-29 - [id number] - [id number] Implanted:Qty: 1 on 11/23/2023 by Anuj Quinteros MD at [facility] Vascular Closure Device [employer] 08/02/2025 [id number] 3 / [id number] / [id number] [employer] Flex 9mm .078in 40mm 57cm Delivery System Angle Tip Sr-0940-[id number] - [id number] Implanted:Qty: 1 on 02/07/2025 by Alexus Butler MD at [facility] Right: [employer]ck [employer] [id number] 05/02/2027 SR-0940 -[id number] / / [id number] Procedures Procedure Name Priority Date/Time Associated Diagnosis Comments SPECIMEN STATUS REPORT Routine 05/13/2025 12:39 PM CDT BASIC METABOLIC PANEL Routine 05/13/2025 12:39 PM CDT US DUPLEX SCAN OF AORTA: INFERIOR VENA CAVA, ILIAC, COMPLETE Routine 05/01/2025 1:24 PM CDT Atherosclerosis of aorta CRITICAL CARE Routine 04/12/2025 11:01 AM CDT Superior mesenteric artery stenosis EGFR Routine 04/12/2025 10:17 AM CDT BASIC METABOLIC PANEL Routine 04/12/2025 10:17 AM CDT CRITICAL CARE Routine 04/11/2025 7:26 PM CDT Abdominal pain Superior mesenteric artery stenosis EGFR Routine 04/11/2025 6:56 PM CDT CALCIUM, IONIZED Routine 04/11/2025 6:56 PM CDT PHOSPHORUS Routine 04/11/2025 6:56 PM CDT MAGNESIUM Routine 04/11/2025 6:56 PM CDT BASIC METABOLIC PANEL Routine 04/11/2025 6:56 PM CDT CBC WITHOUT DIFFERENTIAL Routine 04/11/2025 6:56 PM CDT LACTATE, WHOLE BLOOD Timed 04/11/2025 5:40 PM CDT OXYHEMOGLOBIN, CENTRAL VENOUS Timed 04/11/2025 5:40 PM CDT LACTATE, WHOLE BLOOD Routine 04/11/2025 12:06 PM CDT OXYHEMOGLOBIN, CENTRAL VENOUS Routine 04/11/2025 12:06 PM CDT TRANSTHORACIC ECHO (TTE) COMPLETE W DOPPLER/CF W CONTRAST ED Urgent/IP Urgent 04/11/2025 11:35 AM CDT OXYHEMOGLOBIN, CENTRAL VENOUS Routine 04/11/2025 8:09 AM CDT CRITICAL CARE Routine 04/11/2025 6:15 AM CDT Abdominal pain TRANSFUSE RED BLOOD CELLS Timed 04/10/2025 9:17 PM CDT POCT GLUCOSE DEVICE Routine 04/10/2025 8 :43 PM CDT PREPARE RBC Timed 04/10/2025 7:46 PM CDT POCT GLUCOSE DEVICE Routine 04/10/2025 7 :19 PM CDT CRITICAL CARE Routine 04/10/2025 7:06 PM CDT Abdominal pain Superior mesenteric artery stenosis Shock (HCC) Chronic HFrEF (heart failure with reduced ejection fraction) ([facility]) ECG 12-LEAD STAT 04/10/2025 6:42 PM CDT EGFR Routine 04/10/2025 5:31 PM CDT PROTIME-INR Routine 04/10/2025 5:31 PM CDT PHOSPHORUS Routine 04/10/2025 5:31 PM CDT MAGNESIUM Routine 04/10/2025 5:31 PM CDT BASIC METABOLIC PANEL Routine 04/10/2025 5:31 PM CDT CBC WITHOUT DIFFERENTIAL Routine 04/10/2025 5:31 PM CDT TROPONIN I HIGH-SENSITIVITY Timed 04/10/2025 5:31 PM CDT OXYHEMOGLOBIN, CENTRAL VENOUS Routine 04/10/2025 4:27 PM CDT POCT GLUCOSE DEVICE Routine 04/10/2025 3 :13 PM CDT POCT GLUCOSE DEVICE Routine 04/10/2025 1 2:13 PM CDT TROPONIN I HIGH-SENSITIVITY Timed 04/10/2025 12:08 PM CDT RESPIRATORY PATHOGEN PANEL Routine 04/10/2025 10:02 AM CDT CRITICAL CARE Routine 04/10/2025 7:42 AM CDT Abdominal pain POCT GLUCOSE DEVICE Routine 04/10/2025 7 :22 AM CDT TROPONIN I HIGH-SENSITIVITY Timed 04/10/2025 5:42 AM CDT POCT GLUCOSE DEVICE Routine 04/10/2025 3 :40 AM CDT POCT GLUCOSE DEVICE Routine 04/09/2025 1 1:26 PM CDT TROPONIN I HIGH-SENSITIVITY 6-HOUR Timed 04/09/2025 10:55 PM CDT LACTATE Timed 04/09/2025 10:46 PM CDT OXYHEMOGLOBIN, CENTRAL VENOUS Timed 04/09/2025 10:46 PM CDT POC BLOOD GAS AND CHEMISTRIES, ARTERIAL Routine 04/09/2025 10:35 PM CDT XR CHEST 1 VIEW ED Urgent/IP Urgent 04/09/2025 9:44 PM CDT ECG 12-LEAD STAT 04/09/2025 9:25 PM CDT TROPONIN I HIGH-SENSITIVITY 4-HOUR Timed 04/09/2025 9:11 PM CDT LEGIONELLA ANTIGEN, URINE Routine 04/09/2025 9:11 PM CDT INFECTION PREVENTION MRSA ONLY (STAPHYLOCOCCUS AUREUS) CULTURE Routine 04/09/2025 9:08 PM CDT EGFR Routine 04/09/2025 8:29 PM CDT CRITICAL RESULT CALLBACK CHEMISTRY Routine 04/09/2025 8:29 PM CDT LACTATE Routine 04/09/2025 8:29 PM CDT OXYHEMOGLOBIN, CENTRAL VENOUS Routine 04/09/2025 8:29 PM CDT HEMOGLOBIN A1C Routine 04/09/2025 8:29 PM CDT PROTIME-INR Routine 04/09/2025 8:29 PM CDT PHOSPHORUS Routine 04/09/2025 8:29 PM CDT MAGNESIUM Routine 04/09/2025 8:29 PM CDT BASIC METABOLIC PANEL Routine 04/09/2025 8:29 PM CDT CBC WITHOUT DIFFERENTIAL Routine 04/09/2025 8:29 PM CDT BLOOD CULTURE Routine 04/09/2025 8:28 PM CDT MA INSJ NON-TUNNELED CENTRAL VENOUS CATH AGE 5 YR/> Routine 04/09/2025 8:23 PM CDT Coronary artery disease involving [place] heart without angina pectoris, unspecified vessel or lesion type BLOOD CULTURE Routine 04/09/2025 8:18 PM CDT POCT GLUCOSE DEVICE Routine 04/09/2025 7 :07 PM CDT CRITICAL RESULT CALLBACK CARDIO CHEM Timed 04/09/2025 7:05 PM CDT TROPONIN I HIGH-SENSITIVITY 2-HOUR Timed 04/09/2025 7:05 PM CDT CRITICAL CARE Routine 04/09/2025 6:52 PM CDT Abdominal pain Superior mesenteric artery stenosis Shock (HCC) BLOOD GAS, ARTERIAL Routine 04/09/2025 5 :47 PM CDT POCT GLUCOSE DEVICE Routine 04/09/2025 5 :37 PM CDT PRO B-TYPE NATRIURETIC PEPTIDE STAT 04/09/2025 5:02 PM CDT EGFR STAT 04/09/2025 5:02 PM CDT TROPONIN I HIGH-SENSITIVITY SERIES (BASELINE, 2HR, 4HR, 6HR) Routine 04/09/2025 5:02 PM CDT PROTIME-INR STAT 04/09/2025 5:02 PM CDT APTT STAT 04/09/2025 5:02 PM CDT TYPE AND SCREEN Timed 04/09/2025 5:02 PM CDT CBC WITHOUT DIFFERENTIAL STAT 04/09/2025 5:02 PM CDT CALCIUM, IONIZED STAT 04/09/2025 5:02 PM CDT PHOSPHORUS STAT 04/09/2025 5:02 PM CDT MAGNESIUM STAT 04/09/2025 5:02 PM CDT COMPREHENSIVE METABOLIC PANEL STAT 04/09/2025 5:02 PM CDT CRITICAL CARE Routine 04/09/2025 4:56 PM CDT ECG 12-LEAD STAT 04/09/2025 4:46 PM CDT POC BLOOD GAS AND CHEMISTRIES, ARTERIAL Routine 04/09/2025 3:52 PM CDT POCT ACTIVATED CLOTTING TIME, LOW RANGE Routine 04/09/2025 3:08 PM CDT ANGIOGRAPHY-VISCERAL ART(S) S&I 81008 Routine 04/09/2025 3:07 PM CDT Chronic mesenteric ischemia POC BLOOD GAS AND CHEMISTRIES, ARTERIAL Routine 04/09/2025 2:41 PM CDT POCT ACTIVATED CLOTTING TIME, LOW RANGE Routine 04/09/2025 2:40 PM CDT POCT ACTIVATED CLOTTING TIME, LOW RANGE Routine 04/09/2025 2:29 PM CDT MA AN PROCEDURE PLACEHOLDER Routine 04/09/2025 2:21 PM CDT MA AN PROCEDURE PLACEHOLDER Routine 04/09/2025 2:20 PM CDT MA AN PROCEDURE PLACEHOLDER Routine 04/09/2025 2:20 PM CDT MA AN ELECTIVE ENDOTRACHEAL AIRWAY Routine 04/09/2025 2:20 PM CDT POCT ACTIVATED CLOTTING TIME, LOW RANGE Routine 04/09/2025 2:10 PM CDT POCT ACTIVATED CLOTTING TIME, LOW RANGE Routine 04/09/2025 2:01 PM CDT CTA ABDOMEN PELVIS W WO CONTRAST ED 04/09/2025 5:20 AM CDT TROPONIN I HIGH-SENSITIVITY 6-HOUR Timed 04/09/2025 4:42 AM CDT TROPONIN I HIGH-SENSITIVITY 4-HOUR Timed 04/09/2025 2:51 AM CDT TROPONIN I HIGH-SENSITIVITY 2-HOUR Timed 04/09/2025 12:57 AM CDT EGFR STAT 04/08/2025 10:46 PM CDT DIFFERENTIAL AUTO STAT 04/08/2025 10: 46 PM CDT PRO B-TYPE NATRIURETIC PEPTIDE STAT 04/08/2025 10:46 PM CDT SEPSIS LACTATE WITH REFLEX STAT 04/08/2025 10:46 PM CDT TYPE AND SCREEN STAT 04/08/2025 10:46 PM CDT TROPONIN I HIGH-SENSITIVITY SERIES (BASELINE, 2HR, 4HR, 6HR) STAT 04/08/2025 10:46 PM CDT PROTIME-INR STAT 04/08/2025 10:46 PM CDT APTT STAT 04/08/2025 10:46 PM CDT COMPREHENSIVE METABOLIC PANEL STAT 04/08/2025 10:46 PM CDT CBC WITH AUTO DIFFERENTIAL STAT 04/08/2025 10:46 PM CDT ECG 12-LEAD STAT 04/08/2025 8:54 PM CDT SEPSIS LACTATE WITH REFLEX STAT 03/26/2025 4:10 AM CDT URINALYSIS AND REFLEX TO MICROSCOPIC STAT 03/26/2025 4:[address] CHEST ABDOMEN PELVIS W CONTRAST ED 03/26/2025 2:22 AM CDT TROPONIN I HIGH-SENSITIVITY 2-HOUR Timed 03/26/2025 12:15 AM CDT ECG 12-LEAD Routine 03/25/2025 10:28 PM CDT PRO B-TYPE NATRIURETIC PEPTIDE STAT 03/25/2025 10:17 PM CDT EGFR STAT 03/25/2025 10:17 PM CDT DIFFERENTIAL AUTO STAT 03/25/2025 10: 17 PM CDT TROPONIN I HIGH-SENSITIVITY SERIES (BASELINE, 2HR, 4HR, 6HR) STAT 03/25/2025 10:17 PM CDT LIPASE STAT 03/25/2025 10:17 PM CDT COMPREHENSIVE METABOLIC PANEL STAT 03/25/2025 10:17 PM CDT CBC WITH AUTO DIFFERENTIAL STAT 03/25/2025 10:17 PM CDT US CAROTIDS DUPLEX BILATERAL Schedule Routine, Read Routine (OP Routine) 03/13/2025 1:09 PM CDT Bilateral carotid artery stenosis Aftercare following surgery of the circulatory system LIPID PANEL Timed 12/30/2024 11:28 PM CDT from Last 3 Months or Most Recently Relevant to Health Maintenance Results * Specimen Status Report (05/13/2025 12:39 PM CDT) Specimen Status Report Comment [facility] - 01 Comment: Maldonado Parekh BMP8 Default Maldonado Parekh BMP8 Default A hand-written panel/profile was received from your office. In accordance with the [facility] Ambiguous Test Code Policy dated April 2003, we have completed your order by using the closest currently or formerly recognized AMA panel. We have assigned Basic Metabolic Panel (8), Test Code #974314 to this request. If this is not the testing you wished to receive on this specimen, please contact [facility] to clarify the test order. We appreciate your business. 05/13/2025 12:3 9 PM CDT 05/13/2025 Narrative [facility] - 05/14/2025 7:09 AM CDT Performed at: [address] [place] [id number] Fittings Tightener: Alex Gurrola PhD, Phone: [phone] us Henry Becerril MD LAB BLOOD ORDERABLES Final Res ult [facility] - * (ABNORMAL) Basic metabolic panel (05/13/2025 12:39 PM CDT) Glucose 101(H) 70 - 99 mg/dL [facility] - 01 BUN 64(H) 8 - 27 mg/dL [facility] - 01 Creatinine, Serum 1.41(H) 0.76 - 1.27 mg/dL [facility] - 01 eGFR 52(L) >59 mL/min/1.7 3 [facility] - 01 BUN/creat ratio 45(H) 10 - 24 [facility] - 01 Sodium 141 134 - 144 mmol/L [facility] - 01 Potassium, sr 4.7 3.5 - 5.2 mmol/L [facility] - 01 Chloride 104 96 - 106 mmol/L [facility] - 01 CO2 20 20 - 29 mmol/L [facility] - 01 Calcium 9.8 8.6 - 10.2 mg/dL [facility] - 01 05/13/2025 12:3 9 PM CDT 05/13/2025 Narrative [facility] - 05/14/2025 7:09 AM CDT Performed at: [address] [place], [place] [address], [place], [place] [id number] Fittings Tightener: Alex Gurrola PhD, Phone: [phone] us Henry Becerril MD LAB BLOOD ORDERABLES Final Res ult [facility] - 01 * US Duplex Scan of Aorta; Inferior Vena Cava, Iliac, Complete (05/01/2025 1:24 PM CDT) Anatomical Region Laterality Modality Vascular Ultrasound 05/01/2025 9:38 AM CDT Narrative 05/01/2025 1:59 PM CDT [facility] - Department of Vascular Surgery, Vascular Laboratory [address] [place] [address] Mesenteric Artery Duplex Ultrasound Report Patient Name: FAVIO NGUYEN : 1950 (74y 11m) Study Date: 05/01/2025 9:38:48 AM Gender: M Tech: BAD [facility] Provider: ALEXUS BUTLER Quality: Adequate Order Provider: ALEXUS BUTLER PROCEDURES: Arterial Report: Duplex ultrasound imaging of the mesenteric arteries was performed to determine absence or presence of stenosis, aneurysm, stent placement or other pathological conditions. Patient was NPO over 8 hours. INDICATIONS: I70.0 Atherosclerosis of aorta. MEASUREMENTS: Velocities Value Units Aorta Prx D 1.9 cm Aorta Mid D 1.8 cm Aorta Dist D 1.7 cm Aorta Dst PSV 84 cm/sec SMA Prx PSV 272 cm/sec SMA Prx EDV 37 cm/sec SMA Mid PSV 218 cm/sec SMA Mid EDV 61 cm/sec SMA Dst PSV 62 cm/sec SMA Dst EDV 18 cm/sec Velocities Value Units FINDINGS: Performing Engrosser: Yoli Mueller RVT. Comments: PATENT SMA STENT WITH NO STENOSIS. 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 Stent flow is distributed via multiple collaterals bypassing occluded segment and flow re-routed distally into distal segment of SMA (diminished flow). Multiple collaterals noted александр-aorta area distal to the SMA stent: SMA stent is patent but the flow becomes diminished distally to the stent. Provider Notification: Results called on the above date to Fe Butler MD. The patient was sent to clinic per provider request. CONCLUSIONS: 1. SMA stent is patent- no intra-stent stenosis. Distal SMA flow is diminished. 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 Distal SMA branches are patent with diminished flow. HISTORY: 04/09/25 Left common iliac artery angioplasty and drug coated angioplasty Superior mesenteric artery angioplasty and stent placement - PREVIOUS STUDIES: No previous studies for comparison. DISCLAIMER: The study images and the final report will be retained in the patient chart by the Vascular Laboratory for the legally required time period. This chart constitutes the legal record of any testing performed. ATTESTATION: I have reviewed and interpreted the pertinent images and measurements of this study. I attest to the conclusions in the final report that is provided above. Electronically Signed By: Julio C Cancino MD [facility] [phone] 05/01/2025 12:49:42 PM CDT Procedure Note Julio C Cancino MD - 05/01/2025 [facility] - Department of Vascular Surgery,Vascular Laboratory [address] [place] [address] Mesenteric Artery Duplex Ultrasound Report Patient Name: FAVIO NGUYEN : 1950 (74y 11m) Study Date: 05/01/2025 9:38:48 AM Gender: M Tech: BAD Location: [facility] Ref Provider: ALEXUS BUTLER Quality: Adequate Order Provider: ALEXUS BUTLER PROCEDURES: Arterial Report: Duplex ultrasound imaging of the mesenteric arteries was performed todetermine absence or presence of stenosis, aneurysm, stent placement or other pathologicalconditions. Patient was NPO over 8 hours. INDICATIONS: I70.0 Atherosclerosis of aorta. MEASUREMENTS: Velocities Value Units Aorta Prx D 1.9 cm Aorta Mid D 1.8 cm Aorta Dist D 1.7 cm Aorta Dst PSV 84 cm/sec SMA Prx PSV 272 cm/sec SMA Prx EDV 37 cm/sec SMA Mid PSV 218 cm/sec SMA Mid EDV 61 cm/sec SMA Dst PSV 62 cm/sec SMA Dst EDV 18 cm/sec Velocities Value Units FINDINGS: Performing Engrosser: Yoli Mueller RVT. Comments: PATENT SMA STENT WITH NO STENOSIS. There is evidence of focal segment of mid [place] SMA occlusion distal tothe stent. Stent flow is distributed via multiple collaterals bypassing occluded segmentand flow re-routed distally into distal segment of SMA (diminished flow). Multiple collaterals noted александр-aorta area distal to the SMA stent: SMAstent is patent but the flow becomes diminished distally to the stent. Provider Notification: Results called on the above date to Fe Butler MD. The patient wassent to clinic per provider request. CONCLUSIONS: 1. SMA stent is patent- no intra-stent stenosis. Distal SMA flow isdiminished. Based on obtained images and significant collateralization immediately distal tothe SMA stent placement there is evidence of focal mid SMA occlusion (distal to thestent). Distal SMA branches are patent with diminished flow. HISTORY: 04/09/25 Left common iliac artery angioplasty and drug coated angioplasty Superior mesenteric artery angioplasty and stent placement - PREVIOUS STUDIES: No previous studies for comparison. DISCLAIMER: The study images and the final report will be retained in the patientchart by the Vascular Laboratory for the legally required time period. This chartconstitutes the legal record of any testing performed. ATTESTATION: I have reviewed and interpreted the pertinent images and measurements ofthis study. I attest to the conclusions in the final report that is provided above. Electronically Signed By: Julio C Cancino MD [facility] [phone] 05/01/2025 12:49:42 PM CDT Alexus Butler MD [facility] PROCEDURES Final Re sult * Critical Care (04/12/2025 11:01 AM CDT) Narrative Betty Ngo MD - 04/12/2025 11:01 AM CDT Betty Ngo MD 04/12/2025 4:44 PM Critical Care Performed by: Patel Diaz NP Authorized by: Patel Diaz NP CRITICAL CARE: Team: SICU BLUE Shift: AM Level of Billing: Subsequent Hospital Visit Level 3 My time spent with this patient was 60 minutes: Critical Provider Statement: I have seen and examined the patient on this day of service. I have reviewed and confirmed the history, physical exam, laboratory, and radiographic data as documented in the ICU note. I have reviewed and discussed my treatment plan with the patient's team and other medical/design consultant staff. This time was in addition to and separate from care provided by other practitioners on this day of service. Patel Diaz NP IN CLINIC/BEDS DEVIN ORDERABLES Final Result * (ABNORMAL) eGFR (04/12/2025 10:17 AM CDT) eGFR 55(L) >=60 mL/min/1. 73 m2 Comment: Interpretive Data Reference Interval Normal >/= 90 mL/min/1.73m2 Mildly decreased* 60 - 89 mL/min/1.73m2 Mildly to moderately decreased 45 - 59 mL/min/1.73m2 Moderately to severely decreased 30 - 44 mL/min/1.73m2 Severely decreased 15 - 29 mL/min/1.73m2 Kidney Failure < 15 mL/min/1.73m2 *Relative to young adult level Estimated glomerular filtration rate is determined by the 2020 CKD-EPI equation recommended by the National Kidney Foundation (A Unifying Approach to GFR Estimation: Recommendations of the NKF-ASK Task Force on Reassessing the Inclusion of Race in Diagnosing Kidney Disease, JASN 2020). The CKD-EPI equation should not be used for patients with unstable renal function and has not been validated in children and those over 70. Current interpretive data was last reviewed 2021. Blood 04/12/2025 10:1 7 AM CDT 04/12/2025 10:29 AM CDT Patel Diaz NP LAB BLOOD RADHA GARZA Final Result [facility] Department [place] [address] * (ABNORMAL) Basic metabolic panel (04/12/2025 10:17 AM CDT) Pathologist [facility] Sodium 139 135 - 145 mmol/L Potassium, pl 4.4 3.3 - 4.9 mmol/L [facility] Chloride 110 97 - 110 mmol/L [facility] CO2 22 22 - 32 mmol/L [facility] Anion gap 7 2 - 15 mmol/L [facility] BUN 42(H) 6 - 25 mg/dL [facility] Creatinine 1.36(H) 0.80 - 1.30 mg/dL [facility] Glucose 85 70 - 199 mg/dL [facility] Comment: Interpretive Data Fasting glucose >/= 126 mg/dl is diagnostic for diabetes. Fasting is defined as no caloric intake for at least 8 hours. Fasting glucose between 100 mg/dl to 125 mg/dl is diagnostic of prediabetes. In a patient with classic symptoms of hyperglycemia or hyperglycemic crisis, a random glucose >/= 200 mg/dl is diagnostic for diabetes. In the absence of unequivocal hyperglycemia, results should be confirmed by repeat testing. The classification and Diagnosis of Diabetes Diabetes Care 202; 46: S19-S40. Current interpretive data was last revised 2022. Calcium 7.4(L) 8.5 - 10.3 mg/dL [facility] Blood 04/12/2025 10:1 7 AM CDT 04/12/2025 10:29 AM CDT Patel Diaz NP LAB BLOOD BRITNEYDarwin KAYLA Final Result [facility] Department [place] [address] * Critical Care (04/11/2025 7:26 PM CDT) Narrative Bacilio Stacy MD - 04/11/2025 7:26 PM CDT Bacilio Stacy MD 04/12/2025 6:23 AM Critical Care Performed by: Artie Larios PA Authorized by: Artie Larios PA CRITICAL CARE: Team: SICU BLUE Shift: PM Level of Billing: Subsequent Hospital Visit Level 3 My time spent with this patient was 60 minutes: Critical Provider Statement: I have seen and examined the patient on this day of service. I have reviewed and confirmed the history, physical exam, laboratory, and radiographic data as documented in the ICU note. I have reviewed and discussed my treatment plan with the patient's team and other medical/design consultant staff. This time was in addition to and separate from care provided by other practitioners on this day of service. us Artie BOSS IN CLINIC/BEDSIDE ORDERABL ES Final Result * (ABNORMAL) eGFR (04/11/2025 6:56 PM CDT) eGFR 51(L) >=60 mL/min/1. 73 m2 Comment: Interpretive Data Reference Interval Normal >/= 90 mL/min/1.73m2 Mildly decreased* 60 - 89 mL/min/1.73m2 Mildly to moderately decreased 45 - 59 mL/min/1.73m2 Moderately to severely decreased 30 - 44 mL/min/1.73m2 Severely decreased 15 - 29 mL/min/1.73m2 Kidney Failure < 15 mL/min/1.73m2 *Relative to young adult level Estimated glomerular filtration rate is determined by the 2020 CKD-EPI equation recommended by the National Kidney Foundation (A Unifying Approach to GFR Estimation: Recommendations of the NKF-ASK Task Force on Reassessing the Inclusion of Race in Diagnosing Kidney Disease, JASN 2020). The CKD-EPI equation should not be used for patients with unstable renal function and has not been validated in children and those over 70. Current interpretive data was last reviewed 2021. Blood 04/11/2025 6:56 PM CDT 04/11/2025 7:15 PM CDT Kai Toscano MD LAB BLOOD ORDERABLES Fin al Result [facility] Department [place] [address] * (ABNORMAL) Calcium, ionized (04/11/2025 6:56 PM CDT) Calcium, Ionized 4.45(L) 4.50 - 5.10 mg/dL Blood 04/11/2025 6:56 PM CDT 04/11/2025 7:07 PM CDT Artie BOSS LAB BLOOD ORDERABLES Final Result [facility] Department [place] [address] * (ABNORMAL) CBC without differential (04/11/2025 6:56 PM CDT) [facility] WBC 7.18 3.80 - 9.90 K/cumm Hgb 8.9(L) 13.0 - 17.5 g/dL [facility] Hct 28.3(L) 38.9 - 50.3 % [facility] Plt 71(L) 150 - 400 K/cumm [facility] MPV Not Measured 9.1 - 12.3 fL [facility] RBC 3.23(L) 4.30 - 5.80 M/cumm [facility] MCV 87.6 81.3 - 96.4 fL [facility] MCH 27.6 27.1 - 33.3 pg [facility] MCHC 31.4(L) 32.3 - 35.7 g/dL [facility] RDW CV 17.6(H) 11.1 - 14.9 % [facility] RDW SD 55.6(H) 35.7 - 48.1 fL [facility] NRBC abs 0.00 0.00 - 0.01 K/cumm [facility] Blood 04/11/2025 6:56 PM CDT 04/11/2025 7:12 PM CDT Kai Toscano MD LAB BLOOD ORDERABLES Fin al Result Performing Organization Address City/[facility] de Phone Number [facility] Department [place] [address] * (ABNORMAL) Phosphorus (04/11/2025 6:56 PM CDT) [facility] Phosphorus, pl 1.9(L) 2.3 - 4.5 mg/dL Blood 04/11/2025 6:56 PM CDT 04/11/2025 7:15 PM CDT Kai Toscano MD LAB BLOOD ORDERABLES Fin al Result [facility] [place] [address] * Magnesium (04/11/2025 6:56 PM CDT) [facility] Magnesium 2.5 1.4 - 2.5 mg/dL Blood 04/11/2025 6:56 PM CDT 04/11/2025 7:15 PM CDT Kai Toscano MD LAB BLOOD ORDERABLES Fin al Result Performing Organization Address [facility] Co de Phone Number [facility] [place] [address] * (ABNORMAL) Basic metabolic panel (04/11/2025 6:56 PM CDT) [facility] Sodium 138 135 - 145 mmol/L Potassium, pl 4.9 3.3 - 4.9 mmol/L [facility] Chloride 109 97 - 110 mmol/L [facility] CO2 23 22 - 32 mmol/L [facility] Anion gap 6 2 - 15 mmol/L [facility] BUN 44(H) 6 - 25 mg/dL [facility] Creatinine 1.45(H) 0.80 - 1.30 mg/dL [facility] Glucose 112 70 - 199 mg/dL [facility] Comment: Interpretive Data Fasting glucose >/= 126 mg/dl is diagnostic for diabetes. Fasting is defined as no caloric intake for at least 8 hours. Fasting glucose between 100 mg/dl to 125 mg/dl is diagnostic of prediabetes. In a patient with classic symptoms of hyperglycemia or hyperglycemic crisis, a random glucose >/= 200 mg/dl is diagnostic for diabetes. In the absence of unequivocal hyperglycemia, results should be confirmed by repeat testing. The classification and Diagnosis of Diabetes Diabetes Care 2021; 46: S19-S40. Current interpretive data was last revised 2022. Calcium 7.9(L) 8.5 - 10.3 mg/dL [facility] Blood 04/11/2025 6:56 PM CDT 04/11/2025 7:15 PM CDT us Kia Toscano MD LAB BLOOD ORDERABLES Fin al Result Performing Organization Address [facility] Co de Phone Number [facility] [place] [address] * Oxyhemoglobin, central venous (04/11/2025 5:40 PM CDT) Oxyhemoglobin, CV 66.8 % Comment: Interpretive Data No reference range established. Current interpretive data was last revised 2019. Blood 04/11/2025 5:40 PM CDT 04/11/2025 5:55 PM CDT us Majo Park NP LAB BLOOD ORDERABLES Final Result Performing Organization Address [facility] de Phone Number [facility] [place] [address] * Lactate, whole blood (04/11/2025 5:40 PM CDT) Lactate, bld 1.2 0.7 - 2.0 mmol/L Blood 04/11/2025 5:40 PM CDT 04/11/2025 5:55 PM CDT us Alexus Butler MD LAB BLOOD ORDERABLES Final Result Performing Organization Address [facility] Co de Phone Number [facility] [place] [address] * Oxyhemoglobin, central venous (04/11/2025 12:06 PM CDT) Oxyhemoglobin, CV 67.3 % Comment: Interpretive Data No reference range established. Current interpretive data was last revised 2019. Blood 04/11/2025 12:0 6 PM CDT 04/11/2025 12:39 PM CDT us Yes Leni Park TEASEL GIG OPERATOR LAB BLOOD ORDERABLES Final Result Performing Organization Address City/[facility]/ZIP Co de Phone Number [facility] [place] [address] * Lactate, whole blood (04/11/2025 12:06 PM CDT) Lactate, bld 1.4 0.7 - 2.0 mmol/L Blood 04/11/2025 12:0 6 PM CDT 04/11/2025 12:39 PM CDT us Yes Leni Park TEASEL GIG OPERATOR LAB BLOOD ORDERABLES Final Result Performing Organization Address [facility] de Phone Number FABRICIO [facility] [place] [address] * TRANSTHORACIC ECHO (TTE) COMPLETE W DOPPLER/CF W CONTRAST (04/11/2025 11:35 AM CDT) Pathologist [facility] EF Mod BP 38 % CONS SCIMAGE Anatomical Region Laterality Modality Ultrasound 04/11/2025 10:4 4 AM CDT Narrative 04/11/2025 4:50 PM CDT [facility] [place] [address] Transthoracic Echocardiographic Report Patient Name: FAVIO NGUYEN R : 1950 (74y 11m) Gender: M Study Date: 04/11/2025 10:44:53 AM Ht(Inch): 65 Wt(Lb): 113.1 BSA: 1.53 Engrosser: Sneha Kan RDCS Location: [id number] Order Provider: MAJO PARK Heart Rate: 67 BMI: 18.82 BP: 122 / 34 Ref Provider: MAJO PARK Fellow: Melissa Cehrry MD PROCEDURES: Echocardiographic Report: Transthoracic complete echo with strain imaging and contrast, 2D, spectral and tissue Doppler, color flow Doppler, M-mode. Contrast: Contrast Enhancement was Employed: After initial imaging due to sub- optimal quality related to co-morbidity defined by patient's body habitus and due to suboptimal image quality with inadequate visualization of at least 2 of 16 LV wall segments in any view after initial imaging. Perflutren contrast was administered using the volume necessary to obtain adequate images. 0.9 ml Optison Administered, (2.1 ml wasted). INDICATIONS: Heart failure. CONCLUSIONS: 1. Mildly dilated left ventricle based on 2D measurements. Severely dilated left ventricle based on volume index. Eccentric LV hypertrophy. Moderately depressed left ventricular systolic function. The Ejection Fraction (Knutson's) is measured at 38 %. Left ventricular diastolic function is indeterminate due to the presence of atrial fibrillation during the study. The average global longitudinal strain is abnormal. The ventricular septum is flattened or `D-shaped` in diastole, consistent with right ventricular volume overload. 2. Resting Segmental Wall Motion Analysis: Total wall motion score is 1.88. There is akinesis of the basal to mid inferior wall. There is akinesis of the basal to mid inferoseptal wall. There is akinesis of the basal anteroseptal wall. There is hypokinesis of the basal to mid anterolateral wall. There is hypokinesis of the entire inferolateral wall. There is hypokinesis of the mid anteroseptal wall. The remaining left ventricular segments demonstrate normal wall motion. 3. Right ventricular dilatation. 4. Mild mitral valve regurgitation. 5. Severe tricuspid regurgitation. 6. No pericardial effusion. 7. The IVC was <2.1 cm and collapsibility <50%. (est. RA pressure 6-10 mmHg). 8. PHTN with Estimated PASP is : 51+RAp mmHg. COMPARISONS: Compared with prior study, (12/31/24), Increase in LVSF, and similar to small increase in degre of TR. ATTESTATION: I have personally reviewed this study with a fellow in a teaching setting and attest to the findings and conclusions. - DISCLAIMER: The study images and the final report will be retained in the patient chart by the Echo Laboratory for the legally required time period. This chart constitutes the legal record of any testing performed. FINDINGS: Left Ventricle: Mildly dilated left ventricle based on 2D measurements. Severely dilated left ventricle based on volume index. Eccentric LV hypertrophy. Moderately depressed left ventricular systolic function. The Ejection Fraction (Knutson's) is measured at 38 %. Left ventricular diastolic function is indeterminate due to the presence of atrial fibrillation during the study. The average global longitudinal strain is abnormal. The LV global strain is: -11.5 %. The ventricular septum is flattened or `D-shaped` in diastole, consistent with right ventricular volume overload. Resting Segmental Wall Motion Analysis: Total wall motion score is 1.88. There is akinesis of the basal to mid inferior wall. There is akinesis of the basal to mid inferoseptal wall. There is akinesis of the basal anteroseptal wall. There is hypokinesis of the basal to mid anterolateral wall. There is hypokinesis of the entire inferolateral wall. There is hypokinesis of the mid anteroseptal wall. The remaining left ventricular segments demonstrate normal wall motion. Right Ventricle: Right ventricular dilatation. Visually, low normal to mild RV hypokiensis. Left Atrium: Severely dilated left atrium. Right Atrium: Right atrial dilatation. Atrial Septum: Normal interatrial septum. Mitral Valve: Normal mitral valve structure. Mild mitral valve regurgitation. No stenosis present. Aortic Valve: Trileaflet aortic valve. No aortic regurgitation. No aortic valve stenosis. The mean transaortic gradient is 4 mmHg. The aortic valve area by the continuity equation (using VTI) is 1.94 cm2. Aortic valve dimensionless index is 0.79. Tricuspid Valve: Severe tricuspid regurgitation. Systolic flow reversal noted in hepatic veins. No tricuspid valve stenosis. Malcoaptation of TV leaflets. Pulmonic Valve: Normal pulmonic valve structure. Trace to mild pulmonic regurgitation. No pulmonic valve stenosis present. Decreased PV acceleration time (84 ms) consistent with pulmonary HTN. Pericardium: No pericardial effusion. Aorta: Normal aortic root. Normal aortic root size at sinuses of Valsalva. Dilation of the aortic root when indexed. Dilation of the ascending aorta when indexed. IVC: IVC is normal in size. The IVC was <2.1 cm and collapsibility <50%. (est. RA pressure 6-10 mmHg). PASP: The Estimated PASP is : 51+RAp mmHg. Estimated pulmonary artery systolic pressure is consistent with moderate pulmonary hypertension (50-70mmHg). Rhythm: The rhythm during the study was atrial fibrillation. MEASUREMENTS: 2D/MM Value Range Doppler Value Range LVIDd 2D 5.82 cm [ 4.20 - 5.80 ] AV Peak Ramos 1.3 m/s [ 1.0 - 1.7 ] LVIDs 2D 4.77 cm [ 2.50 - 4.00 ] AV Peak PG 6.76 mmHg IVSd 2D 1.10 cm [ 0.60 - 1.00 ] AV Mean PG 4 mmHg LVPWd 2D 0.92 cm [ 0.60 - 1.00 ] AV VTI 30.1 cm LV Thickness Ratio 1.2 LVOT Peak Ramos 1.1 m/s [ 0.7 - 1.1 ] LV FS 2D 12.13 % [ 25.00 - 43.00 ] LVOT Peak PG 4.84 mmHg LV Mass 2D 243.82 g LVOT Mean PG 3 mmHg LV Mass Index 2D 159.36 g/m2 LVOT VTI 23.7 cm RWT 0.32 LVOT Diam 1.77 cm EDV Mod BP 155.65 ml [ 62.00 - 150.00 ] JANN VTI 1.94 cm2 LV EDV Index 101.73 ml/m2 LVOT/AV VTI 0.79 - Dimensionless index (DVI) ESV Mod BP 96.11 ml [ 21.00 - 61.00 ] MV E Peak Ramos 1.1 m/s [ 0.6 - 1.3 ] EF Mod BP 38 % [ 52 - 72 ] MV A Peak Ramos 0.3 m/s [ 1.0 - 1.2 ] LV GLS -11.5 % [ -25.0 - -18.0 ] MV E/A 4.3 ratio [ 0.8 - 1.5 ] LA Length 4C 6.46 cm MV Decel Time 206.01 msec [ 104.00 - 258.00 ] LA Length 2C 6.14 cm Med E` Ramos 4.4 cm/sec [ 8.0 - 25.0 ] LA Volume BP 74.24 ml Lat E` Ramos 6.8 cm/sec [ 10.0 - 25.0 ] LA Volume Index 48.52 ml/m2 [ 16.00 - 34.00 ] Average E/E` 19.64 RV Base Dimen 2D 5.8 cm [ 2.5 - 4.2 ] RV S` 4.04 cm/sec RA Volume 68.01 ml TR Peak Ramos 3.6 m/s [ 1.0 - 2.8 ] RA Volume Index 44.45 ml/m2 TR Peak PG 51.8 mmHg IVC Diam 1.96 cm PV Peak Ramos 1.1 m/s [ 0.4 - 0.8 ] AoR Diam 2D 3.14 cm [ 3.10 - 3.70 ] PV Peak PG 4.84 mmHg Ao Root Index 2.05 cm/m2 [ 1.00 - 2.00 ] Asc Ao Diam 2D 3.26 cm Asc Ao Index 2.13 cm/m2 Electronically Signed By: Marcella Medley M.D. 04/11/2025 4:49:40 PM CDT Procedure Note Marcella Medley MD - 04/11/2025 [facility] [place] [address] Transthoracic Echocardiographic Report Patient Name: FAVIO NGUYEN R : 1950 (74y 11m) Gender: M Study Date: 04/11/2025 10:44:53 AM Ht(Inch): 65 Wt(Lb): 113.1 BSA: 1.53 Engrosser: Sneha Kan RDCS Location: [place] [address] Order Provider:MAJO PARK Heart Rate: 67 BMI: 18.82 BP: 122 / 34 Ref Provider: MAJO PARK Fellow: Melissa Cherry MD PROCEDURES: Echocardiographic Report: Transthoracic complete echo with strain imagingand contrast, 2D, spectral and tissue Doppler, color flow Doppler, M-mode. Contrast: Contrast Enhancement was Employed: After initial imaging due tosub- optimal quality related to co-morbidity defined by patient's body habitus and dueto suboptimal image quality with inadequate visualization of at least 2 of 16 LV wallsegments in any view after initial imaging. Perflutren contrast was administered using thevolume necessary to obtain adequate images. 0.9 ml Optison Administered, (2.1 mlwasted). INDICATIONS: Heart failure. CONCLUSIONS: 1. Mildly dilated left ventricle based on 2D measurements. Severelydilated left ventricle based on volume index. Eccentric LV hypertrophy. Moderatelydepressed left ventricular systolic function. The Ejection Fraction (Knutson's) ismeasured at 38 %. Left ventricular diastolic function is indeterminate due to the presenceof atrial fibrillation during the study. The average global longitudinal strain isabnormal. The ventricular septum is flattened or `D-shaped` in diastole, consistent withright ventricular volume overload. 2. Resting Segmental Wall Motion Analysis: Total wall motion score is1.88. There is akinesis of the basal to mid inferior wall. There is akinesis of the basalto mid inferoseptal wall. There is akinesis of the basal anteroseptal wall. Thereis hypokinesis of the basal to mid anterolateral wall. There is hypokinesis of the entireinferolateral wall. There is hypokinesis of the mid anteroseptal wall. The remainingleft ventricular segments demonstrate normal wall motion. 3. Right ventricular dilatation. 4. Mild mitral valve regurgitation. 5. Severe tricuspid regurgitation. 6. No pericardial effusion. 7. The IVC was <2.1 cm and collapsibility <50%. (est. RA pressure 6-10mmHg). 8. PHTN with Estimated PASP is : 51+RAp mmHg. COMPARISONS: Compared with prior study, (12/31/24), Increase in LVSF, and similar tosmall increase in degre of TR. ATTESTATION: I have personally reviewed this study with a fellow in a teaching settingand attest to the findings and conclusions. - DISCLAIMER: The study images and the final report will be retained in the patientchart by the Echo Laboratory for the legally required time period. This chart constitutesthe legal record of any testing performed. FINDINGS: Left Ventricle: Mildly dilated left ventricle based on 2D measurements.Severely dilated left ventricle based on volume index. Eccentric LV hypertrophy. Moderatelydepressed left ventricular systolic function. The Ejection Fraction (Knutson's) ismeasured at 38 %. Left ventricular diastolic function is indeterminate due to the presenceof atrial fibrillation during the study. The average global longitudinal strain isabnormal. The LV global strain is: -11.5 %. The ventricular septum is flattened or`D-shaped` in diastole, consistent with right ventricular volume overload. Resting Segmental Wall Motion Analysis: Total wall motion score is 1.88.There is akinesis of the basal to mid inferior wall. There is akinesis of the basalto mid inferoseptal wall. There is akinesis of the basal anteroseptal wall. Thereis hypokinesis of the basal to mid anterolateral wall. There is hypokinesis of the entireinferolateral wall. There is hypokinesis of the mid anteroseptal wall. The remainingleft ventricular segments demonstrate normal wall motion. Right Ventricle: Right ventricular dilatation. Visually, low normal tomild RV hypokiensis. Left Atrium: Severely dilated left atrium. Right Atrium: Right atrial dilatation. Atrial Septum: Normal interatrial septum. Mitral Valve: Normal mitral valve structure. Mild mitral valveregurgitation. No stenosis present. Aortic Valve: Trileaflet aortic valve. No aortic regurgitation. No aorticvalve stenosis. The mean transaortic gradient is 4 mmHg. The aortic valve area by thecontinuity equation (using VTI) is 1.94 cm2. Aortic valve dimensionless index is 0.79. Tricuspid Valve: Severe tricuspid regurgitation. Systolic flow reversalnoted in hepatic veins. No tricuspid valve stenosis. Malcoaptation of TV leaflets. Pulmonic Valve: Normal pulmonic valve structure. Trace to mild pulmonicregurgitation. No pulmonic valve stenosis present. Decreased PV acceleration time (84 ms)consistent with pulmonary HTN. Pericardium: No pericardial effusion. Aorta: Normal aortic root. Normal aortic root size at sinuses of Valsalva.Dilation of the aortic root when indexed. Dilation of the ascending aorta whenindexed. IVC: IVC is normal in size. The IVC was <2.1 cm and collapsibility <50%.(est. RA pressure 6-10 mmHg). PASP: The Estimated PASP is : 51+RAp mmHg. Estimated pulmonary arterysystolic pressure is consistent with moderate pulmonary hypertension (50-70mmHg). Rhythm: The rhythm during the study was atrial fibrillation. MEASUREMENTS: 2D/MM Value Range DopplerValue Range LVIDd 2D 5.82 cm [ 4.20 - 5.80 ] AV Peak Vel1.3 m/s [ 1.0 - 1.7 ] LVIDs 2D 4.77 cm [ 2.50 - 4.00 ] AV Peak PG6.76 mmHg IVSd 2D 1.10 cm [ 0.60 - 1.00 ] AV Mean PG4 mmHg LVPWd 2D 0.92 cm [ 0.60 - 1.00 ] AV VTI30.1 cm LV Thickness Ratio 1.2 LVOT Peak Vel1.1 m/s [ 0.7 - 1.1 ] LV FS 2D 12.13 % [ 25.00 - 43.00 ] LVOT Peak PG4.84 mmHg LV Mass 2D 243.82 g LVOT Mean PG3 mmHg LV Mass Index 2D 159.36 g/m2 LVOT VTI23.7 cm RWT 0.32 LVOT Diam1.77 cm EDV Mod BP 155.65 ml [ 62.00 - 150.00 ] JANN VTI1.94 cm2 LV EDV Index 101.73 ml/m2 LVOT/AV VTI0.79 - Dimensionless index (DVI) ESV Mod BP 96.11 ml [ 21.00 - 61.00 ] MV E Peak Vel1.1 m/s [ 0.6 - 1.3 ] EF Mod BP 38 % [ 52 - 72 ] MV A Peak Vel0.3 m/s [ 1.0 - 1.2 ] LV GLS -11.5 % [ -25.0 - -18.0 ] MV E/A4.3 ratio [ 0.8 - 1.5 ] LA Length 4C 6.46 cm MV Decel Ilrz957.01 msec [ 104.00 - 258.00 ] LA Length 2C 6.14 cm Med E` Vel4.4 cm/sec [ 8.0 - 25.0 ] LA Volume BP 74.24 ml Lat E` Vel6.8 cm/sec [ 10.0 - 25.0 ] LA Volume Index 48.52 ml/m2 [ 16.00 - 34.00 ] Average E/E`19.64 RV Base Dimen 2D 5.8 cm [ 2.5 - 4.2 ] RV S`4.04 cm/sec RA Volume 68.01 ml TR Peak Vel3.6 m/s [ 1.0 - 2.8 ] RA Volume Index 44.45 ml/m2 TR Peak PG51.8 mmHg IVC Diam 1.96 cm PV Peak Vel1.1 m/s [ 0.4 - 0.8 ] AoR Diam 2D 3.14 cm [ 3.10 - 3.70 ] PV Peak PG4.84 mmHg Ao Root Index 2.05 cm/m2 [ 1.00 - 2.00 ] Asc Ao Diam 2D3.26 cm Asc Ao Index2.13 cm/m2 Electronically Signed By: Marcella Medley M.D. 04/11/2025 4:49:40 PM CDT us Yesh Leni Park TEASEL GIG OPERATOR CV ECHO PROCEDURES Final Re sult * Oxyhemoglobin, central venous (04/11/2025 8:09 AM CDT) Oxyhemoglobin, CV 62.1 % Comment: Interpretive Data No reference range established. Current interpretive data was last revised 2019. Blood 04/11/2025 8:09 AM CDT 04/11/2025 8:20 AM CDT us Alexus Butler MD LAB BLOOD ORDERABLES Final Result [facility] Department [place] [address] * Critical Care (04/11/2025 6:15 AM CDT) Narrative Betty Ngo MD - 04/11/2025 6:15 AM CDT Betty Ngo MD 04/12/2025 4:43 PM Critical Care Performed by: Majo Park NP Authorized by: Majo Park NP CRITICAL CARE: Team: SICU BLUE Shift: AM Level of Billing: Critical Care My time spent with this patient was 75 minutes: Critical Provider Statement: I have seen and examined the patient on this day of service. I have reviewed and confirmed the history, physical exam, laboratory and radiologic data as documented in the signed ICU note. I have reviewed and discussed my treatment plan with the ICU team and other medical/design consultant staff, making frequent assessments and decisions regarding this patient's complex medical care. Critical Care time was exclusive of time spent performing separately billed procedures, treating other patients, and teaching. This time was in addition to and separate from critical care provided by other practitioners in my group on this day of service. Critical Care was necessary to treat or prevent imminent or life-threatening deterioration of the following conditions: I spent time reviewing and interpreting data from bedside monitors, laboratory results, and imaging, I spent time discussing the management of this critically ill patient with consultants and the medical staff and I spent time documenting in the medical record us Majo Park NP IN CLINIC/BEDSIDE ORDERABLE S Final Result * Transfuse RBC (04/10/2025 11:19 PM CDT) Blood us Artie BSOS BLOOD TRANSFUSION ORDERABL ES Final Result Performing Organization Address City/[facility]/ZIP Co de Phone Number [facility] [place] [address] * POCT glucose (04/10/2025 8:43 PM CDT) Glucose, POC 127 70 - 199 mg/dL Blood 04/10/2025 8:43 PM CDT 04/10/2025 8:43 PM CDT Alexus Butler MD LAB POCT ORDERABLES - ANDRES CE Final Result Performing Organization Address [facility] Co de Phone Number [facility] Department [place] [address] * Prepare RBC: 1 Units (04/10/2025 7:46 PM CDT) [facility] Product code [id number] Unit Number [id number] [facility] Product Blood Type APOS [facility] Dispense Status PRESUMED TRANSFUSED [facility] Blood 04/10/2025 7:46 PM CDT 04/10/2025 7:47 PM CDT Narrative [facility] - 04/11/2025 4:01 PM CDT Are special requirements needed? (All products are leukoreduced and CMV- safe)- >No Date required:-[id number] LRRBC # of [id number] Reasons:-Active bleeding, Hgb <8 g/dL} Artie BOSS BLOOD BANK PRODUCT ORDERAB LES Final Result Performing Organization Address [facility] Co de Phone Number [facility] Department [place] [address] * POCT glucose (04/10/2025 7:19 PM CDT) Glucose, POC 114 70 - 199 mg/dL Blood 04/10/2025 7:19 PM CDT 04/10/2025 7:19 PM CDT Alexus Butler MD LAB POCT ORDERABLES - ANDRES CE Final Result Performing Organization Address [facility] Co de Phone Number [facility]ERNER [facility] [place] [address] * Critical Care (04/10/2025 7:06 PM CDT) Narrative Bacilio Stacy MD - 04/10/2025 7:06 PM CDT Bacilio Stacy MD 04/11/2025 6:23 AM Critical Care Performed by: Artie Larios PA Authorized by: Artie Larios PA CRITICAL CARE: Team: SICU BLUE Shift: PM Level of Billing: Critical Care My time spent with this patient was 90 minutes: Critical Provider Statement: I have seen and examined the patient on this day of service. I have reviewed and confirmed the history, physical exam, laboratory and radiologic data as documented in the signed ICU note. I have reviewed and discussed my treatment plan with the ICU team and other medical/design consultant staff, making frequent assessments and decisions regarding this patient's complex medical care. Critical Care time was exclusive of time spent performing separately billed procedures, treating other patients, and teaching. This time was in addition to and separate from critical care provided by other practitioners in my group on this day of service. Critical Care was necessary to treat or prevent imminent or life-threatening deterioration of the following conditions: I spent time reviewing and interpreting data from bedside monitors, laboratory results, and imaging, I spent time discussing the management of this critically ill patient with consultants and the medical staff and I spent time documenting in the medical record Artie BOSS IN CLINIC/BEDSIDE ORDERABL ES Final Result * ECG 12 lead (04/10/2025 6:42 PM CDT) Ventricular Rate EKG/Min 50 BPM [facility] Atrial Rate 394 BPM [facility] QRS-Interval (MSEC) 122 ms [facility] QT-Interval (MSEC) 494 ms [facility] QTc 450 ms [facility] R [place] -24 degrees [facility] T [place] 101 degrees [facility] Diagnosis Atrial fibrillation with slow ventricular response Left bundle branch block Abnormal ECG Confirmed by YIN TRUJILLO M.D ([id number]) on 04/11/2025 11:34:44 AM [facility] 04/10/2025 6:42 PM CDT 04/11/2025 11:34 AM CDT us Yes Leni Park TEASEL GIG OPERATOR ECG ORDERABLES Final Resul t [facility] * (ABNORMAL) Troponin I high-sensitivity (04/10/2025 5:31 PM CDT) Trop I hs 375(C) <=35 ng/L Comment: Previous critical value noted within 48 hours ago. Interpretive Data For further hscTnI resources including the diagnostic algorithm and an aid in interpretation, copy and paste this link: [email or web address].testcatalog.org/show/[email or web address] Current Interpretive Data last revised 2020. Blood 04/10/2025 5:31 PM CDT 04/10/2025 5:50 PM CDT us Yescraig Park NP LAB BLOOD ORDERABLES Edited Result - Final [facility] Department [place] [address] * (ABNORMAL) eGFR (04/10/2025 5:31 PM CDT) eGFR 55(L) >=60 mL/min/1. 73 m2 Comment: Interpretive Data Reference Interval Normal >/= 90 mL/min/1.73m2 Mildly decreased* 60 - 89 mL/min/1.73m2 Mildly to moderately decreased 45 - 59 mL/min/1.73m2 Moderately to severely decreased 30 - 44 mL/min/1.73m2 Severely decreased 15 - 29 mL/min/1.73m2 Kidney Failure < 15 mL/min/1.73m2 *Relative to young adult level Estimated glomerular filtration rate is determined by the 2020 CKD-EPI equation recommended by the National Kidney Foundation (A Unifying Approach to GFR Estimation: Recommendations of the NKF-ASK Task Force on Reassessing the Inclusion of Race in Diagnosing Kidney Disease, JASN 2020). The CKD-EPI equation should not be used for patients with unstable renal function and has not been validated in children and those over 70. Current interpretive data was last reviewed 2021. Blood 04/10/2025 5:31 PM CDT 04/10/2025 5:51 PM CDT us Kai Toscano MD LAB BLOOD ORDERABLES Fin al Result Performing Organization Address [facility] de Phone Number [facility] [place] [address] * (ABNORMAL) Protime-INR (04/10/2025 5:31 PM CDT) PT 13.6(H) 9.7 - 13.0 sec INR 1.25(H) 0.90 - 1.20 [facility] Comment: Interpretive data Oral anticoagulant therapeutic ranges: Venous thromboembolism prophylaxis or treatment: 2.0-3.0 CARDIOLOGY Standard range: 2.0-3.0 High-intensity range: 2.5-3.5 Refer to indication-specific guidelines for appropriate target ranges for prosthetic heart valve replacement. Current interpretive data was last revised on 2019. Blood 04/10/2025 5:31 PM CDT 04/10/2025 5:53 PM CDT us Majo Park NP LAB BLOOD ORDERABLES Final Result Performing Organization Address [facility] de Phone Number [facility] Department [place] [address] * (ABNORMAL) CBC without differential (04/10/2025 5:31 PM CDT) WBC 7.49 3.80 - 9.90 K/cumm Hgb 7.3(L) 13.0 - 17.5 g/dL [facility] Hct 23.3(L) 38.9 - 50.3 % [facility] Plt 97(L) 150 - 400 K/cumm [facility] MPV Not Measured 9.1 - 12.3 fL [facility] RBC 2.79(L) 4.30 - 5.80 M/cumm [facility] MCV 83.5 81.3 - 96.4 fL [facility] MCH 26.2(L) 27.1 - 33.3 pg [facility] MCHC 31.3(L) 32.3 - 35.7 g/dL [facility] RDW CV 17.9(H) 11.1 - 14.9 % [facility] RDW SD 54.3(H) 35.7 - 48.1 fL [facility] NRBC abs 0.00 0.00 - 0.01 K/cumm [facility] Blood 04/10/2025 5:31 PM CDT 04/10/2025 5:50 PM CDT Kai Toscano MD LAB BLOOD ORDERABLES Fin al Result Performing Organization Address City/[facility]/ZIP Co de Phone Number [facility] Department [place] [address] * Phosphorus (04/10/2025 5:31 PM CDT) Pathologist [facility] Phosphorus, pl 2.8 2.3 - 4.5 mg/dL Blood 04/10/2025 5:31 PM CDT 04/10/2025 5:51 PM CDT Kai Toscano MD LAB BLOOD ORDERABLES Fin al Result [facility] Department [place] [address] * (ABNORMAL) Magnesium (04/10/2025 5:31 PM CDT) Pathologist [facility] Magnesium 2.9(H) 1.4 - 2.5 mg/dL Blood 04/10/2025 5:31 PM CDT 04/10/2025 5:51 PM CDT Kai Toscano MD LAB BLOOD ORDERABLES Fin al Result [facility] [place] [address] * (ABNORMAL) Basic metabolic panel (04/10/2025 5:31 PM CDT) Pathologist [facility] Sodium 139 135 - 145 mmol/L Potassium, pl 3.5 3.3 - 4.9 mmol/L [facility] Chloride 109 97 - 110 mmol/L [facility] CO2 22 22 - 32 mmol/L [facility] Anion gap 8 2 - 15 mmol/L [facility] BUN 40(H) 6 - 25 mg/dL [facility] Creatinine 1.36(H) 0.80 - 1.30 mg/dL [facility] Glucose 152 70 - 199 mg/dL [facility] Comment: Interpretive Data Fasting glucose >/= 126 mg/dl is diagnostic for diabetes. Fasting is defined as no caloric intake for at least 8 hours. Fasting glucose between 100 mg/dl to 125 mg/dl is diagnostic of prediabetes. In a patient with classic symptoms of hyperglycemia or hyperglycemic crisis, a random glucose >/= 200 mg/dl is diagnostic for diabetes. In the absence of unequivocal hyperglycemia, results should be confirmed by repeat testing. The classification and Diagnosis of Diabetes Diabetes Care 2021; 46: S19-S40. Current interpretive data was last revised 2022. Calcium 8.5 8.5 - 10.3 mg/dL [facility] Blood 04/10/2025 5:31 PM CDT 04/10/2025 5:51 PM CDT us Kai Toscano MD LAB BLOOD ORDERABLES Fin al Result Performing Organization Address City/[facility]/ZIP Co de Phone Number [facility] Department [place] [address] * Oxyhemoglobin, central venous (04/10/2025 4:27 PM CDT) Pathologist [facility] Oxyhemoglobin, CV 67.4 % Comment: Interpretive Data No reference range established. Current interpretive data was last revised 2019. Blood 04/10/2025 4:27 PM CDT 04/10/2025 4:34 PM CDT Majo Farrar Xavier HENDRICKSON LAB BLOOD ORDERABLES Final Result Performing Organization Address [facility] de Phone Number [facility] [place] [address] * POCT glucose (04/10/2025 3:13 PM CDT) Glucose, POC 166 70 - 199 mg/dL Blood 04/10/2025 3:13 PM CDT 04/10/2025 3:13 PM CDT Alexus Butler MD LAB POCT ORDERABLES - ANDRES CE Final Result Performing Organization Address [facility] de Phone Number [facility] [place] [address] * POCT glucose (04/10/2025 12:13 PM CDT) Glucose, POC 110 70 - 199 mg/dL Blood 04/10/2025 12:1 3 PM CDT 04/10/2025 12:13 PM CDT Alexus Butler MD LAB POCT ORDERABLES - ANDRES CE Final Result Performing Organization Address [facility] de Phone Number [facility] [place] [address] * (ABNORMAL) Troponin I high-sensitivity (04/10/2025 12:08 PM CDT) Trop I hs 434(C) <=35 ng/L Comment: Previous critical value noted within 48 hours ago. Interpretive Data For further hscTnI resources including the diagnostic algorithm and an aid in interpretation, copy and paste this link: https://bjhlab.testcatalog.org/show/[email or web address] Current Interpretive Data last revised 2020. Blood 04/10/2025 12:0 8 PM CDT 04/10/2025 1:15 PM CDT us Yesh Leni Park TEASEL GIG OPERATOR LAB BLOOD ORDERABLES Final Result [facility] Department [place] [address] * Respiratory pathogen panel Nasopharyngeal (04/10/2025 10:02 AM CDT) Pathologist [facility] Influenza A RNA Not Detected Not Detected Influenza B RNA Not Detected Not Detected [facility] RSV RNA Not Detected Not Detected [facility] COVID-19 RNA Not Detected Not Detected [facility] Coronavirus 229E RNA Not Detected Not Detected [facility] Coronavirus HKU1 RNA Not Detected Not Detected [facility] Coronavirus NL63 RNA Not Detected Not Detected [facility] Coronavirus OC43 RNA Not Detected Not Detected [facility] Adenovirus DNA Not Detected Not Detected [facility] Metapneumovirus RNA Not Detected Not Detected [facility] Rhinovirus/Enterov irus RNA Not Detected Not Detected [facility] Parainfluenza 1 RNA Not Detected Not Detected [facility] Parainfluenza 2 RNA Not Detected Not Detected [facility] Parainfluenza 3 RNA Not Detected Not Detected [facility] Parainfluenza 4 RNA Not Detected Not Detected [facility] B. pertussis DNA Not Detected Not Detected [facility] B. parapertussis DNA Not Detected Not Detected [facility] C. pneumoniae DNA Not Detected Not Detected [facility] M. pneumoniae DNA Not Detected Not Detected [facility] Nasopharyngeal 04/10/2025 10 :02 AM CDT 04/10/2025 10:29 AM CDT Narrative [facility] - 04/10/2025 11:40 AM CDT Is the Patient experiencing symptoms consistent with COVID?->No Surveillance testing for transplant patient?->No Interpretive Data The [employer] FilmArray Respiratory Panel (RP2.1) assay is a multiplexed real-time PCR based nucleic acid test capable of simultaneous qualitative detection and identification of multiple respiratory viral and bacterial nucleic acids, including SARS Coronavirus 2 (the causative agent of COVID-19). The following bacteria, viruses and virus subtypes can be identified using the FilmArray RP2.1 assay: Bordetella pertussis, Bordetella parapertussis, Chlamydia pneumoniae, Mycoplasma pneumoniae, Adenovirus, SARS Coronavirus 2, seasonal coronaviruses (Coronavirus HKU1, Coronavirus NL63, Coronavirus 229E, and Coronavirus OC43), Influenza A, Influenza A subtype H1, Influenza A subtype H3, Influenza A subtype 2009 H1, Influenza B, Metapneumovirus, Parainfluenza 1, Parainfluenza 2, Parainfluenza 3, Parainfluenza 4, RSV, Rhinovirus/Enterovirus. Due to the genetic similarity between human Rhinovirus and Enterovirus, the FilmArray RP2.1 assay cannot reliably differentiate them. Coronavirus OC43 may cross-react with some isolates of Coronavirus HKU1. A dual positive result may be due to cross-reactivity or may indicate a co- infection. The detection and identification of specific viral and bacterial nucleic acids from individuals exhibiting signs and symptoms of a respiratory infection aids in the diagnosis of respiratory infection if used in conjunction with other clinical and epidemiological information. The results of this test should not be used as the sole basis for diagnosis, treatment, or other management decisions. Negative results in the setting of a respiratory illness may be due to infection with pathogens that are not detected by this test. Positive results do not rule out infection/co-infection with other organisms. The agent(s) detected by the FilmArray RP2.1 may not be the definite cause of disease. Additional testing (lab, imaging, etc.) may be necessary when evaluating a patient with possible respiratory tract infection. The FilmArray RP2.1 assay has FDA clearance for testing of TEASEL GIG OPERATOR swabs. The performance of additional specimen types has been assessed by the performing laboratory. The performance characteristics of this assay have been determined by [facility] Infectious Disease [facility]. Current interpretive data was last revised on 22. Gillian Knapp [facility] LAB MICROBIOLOGY - GEN ERAL ORDERABLES Final Result Performing Organization Address City/[facility]/ZIP Co de Phone Number [facility] [place] [address] * Critical Care (04/10/2025 7:42 AM CDT) Narrative Betty Ngo MD - 04/10/2025 7:42 AM CDT Betty Ngo MD 04/11/2025 11:14 AM Critical Care Performed by: Majo Park NP Authorized by: Majo Park NP CRITICAL CARE: Team: SICU BLUE Shift: AM Level of Billing: Critical Care My time spent with this patient was 100 minutes: Critical Provider Statement: I have seen and examined the patient on this day of service. I have reviewed and confirmed the history, physical exam, laboratory and radiologic data as documented in the signed ICU note. I have reviewed and discussed my treatment plan with the ICU team and other medical/design consultant staff, making frequent assessments and decisions regarding this patient's complex medical care. Critical Care time was exclusive of time spent performing separately billed procedures, treating other patients, and teaching. This time was in addition to and separate from critical care provided by other practitioners in my group on this day of service. Critical Care was necessary to treat or prevent imminent or life-threatening deterioration of the following conditions: I spent time discussing the management of this critically ill patient with consultants and the medical staff, I spent time reviewing and interpreting data from bedside monitors, laboratory results, and imaging and I spent time documenting in the medical record us Majo Park NP IN CLINIC/BEDSIDE ORDERABLE S Final Result * POCT glucose (04/10/2025 7:22 AM CDT) Glucose, POC 172 70 - 199 mg/dL Blood 04/10/2025 7:22 AM CDT 04/10/2025 7:22 AM CDT us Alexus Butler MD LAB POCT ORDERABLES - ANDRES CE Final Result Performing Organization Address City/[facility]/ZIP Co de Phone Number [facility]ICIO NILDA [facility] [place] [address] * (ABNORMAL) Troponin I high-sensitivity (04/10/2025 5:42 AM CDT) Trop I hs 429(C) <=35 ng/L Comment: Previous critical value noted within 48 hours ago. Reviewed Interpretive Data For further hscTnI resources including the diagnostic algorithm and an aid in interpretation, copy and paste this link: https://bjhlab.testcatalog.org/show/[email or web address] Current Interpretive Data last revised 2020. Blood 04/10/2025 5:42 AM CDT 04/10/2025 5:51 AM CDT Artie BOSS LAB BLOOD ORDERABLES Edite d Result - Final Performing Organization Address City/[facility]/ZIP Co de Phone Number [facility] [place] [address] * (ABNORMAL) POCT glucose (04/10/2025 3:40 AM CDT) Glucose, POC 210(H) 70 - 199 mg/dL Comment:Glu2: RN/MD Notified Glucose comment 1 Glu2: RN/MD Notified [facility] Blood 04/10/2025 3:40 AM CDT 04/10/2025 3:40 AM CDT Alexus Butler MD LAB POCT ORDERABLES - ANDRES CE Final Result [facility] [place] [address] * POCT glucose (04/09/2025 11:26 PM CDT) Glucose, POC 118 70 - 199 mg/dL Blood 04/09/2025 11:2 6 PM CDT 04/09/2025 11:26 PM CDT us Alexus Butler MD LAB POCT ORDERABLES - ANDRES CE Final Result Performing Organization Address [facility]/ZIP Co de Phone Number [facility] Department [place] [address] * (ABNORMAL) Troponin I high-sensitivity 6-hour (04/09/2025 10:55 PM CDT) Trop I hs 87(H) <=35 ng/L Comment: Interpretive Data For further hscTnI resources including the diagnostic algorithm and an aid in interpretation, copy and paste this link: https://bjhlab.testcatalog.org/show/[email or web address] Current Interpretive Data last revised 2020. Trop I hs delta 54(C) ng/L [facility] Comment:Previous critical va lue noted within 48 hours ago. Trop I hs interp Significa nt(C) [facility] Comment:Previous critical va lue noted within 48 hours ago. Blood 04/09/2025 10:5 5 PM CDT 04/09/2025 11:24 PM CDT us Majo Park NP LAB BLOOD ORDERABLES Final Result Performing Organization Address [facility] Co de Phone Number F[facility]RICIO [facility] [place] [address] * Oxyhemoglobin, central venous (04/09/2025 10:46 PM CDT) Oxyhemoglobin, CV 82.0 % Comment: Interpretive Data No reference range established. Current interpretive data was last revised 2019. Blood 04/09/2025 10:4 6 PM CDT 04/09/2025 10:53 PM CDT us Artie BOSS LAB BLOOD ORDERABLES Final Result Performing Organization Address City/[facility] Co de Phone Number [facility] Department [place] [address] * Lactate (04/09/2025 10:46 PM CDT) Lactate 1.5 0.7 - 2.0 mmol/L Blood 04/09/2025 10:4 6 PM CDT 04/09/2025 10:53 PM CDT Artie BOSS LAB BLOOD ORDERABLES Final Result [facility] [place] [address] * (ABNORMAL) POC Blood Gas and Chemistries, Arterial - (04/09/2025 10:35 PM CDT) pH, Art POC 7.40 7.35 - 7.45 pCO2, Art POC 36 35 - 45 mmHg [facility] pO2, Art POC 154(H) 83 - 108 mmHg [facility] Na, POC 140 135 - 145 mmol/L [facility] K POC 4.3 3.3 - 4.9 mmol/L [facility] Comment: Interpretive Data Not all point of care methods assess for hemolysis. Confirm with instrument and retest K+ if not consistent with clinical signs and symptoms. Current Interpretive Data was last revised on 2024. Cl, POC 111(H) 97 - 110 mmol/L [facility] Ionized Ca, POC 5.22(H) 4.50 - 5.10 mg/dL [facility] Glucose, POC 80 70 - 199 mg/dL [facility] Lactate POC 1.5 0.7 - 2.0 mmol/L [facility] SO2 (alexis) arterial 100(H) 90 - 95 % [facility] Base excess, POC -2.2 mmol/L [facility] HCO3, Art POC 22 20 - 30 mmol/L [facility] Hct, POC 24.0(L) 41.4 - 51.6 % [facility] Total Hb, POC 8.0(L) 13.8 - 17.2 g/dL [facility] Blood 04/09/2025 10:3 5 PM CDT 04/09/2025 10:35 PM CDT us Alexus Butler MD LAB POCT ORDERABLES - ANDRES CE Final Result [facility] [place] [address] * XR Chest 1 View (04/09/2025 9:44 PM CDT) Anatomical Region Laterality Modality Body, Chest N/A Computed Radiogr aphy 04/10/2025 10:1 6 AM CDT Impressions 04/10/2025 10:16 AM CDT Comparison is made to chest radiograph dated 12/30/2024. A left subclavian approach central venous catheter terminates at the superior cavoatrial junction. Sternotomy wires appear intact of the mediastinum, unchanged from prior. There are coronary bypass markers and a left atrial appendage occlusion device. Mild bibasilar atelectasis. There is no pneumothorax or pleural effusion. Cardiomediastinal silhouette appears stable. Bacilio Ashton (medical student) participated in the interpretation of this imaging study. Electronically signed by: Ayan Rodriguez M.D. Narrative 04/10/2025 10:16 AM CDT EXAMINATION: 1 view chest radiograph Procedure Note Ayan Rodriguez MD - 04/10/2025 EXAMINATION: 1 view chest radiograph IMPRESSION: Comparison is made to chest radiograph dated 12/30/2024. A left subclavian approach central venous catheter terminates at the superior cavoatrial junction. Sternotomy wires appear intact of the mediastinum, unchanged from prior. There are coronary bypass markers and a left atrial appendage occlusion device. Mild bibasilar atelectasis. There is no pneumothorax or pleural effusion. Cardiomediastinal silhouette appears stable. Bacilio Ashton (medical student) participated in the interpretation of this imaging study. Electronically signed by: Ayan Rodriguez M.D. us Artie BOSS IMG XR PROCEDURES Final Re sult * ECG 12 lead (04/09/2025 9:25 PM CDT) Pathologist [facility] Ventricular Rate EKG/Min 133 BPM [facility] Atrial Rate 102 BPM [facility] QRS-Interval (MSEC) 122 ms [facility] QT-Interval (MSEC) 328 ms [facility] QTc 488 ms [facility] R [place] -14 degrees [facility] T [place] 175 degrees [facility] Diagnosis Atrial fibrillation with rapid ventricular response Left bundle branch block Abnormal ECG When compared with ECG of 09-APR-2025 16:46, (unconfirmed) Previous ECG has undetermined rhythm, needs review ST now depressed in Anterior leads Confirmed by YIN TRUJILLO M.D ([id number]) on 04/10/2025 9:57:47 AM [facility] 04/09/2025 9:25 PM CDT 04/10/2025 9:57 AM CDT us Yes Leni Park TEASEL GIG OPERATOR ECG ORDERABLES Final Resul t Performing Organization Address City/[facility] Co de Phone Number [facility] * (ABNORMAL) Troponin I high-sensitivity 4-hour (04/09/2025 9:11 PM CDT) Pathologist [facility] Trop I hs 67(H) <=35 ng/L Comment: Interpretive Data For further hscTnI resources including the diagnostic algorithm and an aid in interpretation, copy and paste this link: https://[email or web address].[email or web address]/show/[email or web address] Current Interpretive Data last revised 2020. Trop I hs delta 34(C) ng/L [facility] Comment:Previous critical va lue noted within 48 hours ago. Trop I hs interp Significa nt(C) [facility] Comment:Previous critical va lue noted within 48 hours ago. Blood 04/09/2025 9:11 PM CDT 04/09/2025 10:16 PM CDT us Yes Leni Park NP LAB BLOOD ORDERABLES Final Result Performing Organization Address City/[facility]/ZIP Co de Phone Number [facility] [place] [address] * Legionella antigen Urine (04/09/2025 9:11 PM CDT) Legionella Ag Negative Negative Comment: Interpretive Data This test detects only Legionella pneumophila serogroup 1 antigen. Testing performed by [facility] ([phone]). Current interpretive data was last revised on 2019. Urine 04/09/2025 9:11 PM CDT 04/09/2025 11:10 PM CDT Artie BOSS LAB MICROBIOLOGY - GENERAL ORDERABLES Final Result Performing Organization Address City/[facility] Co de Phone Number [facility] [place] [address] * Infection Prevention MRSA Only (Staphylococcus aureus) Culture Nasal (04/09/2025 9:08 PM CDT) Report Final Report: Negative Nasal 04/09/2025 9:08 PM CDT 04/09/2025 10:16 PM CDT Narrative [facility] - 04/11/2025 12:32 AM CDT Testing performed by [facility] ([phone]). Artie BOSS LAB MICROBIOLOGY - GENERAL ORDERABLES Final Result Performing Organization Address City/State/[facility] Co de Phone Number [facility] [place] [address] * Oxyhemoglobin, central venous (04/09/2025 8:29 PM CDT) Oxyhemoglobin, CV 59.5 % Comment: Interpretive Data No reference range established. Current interpretive data was last revised 2019. Blood 04/09/2025 8:29 PM CDT 04/09/2025 9:17 PM CDT Artie BOSS LAB BLOOD ORDERABLES Final Result F[facility]ICIO MUNGUIA [facility]di [facility] [place] [address] * (ABNORMAL) Lactate (04/09/2025 8:29 PM CDT) Lactate 6.0(C) 0.7 - 2.0 mmol/L Blood 04/09/2025 8:29 PM CDT 04/09/2025 9:21 PM CDT Artie BOSS LAB BLOOD ORDERABLES Final Result Performing Organization Address City/[facility] Co de Phone Number F[facility]RICIO MUNGUIA [facility] of Laboratories [place] [address] * eGFR (04/09/2025 8:29 PM CDT) eGFR 74 >=60 mL/min/1. 73 m2 Comment: Interpretive Data Reference Interval Normal >/= 90 mL/min/1.73m2 Mildly decreased* 60 - 89 mL/min/1.73m2 Mildly to moderately decreased 45 - 59 mL/min/1.73m2 Moderately to severely decreased 30 - 44 mL/min/1.73m2 Severely decreased 15 - 29 mL/min/1.73m2 Kidney Failure < 15 mL/min/1.73m2 *Relative to young adult level Estimated glomerular filtration rate is determined by the 2020 CKD-EPI equation recommended by the National Kidney Foundation (A Unifying Approach to GFR Estimation: Recommendations of the NKF-ASK Task Force on Reassessing the Inclusion of Race in Diagnosing Kidney Disease, JASN 202). The CKD-EPI equation should not be used for patients with unstable renal function and has not been validated in children and those over 70. Current interpretive data was last reviewed 2021. Blood 04/09/2025 8:29 PM CDT 04/09/2025 9:19 PM CDT Kai Toscano MD LAB BLOOD ORDERABLES Fin al Result [facility] [place] [address] * Critical Result Callback Chemistry (04/09/2025 8:29 PM CDT) Date Notified [id number] Time Notified 2151 [facility] TestName Lactate [facility] Called/Read Back Maxine [facility] Credentials RN [facility] Called By PD [facility] Blood 04/09/2025 8:29 PM CDT 04/09/2025 9:21 PM CDT us Artie BOSS LAB BLOOD ORDERABLES Final Result Performing Organization Address City/[facility]/ZIP Co de Phone Number [facility] [place] [address] * Protime-INR (04/09/2025 8:29 PM CDT) PT 12.2 9.7 - 13.0 sec INR 1.13 0.90 - 1.20 [facility] Comment: Interpretive data Oral anticoagulant therapeutic ranges: Venous thromboembolism prophylaxis or treatment: 2.0-3.0 CARDIOLOGY Standard range: 2.0-3.0 High-intensity range: 2.5-3.5 Refer to indication-specific guidelines for appropriate target ranges for prosthetic heart valve replacement. Current interpretive data was last revised on 2019. Blood 04/09/2025 8:29 PM CDT 04/09/2025 9:33 PM CDT us Majo Park NP LAB BLOOD ORDERABLES Final Result [facility] [place] [address] * (ABNORMAL) CBC without differential (04/09/2025 8:29 PM CDT) WBC 17.00(H) 3.80 - 9.90 K/cumm Hgb 8.6(L) 13.0 - 17.5 g/dL [facility] Hct 27.7(L) 38.9 - 50.3 % [facility] Plt 139(L) 150 - 400 K/cumm [facility] MPV Not Measured 9.1 - 12.3 fL [facility] RBC 3.27(L) 4.30 - 5.80 M/cumm [facility] MCV 84.7 81.3 - 96.4 fL [facility] MCH 26.3(L) 27.1 - 33.3 pg [facility] MCHC 31.0(L) 32.3 - 35.7 g/dL [facility] RDW CV 17.8(H) 11.1 - 14.9 % [facility] RDW SD 54.5(H) 35.7 - 48.1 fL [facility] NRBC abs 0.00 0.00 - 0.01 K/cumm [facility] Blood 04/09/2025 8:29 PM CDT 04/09/2025 9:22 PM CDT Kai Toscano MD LAB BLOOD ORDERABLES Fin al Result Performing Organization Address [facility] Co de Phone Number [facility] [place] [address] * (ABNORMAL) Phosphorus (04/09/2025 8:29 PM CDT) Pathologist [facility] Phosphorus, pl 4.9(H) 2.3 - 4.5 mg/dL Blood 04/09/2025 8:29 PM CDT 04/09/2025 9:19 PM CDT Kai Toscano MD LAB BLOOD ORDERABLES Fin al Result Performing Organization Address City/[facility] Co de Phone Number [facility] [place] [address] * Magnesium (04/09/2025 8:29 PM CDT) [facility] Magnesium 2.5 1.4 - 2.5 mg/dL Blood 04/09/2025 8:29 PM CDT 04/09/2025 9:19 PM CDT us Kai Toscano MD LAB BLOOD ORDERABLES Fin al Result Performing Organization Address [facility] de Phone Number [facility] [place] [address] * (ABNORMAL) Hemoglobin A1c (04/09/2025 8:29 PM CDT) [facility] Hgb A1C 6.2(H) 4.0 - 5.6 % Estimated Average Glucose 131 mg/dL [facility] Comment: The ADA recommends reporting an estimated Average Glucose (eAG) with all Hemoglobin A1c results using the equation derived from a study of 507 normal and diabetic adults. Minority populations were underrepresented and children were not included. (Diabetes Care 2020; 43(S1): S66-S76). The eAG is not equivalent to a fasting glucose. Blood 04/09/2025 8:29 PM CDT 04/09/2025 9:21 PM CDT us Majo Park NP LAB BLOOD ORDERABLES Final Result Performing Organization Address [facility] [place] [address] * (ABNORMAL) Basic metabolic panel (04/09/2025 8:29 PM CDT) [facility] Sodium 138 135 - 145 mmol/L Potassium, pl 4.5 3.3 - 4.9 mmol/L [facility] Chloride 105 97 - 110 mmol/L [facility] CO2 20(L) 22 - 32 mmol/L [facility] Anion gap 13 2 - 15 mmol/L [facility] BUN 42(H) 6 - 25 mg/dL [facility] Creatinine 1.05 0.80 - 1.30 mg/dL [facility] Glucose 88 70 - 199 mg/dL [facility] Comment: Interpretive Data Fasting glucose >/= 126 mg/dl is diagnostic for diabetes. Fasting is defined as no caloric intake for at least 8 hours. Fasting glucose between 100 mg/dl to 125 mg/dl is diagnostic of prediabetes. In a patient with classic symptoms of hyperglycemia or hyperglycemic crisis, a random glucose >/= 200 mg/dl is diagnostic for diabetes. In the absence of unequivocal hyperglycemia, results should be confirmed by repeat testing. The classification and Diagnosis of Diabetes Diabetes Care 2021; 46: S19-S40. Current interpretive data was last revised 2022. Calcium 9.9 8.5 - 10.3 mg/dL [facility] Blood 04/09/2025 8:29 PM CDT 04/09/2025 9:19 PM CDT Kai Toscano MD LAB BLOOD ORDERABLES Fin al Result [facility] [place] [address] * Blood culture Blood (04/09/2025 8:28 PM CDT) Report Final Report: No growth Blood 04/09/2025 8:28 PM CDT 04/09/2025 10:31 PM CDT Narrative [facility] - 04/14/2025 7:00 AM CDT Collection->Peripheral 1. Blood cultures are incubated for 4 days on a continuously monitored blood culture system. The first report of a negative culture is issued within 24 hours of receipt of the specimen in the laboratory. 2. Positive culture results are reported as soon as they are detected. 3. The most important factor for detection of microbes in the setting of bloodstream infection is the volume of blood submitted for culture. Failure to collect an optimal blood volume can result in false negative blood cultures. 4. For pediatric patients, the recommended blood volume to collect follows a weight based strategy. See the electronic test catalog for collection instructions. 5. For positive blood cultures, a rapid molecular test may be performed for organism identification using the gilson ePlex blood culture identification panel for gram positive (BCID-GP) and gram negative (BCID-GN) organisms. This nucleic acid amplification test detects microbial DNA in positive blood culture broth. This assay has been cleared by the [place] Food and Drug Administration and its performance characteristics have been verified by the [facility]. For questions about this culture, contact the Microbiology Laboratory at [phone]. Interpretive data was last revised on 24. us Artie BOSS LAB MICROBIOLOGY - GENERAL ORDERABLES Final Result [facility] MUNGUIA [facility] [place] [address] * MA INSJ NON-TUNNELED CENTRAL VENOUS CATH AGE 5 YR/> (04/09/2025 8:23 PM CDT) Narrative Bacilio Stacy MD - 04/09/2025 8:23 PM CDT Bacilio Stacy MD 04/10/2025 7:47 PM Central Line Insertion Date/Time: 04/09/2025 8:23 PM Performed by: Malcom Ramirez MD Authorized by: Malcom Ramirez MD [place] Protocol: RN Notified of Procedure: yes Informed consent: Patient/safety representative/guardian agrees and accepts Allergies confirmed: yes Consent form signed, dated, timed; matches correct patient, intended procedure and site: Yes Indications: Vascular access, central pressure monitoring and administer vasoactive medications Anesthesia (see MAR for exact dosage) Anesthesia method: Local infiltration Local anesthetic: Lidocaine 1% Patient position: Trendelenburg Skin preparation: Skin prepped with 2% chlorhexidine Provider preparation: Cap, full body drape, gloves, gown, handwashing and mask Location: Left subclavian Technique: Landmarks identified Ultrasound guidance: Pre-procedure diagnostic and real-time needle guidance Assessment: Blood return through all ports, free fluid flow and placement verified by x-ray Catheter type: Quadruple lumen Catheter size: 8.5 Fr Needle inserted, vein idenitified then guidewire inserted easily into vein: Yes Number of attempts: 1 Successful placement: Yes Catheter secured at (cm): 20 Catheter length (cm): 20 Line securement: Line sutured Post Procedure Debrief: All guidewires, needles, sponges or other items are accounted for: yes Malcom Ramirez MD IN CLINIC/BEDSIDE ORD ERABLES Final Result * Blood culture Blood (04/09/2025 8:18 PM CDT) Report Final Report: No growth Blood 04/09/2025 8:18 PM CDT 04/09/2025 10:31 PM CDT Narrative [facility] - 04/14/2025 7:00 AM CDT Collection->Peripheral 1. Blood cultures are incubated for 4 days on a continuously monitored blood culture system. The first report of a negative culture is issued within 24 hours of receipt of the specimen in the laboratory. 2. Positive culture results are reported as soon as they are detected. 3. The most important factor for detection of microbes in the setting of bloodstream infection is the volume of blood submitted for culture. Failure to collect an optimal blood volume can result in false negative blood cultures. 4. For pediatric patients, the recommended blood volume to collect follows a weight based strategy. See the electronic test catalog for collection instructions. 5. For positive blood cultures, a rapid molecular test may be performed for organism identification using the gilson ePlex blood culture identification panel for gram positive (BCID-GP) and gram negative (BCID-GN) organisms. This nucleic acid amplification test detects microbial DNA in positive blood culture broth. This assay has been cleared by the [place] Food and Drug Administration and its performance characteristics have been verified by the [facility]. For questions about this culture, contact the Microbiology Laboratory at [phone]. Interpretive data was last revised on 24. us Artie BOSS LAB MICROBIOLOGY - GENERAL ORDERABLES Final Result TABITHAANSLEY NILDA [facility] [place] [address] * POCT glucose (04/09/2025 7:07 PM CDT) Glucose, POC 146 70 - 199 mg/dL Blood 04/09/2025 7:07 PM CDT 04/09/2025 7:07 PM CDT us Alexus Butler MD LAB POCT ORDERABLES - ANDRES CE Final Result [facility] [place] [address] * (ABNORMAL) Troponin I high-sensitivity 2-hour (04/09/2025 7:05 PM CDT) Pathologist [facility] Trop I hs 45(H) <=35 ng/L Comment: Interpretive Data For further hscTnI resources including the diagnostic algorithm and an aid in interpretation, copy and paste this link: https://bjab.testcatalog.org/show/hsTrop-1 Current Interpretive Data last revised 2020. Trop I hs delta 12(C) ng/L [facility] Trop I hs interp Significa nt(C) [facility] Blood 04/09/2025 7:05 PM CDT 04/09/2025 7:27 PM CDT us Yesh Leni Park NP LAB BLOOD ORDERABLES Final Result [facility] [place] [address] * Critical result callback Cardio chemistry (04/09/2025 7:05 PM CDT) Pathologist [facility] Date Notified [id number] Time Notified 2056 [facility] Test name Trop I hs [facility] Called/Read Back Maxine [facility] Credentials RN [facility] Called By SB [facility] Blood 04/09/2025 7:05 PM CDT 04/09/2025 7:27 PM CDT us Yesh Leni Park TEASEL GIG OPERATOR LAB BLOOD ORDERABLES Final Result [facility] [place] [address] * Critical Care (04/09/2025 6:52 PM CDT) Narrative Bacilio Stacy MD - 04/09/2025 6:52 PM CDT Bacilio Stacy MD 04/10/2025 7:47 PM Critical Care Performed by: Artie Larios PA Authorized by: Artie Larios PA CRITICAL CARE: Team: SICU BLUE Shift: PM Level of Billing: Critical Care My time spent with this patient was 120 minutes: Critical Provider Statement: I have seen and examined the patient on this day of service. I have reviewed and confirmed the history, physical exam, laboratory and radiologic data as documented in the signed ICU note. I have reviewed and discussed my treatment plan with the ICU team and other medical/design consultant staff, making frequent assessments and decisions regarding this patient's complex medical care. Critical Care time was exclusive of time spent performing separately billed procedures, treating other patients, and teaching. This time was in addition to and separate from critical care provided by other practitioners in my group on this day of service. Critical Care was necessary to treat or prevent imminent or life-threatening deterioration of the following conditions: I spent time reviewing and interpreting data from bedside monitors, laboratory results, and imaging, I spent time discussing the management of this critically ill patient with consultants and the medical staff and I spent time documenting in the medical record Artie BOSS IN CLINIC/BEDSIDE ORDERABL ES Final Result * (ABNORMAL) Blood gas, arterial (04/09/2025 5:47 PM CDT) [facility] Signature pH, Art 7.36 7.35 - 7.45 PCO2, Arterial 43 35 - 45 mmHg [facility] PO2, Arterial 94 83 - 108 mmHg [facility] HCO3 Art (Calculated) 25 20 - 30 mmol/L [facility] BE, art -1 mmol/L [facility] Comment: Interpretive Data No Reference Range Established Current Interpretive Data was last revised on 2017 O2 Sat Art (Measured) 98(H) 90 - 95 % [facility] Blood 04/09/2025 5:47 PM CDT 04/09/2025 5:53 PM CDT us Yesh Leni Park TEASEL GIG OPERATOR LAB BLOOD ORDERABLES Final Result Performing Organization Address City/[facility] Co de Phone Number [facility] Department [place] [address] * (ABNORMAL) POCT glucose (04/09/2025 5:37 PM CDT) Pathologist [facility] Glucose, POC 214(H) 70 - 199 mg/dL Comment:Glu2: RN/MD Notified Glucose comment 1 Glu2: RN/MD Notified [facility] Blood 04/09/2025 5:37 PM CDT 04/09/2025 5:37 PM CDT us Alexus Butler MD LAB POCT ORDERABLES - ANDRES CE Final Result Performing Organization Address [facility] de Phone Number [facility] [place] [address] * Troponin I high-sensitivity series (baseline, 2hr, 4hr, 6hr) (04/09/2025 5:02 PM CDT) Pathologist [facility] Trop I hs 33 <=35 ng/L Comment: Interpretive Data For further hscTnI resources including the diagnostic algorithm and an aid in interpretation, copy and paste this link: https://bjhlab.testcatalog.org/show/[email or web address] Current Interpretive Data last revised 2020. Blood 04/09/2025 5:02 PM CDT 04/09/2025 5:18 PM CDT us Yes Leni Park NP LAB BLOOD ORDERABLES Final Result Performing Organization Address [facility] Co de Phone Number [facility] [place] [address] * eGFR (04/09/2025 5:02 PM CDT) eGFR 81 >=60 mL/min/1. 73 m2 Comment: Interpretive Data Reference Interval Normal >/= 90 mL/min/1.73m2 Mildly decreased* 60 - 89 mL/min/1.73m2 Mildly to moderately decreased 45 - 59 mL/min/1.73m2 Moderately to severely decreased 30 - 44 mL/min/1.73m2 Severely decreased 15 - 29 mL/min/1.73m2 Kidney Failure < 15 mL/min/1.73m2 *Relative to young adult level Estimated glomerular filtration rate is determined by the 2020 CKD-EPI equation recommended by the National Kidney Foundation (A Unifying Approach to GFR Estimation: Recommendations of the NKF-ASK Task Force on Reassessing the Inclusion of Race in Diagnosing Kidney Disease, JASN 2020). The CKD-EPI equation should not be used for patients with unstable renal function and has not been validated in children and those over 70. Current interpretive data was last reviewed 2021. Blood 04/09/2025 5:02 PM CDT 04/09/2025 5:32 PM CDT us Yesh Leni Park NP LAB BLOOD ORDERABLES Final Result [facility] [place] [address] * (ABNORMAL) Pro B-type natriuretic peptide (04/09/2025 5:02 PM CDT) NT-proBNP 3,627(H) <=300 pg/mL Comment: Interpretive Comments: A. Dyspnea in Acute Care Setting All Ages: < 300 pg/ml, acute heart failure unlikely. < 50 yrs: 300 - 450 pg/ml, further investigation warranted. > 450 pg/ml, acute heart failure likely. 50 - 74 yrs: 300 - 900 pg/ml, further investigation warranted. > 900 pg/ml, acute heart failure likely . > or = 75 yrs: 450 - 1800 pg/ml, further investigation warranted. > 1800 pg/ml, acute heart failure likely. B. Non-acute Setting < 75 yrs < 125 pg/ml, rules out heart failure. > or = 125 pg/ml, further investigation warranted. > or = 75 yrs < 450 pg/ml, rules out heart failure. > or = 450 pg/ml, further investigation warranted. - Knowledge of each individual patient's NT-proBNP range may be more useful than using similar cut-points for every patient. Please note that marked elevations in NT-proBNP levels may be observed in state other than Left Ventricular Congestive Failure, including: acute coronary syndromes, right heart strain/failure (including pulmonary embolism and cor pulmonale), critical illness, renal failure, as well as advanced age. - References: 1. Wilfredo BERNAL et.al. Eur Heart J. 2006:27:330-337. 2. Zonia HUANG, Solomon BAL. J. AM Johnnie Cardiol: Cardiovasc Imag. 2009;2: 216- 225. Interpretive Data Last Revised Date: 2018. Blood 04/09/2025 5:02 PM CDT 04/09/2025 5:32 PM CDT us Alexus Butler MD LAB BLOOD ORDERABLES Final Result Performing Organization Address City/[facility]/ZIP Co de Phone Number [facility] [place] [address] * (ABNORMAL) Calcium, ionized (04/09/2025 5:02 PM CDT) Calcium, Ionized 5.19(H) 4.50 - 5.10 mg/dL Blood 04/09/2025 5:02 PM CDT 04/09/2025 5:13 PM CDT us Majo Park NP LAB BLOOD ORDERABLES Final Result Performing Organization Address City/[facility]/ZIP Co de Phone Number [facility] [place] [address] * aPTT (04/09/2025 5:02 PM CDT) aPTT 31 28 - 38 sec Comment: Interpretive Data Heparin therapeutic range: 66.0 - 100.0 seconds. Range based on correlation with therapeutic heparin activity range of 0.3 - 0.7 Units/mL. Current interpretive data was last revised on 2023. Blood 04/09/2025 5:02 PM CDT 04/09/2025 5:28 PM CDT us Yes Leni Park NP LAB BLOOD ORDERABLES Final Result [facility] [place] [address] * (ABNORMAL) Protime-INR (04/09/2025 5:02 PM CDT) Pathologist [facility] PT 13.7(H) 9.7 - 13.0 sec INR 1.26(H) 0.90 - 1.20 [facility] Comment: Interpretive data Oral anticoagulant therapeutic ranges: Venous thromboembolism prophylaxis or treatment: 2.0-3.0 CARDIOLOGY Standard range: 2.0-3.0 High-intensity range: 2.5-3.5 Refer to indication-specific guidelines for appropriate target ranges for prosthetic heart valve replacement. Current interpretive data was last revised on 2019. Blood 04/09/2025 5:02 PM CDT 04/09/2025 5:28 PM CDT us Yes Leni Park NP LAB BLOOD ORDERABLES Final Result [facility] [place] [address] * (ABNORMAL) CBC without differential (04/09/2025 5:02 PM CDT) WBC 13.48(H) 3.80 - 9.90 K/cumm Hgb 7.9(L) 13.0 - 17.5 g/dL [facility] Hct 25.5(L) 38.9 - 50.3 % [facility] Plt 123(L) 150 - 400 K/cumm [facility] MPV Not Measured 9.1 - 12.3 fL [facility] RBC 3.05(L) 4.30 - 5.80 M/cumm [facility] MCV 83.6 81.3 - 96.4 fL [facility] MCH 25.9(L) 27.1 - 33.3 pg [facility] MCHC 31.0(L) 32.3 - 35.7 g/dL [facility] RDW CV 17.6(H) 11.1 - 14.9 % [facility] RDW SD 53.4(H) 35.7 - 48.1 fL [facility] NRBC abs 0.00 0.00 - 0.01 K/cumm [facility] Blood 04/09/2025 5:02 PM CDT 04/09/2025 5:18 PM CDT us Yesh Leni Park TEASEL GIG OPERATOR LAB BLOOD ORDERABLES Final Result Performing Organization Address City/[facility] Co de Phone Number [facility] [place] [address] * Type and screen (04/09/2025 5:02 PM CDT) Melvin, indirect Negative ABO Rh A Positive [facility] Blood 04/09/2025 5:02 PM CDT 04/09/2025 5:43 PM CDT Narrative [facility] - 04/09/2025 6:54 PM CDT Has the patient had Daratumumab or Isatuximab in the past 6 months?->Unknown us Yes Leni Park TEASEL GIG OPERATOR LAB BLOOD BANK TEST ORDERAB LES Final Result Performing Organization Address City/[facility]/ZIP Co de Phone Number [facility] [place] [address] * Phosphorus (04/09/2025 5:02 PM CDT) Pathologist [facility] Phosphorus, pl 3.5 2.3 - 4.5 mg/dL Blood 04/09/2025 5:02 PM CDT 04/09/2025 5:32 PM CDT us Yes Leni Park TEASEL GIG OPERATOR LAB BLOOD ORDERABLES Final Result Performing Organization Address City/[facility]/ZIP Co de Phone Number [facility] [place] [address] * Magnesium (04/09/2025 5:02 PM CDT) [facility] Magnesium 1.7 1.4 - 2.5 mg/dL Blood 04/09/2025 5:02 PM CDT 04/09/2025 5:32 PM CDT us Yes Leni Park TEASEL GIG OPERATOR LAB BLOOD ORDERABLES Final Result Performing Organization Address [facility] de Phone Number [facility] [place] [address] * (ABNORMAL) Comprehensive metabolic panel (04/09/2025 5:02 PM CDT) [facility] Sodium 143 135 - 145 mmol/L Potassium, pl 3.8 3.3 - 4.9 mmol/L [facility] [facility] Chloride 107 97 - 110 mmol/L [facility] CO2 24 22 - 32 mmol/L [facility] Anion gap 12 2 - 15 mmol/L [facility] BUN 42(H) 6 - 25 mg/dL [facility] Creatinine 0.98 0.80 - 1.30 mg/dL [facility] Glucose 201(H) 70 - 199 mg/dL [facility] Comment: Interpretive Data Fasting glucose >/= 126 mg/dl is diagnostic for diabetes. Fasting is defined as no caloric intake for at least 8 hours. Fasting glucose between 100 mg/dl to 125 mg/dl is diagnostic of prediabetes. In a patient with classic symptoms of hyperglycemia or hyperglycemic crisis, a random glucose >/= 200 mg/dl is diagnostic for diabetes. In the absence of unequivocal hyperglycemia, results should be confirmed by repeat testing. The classification and Diagnosis of Diabetes Diabetes Care 2021; 46: S19-S40. Current interpretive data was last revised 2022. Calcium 9.6 8.5 - 10.3 mg/dL [facility] Bilirubin, total 0.3 0.1 - 1.2 mg/dL [facility] Protein, pl 6.0(L) 6.5 - 8.5 g/dL [facility] Albumin 3.4(L) 3.5 - 5.0 g/dL [facility] Alk phos 100 40 - 130 Units/L [facility] ALT 12 7 - 55 Units/L [facility] AST 15 10 - 50 Units/L [facility] Blood 04/09/2025 5:02 PM CDT 04/09/2025 5:32 PM CDT Majo Park NP LAB BLOOD ORDERABLES Final Result [facility] [place] [address] * Critical Care (04/09/2025 4:56 PM CDT) Narrative Betty Ngo MD - 04/09/2025 4:56 PM CDT Betty Ngo MD 04/10/2025 12:34 PM Critical Care Performed by: Majo Park NP Authorized by: Majo Park NP CRITICAL CARE: Team: SICU BLUE Shift: AM Level of Billing: Critical Care My time spent with this patient was 120 minutes: Critical Provider Statement: I have seen and examined the patient on this day of service. I have reviewed and confirmed the history, physical exam, laboratory and radiologic data as documented in the signed ICU note. I have reviewed and discussed my treatment plan with the ICU team and other medical/design consultant staff, making frequent assessments and decisions regarding this patient's complex medical care. Critical Care time was exclusive of time spent performing separately billed procedures, treating other patients, and teaching. This time was in addition to and separate from critical care provided by other practitioners in my group on this day of service. Critical Care was necessary to treat or prevent imminent or life-threatening deterioration of the following conditions: I spent time reviewing and interpreting data from bedside monitors, laboratory results, and imaging, I spent time discussing the management of this critically ill patient with consultants and the medical staff and I spent time documenting in the medical record Yes Leni Park NP IN CLINIC/BEDSIDE ORDERABLE S Final Result * ECG 12 lead (04/09/2025 4:46 PM CDT) [facility] Ventricular Rate EKG/Min 87 BPM [facility] Atrial Rate 357 BPM [facility] QRS-Interval (MSEC) 134 ms [facility] QT-Interval (MSEC) 416 ms [facility] QTc 500 ms [facility] R [place] -32 degrees [facility] T [place] 157 degrees [facility] Diagnosis atial fibrillation with frequent premature ventricular beats or aberrantly conducted beats Left axis deviation Left bundle branch block Abnormal ECG When compared with ECG of 18-MAR-2021 06:32, Current undetermined rhythm precludes rhythm comparison, needs review Left bundle branch block has replaced Incomplete left bundle branch block ST now depressed in Lateral leads Nonspecific T wave abnormality, improved in Inferior leads QT has lengthened Confirmed by YIN TRUJILLO M.D ([id number]) on 04/10/2025 9:57:32 AM [facility] 04/09/2025 4:46 PM CDT 04/10/2025 9:57 AM CDT us Yes Leni Park NP ECG ORDERABLES Final Resul t [facility] * (ABNORMAL) POC Blood Gas and Chemistries, Arterial - (04/09/2025 3:52 PM CDT) [facility] pH, Art POC 7.36 7.35 - 7.45 pCO2, Art POC 37 35 - 45 mmHg [facility] pO2, Art POC 218(H) 83 - 108 mmHg [facility] Na, POC 138 135 - 145 mmol/L [facility] K POC 3.3 3.3 - 4.9 mmol/L [facility] Comment: Interpretive Data Not all point of care methods assess for hemolysis. Confirm with instrument and retest K+ if not consistent with clinical signs and symptoms. Current Interpretive Data was last revised on 2024. Cl, POC 111(H) 97 - 110 mmol/L [facility] Ionized Ca, POC 5.20(H) 4.50 - 5.10 mg/dL [facility] Glucose, POC 251(H) 70 - 199 mg/dL [facility] Lactate POC 2.3(H) 0.7 - 2.0 mmol/L [facility] SO2 (alexis) arterial 99(H) 90 - 95 % [facility] Base excess, POC -4.2 mmol/L [facility] HCO3, Art POC 21 20 - 30 mmol/L [facility] Hct, POC 23.0(L) 41.4 - 51.6 % [facility] Total Hb, POC 7.5(L) 13.8 - 17.2 g/dL [facility] Blood 04/09/2025 3:52 PM CDT 04/09/2025 3:52 PM CDT Alexus Butler MD LAB POCT ORDERABLES - ANDRES CE Final Result Performing Organization Address [facility] Co de Phone Number [facility] [place] [address] * POCT Activated clotting time, low range (04/09/2025 3:08 PM CDT) ACT 126 123 - 168 sec POC Performer [id number] [facility] POC Device Number [id number] [facility] Blood 04/09/2025 3:08 PM CDT 04/09/2025 3:08 PM CDT Alexus Butler MD LAB POCT ORDERABLES - ANDRES CE Final Result Performing Organization Address City/[facility] Co de Phone Number [facility] Department [place] [address] * ANGIOGRAPHY-VISCERAL ART(S) S&I [id number] (04/09/2025 3:07 PM CDT) Anatomical Region Laterality Modality X-Ray Angiograph y Narrative 04/10/2025 6:22 AM CDT Please see OpNote for result. Kai Toscano MD CV CARDIAC CATH PROCEDUR ES Final Result * (ABNORMAL) POC Blood Gas and Chemistries, Arterial - (04/09/2025 2:41 PM CDT) pH, Art POC 7.34(L) 7.35 - 7.45 pCO2, Art POC 44 35 - 45 mmHg [facility] pO2, Art POC 253(H) 83 - 108 mmHg [facility] Na, POC 137 135 - 145 mmol/L [facility] K POC 3.7 3.3 - 4.9 mmol/L [facility] Comment: Interpretive Data Not all point of care methods assess for hemolysis. Confirm with instrument and retest K+ if not consistent with clinical signs and symptoms. Current Interpretive Data was last revised on 2024. Cl, POC 107 97 - 110 mmol/L [facility] Ionized Ca, POC 5.09 4.50 - 5.10 mg/dL [facility] Glucose, POC 305(H) 70 - 199 mg/dL [facility] Lactate POC 1.1 0.7 - 2.0 mmol/L [facility] SO2 (alexis) arterial 99(H) 90 - 95 % [facility] Base excess, POC -2.1 mmol/L [facility] HCO3, Art POC 24 20 - 30 mmol/L [facility] Hct, POC 28.0(L) 41.4 - 51.6 % [facility] Total Hb, POC 9.4(L) 13.8 - 17.2 g/dL [facility] Blood 04/09/2025 2:41 PM CDT 04/09/2025 2:41 PM CDT Alexus Butler MD LAB POCT ORDERABLES - ANDRES CE Final Result [facility] [place] [address] * (ABNORMAL) POCT Activated clotting time, low range (04/09/2025 2:40 PM CDT) ACT 295(H) 123 - 168 sec POC Performer [id number] [facility] POC Device Number [id number] [facility] Blood 04/09/2025 2:40 PM CDT 04/09/2025 2:40 PM CDT Alexus Butler MD LAB POCT ORDERABLES - ANDRES CE Final Result Performing Organization Address [facility] de Phone Number [facility] [place] [address] * (ABNORMAL) POCT Activated clotting time, low range (04/09/2025 2:29 PM CDT) ACT 240(H) 123 - 168 sec POC Performer [id number] [facility] POC Device Number [id number] [facility] Blood 04/09/2025 2:29 PM CDT 04/09/2025 2:29 PM CDT Alexus Butler MD LAB POCT ORDERABLES - ANDRES CE Final Result Performing Organization Address [facility] [place] [address] * MA AN PROCEDURE PLACEHOLDER (04/09/2025 2:21 PM CDT) Narrative Vitor Valle RN - 04/09/2025 2:21 PM CDT Vitor Valle RN 04/09/2025 2:22 PM Arterial Line Patient location: OR Indication: continuous blood pressure monitoring Ultrasound assisted: yes Staff: Supervising provider: Samson Genao MD PhD Placed by: ADVERTISING PRODUCTION MANAGER: Billie Hurtado CRNA Other staff: Vitor Valle RN Procedure prep: Prep solution: chlorhexadine/alcohol Prep: sterile gloves Arterial line: Catheter size: 3 Ukrainian Catheter length: 8 cm Catheter type: wire-guided catheter Laterality: right Site: radial artery Line secured: tape and Tegaderm Results: good waveform and good blood return Number of attempts: 3 Assessment: Events: patient tolerated procedure well with no complications Additional comments: Vygonne attempted in right radial two times- once by SRNA, once by ADVERTISING PRODUCTION MANAGER. Both with ultrasound. Vascular fellow surgeon made third attempt in proximal right radial with ultrasound- successfully. us Samson Genao MD PhD ANESTHESIA ORD ERABLES Edited Result - Final * MA AN PROCEDURE PLACEHOLDER (04/09/2025 2:20 PM CDT) Vitor Roland RN - 04/09/2025 2:20 PM CDT Vitor Valle RN 04/09/2025 2:20 PM Peripheral IV Catheter Patient location: OR Staff: Placed by: Other staff: Vitor Valle RN Preprocedure prep: Prep solution: chlorhexadine and alcohol PPE: gloves and provider hat/mask PIV line: Laterality: left Site: forearm Catheter size: 18 g Technique: anatomical landmarks, direct visualization and palpatation Procedure details: good blood return and occlusive dressing applied Number of attempts: 2 Assessment: Events: patient tolerated procedure well with no complications us Samson Genao MD PhD ANESTHESIA ORD ERABLES Final Result * MA AN ELECTIVE ENDOTRACHEAL AIRWAY, MA AN PROCEDURE PLACEHOLDER (04/09/2025 2:20 PM CDT) Vitor Roland RN - 04/09/2025 2:20 PM CDT Vitor Valle RN 04/09/2025 2:20 PM Airway Patient location: OR Urgency: elective Indications for airway management: anesthesia Difficult airway: no Staff: Placed by: Anesthesiologist: Samson Genao MD PhD ADVERTISING PRODUCTION MANAGER: Billie Hurtado CRNA Other staff: Vitor Valle RN Emergent airway documentation: Risks and benefits discussed: yes Consent obtained: yes Consent given by: patient Airway prep: Preoxygenated: yes Patient position: sniffing Mask difficulty assessment: 1 - vent by mask Spontaneous ventilation during airway: absent Sedation level during airway: GA Final airway details: Final airway type: endotracheal airway Tube type: ETT ETT size: 8.0 mm Cuffed: yes Technique used for successful ETT placement: video laryngoscopy Devices/Methods used in placement: stylet Insertion site: oral Blade type: Shane Video blade type: Tee Blade size: 4 Cormack-Lehane (direct): grade I - full view of glottis Cormack-Lehane (video): grade I - full view of glottis Cuff volume: 7 mL Cuff inflated with: air ETT to teeth: 24 cm Placement verified by: auscultation and CO2 detection Airway secured with: silk tape Number of attempts: 1 Samson Genao MD PhD ANESTHESIA ORD ERABLES Final Result * (ABNORMAL) POCT Activated clotting time, low range (04/09/2025 2:10 PM CDT) ACT 276(H) 123 - 168 sec POC Performer [address] [place] [address] POC Device Number [id number] [facility] Blood 04/09/2025 2:10 PM CDT 04/09/2025 2:10 PM CDT Alexus Butler MD LAB POCT ORDERABLES - ANDRES CE Final Result [facility] Department [place] [address] * (ABNORMAL) POCT Activated clotting time, low range (04/09/2025 2:01 PM CDT) ACT 248(H) 123 - 168 sec POC Performer [id number] [facility] POC Device Number [id number] [facility] Blood 04/09/2025 2:01 PM CDT 04/09/2025 2:01 PM CDT Alexus Butler MD LAB POCT ORDERABLES - ANDRES CE Final Result [facility] [place] [address] * CTA Abdomen Pelvis (04/09/2025 5:20 AM CDT) Anatomical Region Laterality Modality Body N/A Computed Tomogra phy 04/09/2025 6:07 AM CDT Impressions 04/09/2025 12:30 PM CDT 1. 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 No occlusion. 2. No evidence of bowel ischemia. 3. Unchanged cardiomegaly with contrast reflux into the inferior vena cava in keeping with history of HFrEF Dictated by: Kelley Michaels MD The radiology attending physician has personally reviewed this study, and had reviewed and/or edited this written report and agrees with it. Electronically signed by: Sanaz Rose M.D. 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 Additional 62nd delay images in portal venous phase were also obtained. COMPARISON: CT on 03/26/2025 FINDINGS: VASCULAR FINDINGS: Mixed and calcified plaques involving the entire abdominal aorta. Moderate stenosis of the proximal celiac artery with mild multifocal stenosis distally. Moderate stenosis in the origin and proximal superior mesenteric artery with multifocal moderate stenosis more distally. Moderate stenosis of the origin of bilateral renal arteries. No occlusion or acute embolism. Patent stent in the right common femoral artery. Mild multifocal stenosis of the right external iliac and common femoral artery. Up to moderate multifocal stenosis of the left common iliac artery. Mild multifocal stenosis of the left external iliac and common femoral artery. Patent stent in the proximal left internal iliac artery. NONVASCULAR FINDINGS: Emphysema and scarring noted in the lower lobes. No effusion. Enlargement of the right atrium with reflux of contrast into the inferior vena cava in keeping with HFrEF No suspicious liver lesions. Normal color. Normal spleen and both adrenals and pancreas. Both kidneys are enhancing symmetrically without hydronephrosis or stones. Both kidneys with unchanged small hypoattenuation lesions that are too small to characterize. No evidence of bowel obstruction. No mesenteric adenopathy. No free fluid or free air in the abdomen and pelvis. Enlarged prostate. Bladder is distended. Degenerative changes in the lumbar spine. No aggressive osseous lesions. Impression edematous and median sternotomy wires. Procedure Note Sanaz Rose MD - 04/09/2025 EXAMINATION: CT ANGIOGRAPHY OF THE ABDOMEN AND PELVIS WITH AND WITHOUT CONTRAST HISTORY: 74-year-old with abdominal discomfort with recent CT showing celiac and severe mesenteric artery atherosclerosis TECHNIQUE: CT angiography of the abdomen and pelvis was performed prior to and following the uneventful intravenous administration of 93 ml Optiray-350 using the abdomen and pelvis angiography protocol. Additional 62nd delay images in portal venous phase were also obtained. COMPARISON: CT on 03/26/2025 FINDINGS: VASCULAR FINDINGS: Mixed and calcified plaques involving the entire abdominal aorta. Moderate stenosis of the proximal celiac artery with mild multifocal stenosis distally. Moderate stenosis in the origin and proximal superior mesenteric artery with multifocal moderate stenosis more distally. Moderate stenosis of the origin of bilateral renal arteries. No occlusion or acute embolism. Patent stent in the right common femoral artery. Mild multifocal stenosis of the right external iliac and common femoral artery. Up to moderate multifocal stenosis of the left common iliac artery. Mild multifocal stenosis of the left external iliac and common femoral artery. Patent stent in the proximal left internal iliac artery. NONVASCULAR FINDINGS: Emphysema and scarring noted in the lower lobes. No effusion. Enlargement of the right atrium with reflux of contrast into the inferior vena cava in keeping with HFrEF No suspicious liver lesions. Normal color. Normal spleen and both adrenals and pancreas. Both kidneys are enhancing symmetrically without hydronephrosis or stones. Both kidneys with unchanged small hypoattenuation lesions that are too small to characterize. No evidence of bowel obstruction. No mesenteric adenopathy. No free fluid or free air in the abdomen and pelvis. Enlarged prostate. Bladder is distended. Degenerative changes in the lumbar spine. No aggressive osseous lesions. Impression edematous and median sternotomy wires. IMPRESSION: 1. 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 No occlusion. 2. No evidence of bowel ischemia. 3. Unchanged cardiomegaly with contrast reflux into the inferior vena cava in keeping with history of HFrEF Dictated by: Kelley Michaels MD The radiology attending physician has personally reviewed this study, and had reviewed and/or edited this written report and agrees with it. Electronically signed by: Sanaz Rose M.D. us Kellee Vora MD IMG CT PROCEDURES Fin al Result * (ABNORMAL) Troponin I high-sensitivity 6-hour (04/09/2025 4:42 AM CDT) Trop I hs 42(H) <=35 ng/L Comment: Interpretive Data For further hscTnI resources including the diagnostic algorithm and an aid in interpretation, copy and paste this link: [email or web address] Current Interpretive Data last revised 2020. Trop I hs delta -4 ng/L [facility] Trop I hs interp Insignificant [facility] Blood 04/09/2025 4:42 AM CDT 04/09/2025 4:58 AM CDT Armand Luke MD LAB BLOOD ORDERABLES Final Re sult [facility] Department [place] [address] * (ABNORMAL) Troponin I high-sensitivity 4-hour (04/09/2025 2:51 AM CDT) Trop I hs 42(H) <=35 ng/L Comment: Interpretive Data For further hscTnI resources including the diagnostic algorithm and an aid in interpretation, copy and paste this link: [email or web address] Current Interpretive Data last revised 2020. Trop I hs delta -4 ng/L [facility] Trop I hs interp Insignificant [facility] Blood 04/09/2025 2:51 AM CDT 04/09/2025 2:59 AM CDT Armand Luke MD LAB BLOOD ORDERABLES Final Re sult Performing Organization Address [facility] [place] [address] * (ABNORMAL) Troponin I high-sensitivity 2-hour (04/09/2025 12:57 AM CDT) Trop I hs 50(H) <=35 ng/L Comment: Interpretive Data For further hscTnI resources including the diagnostic algorithm and an aid in interpretation, copy and paste this link: [email or web address] Current Interpretive Data last revised 2020. Trop I hs delta 4 ng/L [facility] Trop I hs interp Insignificant [facility] Blood 04/09/2025 12:5 7 AM CDT 04/09/2025 1:09 AM CDT Armand Luke MD LAB BLOOD ORDERABLES Final Re sult Performing Organization Address [facility] [place] [address] * (ABNORMAL) Troponin I high-sensitivity series (baseline, 2hr, 4hr, 6hr) (04/08/2025 10:46 PM CDT) Trop I hs 46(H) <=35 ng/L Comment: Interpretive Data For further hscTnI resources including the diagnostic algorithm and an aid in interpretation, copy and paste this link: [email or web address] Current Interpretive Data last revised 2020. Blood 04/08/2025 10:4 6 PM CDT 04/08/2025 10:54 PM CDT Armand Luke MD LAB BLOOD ORDERABLES Final Re sult [facility] Department [place] [address] * Sepsis Lactate w/ Reflex (04/08/2025 10:46 PM CDT) Sepsis Lactate 1.0 0.7 - 2.0 mmol/L Blood 04/08/2025 10:4 6 PM CDT 04/08/2025 10:51 PM CDT Armand Luke MD LAB BLOOD ORDERABLES Final Re sult Performing Organization Address [facility] Co de Phone Number [facility] [place] [address] * (ABNORMAL) eGFR (04/08/2025 10:46 PM CDT) eGFR 55(L) >=60 mL/min/1. 73 m2 Comment: Interpretive Data Reference Interval Normal >/= 90 mL/min/1.73m2 Mildly decreased* 60 - 89 mL/min/1.73m2 Mildly to moderately decreased 45 - 59 mL/min/1.73m2 Moderately to severely decreased 30 - 44 mL/min/1.73m2 Severely decreased 15 - 29 mL/min/1.73m2 Kidney Failure < 15 mL/min/1.73m2 *Relative to young adult level Estimated glomerular filtration rate is determined by the 2020 CKD-EPI equation recommended by the National Kid[employer] (A Unifying Approach to GFR Estimation: Recommendations of the NKF-ASK Task Force on Reassessing the Inclusion of Race in Diagnosing Kidney Disease, JASN 2020). The CKD-EPI equation should not be used for patients with unstable renal function and has not been validated in children and those over 70. Current interpretive data was last reviewed 2021. Blood 04/08/2025 10:4 6 PM CDT 04/08/2025 10:54 PM CDT us Armand Luke MD LAB BLOOD ORDERABLES Final Re sult [facility] [place] [address] * (ABNORMAL) Differential, auto (04/08/2025 10:46 PM CDT) Neutrophil abs 12.42(H) 1.50 - 6.50 K/cumm Imm gran abs 0.07 0.00 - 0.10 K/cumm [facility] Lymphocyte abs 0.61(L) 0.80 - 3.30 K/cumm [facility] Monocyte abs 1.05(H) 0.20 - 0.80 K/cumm [facility] Eosinophil abs 0.16 0.00 - 0.50 K/cumm [facility] Basophil abs 0.03 0.00 - 0.10 K/cumm [facility] Neutrophil pct 86.6 % [facility] Comment: Interpretive Data Percent cell count reference ranges are not reported, since discordance with absolute values may lead to misinterpretation of CBC data. Current Interpretive Data was last revised on 2018. Imm gran pct 0.5 % [facility] Comment: Interpretive Data Percent cell count reference ranges are not reported, since discordance with absolute values may lead to misinterpretation of CBC data. Current Interpretive Data was last revised on 2018. Lymphocyte pct 4.3 % [facility] Comment: Interpretive Data Percent cell count reference ranges are not reported, since discordance with absolute values may lead to misinterpretation of CBC data. Current Interpretive Data was last revised on 2018. Monocyte pct 7.3 % [facility] [facility] Comment: Interpretive Data Percent cell count reference ranges are not reported, since discordance with absolute values may lead to misinterpretation of CBC data. Current Interpretive Data was last revised on 2018. Eosinophil pct 1.1 % [facility] Comment: Interpretive Data Percent cell count reference ranges are not reported, since discordance with absolute values may lead to misinterpretation of CBC data. Current Interpretive Data was last revised on 2018. Basophil pct 0.2 % [facility] Comment: Interpretive Data Percent cell count reference ranges are not reported, since discordance with absolute values may lead to misinterpretation of CBC data. Current Interpretive Data was last revised on 2018. Blood 04/08/2025 10:4 6 PM CDT 04/08/2025 10:54 PM CDT us Armand Luke MD LAB BLOOD ORDERABLES Final Re sult [facility] [place] [address] * (ABNORMAL) Pro B-type natriuretic peptide (04/08/2025 10:46 PM CDT) NT-proBNP 8,416(H) <=300 pg/mL Comment: Interpretive Comments: A. Dyspnea in Acute Care Setting All Ages: < 300 pg/ml, acute heart failure unlikely. < 50 yrs: 300 - 450 pg/ml, further investigation warranted. > 450 pg/ml, acute heart failure likely. 50 - 74 yrs: 300 - 900 pg/ml, further investigation warranted. > 900 pg/ml, acute heart failure likely . > or = 75 yrs: 450 - 1800 pg/ml, further investigation warranted. > 1800 pg/ml, acute heart failure likely. B. Non-acute Setting < 75 yrs < 125 pg/ml, rules out heart failure. > or = 125 pg/ml, further investigation warranted. > or = 75 yrs < 450 pg/ml, rules out heart failure. > or = 450 pg/ml, further investigation warranted. - Knowledge of each individual patient's NT-proBNP range may be more useful than using similar cut-points for every patient. Please note that marked elevations in NT-proBNP levels may be observed in state other than Left Ventricular Congestive Failure, including: acute coronary syndromes, right heart strain/failure (including pulmonary embolism and cor pulmonale), critical illness, renal failure, as well as advanced age. - References: 1. Wilfredo BERNAL et.al. Eur Heart J. 2006:27:330-337. 2. Zonia RW, Solomon BAL. J. AM Johnnie Cardiol: Cardiovasc Imag. 2009;2: 216- 225. Interpretive Data Last Revised Date: 2018. Blood 04/08/2025 10:4 6 PM CDT 04/08/2025 10:54 PM CDT Armand Luke MD LAB BLOOD ORDERABLES Final Re sult Performing Organization Address City/[facility]/ZIP Co de Phone Number [facility] Department [place] [address] * (ABNORMAL) CBC with auto differential (04/08/2025 10:46 PM CDT) WBC 14.34(H) 3.80 - 9.90 K/cumm Hgb 9.1(L) 13.0 - 17.5 g/dL [facility] Hct 28.9(L) 38.9 - 50.3 % [facility] Plt 134(L) 150 - 400 K/cumm [facility] MPV Not Measured 9.1 - 12.3 fL [facility] RBC 3.45(L) 4.30 - 5.80 M/cumm [facility] MCV 83.8 81.3 - 96.4 fL [facility] MCH 26.4(L) 27.1 - 33.3 pg [facility] MCHC 31.5(L) 32.3 - 35.7 g/dL [facility] RDW CV 18.0(H) 11.1 - 14.9 % [facility] RDW SD 54.8(H) 35.7 - 48.1 fL [facility] NRBC abs 0.00 0.00 - 0.01 K/cumm [facility] Blood 04/08/2025 10:4 6 PM CDT 04/08/2025 10:54 PM CDT Armand Luke MD LAB BLOOD ORDERABLES Final Re sult Performing Organization Address City/[facility]/ZIP Co de Phone Number [facility] [place] [address] * (ABNORMAL) aPTT (04/08/2025 10:46 PM CDT) aPTT 24(L) 28 - 38 sec Comment: Interpretive Data Heparin therapeutic range: 66.0 - 100.0 seconds. Range based on correlation with therapeutic heparin activity range of 0.3 - 0.7 Units/mL. Current interpretive data was last revised on 2023. Blood 04/08/2025 10:4 6 PM CDT 04/08/2025 10:59 PM CDT Armand Luke MD LAB BLOOD ORDERABLES Final Re sult Performing Organization Address [facility] [place] [address] * Protime-INR (04/08/2025 10:46 PM CDT) Pathologist [facility] PT 12.5 9.7 - 13.0 sec INR 1.15 0.90 - 1.20 [facility] Comment: Interpretive data Oral anticoagulant therapeutic ranges: Venous thromboembolism prophylaxis or treatment: 2.0-3.0 CARDIOLOGY Standard range: 2.0-3.0 High-intensity range: 2.5-3.5 Refer to indication-specific guidelines for appropriate target ranges for prosthetic heart valve replacement. Current interpretive data was last revised on 2019. Blood 04/08/2025 10:4 6 PM CDT 04/08/2025 10:59 PM CDT Armand Luke MD LAB BLOOD ORDERABLES Final Re sult Performing Organization Address [facility] [place] [address] * Type and screen (04/08/2025 10:46 PM CDT) Melvin, indirect Negative ABO Rh A Positive [facility] Blood 04/08/2025 10:4 6 PM CDT 04/08/2025 10:54 PM CDT Narrative [facility] - 04/08/2025 11:47 PM CDT Has the patient had Daratumumab or Isatuximab in the past 6 months?->Unknown Armand Luke MD LAB BLOOD BANK TEST ORDERABLE S Final Result [facility] [place] [address] * (ABNORMAL) Comprehensive metabolic panel (04/08/2025 10:46 PM CDT) Pathologist [facility] Sodium 137 135 - 145 mmol/L Potassium, pl 4.3 3.3 - 4.9 mmol/L [facility] Chloride 99 97 - 110 mmol/L [facility] CO2 24 22 - 32 mmol/L [facility] Anion gap 14 2 - 15 mmol/L [facility] BUN 54(H) 6 - 25 mg/dL [facility] Creatinine 1.36(H) 0.80 - 1.30 mg/dL [facility] Glucose 115 70 - 199 mg/dL [facility] Comment: Interpretive Data Fasting glucose >/= 126 mg/dl is diagnostic for diabetes. Fasting is defined as no caloric intake for at least 8 hours. Fasting glucose between 100 mg/dl to 125 mg/dl is diagnostic of prediabetes. In a patient with classic symptoms of hyperglycemia or hyperglycemic crisis, a random glucose >/= 200 mg/dl is diagnostic for diabetes. In the absence of unequivocal hyperglycemia, results should be confirmed by repeat testing. The classification and Diagnosis of Diabetes Diabetes Care 2021; 46: S19-S40. Current interpretive data was last revised 2022. Calcium 10.0 8.5 - 10.3 mg/dL [facility] Bilirubin, total 0.5 0.1 - 1.2 mg/dL [facility] Protein, pl 6.9 6.5 - 8.5 g/dL [facility] Albumin 3.6 3.5 - 5.0 g/dL [facility] Alk phos 118 40 - 130 Units/L [facility] ALT 15 7 - 55 Units/L [facility] AST 22 10 - 50 Units/L [facility] Blood 04/08/2025 10:4 6 PM CDT 04/08/2025 10:54 PM CDT Armand Luke MD LAB BLOOD ORDERABLES Final Re sult [facility] [place] [address] * (ABNORMAL) ECG 12-LEAD (04/08/2025 8:54 PM CDT) Narrative [facility] - 04/08/2025 8:54 PM CDT Karan Ortega MD 04/08/2025 8:55 PM ECG 12 lead Date/Time: 04/08/2025 8:54 PM Performed by: Karan Ortega MD Authorized by: Jered Kurtz MD Rate: ECG rate: 76 Rhythm: Rhythm: atrial fibrillation Ectopy: Ectopy: none QRS: QRS axis: Normal QRS intervals: Normal Conduction: Conduction: normal ST segments: ST segments: Normal T waves: T waves: inverted Inverted: V6, V5 and V4 Previous ECG: Previous ECG: Compared to current Date of previous EC03/25/2025 Similarity: Changes noted Interpretation: Interpretation: abnormal Recommended Follow-up: Recommended follow up: further workup in the ED Procedure Note Karan Ortega MD - 04/08/2025 8:54 PM CDT Procedure ECG 12 lead Date/Time: 04/08/2025 8:54 PM Performed by: Karan Ortega MD Authorized by: Jreed Kurtz MD Rate: ECG rate: 76 Rhythm: Rhythm: atrial fibrillation Ectopy: Ectopy: none QRS: QRS axis: Normal QRS intervals: Normal Conduction: Conduction: normal ST segments: ST segments: Normal T waves: T waves: inverted Inverted: V6, V5 and V4 Previous ECG: Previous ECG: Compared to current Date of previous EC03/25/2025 Similarity: Changes noted Interpretation: Interpretation: abnormal Recommended Follow-up: Recommended follow up: further workup in the ED Karan Ortega MD 04/08/252054 us Armand Luke MD ECG ORDERABLES Final Result [facility] * Sepsis Lactate w/ Reflex (03/26/2025 4:10 AM CDT) Sepsis Lactate 1.2 0.7 - 2.0 mmol/L Blood 03/26/2025 4:10 AM CDT 03/26/2025 4:15 AM CDT us Casandra Fowler MD LAB BLOOD ORDERABLES Fi nal Result Performing Organization Address City/[facility] Co de Phone Number [facility] Department [place] [address] * (ABNORMAL) Urinalysis reflex to microscopic (03/26/2025 4:10 AM CDT) Color, ur Straw Yellow Clarity, ur Clear Clear [facility] Specific gravity, ur 1.030 1.003 - 1.030 [facility] pH, urine 6.0 [facility] Comment: Interpretive Data U rine pH is affected by diet, medications, systemic acid-base disturbances, and renal tubular function. pH may affect urinary stone formation. For example, urine pH below 6.0 may help reduce the tendency for calcium phosphate stones and pH greater than 6.0 may reduce the tendency for uric acid stone formation. Source: [facility] Current Interpretive Data was last revised on 2017 Protein, ur ql Negative Negative [facility] Glucose, ur ql 3+(A) Negative [facility] Ketones, ur Negative Negative [facility] Bilirubin, ur Negative Negative [facility] Blood, ur Negative Negative [facility] Urobilinogen, ur <2.0 <2.0 mg/dL [facility] Nitrite, ur Negative Negative [facility] Leukocyte esterase, ur Negative Negative [facility] UA reflex comment Reflex conditions for microscopic UA not met. [facility] Urine 03/26/2025 4:10 AM CDT 03/26/2025 4:15 AM CDT us Eric Olson MD LAB URINE ORDERABLES Final Result [facility] [place] [address] * CT Chest Abdomen Pelvis W Contrast (03/26/2025 2:22 AM CDT) Anatomical Region Laterality Modality Body N/A Computed Tomogra phy 03/26/2025 3:32 AM CDT Impressions 03/26/2025 11:14 AM CDT 1. 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 2. Mild cardiomegaly and prominent mediastinal lymph nodes are unchanged from prior and likely reactive. 3. Emphysematous changes to the lung. Dictated by: Casandra Magallanes MD The radiology attending physician has personally reviewed this study, and had reviewed and/or edited this written report and agrees with it. Electronically signed by: Brandin Wade M.D. Narrative 03/26/2025 11:14 AM CDT EXAMINATION: Computed tomography of the chest, abdomen and pelvis with intravenous contrast HISTORY: Sepsis TECHNIQUE: Transaxial computed tomographic images of the chest, abdomen and pelvis were obtained with intravenous contrast according to the standard protocol after the uneventful administration of 75 mL Opti-Ray 350 intravenous contrast. COMPARISON: 08/27/2024 FINDINGS: Chest: Centrilobular and paraseptal emphysema. There is mild peripheral reticulation with bronchial wall thickening, similar to CT 08/27/2024. No pleural effusion or pneumothorax. No supraclavicular or axillary lymphadenopathy. 1.3 cm right paratracheal lymph noted is unchanged from 08/27/2024. Heart is mildly enlarged. Multivessel coronary artery atherosclerosis. Left atrial appendage clip present. Patient is status post coronary bypass. Median sternotomy. Unchanged 5 mm right middle lobe pulmonary nodule. Abdomen/Pelvis: No suspicious hepatic lesion. Gallbladder normal. No biliary ductal dilatation. Portal, superior mesenteric, and splenic veins are patent. Spleen, pancreas, and adrenal glands are normal. Kidneys enhance symmetrically without hydronephrosis or nephrolithiasis. Bladder normal. Prostate is enlarged Stool throughout the colon. Colonic diverticulosis without diverticulitis. No ascites or pneumoperitoneum. Distal esophagus and stomach are normal. The abdominal aorta and its branches are severely atherosclerotic including severe stenosis of the celiac axis and its branches as well as the superior mesenteric artery. Changes of grade inguinal hernia repair. Multilevel degenerative changes to the spine without suspicious osseous lesion. Procedure Note Short, Brandin Batista MD - 03/26/2025 EXAMINATION: Computed tomography of the chest, abdomen and pelvis with intravenous contrast HISTORY: Sepsis TECHNIQUE: Transaxial computed tomographic images of the chest, abdomen and pelvis were obtained with intravenous contrast according to the standard protocol after the uneventful administration of 75 mL Opti-Ray 350 intravenous contrast. COMPARISON: 08/27/2024 FINDINGS: Chest: Centrilobular and paraseptal emphysema. There is mild peripheral reticulation with bronchial wall thickening, similar to CT 08/27/2024. No pleural effusion or pneumothorax. No supraclavicular or axillary lymphadenopathy. 1.3 cm right paratracheal lymph noted is unchanged from 08/27/2024. Heart is mildly enlarged. Multivessel coronary artery atherosclerosis. Left atrial appendage clip present. Patient is status post coronary bypass. Median sternotomy. Unchanged 5 mm right middle lobe pulmonary nodule. Abdomen/Pelvis: No suspicious hepatic lesion. Gallbladder normal. No biliary ductal dilatation. Portal, superior mesenteric, and splenic veins are patent. Spleen, pancreas, and adrenal glands are normal. Kidneys enhance symmetrically without hydronephrosis or nephrolithiasis. Bladder normal. Prostate is enlarged Stool throughout the colon. Colonic diverticulosis without diverticulitis. No ascites or pneumoperitoneum. Distal esophagus and stomach are normal. The abdominal aorta and its branches are severely atherosclerotic including severe stenosis of the celiac axis and its branches as well as the superior mesenteric artery. Changes of grade inguinal hernia repair. Multilevel degenerative changes to the spine without suspicious osseous lesion. IMPRESSION: 1. 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 2. Mild cardiomegaly and prominent mediastinal lymph nodes are unchanged from prior and likely reactive. 3. Emphysematous changes to the lung. Dictated by: Casandra Magallanes MD The radiology attending physician has personally reviewed this study, and had reviewed and/or edited this written report and agrees with it. Electronically signed by: Brandin Wade M.D. us Casandra Fowler MD IMG CT PROCEDURES Final Result * Troponin I high-sensitivity 2-hour (03/26/2025 12:15 AM CDT) Trop I hs 27 <=35 ng/L Comment: Interpretive Data For further hscTnI resources including the diagnostic algorithm and an aid in interpretation, copy and paste this link: [email or web address]/[email or web address] Current Interpretive Data last revised 2020. Trop I hs delta -2 ng/L [facility] Trop I hs interp Insignificant [facility] H Blood 03/26/2025 12:1 5 AM CDT 03/26/2025 12:26 AM CDT us Armand Luke MD LAB BLOOD ORDERABLES Final Re sult [facility] [place] [address] * ECG 12-LEAD (03/25/2025 10:28 PM CDT) Narrative [facility] - 03/25/2025 10:28 PM CDT Woody Del Rio MD 03/25/2025 10:29 PM ECG 12 lead Date/Time: 03/25/2025 10:28 PM Performed by: Woody Del Rio MD Authorized by: Armand Luke MD Rate: ECG rate: 65 Rhythm: Rhythm: atrial fibrillation Ectopy: Ectopy: PVCs QRS: QRS axis: Normal QRS intervals: Normal Conduction: Conduction: abnormal 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 ST segments: ST segments: Normal T waves: T waves: normal Previous ECG: Previous ECG: Compared to current Date of previous EC12/30/2024 Similarity: No change Interpretation: Interpretation: non-specific Recommended Follow-up: Recommended follow up: further workup in the ED Comments: Moderate risk us Eric Olson MD ECG ORDERABLES Final Result [facility] * Troponin I high-sensitivity series (baseline, 2hr, 4hr, 6hr) (03/25/2025 10:17 PM CDT) Trop I hs 29 <=35 ng/L Comment: Interpretive Data For further hscTnI resources including the diagnostic algorithm and an aid in interpretation, copy and paste this link: [email or web address]/[email or web address] Current Interpretive Data last revised 2020. Blood 03/25/2025 10:1 7 PM CDT 03/25/2025 10:38 PM CDT us Eric Olson MD LAB BLOOD ORDERABLES Final Result Performing Organization Address City/[facility]/ZIP Co de Phone Number [facility] [place] [address] * (ABNORMAL) eGFR (03/25/2025 10:17 PM CDT) eGFR 48(L) >=60 mL/min/1. 73 m2 Comment: Interpretive Data Reference Interval Normal >/= 90 mL/min/1.73m2 Mildly decreased* 60 - 89 mL/min/1.73m2 Mildly to moderately decreased 45 - 59 mL/min/1.73m2 Moderately to severely decreased 30 - 44 mL/min/1.73m2 Severely decreased 15 - 29 mL/min/1.73m2 Kidney Failure < 15 mL/min/1.73m2 *Relative to young adult level Estimated glomerular filtration rate is determined by the 2020 CKD-EPI equation recommended by the National Kid[employer] (A Unifying Approach to GFR Estimation: Recommendations of the NKF-ASK Task Force on Reassessing the Inclusion of Race in Diagnosing Kidney Disease, JASN 2020). The CKD-EPI equation should not be used for patients with unstable renal function and has not been validated in children and those over 70. Current interpretive data was last reviewed 2021. Blood 03/25/2025 10:1 7 PM CDT 03/25/2025 10:38 PM CDT us Eric Olson MD LAB BLOOD ORDERABLES Final Result [facility] [place] [address] * (ABNORMAL) Differential, auto (03/25/2025 10:17 PM CDT) Neutrophil abs 5.81 1.50 - 6.50 K/cumm Imm gran abs 0.04 0.00 - 0.10 K/cumm [facility] Lymphocyte abs 0.57(L) 0.80 - 3.30 K/cumm [facility] Monocyte abs 0.67 0.20 - 0.80 K/cumm [facility] Eosinophil abs 0.12 0.00 - 0.50 K/cumm [facility] Basophil abs 0.05 0.00 - 0.10 K/cumm [facility] Neutrophil pct 79.9 % [facility] Comment: Interpretive Data Percent cell count reference ranges are not reported, since discordance with absolute values may lead to misinterpretation of CBC data. Current Interpretive Data was last revised on 2018. Imm gran pct 0.6 % [facility] Comment: Interpretive Data Percent cell count reference ranges are not reported, since discordance with absolute values may lead to misinterpretation of CBC data. Current Interpretive Data was last revised on 2018. Lymphocyte pct 7.9 % [facility] Comment: Interpretive Data Percent cell count reference ranges are not reported, since discordance with absolute values may lead to misinterpretation of CBC data. Current Interpretive Data was last revised on 2018. Monocyte pct 9.2 % [facility] Comment: Interpretive Data Percent cell count reference ranges are not reported, since discordance with absolute values may lead to misinterpretation of CBC data. Current Interpretive Data was last revised on 2018. Eosinophil pct 1.7 % [facility] Comment: Interpretive Data Percent cell count reference ranges are not reported, since discordance with absolute values may lead to misinterpretation of CBC data. Current Interpretive Data was last revised on 2018. Basophil pct 0.7 % [facility] Comment: Interpretive Data Percent cell count reference ranges are not reported, since discordance with absolute values may lead to misinterpretation of CBC data. Current Interpretive Data was last revised on 2018. Blood 03/25/2025 10:1 7 PM CDT 03/25/2025 10:38 PM CDT us Eric Olson MD LAB BLOOD ORDERABLES Final Result [facility] [place] [address] * (ABNORMAL) Pro B-type natriuretic peptide (03/25/2025 10:17 PM CDT) NT-proBNP 8,247(H) <=300 pg/mL Comment: Interpretive Comments: A. Dyspnea in Acute Care Setting All Ages: < 300 pg/ml, acute heart failure unlikely. < 50 yrs: 300 - 450 pg/ml, further investigation warranted. > 450 pg/ml, acute heart failure likely. 50 - 74 yrs: 300 - 900 pg/ml, further investigation warranted. > 900 pg/ml, acute heart failure likely . > or = 75 yrs: 450 - 1800 pg/ml, further investigation warranted. > 1800 pg/ml, acute heart failure likely. B. Non-acute Setting < 75 yrs < 125 pg/ml, rules out heart failure. > or = 125 pg/ml, further investigation warranted. > or = 75 yrs < 450 pg/ml, rules out heart failure. > or = 450 pg/ml, further investigation warranted. - Knowledge of each individual patient's NT-proBNP range may be more useful than using similar cut-points for every patient. Please note that marked elevations in NT-proBNP levels may be observed in state other than Left Ventricular Congestive Failure, including: acute coronary syndromes, right heart strain/failure (including pulmonary embolism and cor pulmonale), critical illness, renal failure, as well as advanced age. - References: 1. Wilfredo BERNAL et.al. Eur Heart J. 2006:27:330-337. 2. [place] RW, Carbajal AM. J. AM Johnnie Cardiol: Cardiovasc Imag. 2009;2: 216- 225. Interpretive Data Last Revised Date: 2018. Blood 03/25/2025 10:1 7 PM CDT 03/25/2025 10:38 PM CDT us Casandra Fowler MD LAB BLOOD ORDERABLES Fi nal Result [facility] [place] [address] * (ABNORMAL) CBC with auto differential (03/25/2025 10:17 PM CDT) WBC 7.26 3.80 - 9.90 K/cumm Hgb 9.2(L) 13.0 - 17.5 g/dL [facility] Hct 30.3(L) 38.9 - 50.3 % [facility] Plt 234 150 - 400 K/cumm [facility] MPV 12.2 9.1 - 12.3 fL [facility] RBC 3.52(L) 4.30 - 5.80 M/cumm [facility] MCV 86.1 81.3 - 96.4 fL [facility] MCH 26.1(L) 27.1 - 33.3 pg [facility] MCHC 30.4(L) 32.3 - 35.7 g/dL [facility] RDW CV 18.5(H) 11.1 - 14.9 % [facility] RDW SD 58.3(H) 35.7 - 48.1 fL [facility] NRBC abs 0.00 0.00 - 0.01 K/cumm [facility] Blood Venous blood specimen / Unknown 03/25/2025 10:17 PM CDT 03/25/2025 10:38 PM CDT us Eric Olson MD LAB BLOOD ORDERABLES Final Result [facility] [place] [address] * Lipase (03/25/2025 10:17 PM CDT) Lipase 88 10 - 99 Units/L Blood Venous blood specimen / Unknown 03/25/2025 10:17 PM CDT 03/25/2025 10:38 PM CDT us Eric Olson MD LAB BLOOD ORDERABLES Final Result Performing Organization Address City/[facility]/ZIP Co de Phone Number [facility] [place] [address] * (ABNORMAL) Comprehensive metabolic panel (03/25/2025 10:17 PM CDT) Pathologist [facility] Sodium 140 135 - 145 mmol/L Potassium, pl 4.3 3.3 - 4.9 mmol/L [facility] Chloride 105 97 - 110 mmol/L [facility] CO2 24 22 - 32 mmol/L [facility] Anion gap 11 2 - 15 mmol/L [facility] BUN 57(H) 6 - 25 mg/dL [facility] Creatinine 1.51(H) 0.80 - 1.30 mg/dL [facility] Glucose 132 70 - 199 mg/dL [facility] Comment: Interpretive Data Fasting glucose >/= 126 mg/dl is diagnostic for diabetes. Fasting is defined as no caloric intake for at least 8 hours. Fasting glucose between 100 mg/dl to 125 mg/dl is diagnostic of prediabetes. In a patient with classic symptoms of hyperglycemia or hyperglycemic crisis, a random glucose >/= 200 mg/dl is diagnostic for diabetes. In the absence of unequivocal hyperglycemia, results should be confirmed by repeat testing. The classification and Diagnosis of Diabetes Diabetes Care 2021; 46: S19-S40. Current interpretive data was last revised 2022. Calcium 9.7 8.5 - 10.3 mg/dL [facility] Bilirubin, total 0.4 0.1 - 1.2 mg/dL [facility] Protein, pl 8.1 6.5 - 8.5 g/dL [facility] Albumin 3.9 3.5 - 5.0 g/dL [facility] Alk phos 153(H) 40 - 130 Units/L [facility] ALT 13 7 - 55 Units/L [facility] AST 19 10 - 50 Units/L [facility] Blood 03/25/2025 10:1 7 PM CDT 03/25/2025 10:38 PM CDT us Eric Olson MD LAB BLOOD ORDERABLES Final Result [facility] [place] [address] * US Carotids Duplex Bilateral (03/13/2025 1:09 PM CDT) Anatomical Region Laterality Modality Vascular Bilateral Ultrasound 03/13/2025 12:5 2 PM CDT Narrative 03/13/2025 8:52 PM CDT [facility] - Department of Vascular Surgery, Vascular Laboratory [address] [place] [id number] Carotid Duplex Ultrasound Report Patient Name: FAVIO NGUYEN : 1950 (74y 10m) Study Date: 03/13/2025 12:52:08 PM Gender: M Tech: BAD Location: [facility] Ref Provider: ALEXUS BUTLER Quality: Adequate Order Provider: ALEXUS BUTLER PROCEDURES: Carotid Report: Carotid duplex examination of the extracranial arteries was performed using 2D, color and spectral Doppler. INDICATIONS: I65.23 Occlusion and stenosis of bilateral carotid arteries and Z48.812 Encounter for surgical aftercare following surgery on the circulatory system. MEASUREMENTS: Right Value Units Left Value Units RT Prox CCA PSV 146 cm/sec LT Prox CCA PSV 92 cm/sec RT Prox CCA EDV 6 cm/sec LT Prox CCA EDV 11 cm/sec RT Distal CCA PSV 90 cm/sec LT Distal CCA PSV 88 cm/sec RT Distal CCA EDV 16 cm/sec LT Distal CCA EDV 10 cm/sec RT Prox ICA PSV 104 cm/sec LT Prox ICA PSV 158 cm/sec RT Prox ICA EDV 24 cm/sec LT Prox ICA EDV 22 cm/sec RT Mid ICA PSV 82 cm/sec LT Mid ICA PSV 121 cm/sec RT Mid ICA EDV 20 cm/sec LT Mid ICA EDV 34 cm/sec RT Distal ICA PSV 102 cm/sec LT Distal ICA PSV 97 cm/sec RT Distal ICA EDV 18 cm/sec LT Distal ICA EDV 21 cm/sec RT ECA Prx PSV 329 cm/sec LT ECA Prx PSV 217 cm/sec RT ICA/CCA 1.15 ratio LT ICA/CCA 1.80 ratio RT VERT PSV 55 cm/sec LT VERT PSV 26 cm/sec FINDINGS: Performing Engrosser: Yoli Mueller RVT. Rt Common Carotid Artery: The plaque in the right CCA appears to be heterogeneous and smooth. Atherosclerotic changes of the right common carotid artery with no hemodynamically significant Doppler findings. Rt External Carotid Artery: Patent right external carotid artery with evidence of atherosclerotic disease present. Rt Vertebral Artery: The right vertebral artery is patent with antegrade flow. Lt Common Carotid Artery: The plaque in the left CCA appears to be heterogeneous and smooth. Atherosclerotic changes of the left common carotid artery with no hemodynamically significant Doppler findings. Lt External Carotid Artery: Patent left external carotid artery with evidence of atherosclerotic disease present. Lt Vertebral Artery: The left vertebral artery is patent with antegrade flow. Comments: The stented right Internal Carotid Artery is patent and throughout the stent a maximum peak systolic velocity 104cm/sec, an end diastolic velocity of 24cm/sec, stented ICA/CCA ratio 1.15. The stented left Internal Carotid Artery is patent and throughout the stent a maximum peak systolic velocity 158cm/sec, an end diastolic velocity of 22cm/sec, stented ICA/CCA ratio 1.80. CONCLUSIONS: 1. No evidence of hemodynamically significant stenosis in the common carotid artery bilaterally. 2. Normal, antegrade flow is noted in bilateral vertebral arteries. 3. The stented right Internal Carotid Artery is patent and throughout the stent a maximum peak systolic velocity 104cm/sec, an end diastolic velocity of 24cm/sec, stented ICA/CCA ratio 1.15. The stented left Internal Carotid Artery is patent and throughout the stent a maximum peak systolic velocity 158cm/sec, an end diastolic velocity of 22cm/sec, stented ICA/CCA ratio 1.80. HISTORY: 02/07/2025 Rt TCAR Left carotid stent done at an outside facility - PREVIOUS STUDIES: Previous carotid ultrasound on 01/09/25 Rt=>70, Lt patent stent, antegrade verts - DISCLAIMER: The study images and the final report will be retained in the patient chart by the Vascular Laboratory for the legally required time period. This chart constitutes the legal record of any testing performed. ATTESTATION: I have reviewed and interpreted the pertinent images and measurements of this study. I attest to the conclusions in the final report that is provided above. Electronically Signed By: Julio C Cancino MD [facility] [phone] 03/13/2025 7:48:16 PM CDT Procedure Note Julio C Cancino MD - 03/13/2025 [facility] - Department of Vascular Surgery,Vascular Laboratory [address] [place] [id number] Carotid Duplex Ultrasound Report Patient Name: FAVIO NGUYEN : 1950 (74y 10m) Study Date: 03/13/2025 12:52:08 PM Gender: M Tech: BAD Location: [facility] Ref Provider: ALEXUS BUTLER Quality: Adequate Order Provider: ALEXUS BUTLER PROCEDURES: Carotid Report: Carotid duplex examination of the extracranial arterieswas performed using 2D, color and spectral Doppler. INDICATIONS: I65.23 Occlusion and stenosis of bilateral carotid arteries and Z48.812Encounter for surgical aftercare following surgery on the circulatory system. MEASUREMENTS: Right Value Units Left Value Units RT Prox CCA PSV 146 cm/sec LT Prox CCA PSV 92 cm/sec RT Prox CCA EDV 6 cm/sec LT Prox CCA EDV 11 cm/sec RT Distal CCA PSV 90 cm/sec LT Distal CCA PSV 88 cm/sec RT Distal CCA EDV 16 cm/sec LT Distal CCA EDV 10 cm/sec RT Prox ICA PSV 104 cm/sec LT Prox ICA PSV 158 cm/sec RT Prox ICA EDV 24 cm/sec LT Prox ICA EDV 22 cm/sec RT Mid ICA PSV 82 cm/sec LT Mid ICA PSV 121 cm/sec RT Mid ICA EDV 20 cm/sec LT Mid ICA EDV 34 cm/sec RT Distal ICA PSV 102 cm/sec LT Distal ICA PSV 97 cm/sec RT Distal ICA EDV 18 cm/sec LT Distal ICA EDV 21 cm/sec RT ECA Prx PSV 329 cm/sec LT ECA Prx PSV 217 cm/sec RT ICA/CCA 1.15 ratio LT ICA/CCA 1.80 ratio RT VERT PSV 55 cm/sec LT VERT PSV 26 cm/sec FINDINGS: Performing Engrosser: Yoli Mueller RVT. Rt Common Carotid Artery: The plaque in the right CCA appears to beheterogeneous and smooth. Atherosclerotic changes of the right common carotid artery with no hemodynamically significant Doppler findings. Rt External Carotid Artery: Patent right external carotid artery withevidence of atherosclerotic disease present. Rt Vertebral Artery: The right vertebral artery is patent with antegradeflow. Lt Common Carotid Artery: The plaque in the left CCA appears to beheterogeneous and smooth. Atherosclerotic changes of the left common carotid artery with nohemodynamically significant Doppler findings. Lt External Carotid Artery: Patent left external carotid artery withevidence of atherosclerotic disease present. Lt Vertebral Artery: The left vertebral artery is patent with antegradeflow. Comments: The stented right Internal Carotid Artery is patent andthroughout the stent a maximum peak systolic velocity 104cm/sec, an end diastolic velocity of24cm/sec, stented ICA/CCA ratio 1.15. The stented left Internal Carotid Artery is patent andthroughout the stent a maximum peak systolic velocity 158cm/sec, an end diastolicvelocity of 22cm/sec, stented ICA/CCA ratio 1.80. CONCLUSIONS: 1. No evidence of hemodynamically significant stenosis in the commoncarotid artery bilaterally. 2. Normal, antegrade flow is noted in bilateral vertebral arteries. 3. The stented right Internal Carotid Artery is patent and throughout thestent a maximum peak systolic velocity 104cm/sec, an end diastolic velocity of 24cm/sec,stented ICA/CCA ratio 1.15. The stented left Internal Carotid Artery is patent andthroughout the stent a maximum peak systolic velocity 158cm/sec, an end diastolic velocity of22cm/sec, stented ICA/CCA ratio 1.80. HISTORY: 02/07/2025 Rt TCAR Left carotid stent done at an outside facility - PREVIOUS STUDIES: Previous carotid ultrasound on 01/09/25 Rt=>70, Lt patent stent, antegradeverts - DISCLAIMER: The study images and the final report will be retained in the patientchart by the Vascular Laboratory for the legally required time period. This chartconstitutes the legal record of any testing performed. ATTESTATION: I have reviewed and interpreted the pertinent images and measurements ofthis study. I attest to the conclusions in the final report that is provided above. Electronically Signed By: Julio C Cancino MD [facility] [phone] 03/13/2025 7:48:16 PM CDT Alexus Butler MD [facility] [place]EDURES Final Re sult * (ABNORMAL) Lipid panel (12/30/2024 11:28 PM CDT) Cholesterol 66 30 - 199 mg/dL Comment: Interpretive Data Ages < or = 19 years Acceptable: <170 mg/dL Borderline high: 170-199 mg/dL High: >or= 200 mg/dL Ages > or = 20 years Desirable: <200 mg/dL Borderline high: 200-239 mg/dL High: >or= 240 mg/dL Literature References: 1. Expert Panel on Integrated Guidelines for Cardiovascular Health and Risk Reduction in Children and Adolescents. Pediatrics 2011;128:S213 2. NCEP Expert Panel. Circulation 2004;110:227 Current Interpretive Data was last revised on 2018. Triglycerides 75 <=149 mg/dL [facility] Comment: Interpretive Data Ages < or = 9 years Acceptable: <75 mg/dL Borderline high: 75-99 mg/dL High: >or= 100 mg/dL Ages 10 to 20 years Acceptable: <90 mg/dL Borderline high: 90-129 mg/dL High: >or= 130 mg/dL Ages > or = 20 years Desirable: <150 mg/dL Borderline high: 150-199 mg/dL High: 200-499 mg/dL Very high: >or= 499 mg/dL Literature References: 1. Expert Panel on Integrated Guidelines for Cardiovascular Health and Risk Reduction in Children and Adolescents. Pediatrics 2011;128:S213 2. NCEP Expert Panel. Circulation 2004;110:227 Current Interpretive Data was last revised on 2018. HDL 25(L) >=40 mg/dL [facility] Comment: Interpretive Data Ages < or = 19 years Acceptable: >45 mg/dL Borderline low: 40-45 mg/dL Low: <40 mg/dL Ages > or = 20 years Desirable: >or= 60 mg/dL Low: <40 mg/dL Literature References: 1. Expert Panel on Integrated Guidelines for Cardiovascular Health and Risk Reduction in Children and Adolescents. Pediatrics 2011;128:S213 2. NCEP Expert Panel. Circulation 2004;110:227 Current Interpretive Data was last revised on 2018. LDL, calculated 25 <=129 mg/dL [facility] Comment: Interpretive Data Ages < or = 19 years Acceptable: <110 mg/dL Borderline high: 110-129 mg/dL High: >or= 130 mg/dL Ages > or = 20 years Optimal: <100 mg/dL Near optimal: 100-129 mg/dL Borderline high: 130-159 mg/dL High: >160 mg/dL Calculated using the Sunil LDL-C estimating equation. This equation was implemented on 2024. Prior to this date LDL-C was estimated using the Friedewald equation. Literature References: 1. Expert Panel on Integrated Guidelines for Cardiovascular Health and Risk Reduction in Children and Adolescents. Pediatrics 2011;128:S213 2. NCEP Expert Panel. Circulation 2004;110:227 3. Sunil Foley et al. YVONNE Cardiol. 2020 January 31;5(5):540-548. doi: 10.1001/[email or web address].2020.0013 Current Interpretive Data was last revised on 2024. Non-HDL Cholesterol 41 mg/dL [facility] Comment: Interpretive Data Ages < or = 19 years Acceptable: <120 mg/dL Borderline high: 120-144 mg/dL High: >145 mg/dL Ages > or = 20 years When triglycerides are >200 mg/dL, Non-HDL cholesterol is a secondary target of therapy with treatment goals that are 30 mg/dL greater than the LDL cholesterol target. Literature References: 1. Expert Panel on Integrated Guidelines for Cardiovascular Health and Risk Reduction in Children and Adolescents. Pediatrics 2011;128:S213 2. NCEP Expert Panel. Circulation 2004;110:227 Current Interpretive Data was last revised on 2018. Chol/HDL ratio 3 [facility] Blood 12/30/2024 11:2 8 PM CDT 12/30/2024 11:33 PM CDT us Alexus Wiseman MD LAB BLOOD ORDERABLES Final Result Performing Organization Address City/State/[facility] Phone Number [facility] [address] [facility]. Department [place] [address] from Last 3 Months or Most Recently Relevant to Health Maintenance Insurance MEDICARE [facility] MEDICARE SUPPLEMENT MEDICARE [employer] SENIOR SUPPLEMENT MEDICARE [facility] MEDICARE SUPPLEMENT Advance Directives For more information, please contact: [phone] * Full Code (Latest Code Status on File) Date Activated Date Inactivated Comments 04/09/2025 4:39 PM 04/12/2025 7:20 PM * Full Code Date Activated Date Inactivated Comments 04/09/2025 8:35 AM 04/09/2025 4:39 PM * Full Code Date Activated Date Inactivated Comments 02/07/2025 4:36 PM 02/09/2025 7:29 PM * Full Code Date Activated Date Inactivated Comments 12/31/2024 12:42 AM 01/01/2025 3:41 PM * Full Code Date Activated Date Inactivated Comments 08/28/2024 1:59 AM 08/30/2024 4:23 PM Care Teams Milled Rice Broker Relationship Specialty Start Date End Date Jaime Ray MD PCP - General Internal Medicine 02/13/19 Karlo Lee MD Consulting Physician Hematology and Oncology 05/26/21 Olesya Fernandez, smoking tobacco cutter operator Failure Coordinator 01/16/25 Alexus Butler MD [id number] [place] [address] Surgeon Vascular Surgery 02/09/25
--- OUTSIDE RECORDS SUMMARY | 2025-05-14 12:28 | XMS_ITS | Encounter Summary ---
Author Organization [facility] Healthcare Address [address] [place] [address] Care Team Providers Care Pantry Attendant Name Role Phone Jaime Ray MD Primary Care Provider Karlo Lee MD Unavailable [phone] Olesya Fernandez RN Unavailable Unavailable Gurmeet Butler MD Unavailable Encounter Details Date Type Department Care Team (Late st Contact Info) Description 05/13/2025 Orders Only [facility] INTERFACE [id number] Henry Becerril MD [address] [place], [place] [id number] Social History Tobacco Use Types Packs/Day Years Used Date Smoking Tobacco: Former Cigarettes 1.5 55 1 11/17/1966 - 09/16/2022 Passive Smoke Exposure: Past Smokeless Tobacco: Never Alcohol Use Standard Drinks/Week Comments Yes 0 (1 standard drink = 0.6 oz pur e alcohol) Rare [facility] Utilities Answer Date Recorded In the past 12 months has [employer] electric, gas, oil, or water company threatened [...] you attend chur ch or congregation services? Never 04/10/2025 Do you belong to any clubs o r organizations such as oriental orthodox groups, unions, fraternal or athletic groups, or [...] place to sleep or slept in a [place] (including now)? No 11/28/2023 Housing Stability Vital Sign Answer Jairo e Recorded In the last 12 months, was t here a time when you were not able to pay the mortgage or rent on time? No 04/10/2025 In the past 12 months, how m any times have you moved where you were living? 0 04/10/2025 At any time in the past 12 m [facility], were you homeless or living in a [place] facility (including now)? No 04/10/2025 Personal Safety Answer Date Recorded Have you ever been in or are you currently in a harmful physical or emotional relationship or is someone making you feel afraid or unsafe? 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 Gender Identity Male 05/11/2021 6:50 PM CDT Sexual Orientation Not on file documented as of this encounter Plan of Treatment Not on file documented as of this encounter Procedures Procedure Name Priority Date/Time Associated Diagnosis Comments SPECIMEN STATUS REPORT Routine 05/13/2025 12:39 PM CDT BASIC METABOLIC PANEL Routine 05/13/2025 12:39 PM CDT documented in this encounter Results * Specimen Status Report (05/13/2025 12:39 PM CDT) Specimen Status Report Comment [facility] - 01 Comment: Maldonado Parekh BMP8 Default Maldonado Motav BMP8 Default A hand-written panel/profile was received from your office. In accordance with the [facility] Ambiguous Test Code Policy dated April 2003, we have completed your order by using the closest currently or formerly recognized AMA panel. We have assigned Basic Metabolic Panel (8), Test Code #313020 to this request. If this is not the testing you wished to receive on this specimen, please contact [facility] Client [facility]quiry/Technical Services Department to clarify the test order. We appreciate your business. 05/13/2025 12:3 9 PM CDT 05/13/2025 Narrative [facility] - 05/14/2025 7:09 AM CDT Performed at: [address] [place] [id number] Crossbar Switch Adjuster: Alex Gurrola PhD, Phone: [phone] us Henry Becerril MD LAB BLOOD ORDERABLES Final Res ult Performing Organization Address [facility] Co de Phone Number [facility] - * (ABNORMAL) Basic metabolic panel (05/13/2025 [...] - 05/14/2025 7:09 AM CDT Performed at: 01 - [place] [address] Crossbar Switch Adjuster: Alex Gurrola PhD, Phone: [phone] us Henry Becerril MD LAB BLOOD ORDERABLES Final Res ult Performing Organization Address City/[facility]/ZIP Co de Phone Number [facility] - documented in this encounter Visit Diagnoses Not on filedocumented in this encounter Care Teams Pantry Attendant Relationship Specialty Start Date End Date Jaime Ray MD PCP - General Internal Medicine 02/13/19 Karlo Lee MD Consulting Physician Hematology and Oncology 05/26/21 Olesya Fernandez RN Heart Failure Coordinator 01/16/25 Gurmeet Butler MD [id number] [place] [address] Surgeon Vascular Surgery 02/09/25 documented as of this encounter
--- OUTSIDE RECORDS SUMMARY | 2025-05-14 12:28 | XMS_ITS | Clinical Summary ---
Author Organization [facility] [employer] Address [address] [place] [address] Care Team Providers Care Edi Coordinator Name Role Phone Jaime Ray MD Primary Care Provider [phone] Source Comments [facility] [employer],non-owned Affiliates and Associated Physician Practices is amultiple site organization consisting of ambulatory clinics and hospital sitesin [place], [place], [place] and [place]. This disclosure is being madepursuant to the Care Everywhere program and may not contain all information available regarding this patient. Last updated 18.[facility] [employer] Medications * Be aware that medications may not be up to date on this document. Alwaysverify current medications with the patient. amLODIPine (NORVASC) 5 MG tablet Take 5 mg by mouth DAILY. 90 tablet 3 8 Active carvedilol (COREG) 25 MG tablet Take 25 mg by mouth BID. 180 tablet 3 8 Active cilostazol (PLETAL) 100 MG tablet Take 100 mg by mouth DAILY. 60 tablet 2 7 Active aspirin (ASPIRIN) 81 MG tablet Take 81 mg by mouth once daily Active losartan (COZAAR) 100 MG tablet Take 1 tablet by mouth once daily 90 tablet 3 9 Active atorvastatin (LIPITOR) 80 MG tablet Take 1 tablet by mouth once daily 90 tablet 3 0 Active clopidogrel (PLAVIX) 75 MG tablet Take 1 (one) tablet by mouth once daily MUST get appointment for more refills [phone] 30 tablet 1 Active Active Problems Problem Noted Date Diagnosed Date ST elevation (STEMI) myocardial infarction 05/15 Peripheral vascular disease 11/16/2011 Occlusion and stenosis of unspecified carotid ar cristine 11/16/2011 Immunizations Immunization Administration Dates Next Due PNEUMOCOCCAL PPSV23 05/15/2012 Social History Tobacco Use Types Packs/Day Years Used Date Smoking Tobacco: Every Day Cigarettes Smokeless Tobacco: Never Tobacco Cessation:Ready to Q uit: No; Counseling Given: No Alcohol Use Standard Drinks/Week Comments No 0 (1 standard drink = 0.6 oz pur e alcohol) Sex and Gender Information Value Date Recorded Sex Assigned at Not on file 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 Gender Identity Not on file Sexual Orientation Not on file Last Filed Vital Signs Vital Sign Reading Time Taken Comments Blood Pressure 121/51 05/30/2018 12:37 PM CDT Pulse 59 05/30/2018 12:37 PM CDT Temperature 36.2 C (97.1 F) 05/30/2018 12:37 PM CDT Respiratory Rate 14 05/01/2013 9:00 AM CDT Oxygen Saturation 97% 12/13/2017 10:26 AM CDT Inhaled Oxygen Concentration - - Weight 73 kg (161 lb) 05/30/2018 12:37 PM CDT Height 165.1 cm (5' 5) 05/30/2018 12:37 PM CDT Body Mass Index 26.79 05/30/2018 12:37 PM CDT Plan of Treatment Health Maintenance Due Date Last Done Comments COLOGUARD (AGES 45-75) - COLON CA SCREENING 1950 COLON MONITORING 1950 COLONOSCOPY - COLON CA SCREENING 1950 CT COLONOGRAPHY - COLON CA SCREENING 1950 Colorectal Cancer Screening 1950 FIT - COLON CA SCREENING 1950 FLEX SIG - COLON CA SCREENING 1950 MEDICARE AWV 12 MONTHS 1950 DTAP/TDAP/TD VACCINES (1 - Tdap) 1969 ZOSTER VACCINE (1 of 2) 2000 PNEUMOCOCCAL VACCINE 50+ (2 of 2 - PCV) 05/15/2013 05/15/2012 COVID-19 VACCINE (3 - season) 2024 12/01/2020, 11/03/2020 DEPRESSION SCREENING 10/03/2024 Respiratory Syncytial Virus (RSV) Vaccine Pt: or over 60 yrs (1 - 1-dose 75+ series) 2025 INFLUENZA VACCINE (#1) 2025 SCREENING FOR DIABETES 12/15/2025 3, 05/01/2013, 04/30/2013, Additional history exists HEPATITIS C SCREENING Completed 06/20/2012, 012 HEPATITIS B VACCINE Aged Out No longe r eligible based on patient's age to complete this topic HIB VACCINE Aged Out No longer eligi ble based on patient's age to complete this topic HPV VACCINE Aged Out No longer eligi ble based on patient's age to complete this topic MENINGOCOCCAL (Group B) VACCINE SHARED DECISION-MAKING Aged Out No longer eligible based on patient's age to complete this topic MENINGOCOCCAL GROUPS A/C/Y/W VACCINE Aged Out No longer eligible based on patient's age to complete this topic Procedures Procedure Name Priority Date/Time Associated Diagnosis Comments BASIC METABOLIC PANEL (CALCIUM TOTAL) Routine 05/01/2013 1:08 AM CDT HEPATITIS C AB W RFLX VERIFICATION Routine 06/20/2012 2:24 PM CDT from Last 3 Months or Most Recently Relevant to Health Maintenance Results * (ABNORMAL) BASIC METABOLIC PANEL (CALCIUM TOTAL) (05/01/2013 1:08 AM CDT) BUN 22 7 - 26 mg/dL [facility] Creatinine 1.2 0.6 - 1.2 mg/dL [facility] eGFR by MDRD > 60 ML/MIN [facility] Comment: Chronic kidney disease: <60 ml/min Kidney failure: <15 ml/min Based on BSA of 1.73m2. Sodium 144 136 - 145 mmol/L [facility] Potassium 3.9 3.5 - 4.5 mmol/L [facility] Chloride 109(H) 98 - 107 mmol/L [facility] CO2 24 22 - 29 mmol/L [facility] Glucose 133(H) 70 - 115 mg/dL [facility] Calcium 9.3 8.4 - 10.2 mg/dL [facility] Anion Gap 15 8 - 18 [facility] BUN/Creatinine Ratio 18 7 - 23 [facility] Osmolality Calculation 287 270 - 300 mOsm/kg [facility] Venous blood specimen (specimen) BLOOD SPECIMEN / Unknown 05/01/2013 1:08 AM CDT 05/01/2013 1:25 AM CDT Narrative [facility] - 05/01/2013 1:55 AM CDT IS PATIENT ON HEPARIN? (Y OR N) N us Richard May MD LAB - CHEMISTRY ORDERABLES Fin al Result [address] [phone] * HEPATITIS C AB W RFLX VERIFICATION (06/20/2012 2:24 PM CDT) Hepatitis C Antibody <0.1 0.0 - 0.9 s/co ratio [facility] ([facility]) 06/20/2012 2:24 PM CDT 06/20/2012 6:32 PM CDT Narrative [facility] ([facility]) - 06/21/2012 9:33 AM CDT Performed at: [facility] [address] [place], [place] [id number] Store Group Manager: Fanny Hathaway MD, Phone: [phone] us Juliana Gaines MD LAB - CHEMISTRY ORDERA BLES Final Result [facility] ([facility]) [address] [place] [address] from Last 3 Months or Most Recently Relevant to Health Maintenance Insurance MEDICARE AETNA MEDICARE AETNA MEDICARE Member Subscriber Plan / Payer (Ef fective for All Dates) Name:Favio Nguyen R Member ID:[id number] Relation to Subscriber:Self Name:FAVIO NGUYEN Subscriber ID:[id number] Payer ID:Not on file Group ID:Not on file Type:Medicare Address: [place] [id number] MEDICARE MEDICARE MEDICARE MEDICARE MEDICARE Member Subscriber Plan / Payer (Ef fective for All Dates) Name:Favio Nguyen R Member ID:[id number] Relation to Subscriber:Self Name:FAVIO NGUYEN Subscriber ID:[id number] Payer ID:Not on file Group ID:Not on file Type:Medicare Address: [address] Member Subscriber Plan / Payer (Ef fective for All Dates) Name:Favio Nguyen R Member ID:[id number] Relation to Subscriber:Self Name:FAVIO NGUYEN Subscriber ID:[id number] Payer ID:Not on file Group ID:Not on file Type:Medicare Address: [place] [id number] Member Subscriber Plan / Payer (Ef fective for All Dates) Name:Favio Nguyen R Member ID:[id number] Relation to Subscriber:Self Name:FAVIO NGUYEN Subscriber ID:[id number] Payer ID:Not on file Group ID:Not on file Type:Medicare Address: [address] MEDICARE MEDICARE MEDICARE MEDICARE MEDICARE ANTH AETNA [place] [address] MEDICARE ANTHEM AETNA MEDICARE [facility] AETNA [place] [address] MEDICARE ANTHEM AETNA MEDICARE [facility] AET[place] [address] MEDICARE ANTHEM AETNA MEDICARE [facility] AETNA MEDICARE ANTHEM [facility] [place] [address] MEDICARE ANTHEM AETNA MEDICARE [facility] AETNA MEDICARE [facility] [place] [address] MEDICARE ANTHEM AETNA MEDICARE [facility] MEDICARE MEDICARE MEDICARE * Guarantor: FAVIO NGUYEN Account Type Relation to Patient Date of Phone Billing Address Personal/Family [address] [place] [address] MEDICARE ANTH * Guarantor: FAVIO NGUYEN Account Type Relation to Patient Date of Phone Billing Address Personal/Family [address] [place] [address] MEDICARE * Guarantor: FAVIO NGUYEN Account Type Relation to Patient Date of Phone Billing Address Personal/Family [address] [place] [address] [facility]ICARE [facility] Care Teams Edi Coordinator Relationship Specialty Start Date End Date Jaime Ray MD [address] [place], [place] [id number] PCP - General 05/04/13
--- OUTSIDE RECORDS SUMMARY | 2025-05-14 12:28 | XMS_ITS | Encounter Summary ---
Author Organization [facility] Address [address] [place] [address] Phone Care Team Providers Care Data Software Engineer Name Role Phone Jaime Ray MD Primary Care Provider Karlo Lee MD Unavailable [phone] Anny Saez RN Unavailable [phone] Alee Queen FITNESS FLOOR ATTENDANT Unavailable [phone] Gia Vieira FITNESS FLOOR ATTENDANT Unavailable Olesya Fernandez RN Unavailable Unavailable Gurmeet Butler MD Unavailable [phone] Encounter Details Date Type Department Care Team (Late st Contact Info) Description 05/11/2021 Telephone [facility] Oncology [facility] Advanced Medicine 7th [place] [address] [place] [address] Casandra Salter Social History Tobacco Use Types Packs/Day Years Used Date Smoking Tobacco: Every Day Cigarettes 0.3 55 Smokeless Tobacco: Never Alcohol Use Standard Drinks/Week Comments Yes 0 (1 standard drink = 0.6 oz pur e alcohol) Rare AUDIT-C Answer Date Recorded Q1: How often do you have a drink containing alc ohol? Never 04/02/2021 Q2: How many drinks containi ng alcohol do you have on a typical day when you are drinking? 1 or 2 04/02/2021 Q3: How often do you have six or more drinks on one occasion? 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 12/27/2022 12/27/2022 03/27/2023 3:05 AM C DT COVID: Suspected 08/27/2024 08/27/2024 08/27/2024 11:39 PM BOX PRINTER COVID: Suspected 12/30/2024 12/30/2024 12/30/2024 10:30 PM CDT COVID: Suspected 12/30/2024 12/30/2024 12/30/2024 11:43 PM CDT documented as of this encounter Care Teams Data Software Engineer Relationship Specialty Start Date End Date Jaime Ray MD PCP - General Internal Medicine 02/13/19 Karlo Lee MD Consulting Physician Hematology and Oncology 05/26/21 Anny Saez, RN [address] [address] [facility] Outpatient Auto Body Technician 12/20/22 01/16/23 Alee Queen LCSW [address] [facility] ([facility] Mailstop [phone] [place] [address] [facility] Outpatient Auto Body Technician 11/25/23 12/21/23 Gia Vieira LCSW [address] [facility] ([facility]) Mailstop [phone] [place] [address] [facility] Outpatient Auto Body Technician 08/31/24 09/27/24 Olesya Fernandez, field human resources manager Failure Coordinator 01/16/25 Gurmeet Butler MD [id number] [place] [address] Surgeon Vascular Surgery 02/09/25 documented as of this encounter
--- OUTSIDE RECORDS SUMMARY | 2025-05-14 12:28 | XMS_ITS | Encounter Summary ---
Author Organization [facility] Address [address] [place] [address] Care Team Providers Care Formwork Carpenter Name Role Phone Jaime Ray MD Primary Care Provider Karlo Lee MD Unavailable [phone] Gia Vieira [facility] Unavailable [phone] Olesya Fernandez RN Unavailable Unavailable Gurmeet Butler MD Unavailable [phone] Encounter Details Date Type Department Care Team (Late st Contact Info) Description 09/03/2024 Documentation Internal Medicine [facility] Lobato Social History Tobacco Use Types Packs/Day Years Used Date Smoking Tobacco: Former Cigarettes 1.5 55 1 11/17/1966 - 09/16/2022 Smokeless Tobacco: Never Alcohol Use Standard Drinks/Week Comments Yes 0 (1 standard drink = 0.6 oz pur e alcohol) Rare [facility] Utilities Answer Date Recorded In the past 12 months has [employer], gas, oil, or water [employer] threatened to shut off services in your home? No 08/31/2024 Social Connection and Isolation Panel Answer Date Recorded In a typical week, how many times do you talk on the phone with family, friends, or neighbors? Three times a week 08/31/2024 How often do you get togethe r with friends or relatives? Three times a week 08/31/2024 How often do you attend [facility] or church services? More than 4 times per year 08/31/2024 Do you belong to any clubs o r organizations such as synagogue groups, unions, fraternal or athletic groups, or [...] place to sleep or slept in a halfway (including now)? No 11/28/2023 Housing Stability Vital Sign Answer Jairo e Recorded In the last 12 months, was t here a time when you were not able to pay the mortgage or rent on time? No 08/31/2024 In the past 12 months, how m any times have you moved where you were living? 0 08/31/2024 At any time in the past 12 m [facility], were you homeless or living in a halfway (including now)? No 08/31/2024 Personal Safety Answer Date Recorded Have you ever been in or are you currently in a harmful physical or emotional relationship or is someone making you feel afraid or unsafe? 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 ([facility] Mailstop [phone] [place] [address] [facility] Outpatient Sign Language Teacher 08/31/24 09/27/24 Olesya Fernandez, oil field equipment mechanic Failure Coordinator 01/16/25 Gurmeet Butler MD [id number] [place] [address] Surgeon Vascular Surgery 02/09/25 documented as of this encounter
== END 2025-05-14 11:43 | disposition home or self-care (01) ==
PROVIDERS: Visit Provider Internal Medicine
DX: M10.9 Gout, unspecified (principal); M18.11 Unilateral primary osteoarthritis of first carpometacarpal joint, right hand; M79.89 Other specified soft tissue disorders
CPT/HCPCS: 73120; 73620

== ENCOUNTER 2025-06-18 12:50 | Outpatient (CLI) | payer MEDICARE, SELFPAY ==
--- NOTE | ~2025-06-18 | MR_ITS ---
EXAMINATION: MR foot LT wo con DATE: 06/18/2025 13:37 INDICATION: Left foot pain TECHNIQUE: Magnetic resonance imaging (MRI) of the left fore/mid foot was performed without intravenous contrast. Sequences included sagittal T1-weighted FSE, sagittal fluid sensitive FSE STIR, coronal PD-weighted FS FSE, coronal T1- weighted FSE, axial PD-weighted FS FSE, and axial PD-weighted FSE. COMPARISON: None FINDINGS: Large amount of fluid in the second intermetatarsal bursa situated between the second and third metatarsophalangeal joints which measures 2.9 cm proximal to distally, 2.2 cm dorsal plantar and 1.6 cm medial the lateral. There is cortical erosion at the dorsal/medial base of the third proximal phalanx. The collateral ligament complex and extensor expansion at the lateral side of the second metatarsophalangeal joint and medial side of the third metatarsophalangeal joint are not identified and are likely torn. There is some amorphous low signal intensity soft tissue situated at the dorsal aspect of the fluid collection between the heads of the second and third metatarsals which could represent torn tissue from the collateral ligament complex or extensor expansion. There is a boutonniere deformity of the second toe with hyperflexion proximal phalangeal joint and mild hyperextension at the metatarsophalangeal and proximal interphalangeal joints. No fracture. Mild osteoarthritis at a few of the tarsal metatarsal joints. IMPRESSION: 1. Nonspecific large amount of fluid at the second intermetatarsal bursa which could be or inflammatory, infectious or posttraumatic in etiology. 2. Juxta articular erosion at the dorsal base of the third proximal phalanx which could be related to reported history of gout. 3. The collateral ligament complexes and extensor expansion is at the lateral aspect of the second metatarsophalangeal joint and medial aspect of the third metatarsophalangeal joint are not clearly visualized and are likely torn. 4. Boutonniere deformity of the second toe. Reviewed, dictated and finalized at location A. IMPRESSION: 1. Nonspecific large amount of fluid at the second intermetatarsal bursa which could be or inflammatory, infectious or posttraumatic in etiology. 2. Juxta articular erosion at the dorsal base of the third proximal phalanx whi ch could be related to reported history of gout. 3. The collateral ligament complexes and extensor expansion is at the lateral a spect of the second metatarsophalangeal joint and medial aspect of the third me tatarsophalangeal joint are not clearly visualized and are likely torn. 4. Boutonniere deformity of the second toe.
--- NOTE | ~2025-06-18 | MR_ITS ---
EXAMINATION: MR foot RT wo con DATE: 06/18/2025 13:44 INDICATION: Right foot pain TECHNIQUE: Magnetic resonance imaging (MRI) of the right fore/mid foot was performed without intravenous contrast. Sequences included sagittal T1-weighted FSE, sagittal fluid sensitive FSE STIR, coronal PD-weighted FS FSE, coronal T1- weighted FSE, axial PD-weighted FS FSE, and axial PD-weighted FSE. COMPARISON: Radiograph dated 05/14/2025 FINDINGS: Bone alignment is normal. No fracture. Subtly heterogeneous T2 hyperintense other likely synovitis distending the capsule of the first metatarsophalangeal joint. There is secondary or juxta-articular chronic erosions at the medial head of the first metatarsal and medial base of the first proximal phalanx which demonstrate thin sclerotic margins and overhanging edges on prior radiographs with classic appearance for chronic erosions in the setting of gout. The joint space at the first metatarsophalangeal joint as well as the remaining joint spaces throughout the mid and forefoot appear relatively preserved. The Lisfranc ligament complex along with the collateral ligament complex at the metatarsophalangeal and interphalangeal joints are normal. The visualized portions of the flexor and extensor tendons are normal with no tenosynovitis. Intrinsic muscles with foot demonstrate normal bulk and signal. IMPRESSION: 1. Prominent synovitis at the first metatarsophalangeal joint with chronic juxta articular erosions at the head of the first metatarsal and base of the first proximal phalanx with classic appearance for gout. Otherwise unremarkable MRI of the right mid and forefoot. Reviewed, dictated and finalized at location A. IMPRESSION: 1. Prominent synovitis at the first metatarsophalangeal joint with chronic juxt a articular erosions at the head of the first metatarsal and base of the first proximal phalanx with classic appearance for gout. Otherwise unremarkable MRI o f the right mid and forefoot.
== END 2025-06-18 12:51 | disposition home or self-care (01) ==
PROVIDERS: PCP Internal Medicine; Visit Provider Internal Medicine
DX: M79.672 Pain in left foot (principal); M65.871 Other synovitis and tenosynovitis, right ankle and foot
CPT/HCPCS: 73718